=== PATIENT | male | born 1955 | race Caucasian/White ===

== ENCOUNTER 2017-01-29 14:15 | Observation (INO) | payer BC ==
[~2017-01-29] VITALS: Ht 188 cm; Wt 87.5 kg
[~2017-01-29 14:15] MED LIST: AC325T PO; ACET-2267 PO; ACET-2469 PO; ALPR0.5T PO; ALPR0.5T7 PO; ALPR1TAB2 PO; ALPR1TAB7 PO; AMLO5TAB2 PO; ASP325TEC PO; ASP81TEC PO; ATOR10TA PO; ATOR10TA66 PO; ATR20T PO; CLOP75TA PO; CLOP75TA28 PO; CYCL10TA9 PO; DEXT1TAB3 PO; EZET10TA5 PO; FLC1T PO; FOLI0.8T PO; HCT25T PO; IBUP-30 PO; MELA1TAB11 PO; METO-272 PO; METO25TA PO; NF-ESOM40C PO; NIAC1CAP PO; NIAC250T17 PO; NITR0.3T6 SL; NTR.4SL SL; OMEG-109 PO; OMG1KC PO; OXYC-272 PO; OXYC-465 PO; PANT20TA PO; PANT20TA2 PO; PANT20TA3 PO; PRAV80TA2 PO; RANO500T3 PO; ZLP10T PO; ZOLP10TA5 PO
[2017-01-29] MEDS ORDERED: ASPIRIN 81 MG CHEW (CHILDREN'S ASA) ONE (14:25)
[2017-01-29] MEDS ORDERED: RX-NITROGLYCERIN 0.4 MG TAB BTL 25'S SL PRN (14:30)
[2017-01-29] MEDS ORDERED: ASPIRIN 81 MG CHEW (CHILDREN'S ASA) PO ONE (14:30)
--- NOTE | 2017-01-29 14:30 | ED Chest Pain ---
General Stated Complaint: CHEST PAIN/TIGHTNESS Source: patient, family (spouse) Exam Limitations: no limitations History of Present Illness Time seen by provider: 14:23 Initial Comments Patient presents per private conveyance with 2-3 days of progressively worsening chest pressure and feeling of a tingling sensation in his left and right wrists as well as his left shoulder left neck and left jaw. He has had nausea without vomiting. He has no sweats. He has no thyroid or smoking history. He does have a history of prior stenosis of his coronary arteries requiring stents in the LAD a couple times. He is followed by cardiology, Dr. Hanna. He feels that this is the same way that progressively lead up to the last few times she had to be catheter and have stents placed. He's had no syncope. He does not drink or use recreational drugs. He is compliant with his medicines and has been off his Plavix since July when his suede cleaner stopped it. He still on aspirin and took 2 baby aspirins this morning. He does not have a history of blood pressure however he does use metoprolol for his heart. He denies a history of CHF. However he has had some increasing edema in his ankles bilaterally. No pain in his calves. Mild shortness of breath. No cough. Allergies and Home Medications Allergies Coded Allergies: No Known Drug Allergies (Unverified , 03/28/10) Home Medications Acetaminophen 500 Mg Tablet, 500-1,000 MG PO Q6H PRN for PAIN, (Reported) Acetaminophen/Diphenhydramine 1 Each Tablet, 2 TAB PO HS PRN for SLEEP, ( Reported) Alprazolam 0.5 Mg Tablet, 0.5 MG PO TID PRN for ANXIETY, (Reported) Amlodipine Besylate 5 Mg Tablet, 5 MG PO DAILY, (Reported) Aspirin 81 Mg Tabec, 81 MG PO HS, (Reported) Atorvastatin Calcium 10 Mg Tablet, 10 MG PO DAILY, (Reported) Clopidogrel Bisulfate 75 Mg Tablet, 75 MG PO DAILY, (Reported) Ibuprofen 200 Mg Tablet, 400 MG PO Q8H PRN for PAIN OR FEVER, (Reported) TAKES 2 (200MG) TABLETS Metoprolol Succinate 50 Mg Tab.er.24h, 50 MG PO HS, (Reported) Niacin/Inositol Niacinate 1 Each Capsule, 500 MG PO DAILY, (Reported) Nitroglycerin 0.4 Mg Tab, 0 SL UD PRN for CHEST PAIN, (Reported) 1 TABLET EVERY 5 MINUTES X 3 DOSES NEEDED FOR CHEST PAIN [place]-3 Fatty Acids/Fish Oil 1 Each Capsule, 1,200 MG PO HS, (Reported) Oxycodone HCl/Acetaminophen 1 Each Tablet, 1 TAB PO BID PRN for SEVERE PAIN, ( Reported) Pantoprazole Sodium 20 Mg Tablet.dr, 20 MG PO DAILY, (Reported) Pyridoxine/Melatonin 1 Tab Tablet, 3 MG PO HS PRN for SLEEP, (Reported) Ranolazine 500 Mg Tab.er.12h, 500 MG PO BID, #60 Ref 1 Prescribed by: LINA WALTON on 06/23/16 1600 Zolpidem Tartrate 10 Mg Tablet, 10 MG PO HS PRN for SLEEP, (Reported) Review of Systems Constitutional: see HPI, No chills, No diaphoresis, No dizziness, malaise EENTM: See HPI Respiratory: Denies Cough, Shortness of Air, SOA at Rest Cardiovascular: See HPI, Chest Pain, Edema (shania ankles) Gastrointestinal: Denies Abdomen Distended, Denies Abdominal Pain, Nausea, Denies Vomiting Musculoskeletal: No back pain, No joint pain Skin: No pruritus, No rash Psychiatric/Neurological: Denies Anxiety, Denies Depressed Endocrine: Denies Excessive Sweating, Denies Flushing, Denies Intolerance to Cold, Denies Intolerance to Heat, Denies Increased Urine Hematologic/Lymphatic: Denies Blood Clots Past Wsmtyap-Cizvup-Ccteua Hx Patient Social History Alcohol Use: Denies Use Recreational Drug Use: No Smoking Status: Never a Smoker Recent Hopitalizations: No Seasonal Allergies Seasonal Allergies: Yes Surgeries HX Surgeries: Yes (CYST REMOVED FROM RIGHT HAND, CARDIAC CATHS--STENTS X 6 PLUS ANGIOPLASTIES) Surgeries: Adenoidectomy, Coronary Stent, Tonsillectomy Respiratory Hx Respiratory Disorders: No Cardiovascular Hx Cardiac Disorders: Yes Cardiac Disorders: Coronary Artery Disease, High Cholesterol, Hypertension Neurological Hx 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) Neurological Disorders: Headaches /Migraines Reproductive System Hx Reproductive Disorders: No Sexually Transmitted Disease: No HIV/AIDS: No Genitourinary Hx Genitourinary Disorders: No Gastrointestinal Hx Gastrointestinal Disorders: Yes Gastrointestinal Disorders: Gastroesophageal Reflux Musculoskeletal Hx Musculoskeletal Disorders: Yes Musculoskeletal Disorders: Degenerate Disk Disease, Chronic Back Pain Endocrine Hx Endocrine Disorders: No HEENT HX ENT Disorders: No Loss of Vision: Denies Hearing Impairment: Denies Cancer Hx Cancer: No Psychosocial Hx Psychiatric Problems: Yes Behavioral Health Disorders: Anxiety Integumentary HX Skin/Integumentary Disorder: No Blood Transfusions Hx Blood Disorders: No Adverse Reaction to a Blood Tr: No Family Medical History Significant Family History: CAD Under 55 Years Old Family Medial History: Family history: Diabetes mellitus G8 BROTHER Myocardial infarction 19 FATHER Physical Exam Vital Signs Vital Sign - Last 12Hours 01/29/17 14:22 Temp 98.3 Pulse 55 Resp 18 B/P (MAP) 125/95 Pulse Ox 97 Capillary Refill : less than 2 secs General Appearance: WD/WN, Mild Distress HEENT: PERRL/EOMI, Pharynx Normal Neck: Normal Inspection, Supple Respiratory: Chest Non Tender, Lungs Clear, Normal Breath Sounds, No Accessory Muscle Use, No Respiratory Distress Cardiovascular: Regular Rate, Rhythm, No Gallop, No JVD, No Murmur, Normal Peripheral Pulses, Other (1+ pitting edema at the ankles) Gastrointestinal: Normal Bowel Sounds, No Pulsatile Mass, Non Tender, Soft Extremity: Normal Capillary Refill, Normal Inspection, Non Tender, No Calf Tenderness, Pedal Edema (1+) Neurologic/Psychiatric: Alert, Oriented x3, No Motor/Sensory Deficits, Normal Mood/Affect Skin: Normal Color, Warm/Dry Lymphatic: No Adenopathy Progress/Results/Core Measures Results/Orders Lab Results Laboratory Tests Test 01/29/17 14:25 Range/Units White Blood Count 6.6 4.3-11.0 10^3/uL Red Blood Count 5.30 4.35-5.85 10^6/uL Hemoglobin 16.1 13.3-17.7 G/DL Hematocrit 47 40-54 % Mean Corpuscular Volume 89 80-99 FL Mean Corpuscular Hemoglobin 30 25-34 PG Mean Corpuscular Hemoglobin Concent 34 32-36 G/DL Red Cell Distribution Width 13.5 10.0-14.5 % Platelet Count 217 130-400 10^3/uL Mean Platelet Volume 8.9 7.4-10.4 FL Neutrophils (%) (Auto) 62 42-75 % Lymphocytes (%) (Auto) 25 12-44 % Monocytes (%) (Auto) 10 0-12 % Eosinophils (%) (Auto) 3 0-10 % Basophils (%) (Auto) 0 0-10 % Neutrophils # (Auto) 4.2 1.8-7.8 X 10^3 Lymphocytes # (Auto) 1.7 1.0-4.0 X 10^3 Monocytes # (Auto) 0.6 0.0-1.0 X 10^3 Eosinophils # (Auto) 0.2 0.0-0.3 10^3/uL Basophils # (Auto) 0.0 0.0-0.1 10^3/uL Prothrombin Time 12.0 L 12.2-14.7 SEC INR Comment 0.9 0.8-1.4 Activated Partial Thromboplast Time 26 24-35 SEC Sodium Level 142 135-145 MMOL/L Potassium Level 4.1 3.6-5.0 MMOL/L Chloride Level 109 H 98-107 MMOL/L Carbon Dioxide Level 23 21-32 MMOL/L Anion Gap 10 5-14 MMOL/L Blood Urea Nitrogen 18 7-18 MG/DL Creatinine 1.15 0.60-1.30 MG/DL Estimat Glomerular Filtration Rate > 60 BUN/Creatinine Ratio 16 Glucose Level 106 H 70-105 MG/DL Calcium Level 8.8 8.5-10.1 MG/DL Magnesium Level 2.2 1.8-2.4 MG/DL Total Bilirubin 0.5 0.1-1.0 MG/DL Aspartate Amino Transf (AST/SGOT) 19 5-34 U/L Alanine Aminotransferase (ALT/SGPT) 19 0-55 U/L Alkaline Phosphatase 66 40-136 U/L Myoglobin 27.7 10.0-92.0 NG/ML Troponin I < 0.30 <0.30 NG/ML Total Protein 6.6 6.4-8.2 G/DL Albumin 4.0 3.2-4.5 G/DL My Orders Orders - SHAQ,BARBARA J Cbc With Automated Diff (01/29/17 14:30) Magnesium (01/29/17 14:30) Chest 1 View, Ap/Pa Only (01/29/17 14:30) Ekg Tracing (01/29/17 14:30) Cardiac Profile 1 (01/29/17 14:30) Comprehensive Metabolic Panel (01/29/17 14:30) Myoglobin Serum (01/29/17 14:30) Protime With Inr (01/29/17 14:30) Partial Thromboplastin Time (01/29/17 14:30) O2 (01/29/17 14:30) Monitor-Rhythm Ecg Trace Only (01/29/17 14:30) Lipid Panel (01/30/17 06:00) Rx-Nitroglycerin Sl Tabs (Rx-Nitrostat S (01/29/17 14:30) Saline Lock/Iv-Start (01/29/17 14:30) Aspirin Chewable Tablet (Baby Aspirin Ch (01/29/17 14:30) Acetaminophen Tablet (Tylenol Tablet) (01/29/17 14:53) Acetaminophen Tablet (Tylenol Tablet) (01/29/17 14:58) Medications Given in ED Current Medications Medications Dose Ordered Sig/Facundo Route Start Time Stop Time Status Last Admin Dose Admin Aspirin 81 mg STK-MED ONCE .ROUTE 01/29/17 14:25 01/29/17 14:30 DC 01/29/17 14:32 81 MG Vital Signs/I&O Vital Sign - Last 12Hours 01/29/17 14:22 Temp 98.3 Pulse 55 Resp 18 B/P (MAP) 125/95 Pulse Ox 97 Progress Note : Time: 14:34 Progress Note Reports he was told his aorta was fine on past imaging. No history of CHF every is having some edema and signs of possible ACS. Initial EKG was negative so and instead is still possible. We'll obtain x-rays and labs. We'll also consider since is having some mild shortness of breath the possibility of a pulmonary embolism as he is not on any blood thinners over the age of 60. He has no tenderness in his calves or signs of DVTs and he has no history of clots. Wells criteria is low suspicion for PE. ECG Initial ECG Impression Date: Jan 29, 2017 Initial ECG Impression Time: 14:21 Initial ECG Rate: 54 Initial ECG Rhythm: Normal Sinus Initial ECG Intervals: Normal Initial ECG Impression: Nonspecific Changes Initial ECG Comparisson: Unchanged Comment No evidence of Stemi Diagnostic Imaging Diagonstic Imaging: Xray Plain Films/CT/US/NM/MRI: chest Comments No acute cardiopulmonary processes noted. No mediastinal widening or tracheal shift. [facility] [place], [place] NAME: JOSE TORRES MED REC#: [id number] PT STATUS: REG ER : 1955 PHYSICIAN: BARBARA NEW MD ADMIT DATE: 01/29/17/ER Draft Date of Exam:01/29/17 CHEST 1 VIEW, AP/PA ONLY INDICATION: Shortness of breath EXAMINATION: Portable chest at 2:37 PM Heart size and pulmonary vascularity are normal. Lungs are clear. There are no effusions or pneumothoraces. IMPRESSION: Negative chest. Dictated on workstation # [id number] Dict: 01/29/17 1448 Trans: 01/29/17 1450 [facility] [id number] Interpreted by: AISLINN CASTILLO Electronically signed by: Departure Communication Time/Spoke to Admitting Phy: 15:[address] Walton was spoken to and he agreed to bring the patient in on observation status with chest pain protocol and will see the patient. Impression Impression: Primary Impression: Chest discomfort Additional Impression: Hx of coronary artery disease Disposition: ADMITTED INPATIENT (obs) Condition: Stable Decision to Admit Reason: Admit from ER (General) Decision to Admit/Date: Jan 29, 2017 Time/Decision to Admit Time: 15:22 Departure-Patient Inst. Referrals: LEAH MONCADA DO (PCP/Family) Primary Care Physician Copy Copies To 1: LEAH MONCADA TITUS J Jan 29, 2017 14:30
[2017-01-29 14:38] LABS: BASOPHILS % (AUTO) 0 % (0-10); EOSINOPHILS # (AUTO) 0.2 10^3/uL (0.0-0.3); EOSINOPHILS % (AUTO) 3 % (0-10); LYMPHOCYTES # (AUTO) 1.7 X 10^3 (1.0-4.0); LYMPHOCYTES % (AUTO) 25 % (12-44); MEAN CORPUSCULAR HEMOGLOBIN 30 PG (25-34); MEAN CORPUSCULAR HGB CONC 34 G/DL (32-36); MEAN CORPUSCULAR VOLUME 89 FL (80-99); MEAN PLATELET VOLUME 8.9 FL (7.4-10.4); MONOCYTES # (AUTO) 0.6 X 10^3 (0.0-1.0); MONOCYTES % (AUTO) 10 % (0-12); NEUTROPHILS # (AUTO) 4.2 X 10^3 (1.8-7.8); NEUTROPHILS % (AUTO) 62 % (42-75); PLATELET COUNT 217 10^3/uL (130-400); RED CELL DISTRIBUTION WIDTH 13.5 % (10.0-14.5); WHITE BLOOD COUNT 6.6 10^3/uL (4.3-11.0)
[2017-01-29 14:42] LABS: INR 0.9 (0.8-1.4)
--- NOTE | 2017-01-29 14:50 | Diagnostic Imaging Report ---
INDICATION: Shortness of breath EXAMINATION: Portable chest at 2:37 PM Heart size and pulmonary vascularity are normal. Lungs are clear. There are no effusions or pneumothoraces. IMPRESSION: Negative chest. Dictated by: Dictated on workstation # [id number]
[2017-01-29 14:51] LABS: ALANINE AMINOTRANSFERASE 19 U/L (0-55); ANION GAP 10 MMOL/L (5-14); ASPARTATE AMINO TRANSFERASE 19 U/L (5-34); BILIRUBIN,TOTAL 0.5 MG/DL (0.1-1.0); BLOOD UREA NITROGEN 18 MG/DL (7-18); BUN/CREATININE RATIO 16; CALCIUM 8.8 MG/DL (8.5-10.1); CARBON DIOXIDE 23 MMOL/L (21-32); CHLORIDE 109 MMOL/L (98-107); CREATININE SERUM 1.15 MG/DL (0.60-1.30); GFR ESTIMATED > 60; GLUCOSE 106 MG/DL (70-105); MAGNESIUM 2.2 MG/DL (1.8-2.4); POTASSIUM 4.1 MMOL/L (3.6-5.0); SODIUM 142 MMOL/L (135-145); TOTAL PROTEIN 6.6 G/DL (6.4-8.2)
[2017-01-29] MEDS ORDERED: ACETAMINOPHEN 500 MG TAB (TYLENOL) ONE (14:53)
[2017-01-29 14:58] LABS: MYOGLOBIN SERUM 27.7 NG/ML (10.0-92.0)
[2017-01-29] MEDS ORDERED: ACETAMINOPHEN 500 MG TAB (TYLENOL) PO STA (14:58)
--- NOTE | 2017-01-29 16:13 | Cardiology History & Physical ---
HPI-Cardiology Cardiology Consultation Date of Consultation 01/29/17 Date of Admission Time Seen by Provider: 16:08 Indication: chest pain HPI 61 years old gentleman with history of coronary artery disease multiple intervention the past underwent cardiac catheterization June due to recurrent chest pain and showed small vessel disease, treated conservatively, has been doing well until last week when he started having increasing chest pain with exertion shortness of breath, reported shortness of breath with minimal exertion has been occurring more recently. Denied any palpitation, syncope or near syncopal episodes, today he was fairly concerned about his condition came to the emergency room for evaluation, upper my evaluation he reported that he has been feeling better since arriving, had mild chest discomfort, no palpitation, no syncope. 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) Neurological Disorders: Headaches /Migraines Reproductive System Hx Reproductive Disorders: No Sexually Transmitted Disease: No HIV/AIDS: No Genitourinary Hx Genitourinary Disorders: No Gastrointestinal Hx Gastrointestinal Disorders: Yes Gastrointestinal Disorders: Gastroesophageal Reflux Musculoskeletal Hx Musculoskeletal Disorders: Yes Musculoskeletal Disorders: Degenerate Disk Disease, Chronic Back Pain Endocrine Hx Endocrine Disorders: No HEENT HX ENT Disorders: No Loss of Vision: Denies Hearing Impairment: Denies Cancer Hx Cancer: No Psychosocial Hx Psychiatric Problems: Yes Behavioral Health Disorders: Anxiety Integumentary HX Skin/Integumentary Disorder: No Blood Transfusions Hx Blood Disorders: No Adverse Reaction to a Blood Tr: No Other PMHx Other PMHx: Past medical history as discussed below Social History Patient Social History Marrital Status: Employed/Student: employed Alcohol Use: Denies Use Recreational Drug Use: No Smoking: Never smoker Dip or chew tobacco?: No Recent Foreign Travel: No Contact w/other who traveled: No Recent Infectious Disease Expo: No Family Hx Significant Family History: CAD Under 55 Years Old Family History: Family history: Diabetes mellitus G8 BROTHER Myocardial infarction 19 FATHER ROS-Cardiology Review of Systems Date Seen by Provider: Jan 29, 2017 Time Seen by Provider: 16:12 General: No Chills, No Night Sweats, No Fatigue, No Malaise, No Appetite HEENT: No Head Aches, No Visual Changes, No Eye Pain, No Ear Pain, No Dysphasia , No Sinus Congestion, No Post Nasal Drip, No Sore Throat Pulmonary: Dyspnea, No Cough, No Pleuritic Chest Pain Cardiovascular: Chest Pain, No: Edema, Lt Headedness, Orthopnea, Palpitations, Paroxysmal Noc. Dyspnea Gastrointestinal: No: Abdominal Pain, Constipation, Diarrhea, Hematochezia, Melena, Nausea, Vomiting Genitourinary: No Dysuria, No Frequency, No Incontinence, No Hematuria, No Retention Musculoskeletal: No: arm pain, back pain, foot pain, hand pain, leg pain, neck pain, shoulder pain Neurological: No: Change in speech, Confusion, Incoordination, Numbness, Seizures, Weakness Home Medications & Allergies Allergies: Coded Allergies: No Known Drug Allergies (Unverified , 03/28/10) Home Medication List Reviewed: Yes Exam-Cardiology Vital Signs Vital Signs Date Time Temp Pulse Resp B/P (MAP) Pulse Ox O2 Delivery O2 Flow Rate FiO2 01/29/17 14:22 98.3 55 18 125/95 97 Exam General Appearance: Alert, Oriented X3, Cooperative, No Acute Distress HEENT: Atraumatic, PERRLA Respiratory: Clear to Auscultation, Normal Air Movement Cardiovascular: Regular Rate, Normal S1, Normal S2, No Murmurs Abdominal: Normal Bowel Sounds, Soft, No Tenderness, No Hepatosplenomegaly, No Masses Extremities: No Clubbing, No Cyanosis, No Edema, Normal Pulses, No Tenderness/ Swelling Skin: No Rashes, No Breakdown, No Significant Lesion Neuro: Normal Gait, Normal Speech, Strength at 5/5 X4 Ext, Normal Tone, Sensation Intact Psych/Mental Status: Mental Status NL, Mood NL Results Labs Labs Laboratory Tests 01/29/17 14:25: White Blood Count 6.6, Red Blood Count 5.30, Hemoglobin 16.1, Hematocrit 47, Mean Corpuscular Volume 89, Mean Corpuscular Hemoglobin 30, Mean Corpuscular Hemoglobin Concent 34, Red Cell Distribution Width 13.5, Platelet Count 217, Mean Platelet Volume 8.9, Neutrophils (%) (Auto) 62, Lymphocytes (%) (Auto) 25, Monocytes (%) (Auto) 10, Eosinophils (%) (Auto) 3, Basophils (%) (Auto) 0, Neutrophils # (Auto) 4.2, Lymphocytes # (Auto) 1.7, Monocytes # (Auto) 0.6, Eosinophils # (Auto) 0.2, Basophils # (Auto) 0.0, Prothrombin Time 12.0L, INR Comment 0.9, Activated Partial Thromboplast Time 26, Sodium Level 142, Potassium Level 4.1, Chloride Level 109H, Carbon Dioxide Level 23, Anion Gap 10 , Blood Urea Nitrogen 18, Creatinine 1.15, Estimat Glomerular Filtration Rate > 60, BUN/Creatinine Ratio 16, Glucose Level 106H, Calcium Level 8.8, Magnesium Level 2.2, Total Bilirubin 0.5, Aspartate Amino Transf (AST/SGOT) 19, Alanine Aminotransferase (ALT/SGPT) 19, Alkaline Phosphatase 66, Myoglobin 27.7, Troponin I < 0.30, Total Protein 6.6, Albumin 4.0 A/P-Cardiology Admission Diagnosis Chest pain nonspecific etiology Coronary artery disease Hypertension Hyperlipidemia Headache Assessment/Plan Chest pain resembling angina,shortness of breath with exertion, worsening recently. EKG did not show any acute abnormality, cardiac enzymes were negative , I proceeded with exercise stress echo, patient was able to exercise for 11 minutes on standard Logan protocol with normal echocardiographic images and normal blood pressure response. I reassured him at this time. Coronary artery disease, multiple intervention. Had 2 stents in the LAD cipher 2.5x8 proximally 2.5x28 Mid. Then had balloon angioplasty for in-stent restenosis, had another stent placed in the LAD by Dr. Blake in 2011. Report of that procedure is not available. In addition patient had a stent to the diagonal artery using Promus to 2.25 X 12 mm and a stent in the right coronary artery Promus 3.0x18 mm. cardiac catheterization was done in June 2015 had May stent deployment using 2.2512 mm Promus Premier expanded to 2.5. date cardiac catheterization was done in June 2016 showing patent stents with small vessel disease nonobstructive disease. Hypertension, blood pressure is well controlled at this time, I will discontinue amlodipine and continue on Toprol and monitor closely Hyperlipidemia, restart Crestor and monitor closely History of intolerance to isosorbide causing headache Headache, patient is having active headache. We will use Motrin and evaluate tolerance Clinical Quality Measures AMI/AHF: ASA po Prior to arrival: Yes (162MG TAKEN AT HOME) LINA PARIS MD Jan 29, 2017 16:13
[2017-01-29] MEDS ORDERED: PATIENT MAY USE OWN MEDS, ALL PO SCH (16:15)
[2017-01-29] MEDS ORDERED: NITROGLYCERIN SUBLINGUAL 0.4 MG TAB (NITROSTAT) SL PRN (16:30)
[2017-01-29] MEDS ORDERED: CATHETER FLUSH 10 ML SYR IV PRN (17:15)
[2017-01-29] MEDS ORDERED: FONDAPARINUX 2.5 MG (ARIXTRA) SYR NON-FORMULARY SQ SCH (17:30)
[2017-01-29] MEDS ORDERED: ROSU5TAB9 PO (17:44)
[2017-01-29] MEDS ORDERED: morphine INJ 4 MG/ML 1 ML (VIAL/SYRINGE) IV PRN (17:45)
[2017-01-29] MEDS: IBUPROFEN 600 MG (MOTRIN) TAB PO PRN (17:56)
[2017-01-29 20:00] VITALS: BP 130/84
[2017-01-29] MEDS: RANOLAZINE ER 500 MG TAB (RANEXA) PO SCH (20:38)
[2017-01-29] MEDS: CATHETER FLUSH 10 ML SYR IV SCH (20:42)
[2017-01-29] MEDS ORDERED: ROSUVASTATIN 5 MG (CRESTOR) TABLET PO SCH (21:00)
[2017-01-30] VITALS: BP 124/88
[2017-01-30 04:00] VITALS: BP 100/76
[2017-01-30 04:00] LABS: RED BLOOD COUNT 4.96 10^6/uL (4.35-5.85); RED CELL DISTRIBUTION WIDTH 13.3 % (10.0-14.5)
[2017-01-30 04:28] LABS: ALANINE AMINOTRANSFERASE 16 U/L (0-55); ALBUMIN 3.5 G/DL (3.2-4.5); ANION GAP 10 MMOL/L (5-14); ASPARTATE AMINO TRANSFERASE 15 U/L (5-34); BILIRUBIN,TOTAL 0.6 MG/DL (0.1-1.0); BLOOD UREA NITROGEN 16 MG/DL (7-18); BUN/CREATININE RATIO 16; CALCIUM 8.1 MG/DL (8.5-10.1); CARBON DIOXIDE 22 MMOL/L (21-32); CHLORIDE 109 MMOL/L (98-107); CREATININE SERUM 0.99 MG/DL (0.60-1.30); GFR ESTIMATED > 60; GLUCOSE 97 MG/DL (70-105); POTASSIUM 3.7 MMOL/L (3.6-5.0); SODIUM 141 MMOL/L (135-145); TOTAL PROTEIN 5.7 G/DL (6.4-8.2)
[2017-01-30 04:29] LABS: CHOLESTEROL 127 MG/DL (< 200); DIRECT LDL 74 MG/DL (1-129); TRIGLYCERIDES 86 MG/DL (<150); VLDL CHOLESTEROL 17 MG/DL (5-40)
[2017-01-30 04:47] LABS: TROPONIN I < 0.30 NG/ML (<0.30)
[2017-01-30] MEDS ORDERED: PANTOPRAZOLE 40 MG (PROTONIX) TAB PO SCH (07:00)
[2017-01-30] MEDS: CATHETER FLUSH 10 ML SYR IV SCH (07:12)
[2017-01-30] MEDS: IBUPROFEN 600 MG (MOTRIN) TAB PO PRN (07:13)
[2017-01-30 08:00] VITALS: BP 116/72
[2017-01-30] MEDS ORDERED: ASPIRIN E.C. 81 MG (ECOTRIN) TAB PO SCH (09:00)
[2017-01-30] MEDS ORDERED: lisINopril 5 MG (PRINIVIL) TABLET PO SCH (09:00)
[2017-01-30] MEDS: RANOLAZINE ER 500 MG TAB (RANEXA) PO SCH (09:10)
[2017-01-30] MEDS ORDERED: oxyCODONE/APAP 5/325MG (PERCOCET 5) TABLET PO NR (10:28)
--- NOTE | 2017-01-30 11:21 | Cardiology Progress Note ---
Subjective Date Seen by Provider: Jan 30, 2017 Time Seen by Provider: 11:19 Subjective/Events-last exam patient is laying down in bed, feeling better, still having significant headache. Did not improve with ibuprofen. In, did well on the treadmill. Review of Systems General: No Chills, No Night Sweats, No Fatigue, No Malaise, No Appetite, Other (headache) HEENT: No Head Aches, No Visual Changes, No Eye Pain, No Ear Pain, No Dysphasia , No Sinus Congestion, No Post Nasal Drip, No Sore Throat, No Other Pulmonary: No Dyspnea, No Cough, No Pleuritic Chest Pain, No Other Cardiovascular: No: Chest Pain, Edema, Lt Headedness, Orthopnea, Other, Palpitations, Paroxysmal Noc. Dyspnea Gastrointestinal: No: Abdominal Pain, Constipation, Diarrhea, Hematochezia, Melena, Nausea, Other, Vomiting Objective-Cardiology Exam Last Set of Vital Signs Vital Signs Capillary Refill : Less Than 3 Seconds I&O Bad tableGeneral: Alert, Oriented X3, Cooperative, No Acute Distress HEENT: Atraumatic, PERRLA Lungs: Clear to Auscultation, Normal Air Movement Heart: Regular Rate, Normal S1, Normal S2, No Murmurs Abdomen: Normal Bowel Sounds, Soft, No Tenderness, No Hepatosplenomegaly, No Masses Extremities: No Clubbing, No Cyanosis, No Edema, Normal Pulses, No Tenderness/ Swelling Skin: No Rashes, No Breakdown, No Significant Lesion Neuro: Normal Gait, Normal Speech, Strength at 5/5 X4 Ext, Normal Tone, Sensation Intact Psych/Mental Status: Mental Status NL, Mood NL Results Lab Laboratory Tests 01/29/17 14:25 01/30/17 03:20 A/P-Cardiology Admission Diagnosis Chest pain nonspecific etiology Coronary artery disease Hypertension Hyperlipidemia Headache Assessment/Plan Chest pain, nonspecific etiology, exercise stress test did not show any ischemia or infarction, patient was able to exercise for 11 minutes and 30 seconds with no EKG changes or echocardiographic images abnormality. Continue to monitor, reassured, we'll discharge home. Recurrent headache. Patient was having sinus headache instructed on taking Claritin and Advil, if headache persisted I referred him back to his primary care physician. I instructed him to discontinue amlodipine. Coronary artery disease, multiple intervention. Had 2 stents in the LAD cipher 2.5x8 proximally 2.5x28 Mid. Then had balloon angioplasty for in-stent restenosis, had another stent placed in the LAD by Dr. Blake in 2011. Report of that procedure is not available. In addition patient had a stent to the diagonal artery using Promus to 2.25 X 12 mm and a stent in the right coronary artery Promus 3.0x18 mm. cardiac catheterization was done in June 2015 had May stent deployment using 2.2512 mm Promus Premier expanded to 2.5, cardiac catheterization was done in June 2016 showing patent stents with small vessel disease nonobstructive disease.continue to monitor Hypertension, good control at this time, continue to monitor without amlodipine. Hyperlipidemia, monitor lipids as an outpatient History of intolerance to isosorbide causing headache Headache, patient is having active headache. We will use Motrin and evaluate tolerance Clinical Quality Measures AMI/AHF: ASA po Prior to arrival: Yes (162MG TAKEN AT HOME) DVT/VTE Risk/Contraindication: Risk Factor Score Per Nursin RFS Level Per Nursing on Admit: 2=Moderate LINA PARIS MD Jan 30, 2017 11:21
--- NOTE | 2017-01-30 11:21 | Clinic Account Progress/Dx ---
Clinic Account Progress/Dx DIAGNOSIS: Date Seen by Provider: Jan 30, 2017 Time Seen by Provider: 11:21 Diagnosis chest pain nonspecific etiology Coronary artery disease Hypertension Hyperlipidemia LINA PARIS MD Jan 30, 2017 11:21
[2017-01-30 12:48] VITALS: BP 116/72
--- NOTE | 2017-01-31 15:50 | STRESS TEST ---
DATE OF SERVICE: 01/29/2017 EXERCISE STRESS ECHOCARDIOGRAM REFERRING PHYSICIAN: Dr. Howell. Baseline heart rate is 52. Baseline blood pressure 127/82. Baseline EKG is sinus rhythm with no ischemic changes. In summary, the patient started exercising with the baseline heart rate, blood pressure and EKG mentioned above. He was able to exercise for a total of 11 minutes on standard Logan protocol, achieving maximum heart rate of 137, which is 85% of maximum expected heart rate. With peak exercise level, blood pressure was 145/80. EKG was showing no ischemic changes. During recovery, patient had occasional PVCs and ventricular bigeminy. Late in recovery, heart rate returned to normal. Blood pressure at peak was 145/80. Echocardiographic images were acquired and reviewed in the parasternal long axis, parasternal short axis, apical four chamber and apical two chamber views. Review of the images showed normal left ventricular size with normal contractility at rest and with peak stress level with no ischemic changes. CONCLUSION: 1. Excellent exercise tolerance. A total of 11 minutes on standard Logan protocol, total of 12.8 mets, achieving 85% of maximum expected heart rate. 2. Slow rising heart rate during exercise, occasional PVCs and ventricular bigeminy noted during recovery. 3. No EKG changes suggestive of ischemia. 4. Normal echocardiographic images at rest and with peak stress level with no ischemic changes. Job ID: [id number] DocumentID: [id number] Dictated Date: 01/31/2017 11:30:31 County Administrator Date: 01/31/2017 11:57:42 Dictated By: LINA PARIS MD
== END 2017-01-30 12:15 | disposition home or self-care (01) ==
LOC: EDUNIT# 14:15 → ER 14:17 → ICU 15:20
PROVIDERS: ADMIT Internal Medicine Cardiovascular Disease; ATTEND Internal Medicine Cardiovascular Disease
DX: R07.9 Chest pain, unspecified (principal); I25.10 Atherosclerotic heart disease of native coronary artery without angina pectoris; I10 Essential (primary) hypertension; E78.5 Hyperlipidemia, unspecified; R51 Headache; R06.2 Wheezing; K21.9 Gastro-esophageal reflux disease without esophagitis; Z79.82 Long term (current) use of aspirin
CPT/HCPCS: 36415; 71010; 80053; 80061; 83735; 83874; 84443; 84484; 85025; 85027; 85610; 85730; 93005; 93041; 93351; G0378

== ENCOUNTER 2017-06-25 20:18 | Day surgery (SDC) | payer BC ==
[~2017-06-25] VITALS: Ht 188 cm; Wt 93.6 kg
[~2017-06-25 20:18] MED LIST changes: +METO-370 PO; +ROSU5TAB9 PO
[2017-06-25] MEDS ORDERED: ASPIRIN 81 MG CHEW (CHILDREN'S ASA) PO ONE (20:30)
[2017-06-25] MEDS ORDERED: NITROGLYCERIN 0.4 MG SL TABS BTL 25'S SL PRN ×2 (20:30→23:45)
[2017-06-25 20:32] LABS: BASOPHILS % (AUTO) 0 % (0-10); EOSINOPHILS # (AUTO) 0.3 10^3/uL (0.0-0.3); EOSINOPHILS % (AUTO) 3 % (0-10); LYMPHOCYTES # (AUTO) 1.6 X 10^3 (1.0-4.0); LYMPHOCYTES % (AUTO) 18 % (12-44); MEAN CORPUSCULAR HEMOGLOBIN 31 PG (25-34); MEAN CORPUSCULAR HGB CONC 34 G/DL (32-36); MEAN CORPUSCULAR VOLUME 90 FL (80-99); MEAN PLATELET VOLUME 8.8 FL (7.4-10.4); MONOCYTES # (AUTO) 0.8 X 10^3 (0.0-1.0); MONOCYTES % (AUTO) 9 % (0-12); NEUTROPHILS # (AUTO) 6.1 X 10^3 (1.8-7.8); NEUTROPHILS % (AUTO) 70 % (42-75); PLATELET COUNT 224 10^3/uL (130-400); RED BLOOD COUNT 5.26 10^6/uL (4.35-5.85); RED CELL DISTRIBUTION WIDTH 13.4 % (10.0-14.5); WHITE BLOOD COUNT 8.7 10^3/uL (4.3-11.0)
--- NOTE | 2017-06-25 20:36 | ED Chest Pain ---
General Chief Complaint: Chest Pain Stated Complaint: CP Nursing Triage Note: PT REPORTS CHEST PAIN THAT BEGAN AT APPROX 1800 WHEN HE WAS WALKING ON THE TREADMILL. HE C/O NAUSEA WITHOUT VOMITING, DYSPNEA. 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 Nursing Sepsis Screen: No Definite Risk Source: patient History of Present Illness Time seen by provider: 20:25 Initial Comments PT ARRIVES VIA POV FROM HOME PT STATES HE HAD BEEN ON THE TREADMILL FOR 35 MINUTES, AND BEGAN HAVING CHEST PAIN, SHORTNESS OF BREATH, NAUSEA, ARMS FELT VERY HEAVY SYMPTOMS BEGAN AROUND 1830--STATES HE WAS "TAKING IT EASY" AND "NOT PUSHING IT" --PT IS NORMALLY VERY ACTIVE AND RUNS ON A REGULAR BASIS, EATS HEALTHY AND DOES NOT SMOKE OR DRINK TOOK 2 BABY ASPIRIN AND NTG SL X 2 AT 1900 PAIN WAS 7/10 AND IS NOW 5/10 AFTER NTG--STATES IS STILL "AN EXTREME DISCOMFORT " IN HIS MID /LOWER CHEST STATES BOTH ARMS DON'T FEEL HEAVY BUT FEEL SLIGHTLY TINGLY NOW NO SWEATS NO SWELLING OF LEGS/ FEET OR PAIN IN CALVES PT HAS HX OF EXTENSIVE CAD BUT NO NV--HAS HAD 6 STENTS PLUS ANGIOPLASTIES LAST CARDIAC CATH WAS 06/23/2016--MILD TO MODERATE NON-OCCLUSIVE DISEASE WITH PATENT STENTS LAST STRESS TEST + STRESS ECHO WAS 01/29/17--EXCELLENT EXERCISE TOLERANCE WITHOUT ANY ISCHEMIC CHANGES SAW DR. PARIS 2 WEEKS AGO FOR ROUTINE EXAM PCP: DR. MONCADA OIL RAG WASHER: DR. PARIS Allergies and Home Medications Allergies Coded Allergies: No Known Drug Allergies (Unverified , 03/28/10) Home Medications Acetaminophen 500 Mg Tablet, 500-1,000 MG PO Q6H PRN for PAIN, (Reported) Acetaminophen/Diphenhydramine 1 Each Tablet, 2 TAB PO HS PRN for SLEEP, ( Reported) Alprazolam 0.5 Mg Tablet, 1 MG PO TID PRN for ANXIETY, (Reported) Aspirin 81 Mg Tabec, 81 MG PO HS, (Reported) Ibuprofen 200 Mg Tablet, 400 MG PO Q8H PRN for PAIN OR FEVER, (Reported) TAKES 2 (200MG) TABLETS Metoprolol Succinate 50 Mg Tab.er.24h, 50 MG PO HS, (Reported) Niacin/Inositol Niacinate 1 Each Capsule, 500 MG PO DAILY, (Reported) Nitroglycerin 0.4 Mg Tab, 0 SL UD PRN for CHEST PAIN, (Reported) 1 TABLET EVERY 5 MINUTES X 3 DOSES NEEDED FOR CHEST PAIN [place]-3 Fatty Acids/Fish Oil 1 Each Capsule, 1,200 MG PO HS, (Reported) Oxycodone HCl/Acetaminophen 1 Each Tablet, 1 TAB PO BID PRN for SEVERE PAIN, ( Reported) Pantoprazole Sodium 20 Mg Tablet.dr, 20 MG PO DAILY, (Reported) Pyridoxine/Melatonin 1 Tab Tablet, 3 MG PO HS PRN for SLEEP, (Reported) Ranolazine 500 Mg Tab.er.12h, 500 MG PO BID, #60 Ref 1 Prescribed by: LINA PARIS on 06/23/16 1600 Rosuvastatin Calcium 5 Mg Tablet, 5 MG PO HS, (Reported) Zolpidem Tartrate 10 Mg Tablet, 10 MG PO HS PRN for SLEEP, (Reported) Review of Systems Constitutional: no symptoms reported Respiratory: See HPI, Shortness of Air, SOA With Exertion Cardiovascular: See HPI, Chest Pain, Denies Edema, Denies Irregular Heart Rate , Denies Lightheadedness, Denies Palpitations, Denies Syncope Gastrointestinal: See HPI, Denies Abdominal Pain, Nausea, Denies Vomiting Genitourinary: No Symptoms Reported Musculoskeletal: see HPI Skin: no symptoms reported Psychiatric/Neurological: See HPI, Tingling Endocrine: No Symptoms Reported Hematologic/Lymphatic: No Symptoms Reported Past Bxmjkoe-Mjptpy-Kkvddt Hx Patient Social History Alcohol Use: Denies Use Recreational Drug Use: No Smoking Status: Never a Smoker 2nd Hand Smoke Exposure: No Recent Foreign Travel: No Contact w/Someone Who Travel: No Recent Infectious Disease Expo: No Recent Hopitalizations: No Physical Abuse: No Sexual Abuse: No Seasonal Allergies Seasonal Allergies: Yes Surgeries History of Surgeries: Yes (CYST REMOVED FROM RIGHT HAND, CARDIAC CATHS--STENTS X 6 PLUS ANGIOPLASTIES) Surgeries: Adenoidectomy, Cardiac, Coronary Stent, Tonsillectomy Respiratory History of Respiratory Disorde: No Currently Using CPAP: No Currently Using BIPAP: No Cardiovascular History of Cardiac Disorders: Yes (HEART RATE IS ALWAYS LOW--PT IS A RUNNER PLUS TAKES BETA BLOCKERS) Cardiac Disorders: Coronary Artery Disease, High Cholesterol, Hypertension Neurological History 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) Neurological Disorders: Headaches /Migraines Reproductive System Hx Reproductive Disorders: No Sexually Transmitted Disease: No HIV/AIDS: No Genitourinary History of Genitourinary Disor: No Gastrointestinal History of Gastrointestinal Di: Yes Gastrointestinal Disorders: Gastroesophageal Reflux Musculoskeletal History of Musculoskeletal Dis: Yes Musculoskeletal Disorders: Degenerate Disk Disease, Chronic Back Pain Endocrine History of Endocrine Disorders: No HEENT History of HEENT Disorders: No (T&A) HEENT Disorders: Tonsilitis Loss of Vision: Denies Hearing Impairment: Denies Cancer History of Cancer: No Psychosocial History of Psychiatric Problem: Yes Behavioral Health Disorders: Anxiety Suicide Risk Score: 0 Integumentary History of Skin or Integumenta: No Blood Transfusions History of Blood Disorders: No Adverse Reaction to a Blood Tr: No Family Medical History Significant Family History: CAD Under 55 Years Old Family Medial History: Family history: Diabetes mellitus G8 BROTHER Myocardial infarction 19 FATHER Physical Exam Vital Signs Vital Sign - Last 12Hours 06/25/17 20:25 O2 Flow Rate 2.00 Capillary Refill : Less Than 3 Seconds General Appearance: No Apparent Distress, WD/WN HEENT: PERRL/EOMI Neck: Full Range of Motion, Normal Inspection, Non Tender, Supple, No Carotid Bruit, No JVD Respiratory: Chest Non Tender, Normal Breath Sounds, No Accessory Muscle Use, No Respiratory Distress Cardiovascular: Regular Rate, Rhythm, No Edema, No JVD, No Murmur, Normal Peripheral Pulses Gastrointestinal: Normal Bowel Sounds, No Organomegaly, No Pulsatile Mass, Non Tender, Soft Extremity: Normal Capillary Refill, Normal Inspection, Normal Range of Motion, Non Tender, No Calf Tenderness, No Pedal Edema Neurologic/Psychiatric: Alert, Oriented x3, No Motor/Sensory Deficits, Normal Mood/Affect, patient financial representative II-XII Norm as Tested Skin: Normal Color, Warm/Dry Progress/Results/Core Measures Results/Orders Lab Results Laboratory Tests Test 06/25/17 20:20 Range/Units White Blood Count 8.7 4.3-11.0 10^3/uL Red Blood Count 5.26 4.35-5.85 10^6/uL Hemoglobin 16.1 13.3-17.7 G/DL Hematocrit 47 40-54 % Mean Corpuscular Volume 90 80-99 FL Mean Corpuscular Hemoglobin 31 25-34 PG Mean Corpuscular Hemoglobin Concent 34 32-36 G/DL Red Cell Distribution Width 13.4 10.0-14.5 % Platelet Count 224 130-400 10^3/uL Mean Platelet Volume 8.8 7.4-10.4 FL Neutrophils (%) (Auto) 70 42-75 % Lymphocytes (%) (Auto) 18 12-44 % Monocytes (%) (Auto) 9 0-12 % Eosinophils (%) (Auto) 3 0-10 % Basophils (%) (Auto) 0 0-10 % Neutrophils # (Auto) 6.1 1.8-7.8 X 10^3 Lymphocytes # (Auto) 1.6 1.0-4.0 X 10^3 Monocytes # (Auto) 0.8 0.0-1.0 X 10^3 Eosinophils # (Auto) 0.3 0.0-0.3 10^3/uL Basophils # (Auto) 0.0 0.0-0.1 10^3/uL Prothrombin Time 11.9 L 12.2-14.7 SEC INR Comment 0.9 0.8-1.4 Activated Partial Thromboplast Time 26 24-35 SEC Sodium Level 143 135-145 MMOL/L Potassium Level 3.8 3.6-5.0 MMOL/L Chloride Level 107 98-107 MMOL/L Carbon Dioxide Level 27 21-32 MMOL/L Anion Gap 9 5-14 MMOL/L Blood Urea Nitrogen 19 H 7-18 MG/DL Creatinine 0.93 0.60-1.30 MG/DL Estimat Glomerular Filtration Rate > 60 BUN/Creatinine Ratio 20 Glucose Level 104 70-105 MG/DL Calcium Level 8.7 8.5-10.1 MG/DL Total Bilirubin 0.4 0.1-1.0 MG/DL Aspartate Amino Transf (AST/SGOT) 19 5-34 U/L Alanine Aminotransferase (ALT/SGPT) 25 0-55 U/L Alkaline Phosphatase 77 40-136 U/L Total Creatine Kinase 33 30-200 U/L Creatine Kinase MB 1.0 <6.6 NG/ML Troponin I < 0.30 <0.30 NG/ML B-Type Natriuretic Peptide < 10.0 <100.0 PG/ML Total Protein 6.7 6.4-8.2 GM/DL Albumin 4.1 3.2-4.5 GM/DL Amylase Level 38 25-125 U/L Lipase 29 8-78 U/L My Orders Orders - [facility] ARTEAGA DO Amylase (06/25/17 20:25) Cbc With Automated Diff (06/25/17 20:25) Comprehensive Metabolic Panel (06/25/17 20:25) Creatine Kinase (06/25/17 20:25) Creatine Kinase Mb (06/25/17 20:25) Lipase (06/25/17 20:25) Partial Thromboplastin Time (06/25/17 20:25) Protime With Inr (06/25/17 20:25) Troponin I (06/25/17 20:25) Chest 1 View, Ap/Pa Only (06/25/17 20:25) O2 (06/25/17 20:25) Ekg Tracing (06/25/17 20:25) Aspirin Chewable Tablet (Baby Aspirin Ch (06/25/17 20:30) BNP (06/25/17 20:25) Monitor-Rhythm Ecg Trace Only (06/25/17 20:25) Saline Lock/Iv-Start (06/25/17 20:25) Nitroglycerin 0.4 Mg Btl 25's (Nitrostat (06/25/17 20:30) Acetaminophen Tablet (Tylenol Tablet) (06/25/17 21:30) Saline Lock/Iv-Start (06/25/17 21:22) Ns Iv 1000 Ml (Sodium Chloride 0.9%) (06/25/17 21:22) Medications Given in ED Current Medications Medications Dose Ordered Sig/Facundo Route Start Time Stop Time Status Last Admin Dose Admin Acetaminophen 1,000 mg ONCE ONCE PO 06/25/17 21:30 06/25/17 21:31 DC 06/25/17 21:30 1,000 MG Aspirin 162 mg ONCE ONCE PO 06/25/17 20:30 06/25/17 20:31 DC 06/25/17 20:35 162 MG Nitroglycerin 1 TAB Q 5 MIN X 3 NEEDED PRN SL 06/25/17 20:30 06/25/17 23:33 DC 06/25/17 20:35 0.4 MG Sodium Chloride 1,000 ml @ 0 mls/hr Q0M ONCE IV 06/25/17 21:22 06/25/17 21:24 DC 06/25/17 21:30 0 MLS/HR Vital Signs/I&O Vital Sign - Last 12Hours 06/25/17 06/25/17 06/25/17 20:20 20:20 20:25 Temp 97.1 Pulse 64 Resp 16 B/P (MAP) 133/91 Pulse Ox 96 98 O2 Delivery Room Air Room Air Nasal Cannula O2 Flow Rate 2.00 Blood Pressure Mean: 105 Progress Note : Progress Note PAIN EASED WITH NTG X 2 IN ER NO DETERIORATION IN PT'S CONDITION DURING ER STAY ECG Initial ECG Impression Time: 20:16 Initial ECG Rate: 61 Initial ECG Rhythm: Normal Sinus Initial ECG Impression: Normal Initial ECG Comparisson: Unchanged Diagnostic Imaging Comments CXR--NO ACUTE PROCESS, PER RADIOLOGIST REPORT @ 2049 Reviewed: Reviewed by Me Departure Communication (Admissions) Progress Notes 2123--SPOKE WITH DR. MONCADA, ACCEPTS PT FOR ADMIT.WOULD LIKE DR. BARNES CONSULTED 2129--SPOKE WITH DR. BARNES FOR CARDIOLOGY CONSULT. ORDERS FOR PLAVIX AND FENTANYL NOTED. Impression Impression: Primary Impression: Chest pain Additional Impression: Hx of coronary artery disease Disposition: ADMITTED INPATIENT Condition: Improved Admissions Decision to Admit Reason: Admit from ER (General) Decision to Admit/Date: Jun 25, 2017 Time/Decision to Admit Time: 21:30 Departure-Patient Inst. Referrals: LEAH MONCADA DO (PCP/Family) Primary Care Physician [facility] ARTEAGA DO Jun 25, 2017 20:36
[2017-06-25 20:38] LABS: INR 0.9 (0.8-1.4); PROTHROMBIN TIME PATIENT 11.9 SEC (12.2-14.7)
--- NOTE | 2017-06-25 20:44 | Diagnostic Imaging Report ---
INDICATION: Chest pain radiating down both arms EXAMINATION: Chest 06/25/2017 Comparison made to 01/29/2017 FINDINGS: The right hemidiaphragm is elevated. The lungs demonstrate chronic change but no infiltrates or effusions are seen. There is no pneumothorax. There are possibly stents along the coronary arteries. The heart and the pulmonary vasculature appear unremarkable. There is a density in the left lung apex stable from previous imaging, perhaps calcified. IMPRESSION: 1. Chronic change. No acute process appreciated. Dictated by: Dictated on workstation # [id number]
[2017-06-25 20:49] LABS: ALANINE AMINOTRANSFERASE 25 U/L (0-55); ALBUMIN 4.1 GM/DL (3.2-4.5); AMYLASE 38 U/L (25-125); ANION GAP 9 MMOL/L (5-14); ASPARTATE AMINO TRANSFERASE 19 U/L (5-34); BILIRUBIN,TOTAL 0.4 MG/DL (0.1-1.0); BLOOD UREA NITROGEN 19 MG/DL (7-18); BUN/CREATININE RATIO 20; CALCIUM 8.7 MG/DL (8.5-10.1); CARBON DIOXIDE 27 MMOL/L (21-32); CHLORIDE 107 MMOL/L (98-107); CREATINE KINASE 33 U/L (30-200); CREATININE SERUM 0.93 MG/DL (0.60-1.30); GFR ESTIMATED > 60; GLUCOSE 104 MG/DL (70-105); LIPASE 29 U/L (8-78); POTASSIUM 3.8 MMOL/L (3.6-5.0); SODIUM 143 MMOL/L (135-145); TOTAL PROTEIN 6.7 GM/DL (6.4-8.2)
[2017-06-25 20:55] LABS: TROPONIN I < 0.30 NG/ML (<0.30)
[2017-06-25] MEDS ORDERED: NS IV 1000 ML 1,000 ML IV ONE (21:22)
[2017-06-25] MEDS ORDERED: ACETAMINOPHEN 500 MG TAB (TYLENOL) PO ONE (21:30)
[2017-06-25] MEDS ORDERED: CLOPIDOGREL 75 MG (PLAVIX) TABLET PO ONE (21:45)
[2017-06-25 22:30] VITALS: BP 104/71
[2017-06-25 22:45] VITALS: BP 104/71
[2017-06-25 23:00] VITALS: BP 99/68
[2017-06-25 23:15] VITALS: BP 109/72
[2017-06-25 23:30] VITALS: BP 112/70
[2017-06-25] MEDS ORDERED: NS IV 1000 ML 1,000 ML IV SCH (23:30)
[2017-06-25 23:45] VITALS: BP 108/70
[2017-06-25] MEDS ORDERED: fentaNYL INJECTION 100 MCG/2 ML AMP IV PRN (23:45)
[2017-06-26] VITALS (17 sets, daily range): BP systolic 101–129; BP diastolic 63–90
[2017-06-26 03:20] LABS: BASOPHILS % (AUTO) 0 % (0-10); EOSINOPHILS # (AUTO) 0.2 10^3/uL (0.0-0.3); EOSINOPHILS % (AUTO) 3 % (0-10); LYMPHOCYTES # (AUTO) 1.8 X 10^3 (1.0-4.0); LYMPHOCYTES % (AUTO) 25 % (12-44); MEAN CORPUSCULAR HEMOGLOBIN 30 PG (25-34); MEAN CORPUSCULAR HGB CONC 34 G/DL (32-36); MEAN CORPUSCULAR VOLUME 89 FL (80-99); MEAN PLATELET VOLUME 8.6 FL (7.4-10.4); MONOCYTES # (AUTO) 0.8 X 10^3 (0.0-1.0); MONOCYTES % (AUTO) 10 % (0-12); NEUTROPHILS # (AUTO) 4.5 X 10^3 (1.8-7.8); NEUTROPHILS % (AUTO) 62 % (42-75); PLATELET COUNT 186 10^3/uL (130-400); RED BLOOD COUNT 4.78 10^6/uL (4.35-5.85); RED CELL DISTRIBUTION WIDTH 13.2 % (10.0-14.5); WHITE BLOOD COUNT 7.4 10^3/uL (4.3-11.0)
[2017-06-26 03:38] LABS: ALANINE AMINOTRANSFERASE 19 U/L (0-55); ALBUMIN 3.3 GM/DL (3.2-4.5); ANION GAP 7 MMOL/L (5-14); ASPARTATE AMINO TRANSFERASE 16 U/L (5-34); BILIRUBIN,TOTAL 0.4 MG/DL (0.1-1.0); BLOOD UREA NITROGEN 19 MG/DL (7-18); BUN/CREATININE RATIO 23; CALCIUM 8.1 MG/DL (8.5-10.1); CARBON DIOXIDE 22 MMOL/L (21-32); CHLORIDE 110 MMOL/L (98-107); CHOLESTEROL 121 MG/DL (< 200); CREATININE SERUM 0.82 MG/DL (0.60-1.30); DIRECT LDL 70 MG/DL (1-129); GFR ESTIMATED > 60; GLUCOSE 132 MG/DL (70-105); POTASSIUM 3.5 MMOL/L (3.6-5.0); SODIUM 139 MMOL/L (135-145); TOTAL PROTEIN 5.3 GM/DL (6.4-8.2); TRIGLYCERIDES 154 MG/DL (<150); VLDL CHOLESTEROL 31 MG/DL (5-40)
[2017-06-26] MEDS ORDERED: OMG1KC PO (05:23)
[2017-06-26] MEDS ORDERED: OXYC-471 PO (05:26)
[2017-06-26] MEDS ORDERED: AMLO10TA4 PO (05:28)
[2017-06-26] MEDS ORDERED: IBUP1TAB14 PO (05:29)
[2017-06-26] MEDS ORDERED: ZOLPIDEM 5 MG (AMBIEN) TAB PO PRN (05:30)
[2017-06-26] MEDS ORDERED: IBUPROFEN TABLET 200 MG TAB PO PRN (05:30)
[2017-06-26] MEDS ORDERED: oxyCODONE/APAP 5/325MG (PERCOCET 5) TABLET PO PRN (05:30)
[2017-06-26] MEDS ORDERED: ALPRAZolam 0.5 MG (XANAX) TAB PO PRN (05:30)
[2017-06-26] MEDS ORDERED: ACETAMINOPHEN 500 MG TAB (TYLENOL) PO PRN (05:30)
[2017-06-26] MEDS: amLODIPine 10 MG (NORVASC) TAB PO SCH (08:39)
[2017-06-26] MEDS: CLOPIDOGREL 75 MG (PLAVIX) TABLET PO SCH (08:39)
[2017-06-26] MEDS: PANTOPRAZOLE 20 MG TABLET (PROTONIX) PO SCH (08:39)
[2017-06-26] MEDS: NIACIN 500 MG TABLET PO SCH (08:39)
[2017-06-26] MEDS ORDERED: ASPIRIN E.C. 325 MG (ECOTRIN) TABLET PO SCH (09:00)
--- NOTE | 2017-06-26 11:05 | Consultation-Cardiology ---
HPI-Cardiology Cardiology Consultation: Date of Consultation 06/26/17 Time Seen by Provider: 10:50 Date of Admission Attending Physician Molly Howell DO Admitting Physician Molly Howell DO Consulting Physician ARYAN BARNES MD,MA, FACP, FACC, FSCAI, CCDS HPI: Chief Complaint: Chest discomfort HPI: 62 yo man with chest discomfort that started while exercising on his treadmill. Did 35 min. [place] fatigued. Then chest discomfort: mid lower sternal, radiating to arms, not associated with other symptoms, resolved with oral aspirin and s/l NTG, lasted about an hour, has not experienced such discomfort before. No shortness of breath, palp or syncope Has had one spell of dizziness lasting 36 hours and occurring 2-3 weeks ago Chronic intermittent leg swelling that progresses with the day and resolved overnight Review of Systems-Cardiology Review of Systems Constitutional: No weight loss, No weight gain Eyes: No vision change Ears/Nose/Throat: No ear discharge, No nasal drainage, No recent hearing loss Respiratory: As described under HPI Cardiovascular: As described under HPI Gastrointestinal: No constipation, No diarrhea, No vomiting Genitourinary: No dysuria, No hematuria Musculoskeletal: No back pain, No joint pain Skin: No rash, No ulcerations Psychiatric/Neurological: No seizure, No focal weakness, No syncope Hematologic: No bleeding abnormalities YPB-Ydqejk-Ivxspe Hx Patient Social History Alcohol Use: Denies Use Recreational Drug Use: No Smoking Status: Never a Smoker 2nd Hand Smoke Exposure: No Recent Foreign Travel: No Recent Infectious Disease Expo: No Hospitalization with Isolation: Denies Physical Abuse Screen: No Sexual Abuse: No Immunizations Up To Date Date of Pneumonia Vaccine: Sep 25, 2013 Past Medical History PMH As described under Assessment. Family Medical History Family History: Family history: Diabetes mellitus G8 BROTHER Myocardial infarction 19 FATHER Allergies and Home Medications Allergies Coded Allergies: No Known Drug Allergies (Unverified , 03/28/10) Home Medications Acetaminophen 500 Mg Tablet, 500-1,000 MG PO Q6H PRN for PAIN, (Reported) Acetaminophen/Diphenhydramine 1 Each Tablet, 2 TAB PO HS PRN for SLEEP, ( Reported) Alprazolam 0.5 Mg Tablet, 1 MG PO TID PRN for ANXIETY, (Reported) Amlodipine Besylate 10 Mg Tablet, 10 MG PO DAILY, (Reported) Aspirin 81 Mg Tabec, 81 MG PO HS, (Reported) Ibuprofen 200 Mg Tablet, 400 MG PO Q8H PRN for PAIN OR FEVER, (Reported) TAKES 2 (200MG) TABLETS Ibuprofen/Diphenhydramine Cit 1 Each Tablet, 1 EACH PO for PAIN-MILD, (Reported) Metoprolol Succinate 50 Mg Tab.er.24h, 50 MG PO HS, (Reported) Niacin/Inositol Niacinate 1 Each Capsule, 500 MG PO DAILY, (Reported) Nitroglycerin 0.4 Mg Tab, 0 SL UD PRN for CHEST PAIN, (Reported) 1 TABLET EVERY 5 MINUTES X 3 DOSES NEEDED FOR CHEST PAIN [place] 3 Polyunsat Fatty Acids 1,000 Mg Cap, 1,000 MG PO HS, (Reported) Oxycodone HCl/Acetaminophen 1 Each Tablet, 1 EACH PO QID PRN for PAIN-MODERATE TO SEVERE, (Reported) Pantoprazole Sodium 20 Mg Tablet.dr, 20 MG PO DAILY, (Reported) Rosuvastatin Calcium 5 Mg Tablet, 5 MG PO HS, (Reported) Zolpidem Tartrate 10 Mg Tablet, 10 MG PO HS PRN for SLEEP, (Reported) Physical Exam-Cardiology Physical Exam Vital Signs/I&O Vital Sign - Last 12Hours 06/25/17 06/25/17 06/25/17 06/25/17 23:00 23:15 23:30 23:45 Temp 97.6 97.6 97.6 97.6 Pulse 60 58 55 58 Resp 21 14 22 16 B/P (MAP) 99/68 109/72 112/70 108/70 Pulse Ox 98 95 94 93 06/26/17 06/26/17 06/26/17 06/26/17 00:00 00:00 00:00 00:30 Temp 98.0 97.8 97.8 Pulse 60 60 65 Resp 16 16 14 B/P (MAP) 104/64 104/64 101/67 Pulse Ox 93 93 92 O2 Delivery Room Air Room Air 06/26/17 06/26/17 06/26/17 06/26/17 01:00 01:00 02:00 02:34 Temp 97.8 97.8 Pulse 64 62 57 Resp 15 17 B/P (MAP) 103/63 107/69 Pulse Ox 93 93 O2 Delivery Room Air 06/26/17 06/26/17 06/26/17 06/26/17 03:00 04:00 04:00 04:00 Temp 97.8 97.8 97.8 Pulse 57 54 54 Resp 15 16 16 B/P (MAP) 110/77 121/74 121/74 Pulse Ox 94 95 95 O2 Delivery Room Air Room Air 06/26/17 06/26/17 06/26/17 07:00 08:15 08:20 Temp 98.5 Pulse 55 51 Resp 14 B/P (MAP) 122/78 Pulse Ox 97 O2 Delivery Room Air Room Air Capillary Refill : Less Than 3 Seconds Constitutional: AAO x 3, well-developed, well-nourished HEENT: EOMI, hearing is well preserved, No xanthelasmas are seen Neck: No carotid bruit, carotid pulses are 2 + bilaterally, with good upstrokes Respiratory: No accessory muscle use, lungs clear to percussion Cardiovascular: regular rate-rhythm, S1 and S2, systolic murmur (faint ZACKERY at card base) Gastrointestinal: No tender, No soft, No guarding, audible bowel sounds Extremities: No pedal edema, No clubbing, No cyanosis Neurologic/Psychiatric: oriented x 3, grossly intact, power is 5/5 both on sides Skin: No rash on exposed areas, No ulcerations on exposed areas Data Review Labs Laboratory Tests 06/25/17 20:20: White Blood Count 8.7, Red Blood Count 5.26, Hemoglobin 16.1, Hematocrit 47, Mean Corpuscular Volume 90, Mean Corpuscular Hemoglobin 31, Mean Corpuscular Hemoglobin Concent 34, Red Cell Distribution Width 13.4, Platelet Count 224, Mean Platelet Volume 8.8, Neutrophils (%) (Auto) 70, Lymphocytes (%) (Auto) 18, Monocytes (%) (Auto) 9, Eosinophils (%) (Auto) 3, Basophils (%) (Auto) 0, Neutrophils # (Auto) 6.1, Lymphocytes # (Auto) 1.6, Monocytes # (Auto) 0.8, Eosinophils # (Auto) 0.3, Basophils # (Auto) 0.0, Prothrombin Time 11.9L, INR Comment 0.9, Activated Partial Thromboplast Time 26, Sodium Level 143, Potassium Level 3.8, Chloride Level 107, Carbon Dioxide Level 27, Anion Gap 9, Blood Urea Nitrogen 19H, Creatinine 0.93, Estimat Glomerular Filtration Rate > 60, BUN/Creatinine Ratio 20, Glucose Level 104, Calcium Level 8.7, Total Bilirubin 0.4, Aspartate Amino Transf (AST/SGOT) 19, Alanine Aminotransferase ( ALT/SGPT) 25, Alkaline Phosphatase 77, Total Creatine Kinase 33, Creatine Kinase MB 1.0, Troponin I < 0.30, B-Type Natriuretic Peptide < 10.0, Total Protein 6.7, Albumin 4.1, Amylase Level 38, Lipase 29 06/26/17 03:11: White Blood Count 7.4, Red Blood Count 4.78, Hemoglobin 14.4, Hematocrit 42, Mean Corpuscular Volume 89, Mean Corpuscular Hemoglobin 30, Mean Corpuscular Hemoglobin Concent 34, Red Cell Distribution Width 13.2, Platelet Count 186, Mean Platelet Volume 8.6, Neutrophils (%) (Auto) 62, Lymphocytes (%) (Auto) 25, Monocytes (%) (Auto) 10, Eosinophils (%) (Auto) 3, Basophils (%) (Auto) 0, Neutrophils # (Auto) 4.5, Lymphocytes # (Auto) 1.8, Monocytes # (Auto) 0.8, Eosinophils # (Auto) 0.2, Basophils # (Auto) 0.0, Sodium Level 139, Potassium Level 3.5L, Chloride Level 110H, Carbon Dioxide Level 22, Anion Gap 7, Blood Urea Nitrogen 19H, Creatinine 0.82, Estimat Glomerular Filtration Rate > 60, BUN /Creatinine Ratio 23, Glucose Level 132H, Calcium Level 8.1L, Total Bilirubin 0.4, Aspartate Amino Transf (AST/SGOT) 16, Alanine Aminotransferase (ALT/SGPT) 19, Alkaline Phosphatase 68, Troponin I 0.85*H, Total Protein 5.3L, Albumin 3.3 , Triglycerides Level 154H, Cholesterol Level 121, LDL Cholesterol Direct 70, VLDL Cholesterol 31, HDL Cholesterol 32L 06/26/17 08:21: Troponin I 0.61*H Laboratory Tests 06/25/17 20:20 06/26/17 03:11 A/P-Cardiology Assessment/Admission Diagnosis Ac NSTEMI Coronary artery disease with a h/o cor interventions. H/o 2 stents in the LAD cipher 2.5x8 proximally 2.5x28 mid in [place] in 2004. Then had balloon angioplasty for in-stent restenosis, had another stent placed in the LAD by Dr. Blake in 2011. Report of that procedure is not available. In addition patient had a stent to the diagonal artery using Promus 2.25 X 12 mm. And a stent in the right coronary artery Promus 3.0x18 mm. Recent cardiac catheterization done July 10, 2015 revealing moderate to severe in-stent restenosis in the distal LAD with lesion extending beyond the stent. Successful primary stenting using 2.25 x 12 mm Promus drug-eluting stent deployed distally balloon angioplasty for the in-stent restenosis. Last card cath in June [address] Walton that showed patent stents in the LAD, diagonal artery and right coronary artery with [id number] disease, small vessel disease. Stress echo by Dr Walton on January 29, 2017 due to chest pain, did no show ischemia H/o sinus frank, exacerbated by beta-blockers Hypertension Hyperlipidemia, intolerance to simvastatin and lipitor with leg cramps, tolerating Crestor Lower extremity cramps and pain, venous study was normal, LEELEE was normal History of relative intolerance to isosorbide causing headache Discussion and Recomendations * Complex management due to multiple previous cor interventions, including complicating issues with previous LAD stents * We discussed the treatment options * We discussed in detail the rationale, procedure, benefits, potential complications, alternatives of card cath and possible ad hoc cor intervention with him and his . They understand. He provides informed consent * Further recs based on results of card cath Clinical Quality Measures AMI/AHF: ASA po Prior to arrival: Yes (162) DVT/VTE Risk/Contraindication: Risk Factor Score Per Nursin RFS Level Per Nursing on Admit: 2=Moderate ARYAN BARNES MD FACP FAC CCDS Jun 26, 2017 11:05
--- NOTE | 2017-06-26 11:23 | History & Physical-Hospitalist ---
HPI History of Present Illness: HPI/Chief Complaint CC; Chest pain with residual elevation of troponin HPI: This is a 62-year-old white male clinic patient of [facility] with a past medical history of severe CAD managed by Dr. Walton who recently saw Dr. Walton 2 weeks ago with no changes in medication that has had multiple cardiac events with multiple stents placed in the past that had stopped Plavix in January 2017 after literature consensus to discontinue who was on the treadmill last evening walking briskly began to jog for 35 minutes then felt very weak arms were heavy and started having chest pain. He has such a long history of chest pain anginal symptoms along with anxiety that he was rationalizing that this was just anxiety but his insisted on ER evaluation which was completed troponin was negative at that time EKG showed no changes Dr. Stanley was consulted who is on-call for Dr. Walton and he was placed in cardiac stepdown observation status but subsequently had an elevated troponin is 0.85 then 0.61 this morning consistent with non-ST elevation [place] episode. After he is walking around this morning in the ICU his arms did feel heavy. Source: patient, family, RN/MD Exam Limitations: no limitations Date Seen 06/26/17 Time Seen by Provider: 10:45 Attending Physician Molly Howell DO PCP Molly Howell DO Referring Physician Date of Admission Jun 25, 2017 at 21:30 Home Medications & Allergies Home Medications Reviewed patient Home Medication Reconciliation Form Allergies Allergies Coded Allergies No Known Drug Allergies (Unverified03/28/10) Past Qcjsqdn-Evoxqv-Uxiqhn Hx Patient Social History Marrital Status: Employed/Student: employed ([employer]) Alcohol Use: Denies Use Recreational Drug Use: No Smoking Status: Never a Smoker 2nd Hand Smoke Exposure: No Physical Abuse Screen: No Sexual Abuse: No Recent Foreign Travel: No Contact w/other who traveled: Yes Recent Hopitalizations: No Recent Infectious Disease Expo: No Immunizations Up To Date Date of Pneumonia Vaccine: Sep 25, 2013 Seasonal Allergies Seasonal Allergies: Yes Surgeries Yes (CYST REMOVED FROM RIGHT HAND, CARDIAC CATHS--STENTS X 6 PLUS ANGIOPLASTIES) Adenoidectomy, Cardiac, Coronary Stent, Tonsillectomy Respiratory No Currently Using CPAP: No Currently Using BIPAP: No Cardiovascular Yes (HEART RATE IS ALWAYS LOW--PT IS A RUNNER PLUS TAKES BETA BLOCKERS) Coronary Artery Disease, High Cholesterol, Hypertension Neurological Yes (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) Headaches /Migraines Reproductive System Hx Reproductive Disorders: No Sexually Transmitted Disease: No HIV/AIDS: No Genitourinary No Gastrointestinal Yes Gastroesophageal Reflux Musculoskeletal Yes Degenerate Disk Disease, Chronic Back Pain Endocrine History of Endocrine Disorders: No HEENT History of HEENT Disorders: No (T&A) HEENT Disorders: Tonsilitis Loss of Vision: Denies Hearing Impairment: Denies Cancer No Psychosocial History of Psychiatric Problem: Yes Behavioral Health Disorders: Anxiety Integumentary History of Skin or Integumenta: Yes (Cold sores) Skin/Integumentary Disorders: Herpes Blood Transfusions History of Blood Disorders: No Adverse Reaction to a Blood Tr: No Family Medical History Significant Family History: CAD Under 55 Years Old Family Hx: Family history: Diabetes mellitus G8 BROTHER Myocardial infarction 19 FATHER Review of Systems Constitutional: see HPI, weakness EENTM: no symptoms reported Respiratory: short of breath Cardiovascular: chest pain Gastrointestinal: no symptoms reported Genitourinary: no symptoms reported Musculoskeletal: no symptoms reported Skin: no symptoms reported Psychiatric/Neurological: No Symptoms Reported All Other Systems Reviewed Negative Unless Noted: Yes Physical Exam Physical Exam Vital Signs Vital Sign - Last 12Hours 06/25/17 20:25 O2 Flow Rate 2.00 Capillary Refill : Less Than 3 Seconds General Appearance: No Apparent Distress, WD/WN Eyes: Bilateral Eye Normal Inspection, Bilateral Eye PERRL HEENT: PERRL/EOMI, Normal ENT Inspection, Pharynx Normal Neck: Full Range of Motion, Normal Inspection, Non Tender, Supple, Carotid Bruit Respiratory: Chest Non Tender, Lungs Clear, Normal Breath Sounds, No Accessory Muscle Use, No Respiratory Distress Cardiovascular: Regular Rate, Rhythm, No Edema, No Gallop, No JVD, No Murmur, Normal Peripheral Pulses Gastrointestinal: Normal Bowel Sounds, No Organomegaly, No Pulsatile Mass, Non Tender, Soft Back: Normal Inspection, No CVA Tenderness, No Vertebral Tenderness Extremity: Normal Capillary Refill, Normal Inspection, Normal Range of Motion, Non Tender, No Calf Tenderness, No Pedal Edema Neurologic/Psychiatric: Alert, Oriented x3, No Motor/Sensory Deficits, Normal Mood/Affect Skin: Normal Color, Warm/Dry Lymphatic: No Adenopathy Results Results/Procedures Lab Laboratory Tests 06/25/17 20:20 06/26/17 03:11 Assessment/Plan Admission Diagnosis Chest pain while on treadmill in known severe CAD patient s/p multiple stents under Dr Walton's care now with subtle elevated of troponin c/w NSTEMI consulting Dr Stanley GERD on PPI Chronic angina Anxiety takes Xanax rarely HTN HLP Severe DJD of lumbar spine Acute hypokalemia Assessment and Plan Plan: Appreciate Dr Stanley's help on this very complex CAD patient with subtle elevation of troponin Reconciled and restarted all home meds Diagnosis/Problems Diagnosis/Problems (1) NSTEMI (non-ST elevated myocardial infarction) Status: Acute Assessment & Plan: Dr Stanley will decide plan of action (2) Chest pain Status: Acute Qualifiers: Qualified Codes: I20.0 - Unstable angina (3) Hx of coronary artery disease Status: Chronic Assessment & Plan: 06/26/17 Dr Walton is his Fire Chief Deputy (4) Hypertension Status: Chronic Assessment & Plan: 06/26/17: Home meds Qualifiers: Qualified Codes: I10 - Essential (primary) hypertension (5) Hypercholesteremia Status: Chronic Assessment & Plan: 06/26/17: Home meds (6) Degenerative joint disease (DJD) of lumbar spine Status: Chronic Qualifiers: Qualified Codes: M47.26 - Other spondylosis with radiculopathy, lumbar region (7) Anxiety Status: Chronic Assessment & Plan: 06/26/17: Home meds Clinical Quality Measures AMI/AHF: ASA po Prior to arrival: Yes (162) DVT/VTE Risk/Contraindication: Risk Factor Score Per Nursin RFS Level Per Nursing on Admit: 2=Moderate MOLLY HOWELL DO Jun 26, 2017 11:23
[2017-06-26] MEDS ORDERED: HEParin 1000 UNIT/ML (10ML VIAL) FOR BOLUS ONE (12:00)
[2017-06-26] MEDS ORDERED: MIDAZOLAM 5 MG/5 ML (VERSED) VIAL ONE (12:00)
[2017-06-26] MEDS ORDERED: NS IV 1000 ML 2,000 ML ONE (12:00)
[2017-06-26] MEDS ORDERED: diphenhydrAMINE 50 MG/ML INJ (BENADRYL) ONE (12:01)
[2017-06-26] MEDS ORDERED: fentaNYL INJECTION 100 MCG/2 ML AMP ONE (12:01)
[2017-06-26] MEDS ORDERED: NITROGLYCERIN DRIP 25 MG/D5W 250 ML IV ONE (12:48)
[2017-06-26] MEDS ORDERED: MIDAZOLAM 2 MG/2 ML (VERSED) VIAL ONE (13:37)
[2017-06-26] MEDS ORDERED: EPTIFIBATIDE BOLUS 10 ML IV ONE ×2 (13:40)
[2017-06-26] MEDS ORDERED: ASPIRIN 81 MG CHEW (CHILDREN'S ASA) ONE (13:53)
[2017-06-26] MEDS ORDERED: CLOPIDOGREL 300 MG (PLAVIX) TABLET PO ONE (13:53)
[2017-06-26] MEDS ORDERED: NS IV 1000 ML 1,000 ML IV SCH (14:06)
[2017-06-26] MEDS ORDERED: PATIENT MAY USE OWN MEDS, ALL PO SCH (14:15)
[2017-06-26] MEDS ORDERED: CLOPIDOGREL 75 MG (PLAVIX) TABLET PO NR (17:00)
--- NOTE | 2017-06-26 20:49 | CARDIAC CATHETERIZATION ---
DATE OF SERVICE: 06/25/2017 PRIMARY PRINCIPAL ANDROID DEVELOPER: Saurabh Walton MD. HISTORY OF PRESENT ILLNESS: This is a 62-year-old gentleman with a history of coronary artery disease, who has had multiple coronary interventions over the last several years. In the left anterior descending artery, he is known to have Cypher 2.5 x 8 mm and 2.5 x 28 mm overlapping stents placed in [place] in 2004. Subsequently, he had further balloon angioplasty and stenting of the left anterior descending artery in [place], [place], the reports of which are not available. He is known to have had stenting to the diagonal branch of the left anterior descending artery with the Promus 2.25 x 12 mm stent. In addition, he is known to have a distal right coronary artery stent: Promus 3.0 x 18 mm. He presents with acute non-ST elevation myocardial infarction. Cardiac catheterization was carried out after having obtained an informed consent. We discussed the possible coronary findings and treatment approach is even before the heart catheterization in detail with him and his . They provided informed consent. PROCEDURE: He was brought to the cardiac catheterization laboratory in a fasting state. Right groin was prepared and draped in usual sterile fashion. A 1% lidocaine for local anesthesia. Modified Seldinger technique was used to advance a 5-Palauan sheath in right femoral artery. A 5-Palauan JL4 catheter for left coronary angiography and 5-Palauan JR4 catheter, right coronary angiography. A 5-Palauan pigtail catheter was used for left heart catheterization and left ventricular angiography. Following completion of the diagnostic procedure, we felt that coronary artery bypass surgery may be the best approach. Accordingly, we called Dr. Cantor of cardiovascular surgery at [facility] and discussed the case with him in detail and had him review the films. The patient had a 60 to 70% stenosis in the mid left anterior descending artery just following the distal edge of the standard area in the left anterior descending artery. In addition, he had a long up to approximately 75% stenosis in the proximal and mid right coronary artery. Dr. Cantor reviewed the films and agreed to accept the patient for coronary artery bypass surgery. We then reviewed the case again with the patient and his . We also reviewed the case with the patient in the presence of his because he was awake enough to understand and make decisions. We discussed all treatment options. Our recommendation was to consider coronary artery bypass surgery, given that he has had multiple stenting and intervention of the left anterior descending artery and continues to have issues in the left anterior descending artery. We discussed the option of coronary bypass surgery. We also discussed alternatives that include stenting of the right coronary artery and balloon angioplasty (possible stenting) to the left anterior descending artery. We also discussed the option of stenting in the right coronary artery and medical therapy for the left anterior descending artery, given that the left anterior descending artery is generally of a small caliber. All of these issues were reviewed in detail. They wanted to proceed with right coronary artery stenting only. They were not ready for surgery. They wanted to review the issue of left anterior descending artery stenosis with Dr. Walton, his regular public health technologist. Accordingly, we proceeded with right coronary artery stenting that is described below. RIGHT CORONARY ARTERY INTERVENTION: Following completion of the diagnostic procedure and the above noted discussion, we proceeded with percutaneous intervention to the right coronary artery. The sheath was exchanged over a wire for a 6-Palauan sheath. We used a 6-Palauan JR4 guide catheter to engage the right coronary artery. We advanced a BMW wire across the lesions and placed the tip of the wire in the distal vessel. We advanced an [employer] Xience 3.5 x 38 mm stent to cover the entire lesion of the proximal and mid right coronary artery. The distal edge of the stent stops short of the proximal edge of the previously placed right coronary artery stent. Thus, the stents are not overlapping. The stent was deployed at 18 atmospheres. Full stent expansion was achieved. Subsequent angiography revealed 0% residual stenosis where he previously had up to 75% stenosis. Flow throughout the vessel was normal. He tolerated the procedure well. Angioplasty equipment was removed. Angiography of the right femoral artery was carried out through the sheath. Mynx was used to achieve hemostasis. HEMODYNAMICS: Left ventricular end-diastolic pressure following coronary angiography was 13 mmHg. There was no significant pressure gradient on pullback across the aortic valve. Ascending aortic pressure was 107/69 with a mean of 83 mmHg. LEFT VENTRICULAR ANGIOGRAPHY: Left ventricular angiography was carried out in the right anterior oblique projection. Global left ventricular systolic function is normal. No regional wall motion abnormalities are seen. Left ventricular ejection fraction is approximately 60%. No significant mitral regurgitation is seen. CORONARY ANGIOGRAPHY: Mild coronary calcification is present. Left main coronary artery does not exhibit significant disease. Left anterior descending artery has a fairly long standard area in its mid portion. Following the distal edge of the distal stent, there appears to be 60 to 70% stenosis in the left anterior descending artery. The left anterior descending artery is generally of a small caliber (1.5 to 2 mm) and appears to have diffuse moderate disease. The first diagonal branch of the left anterior descending artery has a patent stent in its proximal to mid portion. The left circumflex artery is nondominant. The first obtuse marginal branch, the left circumflex artery has approximately 30 to 40% proximal stenosis. The right coronary artery is large and dominant. It had a long stenosis up to approximately 75% in its proximal to mid portion to which successful stenting was carried out with Alpine Xience 3.5 x 38 mm stent that was deployed at 18 atmospheres. The distal right coronary artery has a widely patent stent. The stent placed today does not overlap the previous stent in the distal right coronary artery. The right coronary artery is dominant. CONCLUSIONS: 1. Coronary artery disease as detailed above. This consists of 60 to 70% stenosis in the mid left anterior descending artery past the distal edge of the distal stent in the left anterior descending artery. The mid left anterior descending artery stent in the area does not itself exhibit significant instent restenosis. The first diagonal branch of the left anterior descending artery has a widely patent stent. 2. The left circumflex artery has approximately 40% proximal stenosis in the first obtuse marginal branch. The right coronary artery has a long up to 75% stenosis in its proximal to mid portion to which successful stenting was carried out with Alpine Xience 3.5 x 38 mm stent which reduced the stenosis to 0% residual. The distal right coronary artery stent has patent. The stent placed in the proximal and mid right coronary artery does not overlap the stent in the right coronary artery. 3. Left ventricular end-diastolic pressure at the top limit of normal. 4. No significant mitral regurgitation. 5. Normal global left ventricular systolic function with ejection fraction approximately 65%. DISCUSSION: Dual antiplatelet therapy, statin and beta blockers are being continued. The risk factor modification has been reviewed. Further decisions regarding management of left anterior descending artery (surgery versus medical therapy versus percutaneous intervention) have been discussed and the patient is thinking about his option and we will discuss it with Dr. Walton, his regular public health technologist. Job ID: [id number] DocumentID: [id number] Dictated Date: 06/26/2017 14:28:36 Application Technician Date: 06/26/2017 19:34:31 Dictated By: ARYAN BARNES MD, MA, FACP, FACC, MTDD
[2017-06-26] MEDS ORDERED: ASPIRIN E.C. 81 MG (ECOTRIN) TAB PO SCH (21:00)
[2017-06-26] MEDS ORDERED: ROSUVASTATIN 5 MG (CRESTOR) TABLET PO SCH (21:00)
[2017-06-26] MEDS ORDERED: OMEGA 3 (FISH OIL) 1000 MG CAP PO SCH (21:00)
[2017-06-26] MEDS ORDERED: meTOproloL SUCCINATE 50 MG (TOPROL XL) TAB PO SCH (21:00)
[2017-06-27] VITALS: BP 114/78
[2017-06-27 04:00] VITALS: BP 115/75
[2017-06-27 05:06] LABS: MEAN PLATELET VOLUME 9.1 FL (7.4-10.4); RED BLOOD COUNT 5.26 10^6/uL (4.35-5.85); RED CELL DISTRIBUTION WIDTH 13.5 % (10.0-14.5); WHITE BLOOD COUNT 7.1 10^3/uL (4.3-11.0)
[2017-06-27 05:24] LABS: ANION GAP 11 MMOL/L (5-14); BLOOD UREA NITROGEN 12 MG/DL (7-18); BUN/CREATININE RATIO 14; CALCIUM 8.5 MG/DL (8.5-10.1); CARBON DIOXIDE 22 MMOL/L (21-32); CHLORIDE 109 MMOL/L (98-107); CREATININE SERUM 0.83 MG/DL (0.60-1.30); GFR ESTIMATED > 60; GLUCOSE 90 MG/DL (70-105); POTASSIUM 3.9 MMOL/L (3.6-5.0); SODIUM 142 MMOL/L (135-145)
[2017-06-27] MEDS: NIACIN 500 MG TABLET PO SCH (08:12)
[2017-06-27] MEDS: CLOPIDOGREL 75 MG (PLAVIX) TABLET PO SCH (08:12)
[2017-06-27] MEDS: amLODIPine 10 MG (NORVASC) TAB PO SCH (08:12)
[2017-06-27] MEDS: PANTOPRAZOLE 20 MG TABLET (PROTONIX) PO SCH (08:12)
[2017-06-27 08:13] VITALS: BP 116/77
[2017-06-27] MEDS ORDERED: ASPIRIN 81 MG CHEW (CHILDREN'S ASA) PO SCH (09:00)
--- NOTE | 2017-06-27 09:36 | Progress Note-Cardiology ---
Cardiology SOAP Progress Note Subjective: No cp or palp or syncope or groin discomfort Feels well and wishes to go home Objective: I&O/Vital Signs Vital Sign - Last 12Hours 06/27/17 06/27/17 06/27/17 06/27/17 00:00 00:00 01:00 04:00 Temp 97.2 97.5 Pulse 57 60 55 Resp 14 14 B/P (MAP) 114/78 115/75 Pulse Ox 95 95 O2 Delivery Room Air Room Air Room Air 06/27/17 06/27/17 06/27/17 04:00 08:12 08:13 Temp 98.2 Pulse 60 Resp 17 B/P (MAP) 116/77 Pulse Ox 94 O2 Delivery Room Air Room Air Room Air Weight (Pounds): 206 Weight (Ounces): 4.0 Weight (Calculated Kilograms): 93.188216 Groin site without hematoma: Yes Bruising: mild bruising Constitutional: AAO x 3, well-developed, well-nourished Respiratory: No accessory muscle use, lungs clear to percussion Cardiovascular: regular rate-rhythm, S1 and S2, systolic murmur (faint ZACKERY at card base) Gastrointestional: No tender, No soft, No guarding, audible bowel sounds Extremities: No pedal edema, No clubbing, No cyanosis Neurologic/Psychiatric: oriented x 3, grossly intact, power is 5/5 both on sides Skin: No rash on exposed areas, No ulcerations on exposed areas Results/Procedures: Labs Laboratory Tests 06/27/17 04:48: White Blood Count 7.1, Red Blood Count 5.26, Hemoglobin 15.9, Hematocrit 46, Mean Corpuscular Volume 88, Mean Corpuscular Hemoglobin 30, Mean Corpuscular Hemoglobin Concent 34, Red Cell Distribution Width 13.5, Platelet Count 188, Mean Platelet Volume 9.1, Sodium Level 142, Potassium Level 3.9, Chloride Level 109H, Carbon Dioxide Level 22, Anion Gap 11, Blood Urea Nitrogen 12, Creatinine 0.83, Estimat Glomerular Filtration Rate > 60, BUN/Creatinine Ratio 14, Glucose Level 90, Calcium Level 8.5 Laboratory Tests 06/25/17 20:20 06/26/17 03:11 06/27/17 04:48 A/P: Assessment: Ac NSTEMI on 06/25/17 treated with cor intervention on 06/26/17 (see below) Previous coronary history: Complex coronary artery disease with a h/o multiple cor interventions. H/o 2 stents in the LAD cipher 2.5x8 proximally 2.5x28 mid in [place] in 2004. Then is stated to have had balloon angioplasty for in- stent restenosis and had another stent placed in the LAD by Dr. Blake in 2011. Report of that procedure is not available. In addition, he has a stent to the diagonal artery using Promus 2.25 X 12 mm and a stent in the right coronary artery that is stated to be Promus 3.0x18 mm. Cardiac catheterization done July 10, 2015 showed moderate to severe in-stent restenosis in the distal LAD with lesion extending beyond the stent. Successful primary stenting using 2.25 x 12 mm Promus drug-eluting stent deployed distally balloon angioplasty for the in-stent restenosis. Card cath of June [address] Walton that showed patent stents in the LAD, diagonal artery and right coronary artery with [id number] disease, small vessel disease. Stress echo by Dr Walton on January 29, 2017 due to chest pain, did no show ischemia Last card cath of 06/26/17 showed 60 to 70% stenosis in the mid left anterior descending artery past the distal edge of the distal stent in the left anterior descending artery. The first diagonal branch of the left anterior descending artery has a widely patent stent. The left circumflex artery has approximately 40% proximal stenosis in the first obtuse marginal branch. The right coronary artery had a long up to 75% stenosis in its proximal to mid portion to which successful stenting was carried out with Alpine Xience 3.5 x 33 mm stent which reduced the stenosis to 0% residual. The distal right coronary artery stent has patent. The stent placed in the proximal and mid right coronary artery does not overlap the previous stent in the right coronary artery. Left ventricular end-diastolic pressure at the top limit of normal. No significant mitral regurgitation. Normal global left ventricular systolic function with ejection fraction approximately 65% Interventions on 07/06/17: We spoke in detail with the patient and his before the diagnostic card cath regarding possible findings and treatment options based on specific findings. After the diagnostic cath we advised consideration of CABG with BURDEN to LAD and SVG to distal RCA. We spoke with Dr Cantor at [facility] who was willing to do surgery. We again reviewed this in detail with the patient and his . They were not willing to consider surgery at that time. They requested intervention to RCA that was exhibiting new findings and may have been responsible for his ACS. This was stented with Alp Xience 3.5x33 (without any overlap with the distal RCA stent). Treatment options for mid LAD lesion include BURDEN grafting, medical therapy, or PCI. They have opted for med therapy, and wish to discuss this further with Dr Walton who is Mr Hackett's regular school commissioner H/o sinus frank, exacerbated by beta-blockers Hypertension Hyperlipidemia, intolerance to simvastatin and lipitor with leg cramps, tolerating Crestor Lower extremity cramps and pain, venous study was normal, LEELEE was normal History of relative intolerance to isosorbide (headaches) Plan: * Management is relatively complex due to CAD that has required multiple card caths and interventions. Please see above under Assessment for a discussion yesterday's cath findings and the rationale of subsequent treatment * He currently feels well and wishes to go home * We have added Plavix to regimen * We have advised f/u with Dr Walton tomorrow * We have advised return to hosp in case of recurrent symptoms * We have advised avoidance of heavy exertion until f/u with Dr Walton * We have advised med compliance Clinical Quality Measures AMI/AHF: ASA po Prior to arrival: Yes (162) ARYAN BARNES MD FACP [facility] CCDS Jun 27, 2017 09:36
[2017-06-27] MEDS ORDERED: ASPI-999 PO (09:43)
[2017-06-27] MEDS ORDERED: CLOP75TA69 PO (09:43)
--- NOTE | 2017-06-27 09:45 | Discharge Inst-Cardiology ---
Discharge Inst-Cardiac Discharge Medications New Medications: Aspirin (Aspirin) 81 Mg Tab.chew 81 MG PO DAILY, #90 TAB 3 Refills Clopidogrel Bisulfate (Plavix) 75 Mg Tablet 75 MG PO DAILY, #90 TAB 3 Refills Continued Medications: Acetaminophen (Tylenol Extra Strength) 500 Mg Tablet 500-1000 MG PO Q6H PRN for PAIN, TAB Acetaminophen/Diphenhydramine (Tylenol Pm Ex-Strength Caplet) 1 Each Tablet 2 TAB PO HS PRN for SLEEP, TAB Alprazolam (Alprazolam) 0.5 Mg Tablet 1 MG PO TID PRN for ANXIETY, TAB Amlodipine Besylate (Norvasc) 10 Mg Tablet 10 MG PO DAILY, TAB Metoprolol Succinate (Metoprolol Succinate) 50 Mg Tab.er.24h 50 MG PO HS, TAB Niacin/Inositol Niacinate (Niacin 500 Mg Capsule) 1 Each Capsule 500 MG PO DAILY, CAP Nitroglycerin (Nitrostat) 0.4 Mg Tab 0 SL UD PRN for CHEST PAIN, TAB 1 TABLET EVERY 5 MINUTES X 3 DOSES NEEDED FOR CHEST PAIN [place] 3 Polyunsat Fatty Acids (Fish Oil 1,000 mg Capsule) 1,000 Mg Cap 1000 MG PO HS, CAP Oxycodone HCl/Acetaminophen (Oxycodone-Acetaminophen 5-325) 1 Each Tablet 1 EACH PO QID PRN for PAIN-MODERATE TO SEVERE, TAB Pantoprazole Sodium (Pantoprazole Sodium) 20 Mg Tablet.dr 20 MG PO DAILY, TAB Rosuvastatin Calcium (Rosuvastatin Calcium) 5 Mg Tablet 5 MG PO HS, TAB Zolpidem Tartrate (Zolpidem Tartrate) 10 Mg Tablet 10 MG PO HS PRN for SLEEP, TAB Discontinued Medications: Aspirin (Aspirin Ec 81 Mg) 81 Mg Tabec 81 MG PO HS, TAB Ibuprofen (Advil) 200 Mg Tablet 400 MG PO Q8H PRN for PAIN OR FEVER, TAB TAKES 2 (200MG) TABLETS Ibuprofen/Diphenhydramine Cit (Advil Pm Caplet) 1 Each Tablet 1 EACH PO PRN for PAIN-MILD, TAB ARYAN BARNES MD FACP [facility]AC CCDS Jun 27, 2017 09:45
--- NOTE | 2017-06-27 09:45 | Discharge Inst-Post CATH ---
Discharge Inst-CATH Post Cardiac Cath D/C Inst Follow Up/Plan F/u with Dr Walton tomorrow (06/28/17) CARDIAC CATH DISCHARGE INSTRUCTIONS *Hold Metformin for 48 hours post heart cath. ACTIVITY * Go Home directly and rest. * Limit activity of the leg (or wrist if it was used) for 7 days including aerobics, swimming, jogging, bicycling, etc. * Restrict stair-climbing for 7 days if possible, if not, climb up with your non -cath leg, then bring together on the same step. * Avoid lifting, pushing, pulling or excessive movement of the affected extremity for 7 days. * Customary sexual activity may be resumed after 2 days-use caution not to use a position that strains or causes pain to the affected extremity. * No driving for 24 hours. * NO SMOKING. * Avoid straining for bowel movements for 7 days. * Gentle walking on level ground is allowed. * Returning to work will depend on the type of procedure and the results. Your doctor will discuss this with you. CALL YOUR DOCTOR FOR ANY OF THE FOLLOWING: *If bleeding from the puncture site occurs- Apply gentle pressure to site with clean cloth and call your doctor or EMS. * If a knot or lump forms under the skin, increases in size, or causes pain. * If bruising appears to be worsening or moving further down your leg instead of disappearing. * Temperature above 101 F. CARE OF YOUR GROIN INCISION; * Bruising or purple discoloration of the skin near the puncture site is common. * You may shower only, no bathtub bathing for 5 days. Be careful to avoid slipping as your leg may feel stiff. * If a closure device was used on your femoral artery, please see the attached guide regarding care of the device and your leg. * REMOVE the dressing from your groin the next day after your procedure in the shower. CARE OF YOUR WRIST INCISION; * Bruising or purple discoloration of the skin near the puncture site is common. * You may shower. * DO NOT submerge wrist. * Remove dressing in 24 hours. ARYAN BARNES MD [facility] Jun 27, 2017 09:45
--- NOTE | 2017-06-27 12:54 | Discharge Summary-Hospitalist ---
Diagnosis/Chief Complaint Date of Admission Jun 25, 2017 at 21:30 Date of Discharge Discharge Date: Jun 27, 2017 Admission Diagnosis Chest pain while on treadmill in known severe CAD patient s/p multiple stents under Dr Walton's care now with subtle elevated of troponin c/w NSTEMI consulting Dr Stanley GERD on PPI Chronic angina Anxiety takes Xanax rarely HTN HLP Severe DJD of lumbar spine Acute hypokalemia Discharge Diagnosis Acute NSTEMI s/p stent placement in need of CABG evaluation as out-pt due to multi-vessel disease and now 7 stents total Plan: Appreciate Dr Stanley's help on this very complex CAD patient with subtle elevation of troponin Reconciled and restarted all home meds (1) NSTEMI (non-ST elevated myocardial infarction) Status: Acute Assessment & Plan: Dr Stanley performed cath yesterday and placed stent, his 7th one to date but needs CABG evaluation now and Dr Walton will arrange (2) Chest pain Status: Acute (3) Hx of coronary artery disease Status: Chronic Assessment & Plan: 06/26/17 Dr Walton is his Director Of Flight Operations (4) Hypertension Status: Chronic Assessment & Plan: 06/26/17: Home meds (5) Hypercholesteremia Status: Chronic Assessment & Plan: 06/26/17: Home meds (6) Degenerative joint disease (DJD) of lumbar spine Status: Chronic (7) Anxiety Status: Chronic Assessment & Plan: 06/26/17: Home meds Discharge Summary Discharge Physical Examination Allergies: Coded Allergies: No Known Drug Allergies (Unverified , 03/28/10) Vitals & I&Os Vital Signs Date Time Temp Pulse Resp B/P (MAP) Pulse Ox O2 Delivery O2 Flow Rate FiO2 06/27/17 08:13 98.2 60 17 116/77 94 Room Air 06/26/17 16:30 2.00 Hospital Course Hospital course: Patient was admitted to [facility] for unstable angina. He underwent cath after elevated troponin noted and Dr Stanley placed stent in RCA. Multi- vessel disease noted and he will need CABG evaluation as an out-pt after conferring with his primary Director Of Flight Operations Dr Walton. He was DC on Plavix and chewable non-enteric coated ASA 81mg daily. Labs (last 24 hrs) Laboratory Tests 06/27/17 04:48: White Blood Count 7.1, Red Blood Count 5.26, Hemoglobin 15.9, Hematocrit 46, Mean Corpuscular Volume 88, Mean Corpuscular Hemoglobin 30, Mean Corpuscular Hemoglobin Concent 34, Red Cell Distribution Width 13.5, Platelet Count 188, Mean Platelet Volume 9.1, Sodium Level 142, Potassium Level 3.9, Chloride Level 109H, Carbon Dioxide Level 22, Anion Gap 11, Blood Urea Nitrogen 12, Creatinine 0.83, Estimat Glomerular Filtration Rate > 60, BUN/Creatinine Ratio 14, Glucose Level 90, Calcium Level 8.5 Discharge Home Medications: Active Scripts Active Plavix (Clopidogrel Bisulfate) 75 Mg Tablet 75 Mg PO DAILY Aspirin 81 Mg Tab.chew 81 Mg PO DAILY Reported Advil Pm Caplet (Ibuprofen/Diphenhydramine Cit) 1 Each Tablet 1 Each PO PRN Norvasc (Amlodipine Besylate) 10 Mg Tablet 10 Mg PO DAILY Oxycodone-Acetaminophen 5-325 (Oxycodone HCl/Acetaminophen) 1 Each Tablet 1 Each PO QID PRN Fish Oil 1,000 mg Capsule ([place] 3 Polyunsat Fatty Acids) 1,000 Mg Cap 1,000 Mg PO HS Rosuvastatin Calcium 5 Mg Tablet 5 Mg PO HS Tylenol Extra Strength (Acetaminophen) 500 Mg Tablet 500-1,000 Mg PO Q6H PRN Alprazolam 0.5 Mg Tablet 1 Mg PO TID PRN Zolpidem Tartrate 10 Mg Tablet 10 Mg PO HS PRN Metoprolol Succinate 50 Mg Tab.er.24h 50 Mg PO HS Pantoprazole Sodium 20 Mg Tablet.dr 20 Mg PO DAILY Tylenol Pm Ex-Strength Caplet (Acetaminophen/Diphenhydramine) 1 Each Tablet 2 Tab PO HS PRN Niacin 500 Mg Capsule (Niacin/Inositol Niacinate) 1 Each Capsule 500 Mg PO DAILY Nitrostat (Nitroglycerin) 0.4 Mg Tab 0 SL UD PRN 1 TABLET EVERY 5 MINUTES X 3 DOSES NEEDED FOR CHEST PAIN Instructions to patient/family Please see electronic discharge instructions given to patient. Clinical Quality Measures AMI/AHF: ASA po Prior to arrival: Yes (162) DVT/VTE Risk/Contraindication: Risk Factor Score Per Nursin RFS Level Per Nursing on Admit: 2=Moderate Problem Qualifiers (1) Chest pain: Chest pain type: chest pain due to myocardial ischemia Ischemic chest pain type: unstable angina pectoris Qualified Codes: I20.0 - Unstable angina (2) Hypertension: Hypertension type: essential hypertension Qualified Codes: I10 - Essential ( primary) hypertension (3) Degenerative joint disease (DJD) of lumbar spine: Spinal osteoarthritis complication: with radiculopathy Qualified Codes: M47.26 - Other spondylosis with radiculopathy, lumbar region LEAH MONCADA DO Jun 27, 2017 12:54
== END 2017-06-27 10:24 | disposition home or self-care (01) ==
LOC: EDUNIT# 20:18 → ER 20:19 → UNDOADMOB 21:30 → ICU 21:30 → SDC 21:30 → UNDODISOB 06-27 10:24 → CATH 06-27 10:24
PROVIDERS: ATTEND Internal Medicine
DX: I21.4 Non-ST elevation (NSTEMI) myocardial infarction (principal); Z95.5 Presence of coronary angioplasty implant and graft; I10 Essential (primary) hypertension; E78.00 Pure hypercholesterolemia, unspecified; K21.9 Gastro-esophageal reflux disease without esophagitis; F41.9 Anxiety disorder, unspecified; E87.6 Hypokalemia; I25.110 Atherosclerotic heart disease of native coronary artery with unstable angina pectoris; Z79.899 Other long term (current) drug therapy; Z79.82 Long term (current) use of aspirin
CPT/HCPCS: 36415; 71010; 80048; 80053; 80061; 82150; 82550; 82553; 83690; 83880; 84484; 85025; 85027; 85610; 85730; 93005; 93041; 93458; 96360

== ENCOUNTER → 2017-08-05 | Outpatient (CLI) | payer BC ==
[~2017-08-05] MED LIST changes: +AMLO10TA4 PO; +ASPI-999 PO; +CLOP75TA69 PO; +IBUP1TAB14 PO; +OXYC-471 PO
[2017-08-05 13:41] LABS: ALANINE AMINOTRANSFERASE 24 U/L (0-55); ALBUMIN 4.2 GM/DL (3.2-4.5); ANION GAP 10 MMOL/L (5-14); ASPARTATE AMINO TRANSFERASE 17 U/L (5-34); BILIRUBIN,TOTAL 0.7 MG/DL (0.1-1.0); BLOOD UREA NITROGEN 15 MG/DL (7-18); BUN/CREATININE RATIO 16; CALCIUM 8.8 MG/DL (8.5-10.1); CARBON DIOXIDE 25 MMOL/L (21-32); CHLORIDE 106 MMOL/L (98-107); CHOLESTEROL 135 MG/DL (< 200); CREATININE SERUM 0.95 MG/DL (0.60-1.30); DIRECT LDL 86 MG/DL (1-129); GFR ESTIMATED > 60; GLUCOSE 99 MG/DL (70-105); POTASSIUM 3.8 MMOL/L (3.6-5.0); SODIUM 141 MMOL/L (135-145); TOTAL PROTEIN 6.9 GM/DL (6.4-8.2); TRIGLYCERIDES 88 MG/DL (<150); VLDL CHOLESTEROL 18 MG/DL (5-40)
[2017-08-05 13:48] LABS: TROPONIN I < 0.30 NG/ML (<0.30)
--- NOTE | 2017-08-06 04:59 | STRESS TEST ---
DATE OF SERVICE: 08/05/2017 EXERCISE STRESS TEST REPORT INDICATION: Chest pain. Baseline heart rate is 54. Baseline blood pressure 120/79. Baseline EKG is sinus rhythm with no ischemic changes. SUMMARY: The patient started exercising with a baseline heart rate, blood pressure and EKG mentioned above. Early in exercise, he started having chest pain around minute 3 of exercise. No EKG changes except for frequent PVCs and ventricular bigeminy, which persisted throughout the test. He was able to exercise for 11 minutes on standard Logan protocol achieving maximum heart rate of 141, which is 88% of maximum expected heart rate. With peak exercise level, EKG was showing minimal nondiagnostic changes. During recovery, heart rate and blood pressure returned to baseline. EKG returned to baseline. With peak exercise level, his PVC has improved. Chest pain has improved after 4 minutes of exercise. Echocardiographic images were acquired and reviewed in the parasternal long axis, parasternal short axis, apical four chamber and apical two chamber views. Review of the images showed normal left ventricular size with normal contractility with no ischemic changes. CONCLUSION: 1. Excellent exercise tolerance, a total of 11 minutes on standard Logan protocol, total of 12.1 METs achieving 88% of maximum expected heart rate. 2. The patient had mild chest pain early in exercise, improved with continuous exercise. 3. Frequent PVCs noted during exercise with ventricular bigeminy. Improved at peak stress level. 4. Minimal nondiagnostic EKG changes. 5. Normal echocardiographic images at rest and with peak stress images with no ischemic changes. Job ID: [id number] DocumentID: [id number] Dictated Date: 08/05/2017 16:07:34 [employer] Date: 08/05/2017 17:31:40 Dictated By: LINA PARIS MD
== END ==
LOC: CARD 12:21
PROVIDERS: ATTEND Internal Medicine Cardiovascular Disease
DX: I25.10 Atherosclerotic heart disease of native coronary artery without angina pectoris (principal); I10 Essential (primary) hypertension; E78.2 Mixed hyperlipidemia
CPT/HCPCS: 36415; 80053; 80061; 84484; 93351

== ENCOUNTER → 2017-12-01 | Outpatient (CLI) | payer BC ==
[~2017-12-01] MED LIST changes: +ROSU5TAB11 PO; -ROSU5TAB9 PO
[2017-12-01 09:39] LABS: BUN/CREATININE RATIO 14; CALCIUM 8.8 MG/DL (8.5-10.1); CARBON DIOXIDE 25 MMOL/L (21-32); CHLORIDE 107 MMOL/L (98-107); CREATININE SERUM 0.99 MG/DL (0.60-1.30); GFR ESTIMATED > 60; GLUCOSE 107 MG/DL (70-105); SODIUM 142 MMOL/L (135-145)
[2017-12-01 10:04] LABS: FREE T4 (FREE THYROXINE) 1.08 NG/DL (0.70-1.48)
== END ==
LOC: LAB 08:49
PROVIDERS: ATTEND Physician Assistant Medical
DX: I25.10 Atherosclerotic heart disease of native coronary artery without angina pectoris (principal); R07.9 Chest pain, unspecified; R06.02 Shortness of breath; R53.83 Other fatigue
CPT/HCPCS: 36415; 80048; 84439; 84443; 84481

== ENCOUNTER 2018-02-02 08:41 | Observation (INO) | payer BC ==
[~2018-02-02] VITALS: Ht 188 cm; Wt 92.7 kg
[2018-02-02] VITALS (7 sets, daily range): BP systolic 110–142; BP diastolic 71–92
--- OUTSIDE RECORDS SUMMARY | 2018-02-02 08:55 | XMS REPORT | Continuity of Care Document ---
Author Author [facility] Organization [facility] Address Unknown Phone Unavailable Allergies Active Description Code Type Severity Reaction Onset Reported/Identified Relationship to Patient Clinical Status Yes No Known Drug Allergies [id number] Drug Allergy Unknown N/A 03/28/2010 Yes No Known Allergies No Known Allergies Drug Allergy Unknown N/A 2016 Medications There is no data. Problems Date Dx Coded Attending Type Code Diagnosis Diagnosed By 04/09/2011 Ot 722.52 LUMB/ LUMBOSAC DISC DEGEN 04/09/2011 Ot V57.1 PHYSICAL THERAPY NEC 05/17/2011 Ot 729.81 SWELLING OF LIMB 05/17/2011 Ot 924.10 CONTUSION OF LOWER LEG 05/17/2011 Ot 959.7 LOWER LEG INJURY NOS 05/17/2011 Ot E000.8 OTHER EXTERNAL CAUSE STATUS 05/17/2011 Ot E849.0 ACCIDENT IN HOME 05/17/2011 Ot E917.4 STAT OB W/O SUB FALL NEC 11/13/2011 Ot 272.4 HYPERLIPIDEMIA NEC/NOS 11/13/2011 Ot 401.9 HYPERTENSION NOS 11/13/2011 Ot 411.1 INTERMED CORONARY SYND 11/13/2011 Ot 414.01 CORONARY 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 11/13/2011 Ot V45.82 PERCUTANEOUS TRANSLUM CORON ANGIOPLASTY 11/13/2011 Ot V58.63 LONG-TERM( CURRENT)USE OF ANTIPLATELET/AN 11/13/2011 Ot V58.66 LONG-TERM ( CURRENT) USE OF ASPIRIN 11/13/2011 Ot V58.69 OTH MED,LT, CURRENT USE 04/03/2013 SIMIN GIPSON MD Ot 724.2 LUMBAGO 04/03/2013 SIMIN GIPSON MD Ot V57.1 PHYSICAL THERAPY NEC 02/19/2014 LINA PARIS MD Ot 272.4 HYPERLIPIDEMIA NEC/NOS 02/19/2014 LINA PARIS MD Ot 401.9 HYPERTENSION NOS 02/19/2014 LINA PARIS MD Ot 414.01 CORONARY 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 02/19/2014 LINA PARIS MD Ot 784.0 HEADACHE 02/19/2014 LINA PARIS MD Ot 786.50 CHEST PAIN NOS 02/19/2014 LINA PARIS MD Ot V17.3 FAM HX-ISCHEM HEART DIS 02/19/2014 LINA PARIS MD Ot V45.82 PERCUTANEOUS TRANSLUM CORON ANGIOPLASTY 02/19/2014 LINA PARIS MD Ot V58.69 [facility] MED,LT,CURRENT USE 11/11/2014 LITO PEREZ DO Ot 300.00 ANXIETY STATE NOS 11/11/2014 LITO PEREZ DO Ot 786.05 SHORTNESS OF BREATH 11/15/2014 Ot 272.4 11/15/2014 Ot 401.9 11/15/2014 Ot 414.00 11/15/2014 Ot 786.50 11/15/2014 Ot 272.0 11/15/2014 Ot 401.1 11/15/2014 Ot 413.9 11/15/2014 Ot 414.00 11/15/2014 Ot V58.69 05/16/2015 MONCADA DO, LEAH Ot 272.0 05/16/2015 MONCADA DO, LEAH Ot 401.1 05/16/2015 MONCADA DO, LEAH Ot 413.9 05/16/2015 MONCADA DO, LEAH Ot 414.01 05/16/2015 MONCADA DO, LEAH Ot 786.09 05/16/2015 MONCADA DO, LEAH Ot V58.69 05/16/2015 MONCADA DO, LEAH Ot V70.0 07/09/2015 MONCADA DO, LEAH Ot 272.0 07/09/2015 MONCADA DO, LEAH Ot 401.1 07/09/2015 MONCADA DO, LEAH Ot 413.9 07/09/2015 MONCADA DO, LEAH Ot 414.01 07/09/2015 MONCADA DO, LEAH Ot 786.09 07/09/2015 MONCADA DO, LEAH Ot V58.69 07/09/2015 MONCADA DO, LEAH Ot V70.0 07/11/2015 LINA PARIS MD Ot E78.5 07/11/2015 LINA PARIS MD Ot F41.9 07/11/2015 LINA PARIS MD Ot I10 07/11/2015 LINA PARIS MD Ot I25.118 07/11/2015 LINA PARIS MD Ot I49.3 07/11/2015 LINA PARIS MD Ot R94.39 07/11/2015 LINA PARIS MD Ot Z79.899 07/11/2015 LINA PARIS MD Ot Z98.61 11/20/2015 MONCADA DO, LEAH Ot E78.0 11/20/2015 MONCADA DO, LEAH Ot Z00.00 12/18/2015 MONCADA DO, LEAH Ot E78.0 PURE HYPERCHOLESTEROLEMIA 12/18/2015 MONCADA DO, LEAH Ot Z00.00 ENCNTR FOR GENERAL ADULT MEDICAL EXAM W/ 05/05/2016 Ot 722.52 LUMB/ LUMBOSAC DISC DEGEN 05/05/2016 Ot 272.0 PURE HYPERCHOLESTEROLEM 05/05/2016 Ot 401.1 BENIGN HYPERTENSION 05/05/2016 Ot V76.44 SCREEN MAL NEOP-PROSTATE 05/05/2016 Ot 272.0 PURE HYPERCHOLESTEROLEM 05/05/2016 Ot 369.9 VISUAL LOSS NOS 05/05/2016 Ot 372.72 CONJUNCTIVAL HEMORRHAGE 05/05/2016 Ot 401.1 BENIGN HYPERTENSION 05/05/2016 Ot 414.01 CORONARY 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 05/05/2016 Ot 729.5 PAIN IN LIMB 05/05/2016 Ot 780.4 DIZZINESS AND GIDDINESS 05/05/2016 Ot 784.0 HEADACHE 05/05/2016 Ot 272.0 PURE HYPERCHOLESTEROLEM 05/05/2016 Ot 401.1 BENIGN HYPERTENSION 05/05/2016 Ot 729.5 PAIN IN LIMB 05/05/2016 Ot 272.0 PURE HYPERCHOLESTEROLEM 05/05/2016 Ot 401.9 HYPERTENSION NOS 05/05/2016 Ot 414.01 CORONARY 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 05/05/2016 Ot 401.1 BENIGN HYPERTENSION 05/05/2016 Ot 790.29 OTHER ABNORMAL GLUCOSE 05/05/2016 Ot 272.0 PURE HYPERCHOLESTEROLEM 05/05/2016 Ot 401.1 BENIGN HYPERTENSION 05/05/2016 MONCADA DO, LEAH Ot 272.0 PURE HYPERCHOLESTEROLEM 05/05/2016 MONCADABIJAN POOLE LEAH Ot 401.1 BENIGN HYPERTENSION 05/05/2016 MONCADABIJAN POOLE LEAH Ot 414.01 CORONARY 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 05/05/2016 SIMIN GIPSON MD Ot 414.01 CORONARY 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 05/05/2016 SIMIN GIPSON MD Ot 721.3 LUMBOSACRAL SPONDYLOSIS 05/05/2016 SIMIN GIPSON MD Ot 722.52 LUMB/LUMBOSAC DISC DEGEN 05/05/2016 SIMIN GIPSON MD Ot 729.1 MYALGIA AND MYOSITIS NOS 05/05/2016 SIMIN GIPSON MD Ot V45.82 PERCUTANEOUS TRANSLUM CORON ANGIOPLASTY 05/05/2016 SIMIN GIPSON MD Ot V58.63 LONG-TERM(CURRENT)USE OF ANTIPLATELET/AN 05/05/2016 SIMIN GIPSON MD Ot V58.69 OT MED,LT,CURRENT USE 05/05/2016 LEAH MONCADA DO Ot 272.0 PURE HYPERCHOLESTEROLEM 05/05/2016 LEAH MONCADA DO Ot 401.1 BENIGN HYPERTENSION 05/05/2016 LEAH MONCADA DO Ot 413.9 ANGINA PECTORIS NEC/NOS 05/05/2016 LEAH MONCADA DO Ot 414.01 CORONARY 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 05/05/2016 LEAH MONCADA DO Ot V58.69 OT MED,LT,CURRENT USE 05/05/2016 LEAH MONCADA DO Ot V58.83 ENCOUNTER FOR THERAPEUTIC DRUG MONITORIN 05/05/2016 LINA PARIS MD Ot 272.4 HYPERLIPIDEMIA NEC/NOS 05/05/2016 LINA PARIS MD Ot 397.0 TRICUSPID VALVE DISEASE 05/05/2016 LINA PARIS MD Ot 401.9 HYPERTENSION NOS 05/05/2016 LINA PARIS MD Ot 414.00 CORON ATHEROSCLER NOS TYPE VESSEL, NATIV 05/05/2016 LINA PARIS MD Ot 424.0 MITRAL VALVE DISORDER 05/05/2016 LINA PARIS MD Ot 786.05 SHORTNESS OF BREATH 05/05/2016 LINA PARIS MD Ot 786.50 CHEST PAIN NOS 05/05/2016 LINA PARIS MD Ot 272.4 HYPERLIPIDEMIA NEC/NOS 05/05/2016 LINA PARIS MD Ot 401.9 HYPERTENSION NOS 05/05/2016 LINA PARIS MD Ot 414.00 CORON ATHEROSCLER NOS TYPE VESSEL, NATIV 05/05/2016 LINA PARIS MD Ot 786.05 SHORTNESS OF BREATH 05/05/2016 LINA PARIS MD Ot 786.50 CHEST PAIN NOS 05/05/2016 LINA PARIS MD Ot 272.4 HYPERLIPIDEMIA NEC/NOS 05/05/2016 LINA PARIS MD Ot 401.9 HYPERTENSION NOS 05/05/2016 LINA PARIS MD Ot 414.00 CORON ATHEROSCLER NOS TYPE VESSEL, NATIV 05/05/2016 LINA PARIS MD Ot 786.05 SHORTNESS OF BREATH 05/05/2016 LINA PARIS MD Ot 786.50 CHEST PAIN NOS 05/05/2016 LEAH MONCADA DO Ot 272.0 PURE HYPERCHOLESTEROLEM 05/05/2016 LEAH MONCADA DO Ot 401.1 BENIGN HYPERTENSION 05/05/2016 LEAH MONCADA DO Ot 413.9 ANGINA PECTORIS NEC/NOS 05/05/2016 LEAH MONCADA DO Ot 414.01 CORONARY 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 05/05/2016 LEAH MONCADA DO Ot 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 05/05/2016 LEAH MONCADA DO Ot 786.59 CHEST PAIN NEC 05/05/2016 LEAH MONCADA DO Ot V70.0 ROUTINE MEDICAL EXAM 05/05/2016 LEAH MONCADA DO Ot 729.1 MYALGIA AND MYOSITIS NOS 05/05/2016 LEAH MONCADA DO Ot 723.4 BRACHIAL NEURITIS NOS 05/05/2016 LEAH MONCADA DO Ot 729.5 PAIN IN LIMB 05/05/2016 LEAH MONCADA DO Ot 729.89 MUSCSKEL SYMPT LIMB NEC 05/05/2016 LEAH MONCADA DO Ot 272.0 PURE HYPERCHOLESTEROLEM 05/05/2016 LEAH MONCADA DO Ot 401.1 BENIGN HYPERTENSION 05/05/2016 Ot 272.4 HYPERLIPIDEMIA NEC/NOS 05/05/2016 Ot 401.9 HYPERTENSION NOS 05/05/2016 Ot 414.00 CORON ATHEROSCLER NOS TYPE VESSEL, NATIV 05/05/2016 Ot 786.50 CHEST PAIN NOS 05/05/2016 Ot 272.0 PURE HYPERCHOLESTEROLEM 05/05/2016 Ot 401.1 BENIGN HYPERTENSION 05/05/2016 Ot 413.9 ANGINA PECTORIS NEC/NOS 05/05/2016 Ot 414.00 CORON ATHEROSCLER NOS TYPE VESSEL, NATIV 05/05/2016 Ot V58.69 OT MED,LT, CURRENT USE 05/05/2016 Ot 722.52 LUMB/ LUMBOSAC DISC DEGEN 05/05/2016 Ot 272.0 PURE HYPERCHOLESTEROLEM 05/05/2016 Ot 401.1 BENIGN HYPERTENSION 05/05/2016 Ot V76.44 SCREEN MAL NEOP-PROSTATE 05/05/2016 Ot 272.0 PURE HYPERCHOLESTEROLEM 05/05/2016 Ot 369.9 VISUAL LOSS NOS 05/05/2016 Ot 372.72 CONJUNCTIVAL HEMORRHAGE 05/05/2016 Ot 401.1 BENIGN HYPERTENSION 05/05/2016 Ot 414.01 CORONARY 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 05/05/2016 Ot 729.5 PAIN IN LIMB 05/05/2016 Ot 780.4 DIZZINESS AND GIDDINESS 05/05/2016 Ot 784.0 HEADACHE 05/05/2016 Ot 272.0 PURE HYPERCHOLESTEROLEM 05/05/2016 Ot 401.1 BENIGN HYPERTENSION 05/05/2016 Ot 729.5 PAIN IN LIMB 05/05/2016 Ot 272.0 PURE HYPERCHOLESTEROLEM 05/05/2016 Ot 401.9 HYPERTENSION NOS 05/05/2016 Ot 414.01 CORONARY 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 05/05/2016 Ot 401.1 BENIGN HYPERTENSION 05/05/2016 Ot 790.29 OTHER ABNORMAL GLUCOSE 05/05/2016 Ot 272.0 PURE HYPERCHOLESTEROLEM 05/05/2016 Ot 401.1 BENIGN HYPERTENSION 05/05/2016 LEAH MONCADA DO Ot 272.0 PURE HYPERCHOLESTEROLEM 05/05/2016 MONCADALEAH THAKKAR DO Ot 401.1 BENIGN HYPERTENSION 05/05/2016 LEAH MONCADA DO Ot 414.01 CORONARY 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 05/05/2016 SIMIN GIPSON MD Ot 414.01 CORONARY 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 05/05/2016 SIMIN GIPSON MD Ot 721.3 LUMBOSACRAL SPONDYLOSIS 05/05/2016 SIMIN GIPSON MD Ot 722.52 LUMB/LUMBOSAC DISC DEGEN 05/05/2016 SIMIN GIPSON MD Ot 729.1 MYALGIA AND MYOSITIS NOS 05/05/2016 SIMIN GIPSON MD Ot V45.82 PERCUTANEOUS TRANSLUM CORON ANGIOPLASTY 05/05/2016 SIMIN GIPSON MD Ot V58.63 LONG-TERM(CURRENT)USE OF ANTIPLATELET/AN 05/05/2016 SIMIN GIPSON MD Ot V58.69 OT MED,LT,CURRENT USE 05/05/2016 CORAL POOLE LEAH Ot 272.0 PURE HYPERCHOLESTEROLEM 05/05/2016 ELOINA MONCADA DOI Ot 401.1 BENIGN HYPERTENSION 05/05/2016 ELOINA MONCADA DOI Ot 413.9 ANGINA PECTORIS NEC/NOS 05/05/2016 LEAH MONCADA DO Ot 414.01 CORONARY 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 05/05/2016 LEAH MONCADA DO Ot V58.69 OTH MED,LT,CURRENT USE 05/05/2016 LEAH MONCADA DO Ot V58.83 ENCOUNTER FOR THERAPEUTIC DRUG MONITORIN 05/05/2016 LINA PARIS MD Ot 272.4 HYPERLIPIDEMIA NEC/NOS 05/05/2016 LINA PARIS MD Ot 397.0 TRICUSPID VALVE DISEASE 05/05/2016 LINA PARIS MD Ot 401.9 HYPERTENSION NOS 05/05/2016 LINA PARIS MD Ot 414.00 CORON ATHEROSCLER NOS TYPE VESSEL, NATIV 05/05/2016 LINA PARIS MD Ot 424.0 MITRAL VALVE DISORDER 05/05/2016 LINA PARIS MD Ot 786.05 SHORTNESS OF BREATH 05/05/2016 LINA PARIS MD Ot 786.50 CHEST PAIN NOS 05/05/2016 LINA PARIS MD Ot 272.4 HYPERLIPIDEMIA NEC/NOS 05/05/2016 LINA PARIS MD Ot 401.9 HYPERTENSION NOS 05/05/2016 LINA PARIS MD Ot 414.00 CORON ATHEROSCLER NOS TYPE VESSEL, NATIV 05/05/2016 ILNA PARIS MD Ot 786.05 SHORTNESS OF BREATH 05/05/2016 LINA PARIS MD Ot 786.50 CHEST PAIN NOS 05/05/2016 LINA PARIS MD Ot 272.4 HYPERLIPIDEMIA NEC/NOS 05/05/2016 LINA PARIS MD Ot 401.9 HYPERTENSION NOS 05/05/2016 LINA PARIS MD Ot 414.00 CORON ATHEROSCLER NOS TYPE VESSEL, NATIV 05/05/2016 LINA PARIS MD Ot 786.05 SHORTNESS OF BREATH 05/05/2016 LINA PARIS MD Ot 786.50 CHEST PAIN NOS 05/05/2016 ELOINA MONCADA DOI Ot 272.0 PURE HYPERCHOLESTEROLEM 05/05/2016 LEAH MONCADA DO Ot 401.1 BENIGN HYPERTENSION 05/05/2016 LEAH MONCADA DO Ot 413.9 ANGINA PECTORIS NEC/NOS 05/05/2016 MONCADABIJAN POOLE LEAH Ot 414.01 CORONARY 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 05/05/2016 MONCADALEAH THAKKAR DO Ot 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 05/05/2016 MONCADALEAH THAKKAR DO Ot 786.59 CHEST PAIN NEC 05/05/2016 MONCADALEAH THAKKAR DO Ot V70.0 ROUTINE MEDICAL EXAM 05/05/2016 MONCADALEAH THAKKAR DO Ot 729.1 MYALGIA AND MYOSITIS NOS 05/05/2016 MONCADALEAH THAKKAR DO Ot 723.4 BRACHIAL NEURITIS NOS 05/05/2016 MONCADALEAH THAKKAR DO Ot 729.5 PAIN IN LIMB 05/05/2016 LEAH MONCADA DO Ot 729.89 MUSCSKEL SYMPT LIMB NEC 05/05/2016 MONCADABIJAN POOLE LEAH Ot 272.0 PURE HYPERCHOLESTEROLEM 05/05/2016 MONCADALEAH THAKKAR DO Ot 401.1 BENIGN HYPERTENSION 05/05/2016 Ot 272.4 HYPERLIPIDEMIA NEC/NOS 05/05/2016 Ot 401.9 HYPERTENSION NOS 05/05/2016 Ot 414.00 CORON ATHEROSCLER NOS TYPE VESSEL, NATIV 05/05/2016 Ot 786.50 CHEST PAIN NOS 05/05/2016 Ot 272.0 PURE HYPERCHOLESTEROLEM 05/05/2016 Ot 401.1 BENIGN HYPERTENSION 05/05/2016 Ot 413.9 ANGINA PECTORIS NEC/NOS 05/05/2016 Ot 414.00 CORON ATHEROSCLER NOS TYPE VESSEL, NATIV 05/05/2016 Ot V58.69 OTH MED,LT, CURRENT USE 05/06/2016 LEAH MONCADA DO Ot E78.0 PURE HYPERCHOLESTEROLEMIA 05/06/2016 LEAH MONCADA DO Ot Z00.00 ENCNTR FOR GENERAL ADULT MEDICAL EXAM W05/06/2016 DANNY CAMPBELL Ot E78.5 HYPERLIPIDEMIA, UNSPECIFIED 05/06/2016 DANNY CAMPBELL Ot I25.10 ATHSCL HEART DISEASE OF [place] CORONARY 05/06/2016 DANNY CAMPBELL Ot E78.5 HYPERLIPIDEMIA, UNSPECIFIED 05/06/2016 DANNY CAMPBELL Ot I25.10 ATHSCL HEART DISEASE OF [place] CORONARY 05/11/2016 DANNY CAMPBELL Ot E78.5 HYPERLIPIDEMIA, UNSPECIFIED 05/11/2016 DANNY CAMPBELL Ot I25.10 ATHSCL HEART DISEASE OF [place] CORONARY 05/20/2016 LEAH MONCADA DO Ot E78.0 PURE HYPERCHOLESTEROLEMIA 05/20/2016 LEAH MONCADA DO Ot Z00.00 ENCNTR FOR GENERAL ADULT MEDICAL EXAM W05/20/2016 DANNY CAMPBELL Ot E78.5 HYPERLIPIDEMIA, UNSPECIFIED 05/20/2016 DANNY CAMPBELL Ot I25.10 ATHSCL HEART DISEASE OF [place] CORONARY 06/23/2016 CARLOS MARTIN MD Ot E78.5 HYPERLIPIDEMIA, UNSPECIFIED 06/23/2016 CARLOS MARTIN MD Ot I10 ESSENTIAL (PRIMARY) HYPERTENSION 06/23/2016 CARLOS MARTIN MD Ot I25.110 ATHSCL HEART DISEASE OF [place] COR ART W 06/23/2016 CARLOS MARTIN MD Ot Z79.02 ALF (CURRENT) USE OF ANTITHROMBOTI 06/23/2016 CARLOS MARTIN MD Ot Z79.899 OTHER PUBLIC RELATIONS PROFESSIONAL (CURRENT) DRUG THERAPY 06/23/2016 CARLOS MARTIN MD Ot Z95.5 PRESENCE OF CORONARY ANGIOPLASTY IMPLANT 07/06/2016 CARLOS MARTIN MD, Ot E78.5 HYPERLIPIDEMIA, UNSPECIFIED 07/06/2016 CARLOS MARTIN MD Ot I10 ESSENTIAL (PRIMARY) HYPERTENSION 07/06/2016 CARLOS MARTIN MD Ot I25.110 ATHSCL HEART DISEASE OF [place] COR ART W 07/06/2016 CARLOS MARTIN MD Ot Z79.02 PUBLIC RELATIONS PROFESSIONAL (CURRENT) USE OF ANTITHROMBOTI 07/06/2016 CARLOS MARTIN MD Ot Z79.899 OTHER ALF (CURRENT) DRUG THERAPY 07/06/2016 CARLOS MARTIN MD Ot Z95.5 PRESENCE OF CORONARY ANGIOPLASTY IMPLANT 07/06/2016 CARLOS MARTIN MD Ot E78.5 HYPERLIPIDEMIA, UNSPECIFIED 07/06/2016 CARLOS MARTIN MD Ot I10 ESSENTIAL (PRIMARY) HYPERTENSION 07/06/2016 CARLOS MARTIN MD Ot I25.110 ATHSCL HEART DISEASE OF [place] COR ART W 07/06/2016 CARLOS MARTIN MD Ot Z79.02 ALF (CURRENT) USE OF ANTITHROMBOTI 07/06/2016 CARLOS MARTIN MD Ot Z79.899 OTHER PUBLIC RELATIONS PROFESSIONAL (CURRENT) DRUG THERAPY 07/06/2016 CARLOS MARTIN MD Ot Z95.5 PRESENCE OF CORONARY ANGIOPLASTY IMPLANT 01/29/2017 Ot 272.0 PURE HYPERCHOLESTEROLEM 01/29/2017 Ot 401.9 HYPERTENSION NOS 01/29/2017 Ot 414.01 CORONARY 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 01/29/2017 Ot 401.1 BENIGN HYPERTENSION 01/29/2017 Ot 790.29 OTHER ABNORMAL GLUCOSE 01/29/2017 Ot 272.0 PURE HYPERCHOLESTEROLEM 01/29/2017 Ot 401.1 BENIGN HYPERTENSION 01/29/2017 MONCADAELOINA THAKKAR DOI Ot 272.0 PURE HYPERCHOLESTEROLEM 01/29/2017 LEAH MONCADA DO Ot 401.1 BENIGN HYPERTENSION 01/29/2017 LEAH MONCADA DO Ot 414.01 CORONARY 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 01/29/2017 SIMIN GIPSON MD Ot 414.01 CORONARY 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 01/29/2017 SIMIN GIPSON MD Ot 721.3 LUMBOSACRAL SPONDYLOSIS 01/29/2017 SIMIN GIPSON MD Ot 722.52 LUMB/LUMBOSAC DISC DEGEN 01/29/2017 SIMIN GIPSON MD Ot 729.1 MYALGIA AND MYOSITIS NOS 01/29/2017 SIMIN GIPSON MD Ot V45.82 PERCUTANEOUS TRANSLUM CORON ANGIOPLASTY 01/29/2017 SIMIN GIPSON MD Ot V58.63 LONG-TERM(CURRENT)USE OF ANTIPLATELET/AN 01/29/2017 SIMIN GIPSON MD Ot V58.69 OTH MED,LT,CURRENT USE 01/29/2017 LEAH MONCADA DO Ot 272.0 PURE HYPERCHOLESTEROLEM 01/29/2017 LEAH MONCADA DO Ot 401.1 BENIGN HYPERTENSION 01/29/2017 LEAH MONCADA DO Ot 413.9 ANGINA PECTORIS NEC/NOS 01/29/2017 LEAH MONCADA DO Ot 414.01 CORONARY 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 01/29/2017 LEAH MONCADA DO Ot V58.69 OTH MED,LT,CURRENT USE 01/29/2017 LEAH MONCADA DO Ot V58.83 ENCOUNTER FOR THERAPEUTIC DRUG MONITORIN 01/29/2017 LINA PARIS MD Ot 272.4 HYPERLIPIDEMIA NEC/NOS 01/29/2017 LINA PARIS MD Ot 397.0 TRICUSPID VALVE DISEASE 01/29/2017 LINA PARIS MD Ot 401.9 HYPERTENSION NOS 01/29/2017 LINA PARIS MD Ot 414.00 CORON ATHEROSCLER NOS TYPE VESSEL, NATIV 01/29/2017 LINA PARIS MD Ot 424.0 MITRAL VALVE DISORDER 01/29/2017 LINA PARIS MD Ot 786.05 SHORTNESS OF BREATH 01/29/2017 LINA PARIS MD Ot 786.50 CHEST PAIN NOS 01/29/2017 LINA PARIS MD Ot 272.4 HYPERLIPIDEMIA NEC/NOS 01/29/2017 LINA PARSI MD Ot 401.9 HYPERTENSION NOS 01/29/2017 LINA PARIS MD Ot 414.00 CORON ATHEROSCLER NOS TYPE VESSEL, NATIV 01/29/2017 LINA PARIS MD Ot 786.05 SHORTNESS OF BREATH 01/29/2017 LINA PARIS MD Ot 786.50 CHEST PAIN NOS 01/29/2017 LINA PARIS MD Ot 272.4 HYPERLIPIDEMIA NEC/NOS 01/29/2017 LINA PARIS MD Ot 401.9 HYPERTENSION NOS 01/29/2017 LINA PARIS MD Ot 414.00 CORON ATHEROSCLER NOS TYPE VESSEL, NATIV 01/29/2017 LINA PARIS MD Ot 786.05 SHORTNESS OF BREATH 01/29/2017 LINA PARIS MD Ot 786.50 CHEST PAIN NOS 01/29/2017 LEAH MONCADA DO Ot 272.0 PURE HYPERCHOLESTEROLEM 01/29/2017 LEAH MONCADA DO Ot 401.1 BENIGN HYPERTENSION 01/29/2017 LEAH MONCADA DO Ot 413.9 ANGINA PECTORIS NEC/NOS 01/29/2017 LEAH MONCADA DO Ot 414.01 CORONARY 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 01/29/2017 LEAH MONCADA DO Ot 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 01/29/2017 LEAH MONCADA DO Ot 786.59 CHEST PAIN NEC 01/29/2017 LEAH MONCADA DO Ot V70.0 ROUTINE MEDICAL EXAM 01/29/2017 LEAH MONCADA DO Ot 729.1 MYALGIA AND MYOSITIS NOS 01/29/2017 MONCADA DO, LEAH Ot 723.4 BRACHIAL NEURITIS NOS 01/29/2017 LEAH MONCADA DO Ot 729.5 PAIN IN LIMB 01/29/2017 LEAH MONCADA DO Ot 729.89 MUSCSKEL SYMPT LIMB NEC 01/29/2017 LEAH MONCADA DO Ot 272.0 PURE HYPERCHOLESTEROLEM 01/29/2017 LEAH MONCADA DO Ot 401.1 BENIGN HYPERTENSION 01/29/2017 Ot 272.4 HYPERLIPIDEMIA NEC/NOS 01/29/2017 Ot 401.9 HYPERTENSION NOS 01/29/2017 Ot 414.00 CORON ATHEROSCLER NOS TYPE VESSEL, NATIV 01/29/2017 Ot 786.50 CHEST PAIN NOS 01/29/2017 Ot 272.0 PURE HYPERCHOLESTEROLEM 01/29/2017 Ot 401.1 BENIGN HYPERTENSION 01/29/2017 Ot 413.9 ANGINA PECTORIS NEC/NOS 01/29/2017 Ot 414.00 CORON ATHEROSCLER NOS TYPE VESSEL, NATIV 01/29/2017 Ot V58.69 OTH MED,LT, CURRENT USE 01/29/2017 LEAH MONCADA DO Ot E78.0 PURE HYPERCHOLESTEROLEMIA 01/29/2017 LEAH MONCADA DO Ot Z00.00 ENCNTR FOR GENERAL ADULT MEDICAL EXAM W/ 01/29/2017 DANNY CAMPBELL Ot E78.5 HYPERLIPIDEMIA, UNSPECIFIED 01/29/2017 DANNY CAMPBELL Ot I25.10 ATHSCL HEART DISEASE OF [place] CORONARY 01/30/2017 LINA PARIS MD Ot E78.5 HYPERLIPIDEMIA, UNSPECIFIED 01/30/2017 LINA PARIS MD Ot I10 ESSENTIAL (PRIMARY) HYPERTENSION 01/30/2017 LINA PARIS MD Ot I25.10 ATHSCL HEART DISEASE OF [place] CORONARY 01/30/2017 LINA PARIS MD Ot K21.9 GASTRO-ESOPHAGEAL REFLUX DISEASE WITHOUT 01/30/2017 LINA PARIS MD Ot R06.2 WHEEZING 01/30/2017 LINA PARIS MD Ot R07.9 CHEST PAIN, UNSPECIFIED 01/30/2017 LINA PARIS MD Ot R51 HEADACHE 01/30/2017 LINA PARIS MD Ot Z79.82 PUBLIC RELATIONS PROFESSIONAL (CURRENT) USE OF ASPIRIN 01/30/2017 LINA PARIS MD Ot E78.5 HYPERLIPIDEMIA, UNSPECIFIED 01/30/2017 LINA PARIS MD Ot I10 ESSENTIAL (PRIMARY) HYPERTENSION 01/30/2017 LINA PARIS MD Ot I25.10 ATHSCL HEART DISEASE OF [place] CORONARY 01/30/2017 LINA PARIS MD Ot K21.9 GASTRO-ESOPHAGEAL REFLUX DISEASE WITHOUT 01/30/2017 LINA PARIS MD Ot R06.2 WHEEZING 01/30/2017 LINA PARIS MD Ot R07.9 CHEST PAIN, UNSPECIFIED 01/30/2017 LINA PARIS MD Ot R51 HEADACHE 01/30/2017 LINA PARIS MD Ot Z79.82 PUBLIC RELATIONS PROFESSIONAL (CURRENT) USE OF ASPIRIN 01/30/2017 LINA PARIS MD Ot E78.5 HYPERLIPIDEMIA, UNSPECIFIED 01/30/2017 LINA PARIS MD Ot I10 ESSENTIAL (PRIMARY) HYPERTENSION 01/30/2017 LINA PARIS MD Ot I25.10 ATHSCL HEART DISEASE OF [place] CORONARY 01/30/2017 LINA PARIS MD Ot K21.9 GASTRO-ESOPHAGEAL REFLUX DISEASE WITHOUT 01/30/2017 LINA PARIS MD Ot R06.2 WHEEZING 01/30/2017 LINA PARIS MD Ot R07.9 CHEST PAIN, UNSPECIFIED 01/30/2017 LINA PARIS MD Ot R51 HEADACHE 01/30/2017 LINA PARIS MD Ot Z79.82 PUBLIC RELATIONS PROFESSIONAL (CURRENT) USE OF ASPIRIN 06/27/2017 LEAH MONCADA DO Ot E78.00 PURE HYPERCHOLESTEROLEMIA, UNSPECIFIED 06/27/2017 LEAH MONCADA DO Ot E87.6 HYPOKALEMIA 06/27/2017 LEAH MONCADA DO Ot F41.9 ANXIETY DISORDER, UNSPECIFIED 06/27/2017 LEAH MONCADA DO Ot I10 ESSENTIAL (PRIMARY) HYPERTENSION 06/27/2017 LEAH MONCADA DO Ot I21.4 NON-ST ELEVATION (NSTEMI) MYOCARDIAL INF 06/27/2017 LEAH MONCADA DO Ot I25.110 ATHSCL HEART DISEASE OF [place] COR ART W 06/27/2017 LEAH MONCADA DO Ot K21.9 GASTRO-ESOPHAGEAL REFLUX DISEASE WITHOUT 06/27/2017 LEAH MONCADA DO Ot Z79.82 ALF (CURRENT) USE OF ASPIRIN 06/27/2017 MONCADA DO, LEAH Ot Z79.899 OTHER ALF (CURRENT) DRUG THERAPY 06/27/2017 MONCADA DO LEAH Ot Z95.5 PRESENCE OF CORONARY ANGIOPLASTY IMPLANT 07/08/2017 MONCADA DO LEAH Ot E78.00 PURE HYPERCHOLESTEROLEMIA, UNSPECIFIED 07/08/2017 MONCADA DO, LEAH Ot E87.6 HYPOKALEMIA 07/08/2017 CORAL DO LEAH Ot F41.9 ANXIETY DISORDER, UNSPECIFIED 07/08/2017 CORAL DO LEAH Ot I10 ESSENTIAL (PRIMARY) HYPERTENSION 07/08/2017 MONCADA DO LEAH Ot I21.4 NON-ST ELEVATION (NSTEMI) MYOCARDIAL INF 07/08/2017 CORAL DO LEAH Ot I25.110 ATHSCL HEART DISEASE OF [place] COR ART W 07/08/2017 CORAL DO LEAH Ot K21.9 GASTRO-ESOPHAGEAL REFLUX DISEASE WITHOUT 07/08/2017 MONCADA DO LEAH Ot Z79.82 ALF (CURRENT) USE OF ASPIRIN 07/08/2017 CORAL POOLE LEAH Ot Z79.899 OTHER PUBLIC RELATIONS PROFESSIONAL (CURRENT) DRUG THERAPY 07/08/2017 CORAL POOLE LEAH Ot Z95.5 PRESENCE OF CORONARY ANGIOPLASTY IMPLANT 07/10/2017 CORAL DO LEAH Ot E78.00 PURE HYPERCHOLESTEROLEMIA, UNSPECIFIED 07/10/2017 CORAL DO LEAH Ot E87.6 HYPOKALEMIA 07/10/2017 CORAL DO LEAH Ot F41.9 ANXIETY DISORDER, UNSPECIFIED 07/10/2017 CORAL DO LEAH Ot I10 ESSENTIAL (PRIMARY) HYPERTENSION 07/10/2017 CORAL DO LEAH Ot I21.4 NON-ST ELEVATION (NSTEMI) MYOCARDIAL INF 07/10/2017 CORAL DO LEAH Ot I25.110 ATHSCL HEART DISEASE OF [place] COR ART W 07/10/2017 CORAL DO LEAH Ot K21.9 GASTRO-ESOPHAGEAL REFLUX DISEASE WITHOUT 07/10/2017 CORAL DO LEAH Ot Z79.82 PUBLIC RELATIONS PROFESSIONAL (CURRENT) USE OF ASPIRIN 07/10/2017 CORAL DO LEAH Ot Z79.899 OTHER ALF (CURRENT) DRUG THERAPY 07/10/2017 CORAL DO LEAH Ot Z95.5 PRESENCE OF CORONARY ANGIOPLASTY IMPLANT 08/19/2017 LEAH MONCADA DO Ot E78.00 PURE HYPERCHOLESTEROLEMIA, UNSPECIFIED 08/19/2017 LEAH MONCADA DO Ot E87.6 HYPOKALEMIA 08/19/2017 LEAH MONCADA DO Ot F41.9 ANXIETY DISORDER, UNSPECIFIED 08/19/2017 ELOINA MONCADA DOI Ot I10 ESSENTIAL (PRIMARY) HYPERTENSION 08/19/2017 LEAH MONCADA DO Ot I21.4 NON-ST ELEVATION (NSTEMI) MYOCARDIAL INF 08/19/2017 LEAH MONCADA DO Ot I25.110 ATHSCL HEART DISEASE OF [place] COR ART W 08/19/2017 LEAH MONCADA DO Ot K21.9 GASTRO-ESOPHAGEAL REFLUX DISEASE WITHOUT 08/19/2017 LEAH MONCADA DO Ot Z79.82 ALF (CURRENT) USE OF ASPIRIN 08/19/2017 LEAH MONCADA DO Ot Z79.899 OTHER ALF (CURRENT) DRUG THERAPY 08/19/2017 LEAH MONCADA DO Ot Z95.5 PRESENCE OF CORONARY ANGIOPLASTY IMPLANT 08/27/2017 LINA PARIS MD Ot E78.2 MIXED HYPERLIPIDEMIA 08/27/2017 LINA PARIS MD Ot I10 ESSENTIAL (PRIMARY) HYPERTENSION 08/27/2017 LINA PARIS MD Ot I25.10 ATHSCL HEART DISEASE OF [place] CORONARY 12/01/2017 LEAH MONCADA DO Ot 272.0 PURE HYPERCHOLESTEROLEM 12/01/2017 LEAH MONCADA DO Ot 401.1 BENIGN HYPERTENSION 12/01/2017 LEAH MONCADA DO Ot 414.01 CORONARY 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 12/01/2017 SIMIN GIPSON MD Ot 414.01 CORONARY 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 12/01/2017 SIMIN GIPSON MD Ot 721.3 LUMBOSACRAL SPONDYLOSIS 12/01/2017 SIMIN GIPSON MD Ot 722.52 LUMB/LUMBOSAC DISC DEGEN 12/01/2017 SIMIN GIPSON MD Ot 729.1 MYALGIA AND MYOSITIS NOS 12/01/2017 SIMIN GIPSON MD Ot V45.82 PERCUTANEOUS TRANSLUM CORON ANGIOPLASTY 12/01/2017 SIMIN GIPSON MD Ot V58.63 LONG-TERM(CURRENT)USE OF ANTIPLATELET/AN 12/01/2017 SIMIN GIPSON MD, Ot V58.69 OT MED,LT,CURRENT USE 12/01/2017 CORAL POOLE, LEAH Ot 272.0 PURE HYPERCHOLESTEROLEM 12/01/2017 CORAL DO, LEAH Ot 401.1 BENIGN HYPERTENSION 12/01/2017 COARL POOLE, LEAH Ot 413.9 ANGINA PECTORIS NEC/NOS 12/01/2017 CORAL DO, LEAH Ot 414.01 CORONARY 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 12/01/2017 CORAL POOLE, LEAH Ot V58.69 OT MED,LT,CURRENT USE 12/01/2017 CORAL DO, LEAH Ot V58.83 ENCOUNTER FOR THERAPEUTIC DRUG MONITORIN 12/01/2017 LINA PARIS MD Ot 272.4 HYPERLIPIDEMIA NEC/NOS 12/01/2017 LINA PARIS MD J Ot 397.0 TRICUSPID VALVE DISEASE 12/01/2017 LINA PARIS MD Ot 401.9 HYPERTENSION NOS 12/01/2017 LINA PARIS MD Ot 414.00 CORON ATHEROSCLER NOS TYPE VESSEL, NATIV 12/01/2017 LINA PARIS MD Ot 424.0 MITRAL VALVE DISORDER 12/01/2017 LINA PARIS MD J Ot 786.05 SHORTNESS OF BREATH 12/01/2017 LINA PARIS MD Ot 786.50 CHEST PAIN NOS 12/01/2017 LINA PARIS MD Ot 272.4 HYPERLIPIDEMIA NEC/NOS 12/01/2017 LINA PARIS MD J Ot 401.9 HYPERTENSION NOS 12/01/2017 LINA PARIS MD J Ot 414.00 CORON ATHEROSCLER NOS TYPE VESSEL, NATIV 12/01/2017 LINA PARIS MD J Ot 786.05 SHORTNESS OF BREATH 12/01/2017 LINA PARIS MD J Ot 786.50 CHEST PAIN NOS 12/01/2017 LINA PARIS MD Ot 272.4 HYPERLIPIDEMIA NEC/NOS 12/01/2017 LINA PARIS MD J Ot 401.9 HYPERTENSION NOS 12/01/2017 LINA PARIS MD Ot 414.00 CORON ATHEROSCLER NOS TYPE VESSEL, NATIV 12/01/2017 LINA PARIS MD Ot 786.05 SHORTNESS OF BREATH 12/01/2017 ILNA PARIS MD Ot 786.50 CHEST PAIN NOS 12/01/2017 CORAL POOLE, LEAH Ot 272.0 PURE HYPERCHOLESTEROLEM 12/01/2017 CORAL POOLE, LEAH Ot 401.1 BENIGN HYPERTENSION 12/01/2017 CORAL DO, LEAH Ot 413.9 ANGINA PECTORIS NEC/NOS 12/01/2017 CORAL POOLE LEAH Ot 414.01 CORONARY 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 12/01/2017 CORAL DO LEAH Ot 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 12/01/2017 MONCADA DO LEAH Ot 786.59 CHEST PAIN NEC 12/01/2017 CORAL POOLE LEAH Ot V70.0 ROUTINE MEDICAL EXAM 12/01/2017 CORAL DO LEAH Ot 729.1 MYALGIA AND MYOSITIS NOS 12/01/2017 MONCADA DO, LEAH Ot 723.4 BRACHIAL NEURITIS NOS 12/01/2017 MONCADA DO LEAH Ot 729.5 PAIN IN LIMB 12/01/2017 CORAL POOLE LEAH Ot 729.89 MUSCSKEL SYMPT LIMB NEC 12/01/2017 CORAL POOLE LEAH Ot 272.0 PURE HYPERCHOLESTEROLEM 12/01/2017 CORAL POOLE LEAH Ot 401.1 BENIGN HYPERTENSION 12/01/2017 Ot 272.4 HYPERLIPIDEMIA NEC/NOS 12/01/2017 Ot 401.9 HYPERTENSION NOS 12/01/2017 Ot 414.00 CORON ATHEROSCLER NOS TYPE VESSEL, NATIV 12/01/2017 Ot 786.50 CHEST PAIN NOS 12/01/2017 Ot 272.0 PURE HYPERCHOLESTEROLEM 12/01/2017 Ot 401.1 BENIGN HYPERTENSION 12/01/2017 Ot 413.9 ANGINA PECTORIS NEC/NOS 12/01/2017 Ot 414.00 CORON ATHEROSCLER NOS TYPE VESSEL, NATIV 12/01/2017 Ot V58.69 OTH MED,LT, CURRENT USE 12/01/2017 CORAL DO LEAH Ot E78.0 PURE HYPERCHOLESTEROLEMIA 12/01/2017 MONCADABIJAN POOLE LEAH Ot Z00.00 ENCNTR FOR GENERAL ADULT MEDICAL EXAM W/ 12/01/2017 DANNY CAMPBELL Ot E78.5 HYPERLIPIDEMIA, UNSPECIFIED 12/01/2017 DANNY CAMPBELL Ot I25.10 ATHSCL HEART DISEASE OF [place] CORONARY 12/01/2017 LINA PARSI MD Ot E78.2 MIXED HYPERLIPIDEMIA 12/01/2017 LINA PARIS MD Ot I10 ESSENTIAL (PRIMARY) HYPERTENSION 12/01/2017 LINA PARIS MD Ot I25.10 ATHSCL HEART DISEASE OF [place] CORONARY 12/07/2017 AARON MIGEL, HOLLY L Ot I25.10 ATHSCL HEART DISEASE OF [place] CORONARY 12/07/2017 AARON PA, HOLLY L Ot R06.02 SHORTNESS OF BREATH 12/07/2017 AARON PA, HOLLY L Ot R07.9 CHEST PAIN, UNSPECIFIED 12/07/2017 AARON PA, HOLLY L Ot R53.83 OTHER FATIGUE 12/15/2017 AARON PA, HOLLY L Ot I25.10 ATHSCL HEART DISEASE OF [place] CORONARY 12/15/2017 AARON PA, HOLLY L Ot R06.02 SHORTNESS OF BREATH 12/15/2017 AARON PA, HOLLY L Ot R07.9 CHEST PAIN, UNSPECIFIED 12/15/2017 AARON PA, HOLLY L Ot R53.83 OTHER FATIGUE Procedures There is no data. Results Test Result Range Comprehensive metabolic panel - 05/05/16 08:01 Serum or plasma sodium measurement (moles/volume) 142 mmol/L 135-145 Serum or plasma potassium measurement (moles/volume) 4.0 mmol/L 3.6-5.0 Serum or plasma chloride measurement (moles/volume) 109 mmol/L 98-107 Carbon dioxide 24 mmol/L 21-32 Serum or plasma anion gap determination (moles/volume) 9 mmol/L 5-14 Serum or plasma urea nitrogen measurement (mass/volume) 15 mg/dL 7-18 Serum or plasma creatinine measurement (mass/volume) 0.88 mg/dL 0.60-1.30 Serum or plasma urea nitrogen/creatinine mass ratio 17 NRG Serum or plasma creatinine measurement with calculation of estimated glomerular filtration rate > NRG Serum or plasma glucose measurement (mass/volume) 100 mg/dL 70-105 Serum or plasma calcium measurement (mass/volume) 8.5 mg/dL 8.5-10.1 Serum or plasma total bilirubin measurement (mass/volume) 0.8 mg/dL 0.1-1.0 Serum or plasma alkaline phosphatase measurement (enzymatic activity/volume) 63 U/L 40-136 Serum or plasma aspartate aminotransferase measurement (enzymatic activity/ volume) 19 U/L 5-34 Serum or plasma alanine aminotransferase measurement (enzymatic activity/volume ) 21 U/L 0-55 Serum or plasma protein measurement (mass/volume) 6.2 g/dL 6.4-8.2 Serum or plasma albumin measurement (mass/volume) 4.1 g/dL 3.2-4.5 Serum or plasma triglyceride measurement (mass/volume) - 05/05/16 08:01 Serum or plasma triglyceride measurement (mass/volume) 87 mg/dL <150 Complete blood count (CBC) with automated white blood cell (WBC) differential - 06/22/16 18:00 Blood leukocytes automated count (number/volume) 6.4 10*3/uL 4.3-11.0 Blood erythrocytes automated count (number/volume) 5.04 10*6/uL 4.35-5.85 Venous blood hemoglobin measurement (mass/volume) 15.4 g/dL 13.3-17.7 Blood hematocrit (volume fraction) 45 % 40-54 Automated erythrocyte mean corpuscular volume 90 [foz_us] 80-99 Automated erythrocyte mean corpuscular hemoglobin (mass per erythrocyte) 31 pg 25-34 Automated erythrocyte mean corpuscular hemoglobin concentration measurement ( mass/volume) 34 g/dL 32-36 Automated erythrocyte distribution width ratio 13.0 % 10.0-14.5 Automated blood platelet count (count/volume) 204 10*3/uL 130-400 Automated blood platelet mean volume measurement 9.0 [foz_us] 7.4-10.4 Automated blood neutrophils/100 leukocytes 58 % 42-75 Automated blood lymphocytes/100 leukocytes 28 % 12-44 Blood monocytes/100 leukocytes 11 % 0-12 Automated blood eosinophils/100 leukocytes 3 % 0-10 Automated blood basophils/100 leukocytes 0 % 0-10 Blood neutrophils automated count (number/volume) 3.7 10*3 1.8-7.8 Blood lymphocytes automated count (number/volume) 1.8 10*3 1.0-4.0 Blood monocytes automated count (number/volume) 0.7 10*3 0.0-1.0 Automated eosinophil count 0.2 10*3/uL 0.0-0.3 Automated blood basophil count (count/volume) 0.0 10*3/uL 0.0-0.1 PT panel in platelet poor plasma by coagulation assay - 06/22/16 18:00 Prothrombin time (PT) in platelet poor plasma by coagulation assay 12.5 s 12.2-14.7 INR in platelet poor plasma or blood by coagulation assay 1.0 0.8-1.4 Activated partial thromboplastin time (aPTT) in platelet poor plasma bycoagulation assay - 06/22/16 18:00 Activated partial thromboplastin time (aPTT) in platelet poor plasma bycoagulation assay 28 s 24-35 Comprehensive metabolic panel - 06/22/16 18:00 Serum or plasma sodium measurement (moles/volume) 140 mmol/L 135-145 Serum or plasma potassium measurement (moles/volume) 4.0 mmol/L 3.6-5.0 Serum or plasma chloride measurement (moles/volume) 106 mmol/L 98-107 Carbon dioxide 29 mmol/L 21-32 Serum or plasma anion gap determination (moles/volume) 5 mmol/L 5-14 Serum or plasma urea nitrogen measurement (mass/volume) 15 mg/dL 7-18 Serum or plasma creatinine measurement (mass/volume) 0.87 mg/dL 0.60-1.30 Serum or plasma urea nitrogen/creatinine mass ratio 17 NRG Serum or plasma creatinine measurement with calculation of estimated glomerular filtration rate > NRG Serum or plasma glucose measurement (mass/volume) 97 mg/dL 70-105 Serum or plasma calcium measurement (mass/volume) 8.4 mg/dL 8.5-10.1 Serum or plasma total bilirubin measurement (mass/volume) 0.5 mg/dL 0.1-1.0 Serum or plasma alkaline phosphatase measurement (enzymatic activity/volume) 61 U/L 40-136 Serum or plasma aspartate aminotransferase measurement (enzymatic activity/ volume) 15 U/L 5-34 Serum or plasma alanine aminotransferase measurement (enzymatic activity/volume ) 15 U/L 0-55 Serum or plasma protein measurement (mass/volume) 6.1 g/dL 6.4-8.2 Serum or plasma albumin measurement (mass/volume) 4.0 g/dL 3.2-4.5 Magnesium - 06/22/16 18:00 Magnesium 2.1 mg/dL 1.8-2.4 Serum or plasma creatine kinase measurement (enzymatic activity/volume) - 06/22 18:00 Serum or plasma creatine kinase measurement (enzymatic activity/volume) 29 U/L 30-200 Serum or plasma creatine kinase MB measurement (enzymatic activity/volume) - 18:00 Serum or plasma creatine kinase MB measurement (enzymatic activity/volume) 0.7 ng/mL <6.6 Serum or plasma troponin i.cardiac measurement (mass/volume) - 06/22/16 18:00 Serum or plasma troponin i.cardiac measurement (mass/volume) < ng/ mL <0.30 Serum or plasma amylase measurement (enzymatic activity/volume) - 06/22/16 18: 00 Serum or plasma amylase measurement (enzymatic activity/volume) 32 U /L 25-125 Lipase - 06/22/16 18:00 Lipase 16 U/L 8-78 Serum or plasma lithium measurement (moles/volume) - 06/22/16 18:00 BNP level 29.2 pg/mL <100.0 Complete urinalysis with reflex to culture - 06/23/16 02:14 Urine color determination YELLOW NRG Urine clarity determination CLEAR NRG Urine pH measurement by test strip 7 5-9 Specific gravity of urine by test strip 1.010 1.016- 1.022 Urine protein assay by test strip, semi-quantitative NEGATIVE NEGATIVE Urine glucose detection by automated test strip NEGATIVE NEGATIVE Erythrocytes detection in urine sediment by light microscopy 4+ NEGATIVE Urine ketones detection by automated test strip NEGATIVE NEGATIVE Urine nitrite detection by test strip NEGATIVE NEGATIVE Urine total bilirubin detection by test strip NEGATIVE NEGATIVE Urine urobilinogen measurement by automated test strip (mass/volume) NORMAL NORMAL Urine leukocyte esterase detection by dipstick NEGATIVE NEGATIVE Automated urine sediment erythrocyte count by microscopy (number/high power field) [HPF] NRG Automated urine sediment leukocyte count by microscopy (number/high power field ) RARE NRG Bacteria detection in urine sediment by light microscopy TRACE NRG Squamous epithelial cells detection in urine sediment by light microscopy 0-2 NRG Crystals detection in urine sediment by light microscopy NONE NRG Casts detection in urine sediment by light microscopy NONE NRG Mucus detection in urine sediment by light microscopy NEGATIVE NRG Complete urinalysis with reflex to culture NO NRG Complete blood count (CBC) with automated white blood cell (WBC) differential - 06/23/16 02:40 Blood leukocytes automated count (number/volume) 6.3 10*3/uL 4.3-11.0 Blood erythrocytes automated count (number/volume) 4.87 10*6/uL 4.35-5.85 Venous blood hemoglobin measurement (mass/volume) 15.0 g/dL 13.3-17.7 Blood hematocrit (volume fraction) 44 % 40-54 Automated erythrocyte mean corpuscular volume 90 [foz_us] 80-99 Automated erythrocyte mean corpuscular hemoglobin (mass per erythrocyte) 31 pg 25-34 Automated erythrocyte mean corpuscular hemoglobin concentration measurement ( mass/volume) 34 g/dL 32-36 Automated erythrocyte distribution width ratio 12.8 % 10.0-14.5 Automated blood platelet count (count/volume) 199 10*3/uL 130-400 Automated blood platelet mean volume measurement 8.9 [foz_us] 7.4-10.4 Automated blood neutrophils/100 leukocytes 55 % 42-75 Automated blood lymphocytes/100 leukocytes 29 % 12-44 Blood monocytes/100 leukocytes 13 % 0-12 Automated blood eosinophils/100 leukocytes 4 % 0-10 Automated blood basophils/100 leukocytes 1 % 0-10 Blood neutrophils automated count (number/volume) 3.4 10*3 1.8-7.8 Blood lymphocytes automated count (number/volume) 1.8 10*3 1.0-4.0 Blood monocytes automated count (number/volume) 0.8 10*3 0.0-1.0 Automated eosinophil count 0.2 10*3/uL 0.0-0.3 Automated blood basophil count (count/volume) 0.0 10*3/uL 0.0-0.1 PT panel in platelet poor plasma by coagulation assay - 06/23/16 02:40 Prothrombin time (PT) in platelet poor plasma by coagulation assay 13.2 s 12.2-14.7 INR in platelet poor plasma or blood by coagulation assay 1.0 0.8-1.4 Activated partial thromboplastin time (aPTT) in platelet poor plasma bycoagulation assay - 06/23/16 02:40 Activated partial thromboplastin time (aPTT) in platelet poor plasma bycoagulation assay 39 s 24-35 Comprehensive metabolic panel - 06/23/16 02:40 Serum or plasma sodium measurement (moles/volume) 143 mmol/L 135-145 Serum or plasma potassium measurement (moles/volume) 3.6 mmol/L 3.6-5.0 Serum or plasma chloride measurement (moles/volume) 109 mmol/L 98-107 Carbon dioxide 25 mmol/L 21-32 Serum or plasma anion gap determination (moles/volume) 9 mmol/L 5-14 Serum or plasma urea nitrogen measurement (mass/volume) 14 mg/dL 7-18 Serum or plasma creatinine measurement (mass/volume) 0.88 mg/dL 0.60-1.30 Serum or plasma urea nitrogen/creatinine mass ratio 16 NRG Serum or plasma creatinine measurement with calculation of estimated glomerular filtration rate > NRG Serum or plasma glucose measurement (mass/volume) 84 mg/dL 70-105 Serum or plasma calcium measurement (mass/volume) 8.3 mg/dL 8.5-10.1 Serum or plasma total bilirubin measurement (mass/volume) 0.6 mg/dL 0.1-1.0 Serum or plasma alkaline phosphatase measurement (enzymatic activity/volume) 59 U/L 40-136 Serum or plasma aspartate aminotransferase measurement (enzymatic activity/ volume) 12 U/L 5-34 Serum or plasma alanine aminotransferase measurement (enzymatic activity/volume ) 15 U/L 0-55 Serum or plasma protein measurement (mass/volume) 5.6 g/dL 6.4-8.2 Serum or plasma albumin measurement (mass/volume) 3.6 g/dL 3.2-4.5 Serum or plasma troponin i.cardiac measurement (mass/volume) - 06/23/16 02:40 Serum or plasma troponin i.cardiac measurement (mass/volume) < ng/ mL <0.30 Myoglobin, serum - 06/23/16 02:40 Myoglobin, serum 25.6 ng/mL 10.0-92.0 Lipid 1996 panel - 06/23/16 02:40 Serum or plasma triglyceride measurement (mass/volume) 129 mg/dL <150 Serum or plasma cholesterol measurement (mass/volume) 134 mg/dL < 200 Serum or plasma cholesterol in HDL measurement (mass/volume) 33 mg/ dL 40-60 Cholesterol in LDL [mass/volume] in serum or plasma by direct assay 82 mg/dL 1-129 Serum or plasma cholesterol in VLDL measurement (mass/volume) 26 mg/ dL 5-40 Complete blood count (CBC) with automated white blood cell (WBC) differential - 01/29/17 14:25 Blood leukocytes automated count (number/volume) 6.6 10*3/uL 4.3-11.0 Blood erythrocytes automated count (number/volume) 5.30 10*6/uL 4.35-5.85 Venous blood hemoglobin measurement (mass/volume) 16.1 g/dL 13.3-17.7 Blood hematocrit (volume fraction) 47 % 40-54 Automated erythrocyte mean corpuscular volume 89 [foz_us] 80-99 Automated erythrocyte mean corpuscular hemoglobin (mass per erythrocyte) 30 pg 25-34 Automated erythrocyte mean corpuscular hemoglobin concentration measurement ( mass/volume) 34 g/dL 32-36 Automated erythrocyte distribution width ratio 13.5 % 10.0-14.5 Automated blood platelet count (count/volume) 217 10*3/uL 130-400 Automated blood platelet mean volume measurement 8.9 [foz_us] 7.4-10.4 Automated blood neutrophils/100 leukocytes 62 % 42-75 Automated blood lymphocytes/100 leukocytes 25 % 12-44 Blood monocytes/100 leukocytes 10 % 0-12 Automated blood eosinophils/100 leukocytes 3 % 0-10 Automated blood basophils/100 leukocytes 0 % 0-10 Blood neutrophils automated count (number/volume) 4.2 10*3 1.8-7.8 Blood lymphocytes automated count (number/volume) 1.7 10*3 1.0-4.0 Blood monocytes automated count (number/volume) 0.6 10*3 0.0-1.0 Automated eosinophil count 0.2 10*3/uL 0.0-0.3 Automated blood basophil count (count/volume) 0.0 10*3/uL 0.0-0.1 PT panel in platelet poor plasma by coagulation assay - 01/29/17 14:25 Prothrombin time (PT) in platelet poor plasma by coagulation assay 12.0 s 12.2-14.7 INR in platelet poor plasma or blood by coagulation assay 0.9 0.8-1.4 Activated partial thromboplastin time (aPTT) in platelet poor plasma bycoagulation assay - 01/29/17 14:25 Activated partial thromboplastin time (aPTT) in platelet poor plasma bycoagulation assay 26 s 24-35 Comprehensive metabolic panel - 01/29/17 14:25 Serum or plasma sodium measurement (moles/volume) 142 mmol/L 135-145 Serum or plasma potassium measurement (moles/volume) 4.1 mmol/L 3.6-5.0 Serum or plasma chloride measurement (moles/volume) 109 mmol/L 98-107 Carbon dioxide 23 mmol/L 21-32 Serum or plasma anion gap determination (moles/volume) 10 mmol/L 5-14 Serum or plasma urea nitrogen measurement (mass/volume) 18 mg/dL 7-18 Serum or plasma creatinine measurement (mass/volume) 1.15 mg/dL 0.60-1.30 Serum or plasma urea nitrogen/creatinine mass ratio 16 NRG Serum or plasma creatinine measurement with calculation of estimated glomerular filtration rate > NRG Serum or plasma glucose measurement (mass/volume) 106 mg/dL 70-105 Serum or plasma calcium measurement (mass/volume) 8.8 mg/dL 8.5-10.1 Serum or plasma total bilirubin measurement (mass/volume) 0.5 mg/dL 0.1-1.0 Serum or plasma alkaline phosphatase measurement (enzymatic activity/volume) 66 U/L 40-136 Serum or plasma aspartate aminotransferase measurement (enzymatic activity/ volume) 19 U/L 5-34 Serum or plasma alanine aminotransferase measurement (enzymatic activity/volume ) 19 U/L 0-55 Serum or plasma protein measurement (mass/volume) 6.6 g/dL 6.4-8.2 Serum or plasma albumin measurement (mass/volume) 4.0 g/dL 3.2-4.5 Magnesium - 01/29/17 14:25 Magnesium 2.2 mg/dL 1.8-2.4 Serum or plasma troponin i.cardiac measurement (mass/volume) - 01/29/17 14:25 Serum or plasma troponin i.cardiac measurement (mass/volume) < ng/ mL <0.30 Myoglobin, serum - 01/29/17 14:25 Myoglobin, serum 27.7 ng/mL 10.0-92.0 Serum or plasma troponin i.cardiac measurement (mass/volume) - 01/29/17 17:29 Serum or plasma troponin i.cardiac measurement (mass/volume) < ng/ mL <0.30 Serum or plasma troponin i.cardiac measurement (mass/volume) - 01/29/17 22:11 Serum or plasma troponin i.cardiac measurement (mass/volume) < ng/ mL <0.30 Automated blood complete blood count (hemogram) panel - 01/30/17 03:20 Blood leukocytes automated count (number/volume) 6.0 10*3/uL 4.3-11.0 Blood erythrocytes automated count (number/volume) 4.96 10*6/uL 4.35-5.85 Venous blood hemoglobin measurement (mass/volume) 15.0 g/dL 13.3-17.7 Blood hematocrit (volume fraction) 44 % 40-54 Automated erythrocyte mean corpuscular volume 90 [foz_us] 80-99 Automated erythrocyte mean corpuscular hemoglobin (mass per erythrocyte) 30 pg 25-34 Automated erythrocyte mean corpuscular hemoglobin concentration measurement ( mass/volume) 34 g/dL 32-36 Automated erythrocyte distribution width ratio 13.3 % 10.0-14.5 Automated blood platelet count (count/volume) 200 10*3/uL 130-400 Automated blood platelet mean volume measurement 9.0 [foz_us] 7.4-10.4 Comprehensive metabolic panel - 01/30/17 03:20 Serum or plasma sodium measurement (moles/volume) 141 mmol/L 135-145 Serum or plasma potassium measurement (moles/volume) 3.7 mmol/L 3.6-5.0 Serum or plasma chloride measurement (moles/volume) 109 mmol/L 98-107 Carbon dioxide 22 mmol/L 21-32 Serum or plasma anion gap determination (moles/volume) 10 mmol/L 5-14 Serum or plasma urea nitrogen measurement (mass/volume) 16 mg/dL 7-18 Serum or plasma creatinine measurement (mass/volume) 0.99 mg/dL 0.60-1.30 Serum or plasma urea nitrogen/creatinine mass ratio 16 NRG Serum or plasma creatinine measurement with calculation of estimated glomerular filtration rate > NRG Serum or plasma glucose measurement (mass/volume) 97 mg/dL 70-105 Serum or plasma calcium measurement (mass/volume) 8.1 mg/dL 8.5-10.1 Serum or plasma total bilirubin measurement (mass/volume) 0.6 mg/dL 0.1-1.0 Serum or plasma alkaline phosphatase measurement (enzymatic activity/volume) 53 U/L 40-136 Serum or plasma aspartate aminotransferase measurement (enzymatic activity/ volume) 15 U/L 5-34 Serum or plasma alanine aminotransferase measurement (enzymatic activity/volume ) 16 U/L 0-55 Serum or plasma protein measurement (mass/volume) 5.7 g/dL 6.4-8.2 Serum or plasma albumin measurement (mass/volume) 3.5 g/dL 3.2-4.5 Lipid 1996 panel - 01/30/17 03:20 Serum or plasma triglyceride measurement (mass/volume) 86 mg/dL <150 Serum or plasma cholesterol measurement (mass/volume) 127 mg/dL < 200 Serum or plasma cholesterol in HDL measurement (mass/volume) 33 mg/ dL 40-60 Cholesterol in LDL [mass/volume] in serum or plasma by direct assay 74 mg/dL 1-129 Serum or plasma cholesterol in VLDL measurement (mass/volume) 17 mg/ dL 5-40 Serum or plasma troponin i.cardiac measurement (mass/volume) - 01/30/17 03:20 Serum or plasma troponin i.cardiac measurement (mass/volume) < ng/ mL <0.30 THYROID STIMULATING HORMONE - 01/30/17 03:20 THYROID STIMULATING HORMONE 1.40 u[iU]/mL 0.35-4.94 Complete blood count (CBC) with automated white blood cell (WBC) differential - 06/25/17 20:20 Blood leukocytes automated count (number/volume) 8.7 10*3/uL 4.3-11.0 Blood erythrocytes automated count (number/volume) 5.26 10*6/uL 4.35-5.85 Venous blood hemoglobin measurement (mass/volume) 16.1 g/dL 13.3-17.7 Blood hematocrit (volume fraction) 47 % 40-54 Automated erythrocyte mean corpuscular volume 90 [foz_us] 80-99 Automated erythrocyte mean corpuscular hemoglobin (mass per erythrocyte) 31 pg 25-34 Automated erythrocyte mean corpuscular hemoglobin concentration measurement ( mass/volume) 34 g/dL 32-36 Automated erythrocyte distribution width ratio 13.4 % 10.0-14.5 Automated blood platelet count (count/volume) 224 10*3/uL 130-400 Automated blood platelet mean volume measurement 8.8 [foz_us] 7.4-10.4 Automated blood neutrophils/100 leukocytes 70 % 42-75 Automated blood lymphocytes/100 leukocytes 18 % 12-44 Blood monocytes/100 leukocytes 9 % 0-12 Automated blood eosinophils/100 leukocytes 3 % 0-10 Automated blood basophils/100 leukocytes 0 % 0-10 Blood neutrophils automated count (number/volume) 6.1 10*3 1.8-7.8 Blood lymphocytes automated count (number/volume) 1.6 10*3 1.0-4.0 Blood monocytes automated count (number/volume) 0.8 10*3 0.0-1.0 Automated eosinophil count 0.3 10*3/uL 0.0-0.3 Automated blood basophil count (count/volume) 0.0 10*3/uL 0.0-0.1 PT panel in platelet poor plasma by coagulation assay - 06/25/17 20:20 Prothrombin time (PT) in platelet poor plasma by coagulation assay 11.9 s 12.2-14.7 INR in platelet poor plasma or blood by coagulation assay 0.9 0.8-1.4 Activated partial thromboplastin time (aPTT) in platelet poor plasma bycoagulation assay - 06/25/17 20:20 Activated partial thromboplastin time (aPTT) in platelet poor plasma bycoagulation assay 26 s 24-35 Comprehensive metabolic panel - 06/25/17 20:20 Serum or plasma sodium measurement (moles/volume) 143 mmol/L 135-145 Serum or plasma potassium measurement (moles/volume) 3.8 mmol/L 3.6-5.0 Serum or plasma chloride measurement (moles/volume) 107 mmol/L 98-107 Carbon dioxide 27 mmol/L 21-32 Serum or plasma anion gap determination (moles/volume) 9 mmol/L 5-14 Serum or plasma urea nitrogen measurement (mass/volume) 19 mg/dL 7-18 Serum or plasma creatinine measurement (mass/volume) 0.93 mg/dL 0.60-1.30 Serum or plasma urea nitrogen/creatinine mass ratio 20 NRG Serum or plasma creatinine measurement with calculation of estimated glomerular filtration rate > NRG Serum or plasma glucose measurement (mass/volume) 104 mg/dL 70-105 Serum or plasma calcium measurement (mass/volume) 8.7 mg/dL 8.5-10.1 Serum or plasma total bilirubin measurement (mass/volume) 0.4 mg/dL 0.1-1.0 Serum or plasma alkaline phosphatase measurement (enzymatic activity/volume) 77 U/L 40-136 Serum or plasma aspartate aminotransferase measurement (enzymatic activity/ volume) 19 U/L 5-34 Serum or plasma alanine aminotransferase measurement (enzymatic activity/volume ) 25 U/L 0-55 Serum or plasma protein measurement (mass/volume) 6.7 g/dL 6.4-8.2 Serum or plasma albumin measurement (mass/volume) 4.1 g/dL 3.2-4.5 Serum or plasma creatine kinase measurement (enzymatic activity/volume) - 06/25 20:20 Serum or plasma creatine kinase measurement (enzymatic activity/volume) 33 U/L 30-200 Serum or plasma creatine kinase MB measurement (enzymatic activity/volume) - 20:20 Serum or plasma creatine kinase MB measurement (enzymatic activity/volume) 1.0 ng/mL <6.6 Serum or plasma troponin i.cardiac measurement (mass/volume) - 06/25/17 20:20 Serum or plasma troponin i.cardiac measurement (mass/volume) < ng/ mL <0.30 Serum or plasma amylase measurement (enzymatic activity/volume) - 06/25/17 20: 20 Serum or plasma amylase measurement (enzymatic activity/volume) 38 U /L 25-125 Lipase - 06/25/17 20:20 Lipase 29 U/L 8-78 Serum or plasma lithium measurement (moles/volume) - 06/25/17 20:20 BNP level < pg/mL <100.0 Complete blood count (CBC) with automated white blood cell (WBC) differential - 06/26/17 03:11 Blood leukocytes automated count (number/volume) 7.4 10*3/uL 4.3-11.0 Blood erythrocytes automated count (number/volume) 4.78 10*6/uL 4.35-5.85 Venous blood hemoglobin measurement (mass/volume) 14.4 g/dL 13.3-17.7 Blood hematocrit (volume fraction) 42 % 40-54 Automated erythrocyte mean corpuscular volume 89 [foz_us] 80-99 Automated erythrocyte mean corpuscular hemoglobin (mass per erythrocyte) 30 pg 25-34 Automated erythrocyte mean corpuscular hemoglobin concentration measurement ( mass/volume) 34 g/dL 32-36 Automated erythrocyte distribution width ratio 13.2 % 10.0-14.5 Automated blood platelet count (count/volume) 186 10*3/uL 130-400 Automated blood platelet mean volume measurement 8.6 [foz_us] 7.4-10.4 Automated blood neutrophils/100 leukocytes 62 % 42-75 Automated blood lymphocytes/100 leukocytes 25 % 12-44 Blood monocytes/100 leukocytes 10 % 0-12 Automated blood eosinophils/100 leukocytes 3 % 0-10 Automated blood basophils/100 leukocytes 0 % 0-10 Blood neutrophils automated count (number/volume) 4.5 10*3 1.8-7.8 Blood lymphocytes automated count (number/volume) 1.8 10*3 1.0-4.0 Blood monocytes automated count (number/volume) 0.8 10*3 0.0-1.0 Automated eosinophil count 0.2 10*3/uL 0.0-0.3 Automated blood basophil count (count/volume) 0.0 10*3/uL 0.0-0.1 Comprehensive metabolic panel - 06/26/17 03:11 Serum or plasma sodium measurement (moles/volume) 139 mmol/L 135-145 Serum or plasma potassium measurement (moles/volume) 3.5 mmol/L 3.6-5.0 Serum or plasma chloride measurement (moles/volume) 110 mmol/L 98-107 Carbon dioxide 22 mmol/L 21-32 Serum or plasma anion gap determination (moles/volume) 7 mmol/L 5-14 Serum or plasma urea nitrogen measurement (mass/volume) 19 mg/dL 7-18 Serum or plasma creatinine measurement (mass/volume) 0.82 mg/dL 0.60-1.30 Serum or plasma urea nitrogen/creatinine mass ratio 23 NRG Serum or plasma creatinine measurement with calculation of estimated glomerular filtration rate > NRG Serum or plasma glucose measurement (mass/volume) 132 mg/dL 70-105 Serum or plasma calcium measurement (mass/volume) 8.1 mg/dL 8.5-10.1 Serum or plasma total bilirubin measurement (mass/volume) 0.4 mg/dL 0.1-1.0 Serum or plasma alkaline phosphatase measurement (enzymatic activity/volume) 68 U/L 40-136 Serum or plasma aspartate aminotransferase measurement (enzymatic activity/ volume) 16 U/L 5-34 Serum or plasma alanine aminotransferase measurement (enzymatic activity/volume ) 19 U/L 0-55 Serum or plasma protein measurement (mass/volume) 5.3 g/dL 6.4-8.2 Serum or plasma albumin measurement (mass/volume) 3.3 g/dL 3.2-4.5 Lipid 1996 panel - 06/26/17 03:11 Serum or plasma triglyceride measurement (mass/volume) 154 mg/dL <150 Serum or plasma cholesterol measurement (mass/volume) 121 mg/dL < 200 Serum or plasma cholesterol in HDL measurement (mass/volume) 32 mg/ dL 40-60 Cholesterol in LDL [mass/volume] in serum or plasma by direct assay 70 mg/dL 1-129 Serum or plasma cholesterol in VLDL measurement (mass/volume) 31 mg/ dL 5-40 Serum or plasma troponin i.cardiac measurement (mass/volume) - 06/26/17 03:11 Serum or plasma troponin i.cardiac measurement (mass/volume) 0.85 ng /mL <0.30 Serum or plasma troponin i.cardiac measurement (mass/volume) - 06/26/17 08:21 Serum or plasma troponin i.cardiac measurement (mass/volume) 0.61 ng /mL <0.30 Automated blood complete blood count (hemogram) panel - 06/27/17 04:48 Blood leukocytes automated count (number/volume) 7.1 10*3/uL 4.3-11.0 Blood erythrocytes automated count (number/volume) 5.26 10*6/uL 4.35-5.85 Venous blood hemoglobin measurement (mass/volume) 15.9 g/dL 13.3-17.7 Blood hematocrit (volume fraction) 46 % 40-54 Automated erythrocyte mean corpuscular volume 88 [foz_us] 80-99 Automated erythrocyte mean corpuscular hemoglobin (mass per erythrocyte) 30 pg 25-34 Automated erythrocyte mean corpuscular hemoglobin concentration measurement ( mass/volume) 34 g/dL 32-36 Automated erythrocyte distribution width ratio 13.5 % 10.0-14.5 Automated blood platelet count (count/volume) 188 10*3/uL 130-400 Automated blood platelet mean volume measurement 9.1 [foz_us] 7.4-10.4 Whole blood basic metabolic panel - 06/27/17 04:48 Serum or plasma sodium measurement (moles/volume) 142 mmol/L 135-145 Serum or plasma potassium measurement (moles/volume) 3.9 mmol/L 3.6-5.0 Serum or plasma chloride measurement (moles/volume) 109 mmol/L 98-107 Carbon dioxide 22 mmol/L 21-32 Serum or plasma anion gap determination (moles/volume) 11 mmol/L 5-14 Serum or plasma urea nitrogen measurement (mass/volume) 12 mg/dL 7-18 Serum or plasma creatinine measurement (mass/volume) 0.83 mg/dL 0.60-1.30 Serum or plasma urea nitrogen/creatinine mass ratio 14 NRG Serum or plasma creatinine measurement with calculation of estimated glomerular filtration rate > NRG Serum or plasma glucose measurement (mass/volume) 90 mg/dL 70-105 Serum or plasma calcium measurement (mass/volume) 8.5 mg/dL 8.5-10.1 PROTHROMBIN TIME WITH INR - 07/09/17 07:00 INTERNATIONAL NORMAL RATIO 1.1 0.9-1.1 PROTHROMBIN TIME 12.3 sec 10.0-12.8 CBC - 07/09/17 07:00 MEAN CELL HGB 30.5 pg 27.0-33.0 MEAN CELL HGB CONCENTRATION 34.2 g/dL 32.0-37.0 MEAN CELL VOLUME 89.2 fl 80.0-100.0 RED BLOOD CELL 5.18 m/cumm 4.00-6.00 RED CELL DISTRIBUTION WIDTH 13.6 % 11.0-15.6 WHITE BLOOD CELL 6.3 k/cumm 5.0-10.0 HEMOGLOBIN 15.8 gm/dL 14.0-18.0 HEMATOCRIT 46.2 % 40.0-54.0 PLATELET COUNT 217 k/cumm 150-450 METABOLIC PANEL, BASIC - 07/09/17 07:00 POTASSIUM 3.7 mmol/L 3.5-5.3 EST GFR (MDRD) > 60 mL/min > 59 ANION GAP 8 mmol/L 5-15 EST CrCl (CG) > 60 mL/min > 59 GLUCOSE 103 mg/dL 70-99 CALCIUM 8.4 mg/dL 8.5-10.1 BLOOD UREA NITROGEN 17 mg/dL 7-20 CREATININE 1.0 mg/dL 0.7-1.3 SODIUM 142 mmol/L 135-148 CHLORIDE 107 mmol/L 98-110 CARBON DIOXIDE 27 mmol/L 21-32 LIPID PANEL - 07/09/17 07:00 CHOLESTEROL/HDL RATIO 3.7 < 5.0 LDL CHOLESTEROL 78 mg/dL < 100 VLDL CHOLESTEROL 15 mg/dL < 30 TRIGLYCERIDES 76 mg/dL < 150 CHOLESTEROL 128 mg/dL < 200 HDL CHOLESTEROL 35 mg/dL > 39 CBC - 07/10/17 03:38 MEAN CELL HGB 30.0 pg 27.0-33.0 MEAN CELL HGB CONCENTRATION 33.6 g/dL 32.0-37.0 MEAN CELL VOLUME 89.5 fl 80.0-100.0 RED BLOOD CELL 4.96 m/cumm 4.00-6.00 RED CELL DISTRIBUTION WIDTH 13.5 % 11.0-15.6 WHITE BLOOD CELL 6.3 k/cumm 5.0-10.0 HEMOGLOBIN 14.9 gm/dL 14.0-18.0 HEMATOCRIT 44.4 % 40.0-54.0 PLATELET COUNT 205 k/cumm 150-450 METABOLIC PANEL, BASIC - 07/10/17 03:38 POTASSIUM 3.6 mmol/L 3.5-5.3 EST GFR (MDRD) > 60 mL/min > 59 ANION GAP 8 mmol/L 5-15 EST CrCl (CG) > 60 mL/min > 59 GLUCOSE 106 mg/dL 70-99 CALCIUM 8.1 mg/dL 8.5-10.1 BLOOD UREA NITROGEN 12 mg/dL 7-20 CREATININE 0.9 mg/dL 0.7-1.3 SODIUM 143 mmol/L 135-148 CHLORIDE 108 mmol/L 98-110 CARBON DIOXIDE 27 mmol/L 21-32 MAGNESIUM - 07/10/17 03:38 MAGNESIUM 1.8 mg/dL 1.8-2.4 Whole blood basic metabolic panel - 12/01/17 09:03 Serum or plasma sodium measurement (moles/volume) 142 mmol/L 135-145 Serum or plasma potassium measurement (moles/volume) 4.0 mmol/L 3.6-5.0 Serum or plasma chloride measurement (moles/volume) 107 mmol/L 98-107 Carbon dioxide 25 mmol/L 21-32 Serum or plasma anion gap determination (moles/volume) 10 mmol/L 5-14 Serum or plasma urea nitrogen measurement (mass/volume) 14 mg/dL 7-18 Serum or plasma creatinine measurement (mass/volume) 0.99 mg/dL 0.60-1.30 Serum or plasma urea nitrogen/creatinine mass ratio 14 NRG Serum or plasma creatinine measurement with calculation of estimated glomerular filtration rate > NRG Serum or plasma glucose measurement (mass/volume) 107 mg/dL 70-105 Serum or plasma calcium measurement (mass/volume) 8.8 mg/dL 8.5-10.1 THYROID STIMULATING HORMONE - 12/01/17 09:03 THYROID STIMULATING HORMONE 2.09 u[iU]/mL 0.35-4.94 Serum or plasma thyroxine (T4) free measurement (mass/volume) - 12/01/17 09:03 Serum or plasma thyroxine (T4) free measurement (mass/volume) 1.08 ng/dL 0.70-1.48 TRIIODOTHRYONINE T3 FREE - 12/01/17 09:03 TRIIODOTHYRONINE T3 FREE 3.6 pg/mL 2.4-4.5 Encounters ACCT No. Visit Date/Time Discharge Status Pt. Type Provider Facility Loc./Unit Complaint [id number] 12/16/2017 10:15:00 12/16/2017 23:59:59 CLS Preadmit OTHER, UNLISTED [facility] RAD CHEST PAIN,SOB,FATIGUE [id number] 12/01/2017 08:49:00 12/01/2017 23:59:59 CLS Outpatient HOLYL SCHERER [facility] LAB CAD,CHEST PAIN, SOB, FATIGUE [id number] 08/05/2017 12:21:00 08/05/2017 23:59:59 CLS Outpatient LINA PARIS MD [facility] CARD CAD [id number] 06/25/2017 21:30:00 06/27/2017 10:24:00 DIS Outpatient CORAL POOLE LEAH [facility] CATH CHEST PAIN,HX OF CAD [id number] 01/29/2017 15:20:00 01/30/2017 12:15:00 DIS Inpatient LINA PARIS MD [facility] ICU CHEST PAIN R/O ACUTE CORONARY SYNDROME [id number] 06/22/2016 19:35:00 06/22/2016 23:59:59 CLS Outpatient CARLOS MARTIN MD [facility] CATH CP [id number] 05/05/2016 07:41:00 05/05/2016 23:59:59 CLS Outpatient DANNY CAMPBELL [facility] LAB HYPERLIPIDEMIA,CAD [id number] 05/05/2016 07:35:00 05/05/2016 23:59:59 CLS Outpatient MONCADA DO LEAH [facility] LAB Z00.00,E78.1,E78.0 [id number] 11/19/2015 07:00:00 11/19/2015 23:59:59 CLS Outpatient MONCADA DO, LEAH [facility] LAB [id number] 07/09/2015 09:55:00 07/11/2015 09:05:00 DIS Outpatient LINA PARIS MD [facility] CATH [id number] 05/03/2015 06:55:00 05/03/2015 23:59:59 CLS Outpatient MONCADA DO LEAH [facility] LAB [id number] 11/11/2014 08:41:00 11/11/2014 10:05:00 DIS Emergency LITO PEREZ DO [facility] ER SOA [id number] 05/08/2014 08:11:00 05/08/2014 23:59:59 CLS Outpatient MONCADA DO LEAH [facility] LAB HYPERTENSION,MED MONITORING [id number] 04/06/2014 09:07:00 04/06/2014 23:59:59 CLS Outpatient MONCADA DO LEAH [facility] RAD CERVICAL RADICULOPTHY LEFT [id number] 02/18/2014 19:47:00 02/19/2014 14:30:00 DIS [facility] [id number] 01/04/2014 14:12:00 01/04/2014 23:59:59 CLS Outpatient CORAL POOLE LEAH [facility] LAB MUSCLE PAIN [id number] 12/28/2013 07:18:00 12/28/2013 23:59:59 CLS Outpatient MONCADA DO LEAH [facility] LAB HTN,HEALTH SCREENING [id number] 10/25/2013 07:16:00 10/25/2013 23:59:59 CLS Outpatient LINA PARIS MD [facility] LAB CP,CAD,HTN,HYPERLIPIDEMIA ,SOB [id number] 09/06/2013 08:07:00 09/06/2013 23:59:59 CLS Outpatient LINA PARIS MD [facility] RAD HTN,CP,CAD,HLP [id number] 08/07/2013 09:50:00 08/07/2013 23:59:59 CLS Outpatient LINA PARIS MD [facility] CARD CP,CAD,.HTN,HLP [id number] 06/30/2013 07:42:00 06/30/2013 23:59:59 CLS Outpatient CORAL POOLE LAEH [facility] LAB SCREENING,MED MONITORING [id number] 04/07/2013 07:08:00 04/07/2013 23:59:59 CLS Outpatient SIMIN GIPSON MD [facility] CARD LUMBAR SPONDYLOSIS [id number] 04/03/2013 15:34:00 04/03/2013 17:00:00 DIS Outpatient SIMIN GIPSON MD [facility] REHAB LUMBAGO [id number] 01/02/2013 08:18:00 01/02/2013 23:59:59 CLS Outpatient CORAL POOLE LEAH [facility] LAB MEDICATION MONITORING, HEALTH SCREENING [id number] 10/31/2014 08:07:00 Document Registration [id number] 10/31/2014 07:59:00 Document Registration [id number] 05/19/2012 08:11:00 Document Registration [id number] 01/29/2012 12:56:00 Document Registration [id number] 01/27/2012 08:05:00 Document Registration [id number] 11/11/2011 19:00:00 Document Registration [id number] 07/21/2011 07:59:00 Document Registration [id number] 07/08/2011 09:45:00 Document Registration [id number] 05/17/2011 10:54:00 Document Registration [id number] 04/02/2011 14:55:00 Document Registration [id number] 03/10/2011 07:21:00 Document Registration [id number] 01/23/2011 08:22:00 Document Registration [id number] 07/09/2017 06:31:00 07/10/2017 08:14:00 DIS Outpatient Hermelinda PARSONS, [facility] & KASSIE MARI [employer] 05/03/2015 06:56:52 ACT Document Registration
[2018-02-02] MEDS ORDERED: ASPIRIN 81 MG CHEW (CHILDREN'S ASA) PO ONE (09:00)
[2018-02-02 09:05] LABS: BASOPHILS % (AUTO) 0 % (0-10); EOSINOPHILS # (AUTO) 0.2 10^3/uL (0.0-0.3); EOSINOPHILS % (AUTO) 2 % (0-10); HEMATOCRIT 43 % (40-54); HEMOGLOBIN 14.9 G/DL (13.3-17.7); LYMPHOCYTES # (AUTO) 1.3 X 10^3 (1.0-4.0); LYMPHOCYTES % (AUTO) 21 % (12-44); MEAN CORPUSCULAR HEMOGLOBIN 32 PG (25-34); MEAN CORPUSCULAR HGB CONC 35 G/DL (32-36); MEAN CORPUSCULAR VOLUME 92 FL (80-99); MEAN PLATELET VOLUME 8.5 FL (7.4-10.4); MONOCYTES # (AUTO) 0.6 X 10^3 (0.0-1.0); MONOCYTES % (AUTO) 9 % (0-12); NEUTROPHILS # (AUTO) 4.1 X 10^3 (1.8-7.8); NEUTROPHILS % (AUTO) 67 % (42-75); PLATELET COUNT 232 10^3/uL (130-400); RED BLOOD COUNT 4.72 10^6/uL (4.35-5.85); RED CELL DISTRIBUTION WIDTH 13.4 % (10.0-14.5); WHITE BLOOD COUNT 6.2 10^3/uL (4.3-11.0)
[2018-02-02 09:21] LABS: PROTHROMBIN TIME PATIENT 13.1 SEC (12.2-14.7)
--- NOTE | 2018-02-02 09:29 | Diagnostic Imaging Report ---
INDICATION: Chest pain. TIME OF EXAM: 9:21 AM Correlation is made with prior study from 06/25/2017. FINDINGS: The heart size is stable. The right hemidiaphragm is chronically elevated. The pulmonary vascularity is normal. No infiltrate is detected. No effusion or pneumothorax is seen. IMPRESSION: No acute cardiopulmonary process is detected. Dictated by: Dictated on workstation # [id number]
[2018-02-02] MEDS ORDERED: NITROGLYCERIN 0.4 MG SL TABS BTL 25'S SL PRN ×2 (09:30→12:00)
[2018-02-02 09:36] LABS: ALANINE AMINOTRANSFERASE 16 U/L (0-55); ALBUMIN 3.7 GM/DL (3.2-4.5); ALKALINE PHOSPHATASE 64 U/L (40-136); AMYLASE 25 U/L (25-125); BILIRUBIN,TOTAL 0.4 MG/DL (0.1-1.0); BUN/CREATININE RATIO 13; CALCIUM 8.4 MG/DL (8.5-10.1); CARBON DIOXIDE 21 MMOL/L (21-32); CHLORIDE 113 MMOL/L (98-107); CREATINE KINASE 24 U/L (30-200); CREATININE SERUM 0.91 MG/DL (0.60-1.30); GFR ESTIMATED > 60; GLUCOSE 133 MG/DL (70-105); LIPASE 19 U/L (8-78); MAGNESIUM 2.2 MG/DL (1.8-2.4); SODIUM 142 MMOL/L (135-145)
--- NOTE | 2018-02-02 09:39 | ED Chest Pain ---
General Chief Complaint: Chest Pain Stated Complaint: CHEST PRESSURE/SOA Nursing Triage Note: C/O CHEST PAIN L SIDE FOR 2 DAYS TOOK 1 NITRO APX 8A REPORTS IT DID HELP PAIN Nursing Sepsis Screen: No Definite Risk Source: patient, old records Exam Limitations: no limitations History of Present Illness Date Seen by Provider: Feb 02, 2018 Time Seen by Provider: 08:45 Initial Comments PT ARRIVES VIA POV FROM HOME. WAS TOLD TO COME HERE BY DR. PARIS'S OFFICE STAFF C/O CHEST PAIN X 2 DAYS--MOSTLY ON LEFT SIDE OF CHEST, AND IS MUCH PRESSURE RATES PAIN 5/10 STATES PAIN MAKES IT HARD TO TAKE A DEEP BREATH NO SWEATS NO SWELLING IN LEGS/ FEET NO NAUSEA NO DIZZINESS STATES PAIN GOT BETTER WITH NTG X 1 THIS AM, BUT THEN IT CAME BACK, BP WAS IN 90'S SYSTOLIC BEFORE HE TOOK NTG. PT TOOK ASPIRIN LAST PM PT HAS EXTENSIVE CARDIAC DISEASE, AND HAS HAD MULTIPLE CARDIAC CATHS, WITH A TOTAL OF 8 STENTS, LAST ONE BEING PLACED 06/2017. HAD NSTEMI AT THAT TIME, HAD STENT PLACED BY DR. BARNES HERE, AND THEN ANOTHER ONE PLACED BY DR. DANIELS AFTER THAT. PT IS NORMALLY VERY ACTIVE, AND EXERCISES/RUNS ON A REGULAR BASIS, EATS HEALTHY AND DOES NOT SMOKE OR DRINK PT TRAVELS FREQUENTLY, BUT HAS BEEN > 4 WEEKS SINCE LAST TRIP NO SWELLING IN LEGS/ FEET OR PAIN IN CALVES. PCP: DR. MONCADA HIDE SPLITTER : DR. PARIS Allergies and Home Medications Allergies Coded Allergies: No Known Drug Allergies (Unverified , 03/28/10) Home Medications Acetaminophen 500 Mg Tablet, 500-1,000 MG PO Q6H PRN for PAIN, (Reported) Acetaminophen/Diphenhydramine 1 Each Tablet, 2 TAB PO HS PRN for SLEEP, ( Reported) Alprazolam 0.5 Mg Tablet, 1 MG PO TID PRN for ANXIETY, (Reported) Amlodipine Besylate 10 Mg Tablet, 10 MG PO DAILY, (Reported) Aspirin 81 Mg Tab.chew, 81 MG PO DAILY Prescribed by: ARYAN BARNES on 06/27/17942 Clopidogrel Bisulfate 75 Mg Tablet, 75 MG PO DAILY Prescribed by: ARYAN BARNES on 06/27/17 0943 Metoprolol Succinate 50 Mg Tab.er.24h, 50 MG PO HS, (Reported) Niacin/Inositol Niacinate 1 Each Capsule, 500 MG PO DAILY, (Reported) Nitroglycerin 0.4 Mg Tab, 0 SL UD PRN for CHEST PAIN, (Reported) 1 TABLET EVERY 5 MINUTES X 3 DOSES NEEDED FOR CHEST PAIN [place] 3 Polyunsat Fatty Acids 1,000 Mg Cap, 1,000 MG PO HS, (Reported) Oxycodone HCl/Acetaminophen 1 Each Tablet, 1 EACH PO QID PRN for PAIN-MODERATE TO SEVERE, (Reported) Pantoprazole Sodium 20 Mg Tablet.dr, 20 MG PO DAILY, (Reported) Rosuvastatin Calcium 5 Mg Tablet, 5 MG PO HS, (Reported) Zolpidem Tartrate 10 Mg Tablet, 10 MG PO HS PRN for SLEEP, (Reported) Patient Home Medication List Home Medication List Reviewed: Yes Review of Systems Constitutional: no symptoms reported Respiratory: See HPI, Shortness of Air, SOA at Rest Cardiovascular: See HPI, Chest Pain Gastrointestinal: No Symptoms Reported Genitourinary: No Symptoms Reported Musculoskeletal: no symptoms reported Skin: no symptoms reported Psychiatric/Neurological: Other (SOME PROBLEMS CONCENTRATING) Endocrine: No Symptoms Reported Hematologic/Lymphatic: No Symptoms Reported Past Ylquohg-Pwirwq-Umiyoe Hx Patient Social History Alcohol Use: Denies Use Recreational Drug Use: No Smoking Status: Never a Smoker 2nd Hand Smoke Exposure: No Recent Foreign Travel: No Contact w/Someone Who Travel: No Recent Infectious Disease Expo: No Recent Hopitalizations: No Immunizations Up To Date Date of Pneumonia Vaccine: Sep 25, 2013 Seasonal Allergies Seasonal Allergies: Yes Past Medical History Surgeries: Yes (CYST REMOVED FROM RIGHT HAND, CARDIAC CATHS--STENTS X 8 PLUS ANGIOPLASTIES--LAST ONE 06/2017) Adenoidectomy, Cardiac, Coronary Stent, Tonsillectomy Respiratory: No Currently Using CPAP: No Currently Using BIPAP: No Cardiac: Yes (HEART RATE IS ALWAYS LOW--PT IS A RUNNER PLUS TAKES BETA BLOCKERS ; MULTIPLE INTERVENTIONS WITH NSTEMI 06/2017 WITH PLACEMENT OF STENT # [address] BARNES AND #[address] 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) Headaches /Migraines Reproductive Disorders: No Sexually Transmitted Disease: No HIV/AIDS: No Genitourinary: No Gastrointestinal: Yes Gastroesophageal Reflux Musculoskeletal: Yes Degenerate Disk Disease, Chronic Back Pain Endocrine: No HEENT: No (T&A) Tonsilitis Loss of Vision: Denies Hearing Impairment: Denies Cancer: No Psychosocial: Yes Anxiety Integumentary: Yes (Cold sores) Herpes Blood Disorders: No Adverse Reaction/Blood Tranf: No Family Medical History Family history: Diabetes mellitus G8 BROTHER Myocardial infarction 20 FATHER CAD Under 55 Years Old Physical Exam Vital Signs Vital Signs - First Documented 02/02/18 02/02/18 08:44 09:59 Temp 97.0 Pulse 57 Resp 18 B/P (MAP) 125/58 (80) Pulse Ox 98 O2 Delivery Room Air Capillary Refill : Less Than 3 Seconds General Appearance: No Apparent Distress, WD/WN, Other (SMILING, TALKATIVE, DOES NOT APPEAR TO BE IN ANY DISCOMFORT OR DISTRESS) Neck: Full Range of Motion, Normal Inspection, Non Tender, Supple Respiratory: Chest Non Tender, Normal Breath Sounds, No Accessory Muscle Use, No Respiratory Distress Cardiovascular: Regular Rate, Rhythm, No Edema, No JVD, No Murmur, Normal Peripheral Pulses Gastrointestinal: Normal Bowel Sounds, No Organomegaly, No Pulsatile Mass, Non Tender, Soft Extremity: Normal Capillary Refill, Normal Inspection, Normal Range of Motion, Non Tender, No Calf Tenderness, No Pedal Edema Neurologic/Psychiatric: Alert, Oriented x3, No Motor/Sensory Deficits, Normal Mood/Affect, 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 Norm as Tested Skin: Normal Color, Warm/Dry Progress/Results/Core Measures Results/Orders Lab Results Laboratory Tests Test 02/02/18 08:50 Range/Units White Blood Count 6.2 4.3-11.0 10^3/uL Red Blood Count 4.72 4.35-5.85 10^6/uL Hemoglobin 14.9 13.3-17.7 G/DL Hematocrit 43 40-54 % Mean Corpuscular Volume 92 80-99 FL Mean Corpuscular Hemoglobin 32 25-34 PG Mean Corpuscular Hemoglobin Concent 35 32-36 G/DL Red Cell Distribution Width 13.4 10.0-14.5 % Platelet Count 232 130-400 10^3/uL Mean Platelet Volume 8.5 7.4-10.4 FL Neutrophils (%) (Auto) 67 42-75 % Lymphocytes (%) (Auto) 21 12-44 % Monocytes (%) (Auto) 9 0-12 % Eosinophils (%) (Auto) 2 0-10 % Basophils (%) (Auto) 0 0-10 % Neutrophils # (Auto) 4.1 1.8-7.8 X 10^3 Lymphocytes # (Auto) 1.3 1.0-4.0 X 10^3 Monocytes # (Auto) 0.6 0.0-1.0 X 10^3 Eosinophils # (Auto) 0.2 0.0-0.3 10^3/uL Basophils # (Auto) 0.0 0.0-0.1 10^3/uL Prothrombin Time 13.1 12.2-14.7 SEC INR Comment 1.0 0.8-1.4 Activated Partial Thromboplast Time 26 24-35 SEC Sodium Level 142 135-145 MMOL/L Potassium Level 4.0 3.6-5.0 MMOL/L Chloride Level 113 H 98-107 MMOL/L Carbon Dioxide Level 21 21-32 MMOL/L Anion Gap 8 5-14 MMOL/L Blood Urea Nitrogen 12 7-18 MG/DL Creatinine 0.91 0.60-1.30 MG/DL Estimat Glomerular Filtration Rate > 60 BUN/Creatinine Ratio 13 Glucose Level 133 H 70-105 MG/DL Calcium Level 8.4 L 8.5-10.1 MG/DL Magnesium Level 2.2 1.8-2.4 MG/DL Total Bilirubin 0.4 0.1-1.0 MG/DL Aspartate Amino Transf (AST/SGOT) 14 5-34 U/L Alanine Aminotransferase (ALT/SGPT) 16 0-55 U/L Alkaline Phosphatase 64 40-136 U/L Total Creatine Kinase 24 L 30-200 U/L Creatine Kinase MB 0.6 <6.6 NG/ML Troponin I < 0.30 <0.30 NG/ML B-Type Natriuretic Peptide 23.6 <100.0 PG/ML Total Protein 6.0 L 6.4-8.2 GM/DL Albumin 3.7 3.2-4.5 GM/DL Amylase Level 25 25-125 U/L Lipase 19 8-78 U/L My Orders Orders - [facility] ARTEAGA DO Ekg Tracing (02/02/18 08:42) Amylase (02/02/18 08:52) Cbc With Automated Diff (02/02/18 08:52) Comprehensive Metabolic Panel (02/02/18 08:52) Creatine Kinase (02/02/18 08:52) Creatine Kinase Mb (02/02/18 08:52) Lipase (02/02/18 08:52) Partial Thromboplastin Time (02/02/18 08:52) Protime With Inr (02/02/18 08:52) Troponin I (02/02/18 08:52) Chest 1 View, Ap/Pa Only (02/02/18 08:52) O2 (02/02/18 08:52) Aspirin Chewable Tablet (Baby Aspirin Ch (02/02/18 09:00) BNP (02/02/18 08:52) Monitor-Rhythm Ecg Trace Only (02/02/18 08:52) Magnesium (02/02/18 08:53) Nitroglycerin 0.4 Mg Btl 25's (Nitrostat (02/02/18 09:30) Morphine Injection (Morphine Injection (02/02/18 09:47) Morphine Injection (Morphine Injection (02/02/18 09:52) Medications Given in ED Current Medications Medications Dose Ordered Sig/Facundo Route Start Time Stop Time Status Last Admin Dose Admin Aspirin 324 mg ONCE ONCE PO 02/02/18 09:00 02/02/18 09:01 DC 02/02/18 09:13 324 MG Nitroglycerin 1 TAB Q 5 MIN X 3 NEEDED PRN SL 02/02/18 09:30 02/02/18 09:33 0.4 MG Vital Signs/I&O 02/02/18 02/02/18 08:44 09:59 Temp 97.0 Pulse 57 66 Resp 18 18 B/P (MAP) 125/58 (80) 112/78 (89) Pulse Ox 98 94 O2 Delivery Room Air Blood Pressure Mean: 80 Progress Progress Note : Progress Note GIVEN NTG X 1 WITH PAIN DOWN TO A 3/10, BUT BP DROPPED TO 100'S SYSTOLIC. GIVEN MORPHINE 4 MG WITH RELIEF OF PAIN Initial ECG Impression Date: Feb 02, 2018 Initial ECG Impression Time: 08:49 Initial ECG Rate: 55 Initial ECG Rhythm: Normal Sinus Initial ECG Impression: Normal Initial ECG Comparisson: Unchanged Diagnostic Imaging Comments CXR--NO ACUTE PROCESS, PER RADIOLOGIST REPORT @ 0945 Reviewed: Reviewed by Me Departure Communication (Admissions) 5114--SPOKE WITH DR. PARIS, ACCEPTS PT FOR ADMIT 1008--DR. PARIS HERE, CARE TURNED OVER TO HIM Impression Primary Impression: Chest pain Additional Impression: Coronary artery disease Disposition: 09 ADMITTED INPATIENT Condition: Improved Admissions Decision to Admit Reason: Admit from ER (General) Decision to Admit/Date: Feb 02, 2018 Time/Decision to Admit Time: 10:00 Departure-Patient Inst. Referrals: LEAH MONCADA DO (PCP/Family) Primary Care Physician NHI ARTEAGA DO Feb 02, 2018 09:39
[2018-02-02 09:46] LABS: CREATINE KINASE MB 0.6 NG/ML (<6.6)
[2018-02-02] MEDS ORDERED: morphine INJ 10 MG/ML 1ML (SYR OR VIAL) IVP STA (09:47)
[2018-02-02] MEDS ORDERED: morphine INJ 10 MG/ML 1ML (SYR OR VIAL) ONE (09:52)
[2018-02-02] MEDS ORDERED: NS 1000 ML IV BAG IV ONE (10:15)
[2018-02-02] MEDS ORDERED: PATIENT MAY USE OWN MEDS, ALL PO SCH (11:00)
[2018-02-02] MEDS ORDERED: CATHETER FLUSH 10 ML SYR IV PRN (12:00)
[2018-02-02] MEDS ORDERED: morphine INJ 4 MG/ML 1 ML (VIAL/SYRINGE) IVP PRN (12:00)
[2018-02-02 12:02] LABS: PROTHROMBIN TIME PATIENT 13.5 SEC (12.2-14.7)
[2018-02-02 12:12] LABS: ALANINE AMINOTRANSFERASE 13 U/L (0-55); ALBUMIN 3.5 GM/DL (3.2-4.5); ALKALINE PHOSPHATASE 60 U/L (40-136); BILIRUBIN,TOTAL 0.4 MG/DL (0.1-1.0); BUN/CREATININE RATIO 13; CALCIUM 8.2 MG/DL (8.5-10.1); CARBON DIOXIDE 24 MMOL/L (21-32); CHLORIDE 111 MMOL/L (98-107); CREATININE SERUM 0.89 MG/DL (0.60-1.30); GFR ESTIMATED > 60; GLUCOSE 97 MG/DL (70-105); POTASSIUM 4.2 MMOL/L (3.6-5.0); SODIUM 142 MMOL/L (135-145); TOTAL PROTEIN 5.5 GM/DL (6.4-8.2)
[2018-02-02 12:18] LABS: MYOGLOBIN SERUM 24.6 NG/ML (10.0-92.0)
--- NOTE | 2018-02-02 13:03 | Short Stay Summary ---
History of Present Illness History of Present Illness Reason for visit/HPI 62 years old gentleman with extensive cardiac history, multiple stents, was in his usual state of health until yesterday when he started to feel lightheaded and dizzy, had mild pressure in his chest, went back home and slept well last night, this morning he was feeling better after sitting at work he was unable to concentrate and was feeling lightheaded and dizzy and foggy. Started having mild chest pressure. Came back home and then went to the emergency room, in the ER he was given nitroglycerin and morphine which helped his chest pain. Patient reported that his blood pressure at home was in the 90s. Denied any full syncope, denied any palpitation, no further episodes of chest pain were reported. Currently feeling better. Date of Admission Feb 02, 2018 at 10:00 Date of Discharge Time Seen by Provider: 12:58 Attending Physician Molly Howell DO Admitting Physician Molly Howell DO Consult Allergies and Home Medications Allergies Coded Allergies: No Known Drug Allergies (Unverified , 03/28/10) Home Medications Acetaminophen 500 Mg Tablet, 500-1,000 MG PO Q6H PRN for PAIN-MILD, (Reported) Acetaminophen/Diphenhydramine 1 Each Tablet, 2 TAB PO HS PRN for SLEEP, ( Reported) Alprazolam 1 Mg Tablet, 1 MG PO TID PRN for ANXIETY, (Reported) Aspirin 81 Mg Tablet.dr, 81 MG PO HS, (Reported) Clopidogrel Bisulfate 75 Mg Tablet, 75 MG PO HS, (Reported) Losartan Potassium 50 Mg Tablet, 50 MG PO DAILY, (Reported) Niacinamide 500 Mg Tablet, 500 MG PO DAILY, (Reported) Nitroglycerin 0.4 Mg Tab.subl, 0.4 MG SL UD PRN for CHEST PAIN, (Reported) [place] 3 Polyunsat Fatty Acids 1,000 Mg Cap, 1,000 MG PO HS, (Reported) Pantoprazole Sodium 20 Mg Tablet.dr, 20 MG PO DAILY, (Reported) Ranolazine 1,000 Mg Tab.er.12h, 1,000 MG PO BID, (Reported) Rosuvastatin Calcium 5 Mg Tablet, 5 MG PO DAILY, (Reported) Zolpidem Tartrate 10 Mg Tablet, 10 MG PO HS PRN for SLEEP, (Reported) Patient Home Medication List Home Medication List Reviewed: Yes Past Cqpmaje-Rvjxit-Raeinx Hx Patient Social History Marrital Status: Employed/Student: employed Alcohol Use: Denies Use Recreational Drug Use: No Smoking Status: Never a Smoker 2nd Hand Smoke Exposure: No Recent Foreign Travel: No Contact w/other who traveled: No Recent Hopitalizations: No Recent Infectious Disease Expo: No Immunizations Up To Date Date of Pneumonia Vaccine: Sep 25, 2013 Seasonal Allergies Seasonal Allergies: Yes Surgeries Yes (CYST REMOVED FROM RIGHT HAND, CARDIAC CATHS--STENTS X 8 PLUS ANGIOPLASTIES- -LAST ONE 06/2017) Adenoidectomy, Cardiac, Coronary Stent, Tonsillectomy Respiratory No Currently Using CPAP: No Currently Using BIPAP: No Cardiovascular Yes (HEART RATE IS ALWAYS LOW--PT IS A RUNNER PLUS TAKES BETA BLOCKERS; MULTIPLE INTERVENTIONS WITH NSTEMI 06/2017 WITH PLACEMENT OF STENT # [address] BARNES AND #[address] 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) Headaches /Migraines Reproductive System Hx Reproductive Disorders: No Sexually Transmitted Disease: No HIV/AIDS: No Genitourinary No Gastrointestinal Yes Gastroesophageal Reflux Musculoskeletal Yes Degenerate Disk Disease, Chronic Back Pain Endocrine History of Endocrine Disorders: No HEENT History of HEENT Disorders: No (T&A) HEENT Disorders: Tonsilitis Loss of Vision: Denies Hearing Impairment: Denies Cancer No Psychosocial History of Psychiatric Problem: Yes Behavioral Health Disorders: Anxiety Integumentary History of Skin or Integumenta: Yes (Cold sores) Skin/Integumentary Disorders: Herpes Blood Transfusions History of Blood Disorders: No Adverse Reaction to a Blood Tr: No Family Medical History Significant Family History: CAD Under 55 Years Old Family Hx: Family history: Diabetes mellitus G8 BROTHER Myocardial infarction 19 FATHER Constitutional: see HPI, dizziness, weakness EENTM: see HPI, no symptoms reported Respiratory: see HPI; No cough, No dyspnea on exertion, No hemoptysis, No orthopnea, No phlegm, No short of breath, No stridor, No wheezing, No other Cardiovascular: see HPI, chest pain; No edema, No Hx of Intervention, No palpitations, No syncope, No vascular heart diseas, No other Gastrointestinal: no symptoms reported, see HPI Genitourinary: no symptoms reported, see HPI Musculoskeletal: no symptoms reported, see HPI Skin: no symptoms reported, see HPI Psychiatric/Neurological: No Symptoms Reported, See HPI Physical Exam Vital Signs Vital Signs - First Documented 02/02/18 02/02/18 08:44 09:59 Temp 97.0 Pulse 57 Resp 18 B/P (MAP) 125/58 (80) Pulse Ox 98 O2 Delivery Room Air Capillary Refill : Less Than 3 Seconds General Appearance: No Apparent Distress, WD/WN Eyes: Bilateral Eye Normal Inspection, Bilateral Eye PERRL, Bilateral Eye EOMI HEENT: PERRL/EOMI, TMs Normal, Normal ENT Inspection, Pharynx Normal Neck: Full Range of Motion, Normal Inspection, Non Tender, Supple, Carotid Bruit Respiratory: Chest Non Tender, Lungs Clear, Normal Breath Sounds, No Accessory Muscle Use, No Respiratory Distress Cardiovascular: Regular Rate, Rhythm, No Edema, No Gallop, No JVD, No Murmur, Normal Peripheral Pulses Gastrointestinal: Normal Bowel Sounds, No Organomegaly, No Pulsatile Mass, Non Tender, Soft Back: Normal Inspection, No CVA Tenderness, No Vertebral Tenderness Extremity: Normal Capillary Refill, Normal Inspection, Normal Range of Motion, Non Tender, No Calf Tenderness, No Pedal Edema Neurologic/Psychiatric: Alert, Oriented x3, No Motor/Sensory Deficits, Normal Mood/Affect Skin: Normal Color, Warm/Dry Lymphatic: No Adenopathy Clinical Quality Measures Admission Status Admission Status: Observation AMI/AHF: ASA po Prior to arrival: No Short Stay Diagnosis Discharge Diagnosis-Short Stay Admission Diagnosis: Chest pain nonspecific etiology Coronary artery disease Dizziness and lightheadedness Hypotension Hyperlipidemia Final Discharge Diagnosis: Chest pain nonspecific etiology Coronary artery disease Dizziness and lightheadedness Hypotension Hyperlipidemia Conclusion Labs Laboratory Tests 02/02/18 08:50: White Blood Count 6.2, Red Blood Count 4.72, Hemoglobin 14.9, Hematocrit 43, Mean Corpuscular Volume 92, Mean Corpuscular Hemoglobin 32, Mean Corpuscular Hemoglobin Concent 35, Red Cell Distribution Width 13.4, Platelet Count 232, Mean Platelet Volume 8.5, Neutrophils (%) (Auto) 67, Lymphocytes (%) (Auto) 21, Monocytes (%) (Auto) 9, Eosinophils (%) (Auto) 2, Basophils (%) (Auto) 0, Neutrophils # (Auto) 4.1, Lymphocytes # (Auto) 1.3, Monocytes # (Auto) 0.6, Eosinophils # (Auto) 0.2, Basophils # (Auto) 0.0, Prothrombin Time 13.1, INR Comment 1.0, Activated Partial Thromboplast Time 26, Sodium Level 142, Potassium Level 4.0, Chloride Level 113H, Carbon Dioxide Level 21, Anion Gap 8, Blood Urea Nitrogen 12, Creatinine 0.91, Estimat Glomerular Filtration Rate > 60 , BUN/Creatinine Ratio 13, Glucose Level 133H, Calcium Level 8.4L, Magnesium Level 2.2, Total Bilirubin 0.4, Aspartate Amino Transf (AST/SGOT) 14, Alanine Aminotransferase (ALT/SGPT) 16, Alkaline Phosphatase 64, Total Creatine Kinase 24L, Creatine Kinase MB 0.6, Troponin I < 0.30, B-Type Natriuretic Peptide 23.6 , Total Protein 6.0L, Albumin 3.7, Amylase Level 25, Lipase 19 02/02/18 11:44: Prothrombin Time 13.5, INR Comment 1.0, Sodium Level 142, Potassium Level 4.2, Chloride Level 111H, Carbon Dioxide Level 24, Anion Gap 7, Blood Urea Nitrogen 12, Creatinine 0.89, Estimat Glomerular Filtration Rate > 60, BUN/Creatinine Ratio 13, Glucose Level 97, Calcium Level 8.2L, Total Bilirubin 0.4, Aspartate Amino Transf (AST/SGOT) 11, Alanine Aminotransferase (ALT/SGPT) 13, Alkaline Phosphatase 60, Troponin I < 0.30, Total Protein 5.5L, Albumin 3.5, Myoglobin 24.6 Conclusion/Plan Chest pain nonspecific etiology, chronic stable angina, currently chest pain- free, EKG, cardiac enzymes did not show any acute abnormality. Continue to monitor, reassured. Dizziness and lightheadedness, borderline hypotensive. Currently blood pressure is better. I will decrease Toprol-XL to 50 mg daily and evaluate tolerance and response Coronary artery disease, multiple intervention. Had 2 stents in the LAD cipher 2.5x8 proximally 2.5x28 Mid. Then had balloon angioplasty for in-stent restenosis, had another stent placed in the LAD by Dr. Blake in 2011. Report of that procedure is not available. In addition patient had a stent to the diagonal artery using Promus to 2.25 X 12 mm. And a stent in the right coronary artery Promus 3.0x18 mm. Recent cardiac catheterization done July 10, 2015 revealing moderate to severe in-stent restenosis in the distal LAD with lesion extending beyond the stent. Successful primary stenting using 2.25 x 12 mm Promus drug-eluting stent deployed distally balloon angioplasty for the in-stent restenosis. Underwent another cardiac catheterization due to recurrent chest pain in June 2016 which showed patent stents in the LAD, diagonal artery and right coronary artery with [id number]-gm-[id number] disease, small vessel disease, medical therapy is recommended. Underwent cardiac catheterization on June 26, 2017 after having mildly elevated troponin revealing 60-70 percent stenosis in the mid LAD artery past the distal edge of the distal stent in the LAD. Mid LAD did not exhibit significant in-stent restenosis. Left circumflex had 40 percent stenosis in the first obtuse marginal. RCA had long 75 percent stenosis. Underwent successful stenting using Alpine Xience 3.5 x 38 mm stent with good results. Distal RCA stent was patent. Another cath done on July 09, 2017 with reported stent placement to the LAD by Dr. Freed's group. Report is not available to me at this time. Underwent stress echo July 2017 revealing excellent exercise tolerance, 11 minutes, with normal echocardiographic images. Reassurance given to the patient. Continue on current medications and monitor Mild bradycardia, occasional PVCs and ventricular bigeminy, still bradycardic, I will decrease Toprol to 50 mg daily Hypertension, currently borderline hypotensive, planning to decrease Toprol and monitoring his tolerance and response Hyperlipidemia, intolerance to simvastatin and Lipitor with leg cramps, tolerating Crestor, lipids are well-controlled. Continue to monitor Lower extremity cramps and pain, venous study was normal, LEELEE was normal, most probably the pain is secondary to statin. tolerating Crestor 5 mg daily. Continue to monitor History of intolerance to isosorbide causing headache Nonobstructive carotid artery stenosis per carotid duplex done June 2017. Continue to monitor. LINA PARIS MD Feb 02, 2018 13:03
[2018-02-02] MEDS ORDERED: LOSA50TA36 PO (13:47)
[2018-02-02] MEDS ORDERED: RANO10003 PO (13:47)
[2018-02-02] MEDS ORDERED: METO-395 PO (13:47)
[2018-02-02] MEDS ORDERED: ASPI-983 PO (13:47)
[2018-02-02] MEDS ORDERED: NIAC500T24 PO (13:47)
[2018-02-02] MEDS ORDERED: NITR0.4T42 SL (13:47)
[2018-02-02] MEDS ORDERED: ALPR1TAB7 PO (13:47)
[2018-02-02] MEDS ORDERED: CLOP75TA28 PO (13:47)
[2018-02-02] MEDS ORDERED: NON-FORMULARY MEDICATION 1 EA EA (Zolpidem Tartrate 10 MG) PO PRN (14:00)
[2018-02-02] MEDS: CATHETER FLUSH 10 ML SYR IV SCH ×2 (14:38→20:23)
[2018-02-02] MEDS ORDERED: ZOLPIDEM 5 MG (AMBIEN) TAB PO PRN (15:00)
[2018-02-02] MEDS ORDERED: ASPIRIN E.C. 81 MG (ECOTRIN) TAB PO SCH ×2 (21:00)
[2018-02-02] MEDS ORDERED: CLOPIDOGREL 75 MG (PLAVIX) TABLET PO SCH ×2 (21:00)
[2018-02-02] MEDS ORDERED: RANOLAZINE ER 500 MG TAB (RANEXA) PO SCH ×2 (21:00)
[2018-02-02] MEDS ORDERED: NON-FORMULARY MEDICATION 1 EA EA (Ranolazine (Ranexa) 1,000 MG) PO SCH (21:00)
[2018-02-03] VITALS: BP 136/83
[2018-02-03 03:35] LABS: BASOPHILS % (AUTO) 0 % (0-10); EOSINOPHILS # (AUTO) 0.2 10^3/uL (0.0-0.3); EOSINOPHILS % (AUTO) 3 % (0-10); HEMATOCRIT 43 % (40-54); HEMOGLOBIN 15.2 G/DL (13.3-17.7); LYMPHOCYTES # (AUTO) 1.4 X 10^3 (1.0-4.0); LYMPHOCYTES % (AUTO) 20 % (12-44); MEAN CORPUSCULAR HEMOGLOBIN 32 PG (25-34); MEAN CORPUSCULAR HGB CONC 35 G/DL (32-36); MEAN CORPUSCULAR VOLUME 92 FL (80-99); MONOCYTES # (AUTO) 0.6 X 10^3 (0.0-1.0); MONOCYTES % (AUTO) 9 % (0-12); NEUTROPHILS # (AUTO) 4.7 X 10^3 (1.8-7.8); NEUTROPHILS % (AUTO) 68 % (42-75); PLATELET COUNT 217 10^3/uL (130-400); RED CELL DISTRIBUTION WIDTH 13.4 % (10.0-14.5); WHITE BLOOD COUNT 6.9 10^3/uL (4.3-11.0)
[2018-02-03 03:57] LABS: ALANINE AMINOTRANSFERASE 15 U/L (0-55); ALBUMIN 3.5 GM/DL (3.2-4.5); ALKALINE PHOSPHATASE 52 U/L (40-136); BILIRUBIN,TOTAL 0.5 MG/DL (0.1-1.0); BUN/CREATININE RATIO 16; CARBON DIOXIDE 22 MMOL/L (21-32); CHLORIDE 109 MMOL/L (98-107); CHOLESTEROL 158 MG/DL (< 200); CREATININE SERUM 0.87 MG/DL (0.60-1.30); GFR ESTIMATED > 60; GLUCOSE 104 MG/DL (70-105); HDL CHOLESTEROL 36 MG/DL (40-60); POTASSIUM 4.1 MMOL/L (3.6-5.0); SODIUM 139 MMOL/L (135-145); TOTAL PROTEIN 5.8 GM/DL (6.4-8.2); TRIGLYCERIDES 185 MG/DL (<150); VLDL CHOLESTEROL 37 MG/DL (5-40)
[2018-02-03 04:00] VITALS: BP 138/82
[2018-02-03 04:10] LABS: CALCIUM 8.3 MG/DL (8.5-10.1)
[2018-02-03] MEDS: CATHETER FLUSH 10 ML SYR IV SCH (06:24)
[2018-02-03] MEDS ORDERED: PANTOPRAZOLE 20 MG TABLET (PROTONIX) PO SCH (07:00)
[2018-02-03 07:55] VITALS: BP 138/90
[2018-02-03 08:00] VITALS: BP 120/75
[2018-02-03] MEDS ORDERED: ACETAMINOPHEN 325 MG TABLET/CAPLET (TYLENOL) PO PRN (08:00)
[2018-02-03] MEDS ORDERED: METO-370 PO (08:28)
[2018-02-03] MEDS ORDERED: meTOproloL SUCCINATE 50 MG (TOPROL XL) TAB PO SCH ×2 (09:00)
[2018-02-03] MEDS ORDERED: NON-FORMULARY MEDICATION 1 EA EA (Losartan Potassium 50 MG) PO SCH (09:00)
[2018-02-03] MEDS ORDERED: LOSARTAN 50 MG (COZAAR) TAB PO SCH ×2 (09:00)
[2018-02-03] MEDS ORDERED: ROSUVASTATIN 5 MG (CRESTOR) TABLET PO SCH ×2 (09:00)
[2018-02-03] MEDS ORDERED: NON-FORMULARY MEDICATION 1 EA EA (Pantoprazole Sodium 20 MG) PO SCH (09:00)
[2018-02-03] MEDS ORDERED: ASPIRIN E.C. 81 MG (ECOTRIN) TAB PO SCH (09:00)
== END 2018-02-03 08:28 | disposition home or self-care (01) ==
LOC: EDUNIT# 08:41 → ER 08:42 → UNDOADMOB 10:00 → ICU 10:00 → UNDODISOB 02-03 09:22
PROVIDERS: ADMIT Internal Medicine Cardiovascular Disease; ATTEND Internal Medicine
DX: R07.9 Chest pain, unspecified (principal); I25.118 Atherosclerotic heart disease of native coronary artery with other forms of angina pectoris; I10 Essential (primary) hypertension; E78.5 Hyperlipidemia, unspecified; I65.29 Occlusion and stenosis of unspecified carotid artery; R25.2 Cramp and spasm; K21.9 Gastro-esophageal reflux disease without esophagitis; Z95.5 Presence of coronary angioplasty implant and graft
CPT/HCPCS: 36415; 71045; 80053; 80061; 82150; 82550; 82553; 83690; 83735; 83874; 83880; 84484; 85025; 85610; 85730; 93005; 93041; 96374

== ENCOUNTER 2018-05-14 18:57 | Day surgery (SDC) | payer BC ==
[~2018-05-14] VITALS: Ht 188 cm; Wt 87.2 kg
[~2018-05-14 18:57] MED LIST changes: +AMLO5TAB7 PO; +ASPI-983 PO; +LOSA50TA7 PO; +METO-395 PO; +NIAC500T24 PO; +NITR0.4T42 SL; +RANO10003 PO; -ROSU5TAB11 PO; +ROSU5TAB12 PO
[2018-05-14] MEDS ORDERED: ASPIRIN 81 MG CHEW (CHILDREN'S ASA) PO ONE (19:00)
[2018-05-14 19:18] LABS: BASOPHILS % (AUTO) 0 % (0-10); EOSINOPHILS # (AUTO) 0.2 10^3/uL (0.0-0.3); EOSINOPHILS % (AUTO) 4 % (0-10); HEMATOCRIT 41 % (40-54); HEMOGLOBIN 13.7 G/DL (13.3-17.7); LYMPHOCYTES # (AUTO) 1.8 X 10^3 (1.0-4.0); LYMPHOCYTES % (AUTO) 26 % (12-44); MEAN CORPUSCULAR HEMOGLOBIN 29 PG (25-34); MEAN CORPUSCULAR HGB CONC 34 G/DL (32-36); MEAN CORPUSCULAR VOLUME 86 FL (80-99); MEAN PLATELET VOLUME 8.9 FL (7.4-10.4); MONOCYTES # (AUTO) 0.7 X 10^3 (0.0-1.0); MONOCYTES % (AUTO) 10 % (0-12); NEUTROPHILS % (AUTO) 60 % (42-75); PLATELET COUNT 251 10^3/uL (130-400); RED BLOOD COUNT 4.74 10^6/uL (4.35-5.85); RED CELL DISTRIBUTION WIDTH 14.4 % (10.0-14.5); WHITE BLOOD COUNT 6.7 10^3/uL (4.3-11.0)
[2018-05-14 19:35] LABS: ALANINE AMINOTRANSFERASE 10 U/L (0-55); ALBUMIN 4.1 GM/DL (3.2-4.5); ALKALINE PHOSPHATASE 76 U/L (40-136); BILIRUBIN,TOTAL 0.3 MG/DL (0.1-1.0); BUN/CREATININE RATIO 15; CALCIUM 8.9 MG/DL (8.5-10.1); CARBON DIOXIDE 25 MMOL/L (21-32); CHLORIDE 109 MMOL/L (98-107); GFR ESTIMATED > 60; GLUCOSE 98 MG/DL (70-105); MAGNESIUM 2.2 MG/DL (1.8-2.4); POTASSIUM 3.8 MMOL/L (3.6-5.0); SODIUM 143 MMOL/L (135-145); TOTAL PROTEIN 6.6 GM/DL (6.4-8.2)
--- NOTE | 2018-05-14 19:36 | Diagnostic Imaging Report ---
INDICATION: Chest pain. Time of exam: 7:28 PM Correlation is made with prior study 02/02/2018. The heart size is stable. There are changes of median sternotomy and CABG. Right hemidiaphragm is chronically elevated. No infiltrate or failure is detected. No effusion or pneumothorax is seen. IMPRESSION: No acute cardiopulmonary process is detected. Dictated by: Dictated on workstation # [id number]
[2018-05-14 19:42] LABS: MYOGLOBIN SERUM 26.8 NG/ML (10.0-92.0)
--- NOTE | 2018-05-14 19:45 | ED Chest Pain ---
General Chief Complaint: Chest Pain Stated Complaint: CP Nursing Triage Note: CHEST PAIN THAT STARTED WEDNESDAY MORNING. GETS BETTER WHEN PT IS AT REST. RADIATES TO THROAT. TOOK ONE NITRO LAST NIGHT BUT DIDNT MAKE A DIFFERENCE. Nursing Sepsis Screen: No Definite Risk Source: patient Exam Limitations: no limitations History of Present Illness Date Seen by Provider: May 14, 2018 Time Seen by Provider: 19:30 Initial Comments Here with report of central chest pain and pressure that radiates up to his neck that occurs with activity and resolves with rest. He's had several episodes of this over the last 3 days. Last night he had an episode while resting and did take a nitroglycerin and that did help. Has history of heart stents last year and then ultimately quadruple bypass on February 08 of this year. Had been doing better since then but now seems to have the pressure and pain. This is a little different than previous. Noted orthopnea last night and had to sit in the recliner and that did help. Denies fevers or chills. Denies nausea, vomiting, sweating or diarrhea. Does have some periods of weakness when walking and notes that he has to rest frequently now which is a change from previous. 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 NTG SL ORTHODONTIC TECHNICIAN ASSISTANT: Yes Associated Symptoms: No abdominal pain, No back pain, No diaphoresis, No edema , No fever/chills, No nausea/vomiting; shortness of breath, weakness Allergies and Home Medications Allergies Coded Allergies: No Known Drug Allergies (Unverified , 03/28/10) Home Medications Acetaminophen 500 Mg Tablet, 500-1,000 MG PO Q6H PRN for PAIN-MILD, (Reported) Acetaminophen/Diphenhydramine 1 Each Tablet, 2 TAB PO HS PRN for SLEEP, ( Reported) Alprazolam 1 Mg Tablet, 1 MG PO TID PRN for ANXIETY, (Reported) Aspirin 81 Mg Tablet.dr, 81 MG PO HS, (Reported) Clopidogrel Bisulfate 75 Mg Tablet, 75 MG PO HS, (Reported) Losartan Potassium 50 Mg Tablet, 50 MG PO DAILY, (Reported) Metoprolol Succinate 50 Mg Tab.er.24h, 0 MG PO DAILY Prescribed by: LINA PARIS on 02/03/18 0828 Niacinamide 500 Mg Tablet, 500 MG PO DAILY, (Reported) Nitroglycerin 0.4 Mg Tab.subl, 0.4 MG SL UD PRN for CHEST PAIN, (Reported) [place] 3 Polyunsat Fatty Acids 1,000 Mg Cap, 1,000 MG PO HS, (Reported) Pantoprazole Sodium 20 Mg Tablet.dr, 20 MG PO DAILY, (Reported) Ranolazine 1,000 Mg Tab.er.12h, 1,000 MG PO BID, (Reported) Rosuvastatin Calcium 5 Mg Tablet, 5 MG PO DAILY, (Reported) Zolpidem Tartrate 10 Mg Tablet, 10 MG PO HS PRN for SLEEP, (Reported) Patient Home Medication List Home Medication List Reviewed: Yes Review of Systems Review of Systems Constitutional: see HPI; No chills, No fever EENTM: No Symptoms Reported Respiratory: See HPI, Orthopnea, SOA With Exertion Cardiovascular: Chest Pain; Denies Edema Gastrointestinal: No Symptoms Reported Genitourinary: No Symptoms Reported Musculoskeletal: no symptoms reported Skin: no symptoms reported All Other Systems Reviewed Negative Unless Noted: Yes Past Ughhndh-Dlbxgu-Wqiepo Hx Past Med/Social Hx: Reviewed Nursing Past Med/Soc Hx Patient Social History Alcohol Use: Denies Use Recreational Drug Use: No Smoking Status: Never a Smoker 2nd Hand Smoke Exposure: No Recent Foreign Travel: No Contact w/Someone Who Travel: No Recent Infectious Disease Expo: No Recent Hopitalizations: No Physical Abuse: No Sexual Abuse: No Immunizations Up To Date Date of Pneumonia Vaccine: Sep 25, 2013 Seasonal Allergies Seasonal Allergies: Yes Past Medical History Surgeries: Yes Adenoidectomy, Cardiac, CABG, Coronary Stent, Tonsillectomy Respiratory: No Currently Using CPAP: No Currently Using BIPAP: No Cardiac: Yes (3 STENTS) Coronary Artery Disease, High Cholesterol, Hypertension 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) Headaches /Migraines Reproductive Disorders: No Sexually Transmitted Disease: No HIV/AIDS: No Genitourinary: No Gastrointestinal: Yes Gastroesophageal Reflux Musculoskeletal: Yes Degenerate Disk Disease, Chronic Back Pain Endocrine: No HEENT: No (T&A) Tonsilitis Loss of Vision: Denies Hearing Impairment: Denies Cancer: No Psychosocial: Yes Anxiety Integumentary: Yes (Cold sores) Herpes Blood Disorders: No Adverse Reaction/Blood Tranf: No Family Medical History Reviewed Nursing Family Hx Family history: Diabetes mellitus G8 BROTHER Myocardial infarction 19 FATHER CAD Under 55 Years Old Physical Exam Vital Signs Vital Signs - First Documented 05/14/18 19:00 Temp 97.4 Pulse 53 Resp 22 B/P (MAP) 151/101 (118) Pulse Ox 99 Capillary Refill : Less Than 3 Seconds Height, Weight, BMI Height: 6'2.00" Weight: 190lbs. 7.0oz. 86.620887dv; 26.3 BMI Method:Stated General Appearance: No Apparent Distress, WD/WN HEENT: PERRL/EOMI, Pharynx Normal Neck: Non Tender, Supple Respiratory: Lungs Clear, Normal Breath Sounds Cardiovascular: Regular Rate, Rhythm, No Murmur Gastrointestinal: Non Tender, Soft Extremity: Normal Range of Motion Neurologic/Psychiatric: Alert, Oriented x3 Skin: Normal Color, Warm/Dry Progress/Results/Core Measures Results/Orders Lab Results Laboratory Tests Test 05/14/18 19:09 Range/Units White Blood Count 6.7 4.3-11.0 10^3/uL Red Blood Count 4.74 4.35-5.85 10^6/uL Hemoglobin 13.7 13.3-17.7 G/DL Hematocrit 41 40-54 % Mean Corpuscular Volume 86 80-99 FL Mean Corpuscular Hemoglobin 29 25-34 PG Mean Corpuscular Hemoglobin Concent 34 32-36 G/DL Red Cell Distribution Width 14.4 10.0-14.5 % Platelet Count 251 130-400 10^3/uL Mean Platelet Volume 8.9 7.4-10.4 FL Neutrophils (%) (Auto) 60 42-75 % Lymphocytes (%) (Auto) 26 12-44 % Monocytes (%) (Auto) 10 0-12 % Eosinophils (%) (Auto) 4 0-10 % Basophils (%) (Auto) 0 0-10 % Neutrophils # (Auto) 4.0 1.8-7.8 X 10^3 Lymphocytes # (Auto) 1.8 1.0-4.0 X 10^3 Monocytes # (Auto) 0.7 0.0-1.0 X 10^3 Eosinophils # (Auto) 0.2 0.0-0.3 10^3/uL Basophils # (Auto) 0.0 0.0-0.1 10^3/uL Prothrombin Time 13.0 12.2-14.7 SEC INR Comment 1.0 0.8-1.4 Activated Partial Thromboplast Time 26 24-35 SEC D-Dimer 0.94 H 0.00-0.49 UG/ML Sodium Level 143 135-145 MMOL/L Potassium Level 3.8 3.6-5.0 MMOL/L Chloride Level 109 H 98-107 MMOL/L Carbon Dioxide Level 25 21-32 MMOL/L Anion Gap 9 5-14 MMOL/L Blood Urea Nitrogen 15 7-18 MG/DL Creatinine 1.00 0.60-1.30 MG/DL Estimat Glomerular Filtration Rate > 60 BUN/Creatinine Ratio 15 Glucose Level 98 70-105 MG/DL Calcium Level 8.9 8.5-10.1 MG/DL Corrected Calcium 8.8 8.5-10.1 MG/DL Magnesium Level 2.2 1.8-2.4 MG/DL Total Bilirubin 0.3 0.1-1.0 MG/DL Aspartate Amino Transf (AST/SGOT) 14 5-34 U/L Alanine Aminotransferase (ALT/SGPT) 10 0-55 U/L Alkaline Phosphatase 76 40-136 U/L Myoglobin 26.8 10.0-92.0 NG/ML Troponin I < 0.30 <0.30 NG/ML C-Reactive Protein High Sensitivity 0.13 0.00-0.50 MG/DL B-Type Natriuretic Peptide 112.2 H <100.0 PG/ML Total Protein 6.6 6.4-8.2 GM/DL Albumin 4.1 3.2-4.5 GM/DL TSH [place] Testing 1.40 0.35-4.94 UIU/ML My Orders Orders - AISLINN DAWKINS MD BNP (05/14/18 19:39) Hs C Reactive Protein (05/14/18 19:39) Fibrin Degradation Products (05/14/18 19:39) Thyroid Analyzer (05/14/18 19:46) Ct Angio Chest W (05/14/18 20:30) Ns Iv 500 Ml (Sodium Chloride 0.9%) (05/14/18 20:30) Iohexol Injection (Omnipaque 350 Mg/Ml 1 (05/14/18 20:45) Ns (Ivpb) (Sodium Chloride 0.9%) (05/14/18 20:45) Medications Given in ED Current Medications Medications Dose Ordered Sig/Facundo Route Start Time Stop Time Status Last Admin Dose Admin Aspirin 324 mg ONCE ONCE PO 05/14/18 19:00 05/14/18 19:02 DC 05/14/18 19:20 324 MG Iohexol 150 ml ONCE ONCE IV 05/14/18 20:45 05/14/18 20:46 UNV 05/14/18 20:52 100 ML Sodium Chloride 250 ml ONCE ONCE IV 05/14/18 20:45 05/14/18 20:46 UNV 05/14/18 20:52 80 ML Sodium Chloride 500 ml @ 0 mls/hr Q0M ONCE IV 05/14/18 20:30 05/14/18 20:32 DC 05/14/18 20:37 500 MLS/HR Vital Signs/I&O 05/14/18 19:00 Temp 97.4 Pulse 53 Resp 22 B/P (MAP) 151/101 (118) Pulse Ox 99 Blood Pressure Mean: 118 Progress Progress Note : Progress Note Seen and evaluated. IV, labs, EKG and chest x-ray and ASA 324 mg by mouth ordered. Monitor patient. We did add a BNP and d-dimer as well given his history. D-dimer positive. CT angiogram of the chest ordered. Remains pain- free. Monitor patient. 2129: CT angiogram negative. We will admit for the chest pain. I did discuss the case with Dr. Hernandez and she accepts patient for admission. We will consult Dr. Stanley. The accept patient in consult. Requesting Plavix 150 mg by mouth now and then 75 mg daily as well as 81 mg of aspirin daily. This was ordered Initial ECG Impression Date: May 14, 2018 Initial ECG Impression Time: 19:04 Initial ECG Rate: 49 Initial ECG Rhythm: S.Alfredito Comment Sinus bradycardia with normal axis. No evidence of ST elevation [place]. Similar to previous of 02/02/18. Interpreted by me. Diagnostic Imaging Diagonstic Imaging: Xray Plain Films/CT/US/NM/MRI: chest Comments NAME: TANISHA TORRESHUA [facility] MED REC#: [id number] PT STATUS: REG ER : 1955 PHYSICIAN: ABRAHAN DONIS APRN ADMIT DATE: 05/14/18/ER Draft Date of Exam:05/14/18 CHEST 1 VIEW, AP/PA ONLY INDICATION: Chest pain. Time of exam: 7:28 PM Correlation is made with prior study 02/02/2018. The heart size is stable. There are changes of median sternotomy and CABG. Right hemidiaphragm is chronically elevated. No infiltrate or failure is detected. No effusion or pneumothorax is seen. IMPRESSION: No acute cardiopulmonary process is detected. Dictated on workstation # [id number] Dict: 05/14/181932 Trans: 05/14/181934 EZEQUIEL [id number] Interpreted by: ORAL KEITH MD Electronically signed by: Diagonstic Imaging: CT Plain Films/CT/US/NM/MRI: chest Comments NAME: JOSE TORRES [facility] REC#: [id number] PT STATUS: REG ER : 1955 PHYSICIAN: AISLINN DAWKINS MD ADMIT DATE: 05/14/18/ER Signed Date of Exam: 05/14/18 CT ANGIO CHEST W PROCEDURE: CT angiography of the chest with contrast. TECHNIQUE: Multiple contiguous axial images were obtained through the chest after uneventful bolus administration of intravenous contrast. 2D reconstructed CTA MIP acquisitions were also performed. INDICATION: Chest pain. Comparison is made with prior chest from 06/22/2016. The thoracic aorta is normal in caliber. No dissection is identified. There is good pulmonary arterial opacification. No filling defects are seen to suggest thromboemboli. No pericardial or pleural fluid is detected. There is minimal scarring or atelectasis in the lingula and left lower lobe. No infiltrates or masses are seen. Upper abdomen is unremarkable. IMPRESSION: No evidence of pulmonary embolism or thoracic aortic dissection Dictated by: Dictated on workstation # [id number] Dict: 05/14/182110 Trans: 05/14/182115 Interpreted by: ORAL KEITH MD Electronically signed by: ORAL KEITH MD 05/14/182115 Departure Communication (Admissions) Time/Spoke to Admitting Phy: 21:30 Time/Spoke to Consulting Phy: 21:32 Impression Primary Impression: Chest pain Qualified Codes: R07.9 - Chest pain, unspecified Disposition: HOME, SELF-CARE Condition: Improved Admissions Decision to Admit Reason: Admit from ER (General) Decision to Admit/Date: May 14, 2018 Time/Decision to Admit Time: 21:30 Departure-Patient Inst. Referrals: LEAH MONCADA DO (PCP/Family) Primary Care Physician AISLINN DAWKINS MD May 14, 2018 19:45
[2018-05-14] MEDS ORDERED: NS IV 500 ML 500 ML IV ONE (20:30)
[2018-05-14] MEDS ORDERED: IOHEXOL 350 MG/ML 150 ML (OMNIPAQUE 350) VIAL IV ONE (20:45)
[2018-05-14] MEDS ORDERED: NS 250 ML (IVPB) BAG IV ONE (20:45)
--- NOTE | 2018-05-14 21:16 | Diagnostic Imaging Report ---
PROCEDURE: CT angiography of the chest with contrast. TECHNIQUE: Multiple contiguous axial images were obtained through the chest after uneventful bolus administration of intravenous contrast. 2D reconstructed CTA MIP acquisitions were also performed. INDICATION: Chest pain. Comparison is made with prior chest from 06/22/2016. The thoracic aorta is normal in caliber. No dissection is identified. There is good pulmonary arterial opacification. No filling defects are seen to suggest thromboemboli. No pericardial or pleural fluid is detected. There is minimal scarring or atelectasis in the lingula and left lower lobe. No infiltrates or masses are seen. Upper abdomen is unremarkable. IMPRESSION: No evidence of pulmonary embolism or thoracic aortic dissection Dictated by: Dictated on workstation # [id number]
[2018-05-14] MEDS ORDERED: CLOPIDOGREL 75 MG (PLAVIX) TABLET PO ONE (21:45)
[2018-05-14 23:00] VITALS: BP 147/91
[2018-05-14 23:15] VITALS: BP 147/91
[2018-05-14 23:21] LABS: CREATINE KINASE 23 U/L (30-200)
[2018-05-14 23:30] VITALS: BP 160/96
[2018-05-14] MEDS ORDERED: morphine INJ 4 MG/ML 1 ML (VIAL/SYRINGE) IV PRN (23:30)
[2018-05-14] MEDS ORDERED: NITROGLYCERIN 0.4 MG SL TABS BTL 25'S SL PRN (23:30)
[2018-05-14] MEDS: NS IV 1000 ML 1,000 ML IV SCH (23:44)
[2018-05-14 23:45] VITALS: BP 153/94
[2018-05-15] VITALS (8 sets, daily range): BP systolic 130–153; BP diastolic 56–88
[2018-05-15 05:49] LABS: BASOPHILS % (AUTO) 0 % (0-10); EOSINOPHILS # (AUTO) 0.2 10^3/uL (0.0-0.3); EOSINOPHILS % (AUTO) 3 % (0-10); HEMATOCRIT 41 % (40-54); HEMOGLOBIN 12.7 G/DL (13.3-17.7); LYMPHOCYTES # (AUTO) 1.3 X 10^3 (1.0-4.0); LYMPHOCYTES % (AUTO) 20 % (12-44); MEAN CORPUSCULAR HEMOGLOBIN 27 PG (25-34); MEAN CORPUSCULAR HGB CONC 31 G/DL (32-36); MEAN CORPUSCULAR VOLUME 87 FL (80-99); MEAN PLATELET VOLUME 9.1 FL (7.4-10.4); MONOCYTES # (AUTO) 0.8 X 10^3 (0.0-1.0); MONOCYTES % (AUTO) 11 % (0-12); NEUTROPHILS # (AUTO) 4.4 X 10^3 (1.8-7.8); NEUTROPHILS % (AUTO) 65 % (42-75); PLATELET COUNT 251 10^3/uL (130-400); RED BLOOD COUNT 4.69 10^6/uL (4.35-5.85); RED CELL DISTRIBUTION WIDTH 14.8 % (10.0-14.5); WHITE BLOOD COUNT 6.7 10^3/uL (4.3-11.0)
[2018-05-15 06:12] LABS: ALANINE AMINOTRANSFERASE 9 U/L (0-55); ALBUMIN 3.6 GM/DL (3.2-4.5); ALKALINE PHOSPHATASE 65 U/L (40-136); BILIRUBIN,TOTAL 0.3 MG/DL (0.1-1.0); BUN/CREATININE RATIO 14; CALCIUM 8.3 MG/DL (8.5-10.1); CARBON DIOXIDE 26 MMOL/L (21-32); CHLORIDE 109 MMOL/L (98-107); CHOLESTEROL 135 MG/DL (< 200); CREATININE SERUM 0.88 MG/DL (0.60-1.30); GFR ESTIMATED > 60; GLUCOSE 91 MG/DL (70-105); HDL CHOLESTEROL 38 MG/DL (40-60); POTASSIUM 3.7 MMOL/L (3.6-5.0); SODIUM 143 MMOL/L (135-145); TOTAL PROTEIN 5.7 GM/DL (6.4-8.2); TRIGLYCERIDES 112 MG/DL (<150); VLDL CHOLESTEROL 22 MG/DL (5-40)
[2018-05-15] MEDS ORDERED: FLU QUADRIvalent (5+ YOA) 2018-2019 (AFLURIA) 0.5 ML IM ONE (07:15)
[2018-05-15] MEDS: ASPIRIN E.C. 81 MG (ECOTRIN) TAB PO SCH (08:21)
[2018-05-15] MEDS ORDERED: METO-387 PO (08:47)
[2018-05-15] MEDS ORDERED: AMIO200T4 PO (08:47)
[2018-05-15] MEDS ORDERED: ALPR0.5T7 PO (08:47)
[2018-05-15] MEDS ORDERED: OXYC-471 PO (08:53)
[2018-05-15] MEDS ORDERED: CLOPIDOGREL 75 MG (PLAVIX) TABLET PO SCH (09:00)
[2018-05-15] MEDS: ACETAMINOPHEN 500 MG TAB (TYLENOL) PO PRN ×2 (10:11→17:53)
--- NOTE | 2018-05-15 10:17 | History & Physical-Hospitalist ---
History of Present Illness HPI/Chief Complaint Pt is a 63yoCM with a PMH of CAD s/p CABG on 02/08 who presented to the ER for evaluation of progressing chest pain. He states he is normally able to walk briskly for 20-30 minutes every day but on 05/11 he developed chest pressure within 10m of his walk. This resolved with rest. This continued to happen throughout the week with any exertion. It recurred on 05/12 while doing yardwork and again on 05/13 when walking up the steps. He would develop chest pressure and mild SOB but as it progressed he also would feel very weak and light headed. He thought it was similar to the symptoms he was having before he got his first stent in 2004. He took a nitro for it on 05/14 which helped. Yesterday he went to walk around his house a veyr short distance and the symptoms recurred prompting him to seek evaluation in the ER. He has had no recurrence of the symptoms since he arrived. Source: patient Date Seen 05/15/18 Time Seen by a Provider: 10:12 Attending Physician Molly Howell DO PCP Molly Howell DO Referring Physician Date of Admission May 14, 2018 at 21:48 Home Medications & Allergies Home Medications Reviewed patient Home Medication Reconciliation performed by pharmacy medication reconciliations lead quality control technician and/or nursing. Patients Allergies have been reviewed. Allergies Allergies Coded Allergies No Known Drug Allergies (Unverified03/28/10) Past Eziwhxm-Yuaheo-Evdyws Hx Past Med/Social Hx: Reviewed Nursing Past Med/Soc Hx, Reviewed and Corrections made Patient Social History Marrital Status: Employed/Student: employed Alcohol Use: Denies Use Recreational Drug Use: No Smoking Status: Never a Smoker 2nd Hand Smoke Exposure: No Physical Abuse Screen: No Sexual Abuse: No Recent Foreign Travel: No Contact w/other who traveled: No Recent Hopitalizations: No Recent Infectious Disease Expo: No Immunizations Up To Date Date of Pneumonia Vaccine: May 23, 2014 Date of Influenza Vaccine: Jun 23, 2017 Seasonal Allergies Seasonal Allergies: Yes Past Medical History Surgeries: Adenoidectomy, Cardiac, CABG, Coronary Stent, Tonsillectomy Currently Using CPAP: No Currently Using BIPAP: No Cardiac: Coronary Artery Disease, High Cholesterol, Hypertension Neurological: Headaches /Migraines Reproductive: No Sexually Transmitted Disease: No HIV/AIDS: No Gastrointestinal: Gastroesophageal Reflux Musculoskeletal: Degenerate Disk Disease, Chronic Back Pain HEENT: Tonsilitis Loss of Vision: Denies Hearing Impairment: Denies Psychosocial: Anxiety Skin/Integumentary: Herpes History of Blood Disorders: No Adverse Reaction to Blood Quinones: No Family History Reviewed Nursing Family Hx Family history: Diabetes mellitus G8 BROTHER Myocardial infarction 19 FATHER Heart Disease, CAD Under 55 Years Old, Diabetes Review of Systems Constitutional: No chills; diaphoresis; No fever; weakness EENTM: No blurred vision, No double vision, No nose congestion, No throat pain Respiratory: No cough; dyspnea on exertion, orthopnea, short of breath Cardiovascular: chest pain, edema, Hx of Intervention; No palpitations, No syncope Gastrointestinal: No abdominal pain, No constipation, No diarrhea, No nausea, No vomiting Genitourinary: No dysuria, No frequency Musculoskeletal: No joint pain, No muscle pain Skin: No lesions, No rash Psychiatric/Neurological: Headache; Denies Numbness, Denies Tingling Physical Exam Physical Exam Vital Signs Vital Signs - First Documented 05/14/18 05/14/18 19:00 22:45 Temp 97.4 Pulse 53 Resp 22 B/P (MAP) 151/101 (118) Pulse Ox 99 O2 Delivery Room Air Capillary Refill : Less Than 3 Seconds Height, Weight, BMI Height: 6'2.00" Weight: 192lbs. 3.0oz. [id number]; 24.7 BMI Method:Stated General Appearance: No Apparent Distress, WD/WN HEENT: PERRL/EOMI, Moist Mucous Membranes Neck: Non Tender, Supple Respiratory: Lungs Clear, No Respiratory Distress Cardiovascular: Regular Rate, Rhythm, No Murmur Gastrointestinal: Normal Bowel Sounds, Non Tender, Soft Extremity: Normal Capillary Refill, No Calf Tenderness Neurologic/Psychiatric: Alert, Oriented x3, No Motor/Sensory Deficits, Normal Mood/Affect Skin: Normal Color, Warm/Dry, Other (scar consistent with CABG on chest) Results Results/Procedures Labs Laboratory Tests 05/14/18 19:09 05/15/18 05:37 Patient resulted labs reviewed. Imaging: Reviewed Imaging Report Assessment/Plan Admission Diagnosis Chest Pain Admission Status: Observation Diagnosis/Problems Diagnosis/Problems (1) Chest pain Status: Acute Assessment & Plan: Concerning for angina Cardiology consulted, appreciate recs Troponin negative D-dimer slightly elevated- CTA negative for PE or dissection Qualifiers: Chest pain type: unspecified Qualified Codes: R07.9 - Chest pain, unspecified (2) Coronary artery disease Status: Acute Assessment & Plan: History of stent with stent thrombosis Underwent CABGx4 on 02/08/18 Continue ASA and Plavix Continue statin Will request records from CABG Qualifiers: Coronary Disease-Associated Artery/Lesion type: bypass graft [place] vs. transplanted heart: [place] heart Associated angina: with stable angina Qualified Codes: I25.708 - Atherosclerosis of coronary artery bypass graft(s), unspecified, with other forms of angina pectoris (3) Atrial fibrillation Assessment & Plan: Postoperative atrial fibrillation On amiodarone at home No on warfarin or NOAC CHADSVASC score appears to be 1 for vascular history (denies history of HTN) Continue on ASA Qualifiers: Atrial fibrillation type: paroxysmal Qualified Codes: I48.0 - Paroxysmal atrial fibrillation Clinical Quality Measures AMI/AHF: ASA po Prior to arrival: Yes DVT/VTE Risk/Contraindication: Risk Factor Score Per Nursin RFS Level Per Nursing on Admit: 2=Moderate RAZ WONG MD May 15, 2018 10:16
[2018-05-15] MEDS: NS IV 1000 ML 1,000 ML IV SCH (12:37)
--- NOTE | 2018-05-15 13:53 | Consultation-Cardiology ---
HPI-Cardiology Cardiology Consultation: Date of Consultation 05/15/18 Time Seen by a Provider: 13:15 Date of Admission Attending Physician Molly Howell DO Admitting Physician Molly Howell DO Consulting Physician ARYAN BARNES MD, MA, FACP, FACC, FSCAI, CCDS Primary sulfur burner: Dr Walton HPI: Chief Complaint: CC: Chest discomfort 63 yo man with an extensive h/o CAD (see below) who presents with recurrent chest discomfort: onset was 4-5 days ago, midsternal, radiating to neck, brought on with exertion, relieved with rest or s/l NTG, radiating to neck, reminiscent of previous angina, occurring daily, not associated with other symptoms, lasting several minutes Denies exertional shortness of breath Denies palp or syncope or leg swelling Denies fever or chills Review of Systems-Cardiology Review of Systems Constitutional: No malaise, No tiredness, No weight loss, No weight gain Eyes: No vision change Ears/Nose/Throat: No ear discharge, No nasal drainage, No recent hearing loss Respiratory: As described under HPI Cardiovascular: As described under HPI Gastrointestinal: No constipation, No diarrhea, No nausea, No vomiting Genitourinary: No dysuria, No hematuria Musculoskeletal: No back pain, No joint pain Skin: No rash, No ulcerations Psychiatric/Neurological: No seizure, No focal weakness, No syncope Hematologic: No bleeding abnormalities All Other Systems Reviewed Negative Unless Noted: Yes IQK-Gmhkda-Mvrboo Hx Patient Social History Marrital Status: Employed/Student: employed Alcohol Use: Denies Use Recreational Drug Use: No Smoking Status: Never a Smoker 2nd Hand Smoke Exposure: No Recent Foreign Travel: No Recent Infectious Disease Expo: No Physical Abuse Screen: No Sexual Abuse: No Immunizations Up To Date Date of Pneumonia Vaccine: May 23, 2014 Date of Influenza Vaccine: Jun 23, 2017 Past Medical History PMH As described under Assessment. Family Medical History Family History: Family history: Diabetes mellitus G8 BROTHER Myocardial infarction 19 FATHER Allergies and Home Medications Allergies Coded Allergies: No Known Drug Allergies (Unverified , 03/28/10) Home Medications Acetaminophen 500 Mg Tablet, 500-1,000 MG PO Q6H PRN for PAIN-MILD, (Reported) Acetaminophen/Diphenhydramine 1 Each Tablet, 2 TAB PO HS PRN for SLEEP, ( Reported) take prn sleep/mild pain Alprazolam 0.5 Mg Tablet, 0.5 MG PO TID PRN for ANXIETY, (Reported) Amiodarone HCl 200 Mg Tablet, 200 MG PO DAILY, (Reported) Aspirin 81 Mg Tablet.dr, 81 MG PO HS, (Reported) Losartan Potassium 50 Mg Tablet, 50 MG PO DAILY, (Reported) Metoprolol Succinate 25 Mg Tab.er.24h, 25 MG PO HS, (Reported) Niacinamide 500 Mg Tablet, 500 MG PO DAILY, (Reported) Nitroglycerin 0.4 Mg Tab.subl, 0.4 MG SL UD PRN for CHEST PAIN, (Reported) [place] 3 Polyunsat Fatty Acids 1,000 Mg Cap, 1,000 MG PO HS, (Reported) Oxycodone HCl/Acetaminophen 1 Each Tablet, 1-2 TAB PO Q6H PRN for PAIN-MODERATE TO SEVERE, (Reported) Pantoprazole Sodium 20 Mg Tablet.dr, 20 MG PO DAILY, (Reported) Rosuvastatin Calcium 5 Mg Tablet, 5 MG PO DAILY, (Reported) Zolpidem Tartrate 10 Mg Tablet, 10 MG PO HS PRN for SLEEP, (Reported) Patient Home Medication List Home Medication List Reviewed: Yes Physical Exam-Cardiology Physical Exam Vital Signs/I&O 05/15/18 05/15/18 05/15/18 05/15/18 02:45 03:45 07:00 07:24 Temp 96.7 Pulse 65 57 66 58 Resp 16 B/P (MAP) 143/82 (102) 130/75 (93) 142/84 (103) Pulse Ox 89 92 96 O2 Delivery Room Air Room Air Room Air 05/15/18 05/15/18 08:25 11:30 Temp 98.3 Pulse 69 Resp 16 B/P (MAP) 139/81 (100) Pulse Ox 93 O2 Delivery Room Air Room Air 05/15/18 00:00 Intake Total 500 ml Balance 500 ml Capillary Refill : Less Than 3 Seconds Data Review Labs Laboratory Tests 05/14/18 19:09: White Blood Count 6.7, Red Blood Count 4.74, Hemoglobin 13.7, Hematocrit 41, Mean Corpuscular Volume 86, Mean Corpuscular Hemoglobin 29, Mean Corpuscular Hemoglobin Concent 34, Red Cell Distribution Width 14.4, Platelet Count 251, Mean Platelet Volume 8.9, Neutrophils (%) (Auto) 60, Lymphocytes (%) (Auto) 26, Monocytes (%) (Auto) 10, Eosinophils (%) (Auto) 4, Basophils (%) (Auto) 0, Neutrophils # (Auto) 4.0, Lymphocytes # (Auto) 1.8, Monocytes # (Auto) 0.7, Eosinophils # (Auto) 0.2, Basophils # (Auto) 0.0, Prothrombin Time 13.0, INR Comment 1.0, Activated Partial Thromboplast Time 26, D-Dimer 0.94H, Sodium Level 143, Potassium Level 3.8, Chloride Level 109H, Carbon Dioxide Level 25, Anion Gap 9, Blood Urea Nitrogen 15, Creatinine 1.00, Estimat Glomerular Filtration Rate > 60, BUN/Creatinine Ratio 15, Glucose Level 98, Calcium Level 8.9, Corrected Calcium 8.8, Magnesium Level 2.2, Total Bilirubin 0.3, Aspartate Amino Transf (AST/SGOT) 14, Alanine Aminotransferase (ALT/SGPT) 10, Alkaline Phosphatase 76, Myoglobin 26.8, Troponin I < 0.30, C-Reactive Protein High Sensitivity 0.13, B-Type Natriuretic Peptide 112.2H, Total Protein 6.6, Albumin 4.1, TSH [place] Testing 1.40 05/14/18 22:58: Troponin I < 0.30, Total Creatine Kinase 23L 05/15/18 05:37: White Blood Count 6.7, Red Blood Count 4.69, Hemoglobin 12.7L, Hematocrit 41, Mean Corpuscular Volume 87, Mean Corpuscular Hemoglobin 27, Mean Corpuscular Hemoglobin Concent 31L, Red Cell Distribution Width 14.8H, Platelet Count 251, Mean Platelet Volume 9.1, Neutrophils (%) (Auto) 65, Lymphocytes (%) (Auto) 20, Monocytes (%) (Auto) 11, Eosinophils (%) (Auto) 3, Basophils (%) (Auto) 0, Neutrophils # (Auto) 4.4, Lymphocytes # (Auto) 1.3, Monocytes # (Auto) 0.8, Eosinophils # (Auto) 0.2, Basophils # (Auto) 0.0, Sodium Level 143, Potassium Level 3.7, Chloride Level 109H, Carbon Dioxide Level 26, Anion Gap 8, Blood Urea Nitrogen 12, Creatinine 0.88, Estimat Glomerular Filtration Rate > 60, BUN/ Creatinine Ratio 14, Glucose Level 91, Calcium Level 8.3L, Corrected Calcium 8.6 , Total Bilirubin 0.3, Aspartate Amino Transf (AST/SGOT) 12, Alanine Aminotransferase (ALT/SGPT) 9, Alkaline Phosphatase 65, Total Protein 5.7L, Albumin 3.6, Triglycerides Level 112, Cholesterol Level 135, LDL Cholesterol Direct 84, VLDL Cholesterol 22, HDL Cholesterol 38L A/P-Cardiology Assessment/Admission Diagnosis Chest pain, suggestive of recurrent angina CAD. H/o extensive cor stenting (LAD, Diag, RCA). He states all stented vessels were found occluded at last cath in [place] and he underwent quadruple bypass surgery at [place], [place] on 02/08/18 (details unavailable) H/o asymptomatic sinus bradycardia and PVCs Hypertension Hyperlipidemia Chronic leg cramps w/o h/o PAD (ABIs reportedly normal) GERD, by history Nonobstructive carotid artery stenosis per carotid duplex done June 2017. Continue to monitor. Discussion and Recomendations * Obtain records from [place] * Treat with antiplatelets, bb (as tolerated) and statins * Repeat card cath. I reviewed the rationale, procedure, risks, benefits, potential complications and alternatives. He is considering. Will plan for tomorrow if he agrees * Treat GERD with PPI * Questions answered in detail regarding CV issues, diagnostic and management plan and options Clinical Quality Measures AMI/AHF: ASA po Prior to arrival: Yes DVT/VTE Risk/Contraindication: Risk Factor Score Per Nursin RFS Level Per Nursing on Admit: 2=Moderate ARYAN BARNES MD FACP FAC CCDS May 15, 2018 13:52
[2018-05-15] MEDS ORDERED: PANTOPRAZOLE 40 MG (PROTONIX) TAB PO NR (14:00)
[2018-05-15] MEDS ORDERED: LOSARTAN 50 MG (COZAAR) TAB PO NR (14:00)
[2018-05-15] MEDS ORDERED: ALPRAZolam 0.5 MG (XANAX) TAB PO PRN (14:00)
[2018-05-15] MEDS: ENOXAPARIN 40 MG/0.4 ML (LOVENOX) SYR SC SCH (14:51)
[2018-05-15] MEDS: ROSUVASTATIN 5 MG (CRESTOR) TABLET PO SCH (20:15)
[2018-05-16] VITALS (15 sets, daily range): BP systolic 122–156; BP diastolic 76–90
[2018-05-16] MEDS: ACETAMINOPHEN 500 MG TAB (TYLENOL) PO PRN ×2 (00:59→20:31)
[2018-05-16] MEDS: NS IV 1000 ML 1,000 ML IV SCH ×3 (02:48→20:22)
[2018-05-16] MEDS: PANTOPRAZOLE 40 MG (PROTONIX) TAB PO SCH (06:35)
[2018-05-16] MEDS ORDERED: HEParin (CATH LAB) 2,000 ML IV ONE (06:45)
[2018-05-16] MEDS ORDERED: LIDOCAINE 1% INJ 20 ML 20 ML VIAL ONE (06:45)
[2018-05-16] MEDS ORDERED: MIDAZOLAM 5 MG/5 ML (VERSED) VIAL ONE (06:51)
[2018-05-16] MEDS ORDERED: fentaNYL INJECTION 100 MCG/2 ML AMP ONE (06:51)
--- NOTE | 2018-05-16 08:00 | Cardiology Progress Note ---
Subjective Date Seen by Provider: May 16, 2018 Time Seen by Provider: 07:56 Subjective/Events-last exam Patient was seen at bedside, sitting down comfortably, has been reporting accelerating angina started 5 days ago, reporting chest pain with exertion and the lead in the retrosternal area radiating to the neck associated with shortness of breath worsening the point that he came to the emergency room for evaluation. Currently he is chest pain-free. No acute EKG changes. Patient is unable to perform basic daily activities without chest pain Review of Systems General: No Chills, No Night Sweats, No Fatigue, No Malaise, No Appetite, No Other HEENT: No Head Aches, No Visual Changes, No Eye Pain, No Ear Pain, No Dysphasia , No Sinus Congestion, No Post Nasal Drip, No Sore Throat, No Other Pulmonary: Dyspnea; No Cough, No Pleuritic Chest Pain, No Other Cardiovascular: Chest Pain; No: Palpitations, Orthopnea, Paroxysmal Noc. Dyspnea, Edema, Lt Headedness, Other Objective-Cardiology Exam Last Set of Vital Signs Vital Signs 05/16/18 04:31 Temp 97.4 Pulse 50 Resp 16 B/P (MAP) 122/80 (94) Pulse Ox 97 O2 Delivery Room Air Capillary Refill : Less Than 3 Seconds I&O Intake and Output 05/16/18 00:00 Intake Total 2570 ml Output Total 2451 ml Balance 119 ml Intake Oral 1570 ml IV Total 1000 ml Output Urine Total 2450 ml Stool Total 1 ml # Bowel Movements 1 General: Alert, Oriented X3, Cooperative HEENT: Atraumatic, PERRLA Neck: Supple, No JVD, No Thyromegaly Lungs: Clear to Auscultation, Normal Air Movement Heart: Regular Rate, Normal S1, Normal S2, No Murmurs Abdomen: Normal Bowel Sounds, Soft, No Tenderness, No Hepatosplenomegaly, No Masses Extremities: No Clubbing, No Cyanosis, No Edema, Normal Pulses, No Tenderness/ Swelling Skin: No Rashes, No Breakdown, No Significant Lesion Neuro: Normal Gait, Normal Speech, Strength at 5/5 X4 Ext, Normal Tone, Sensation Intact Psych/Mental Status: Mental Status NL, Mood NL A/P-Cardiology Admission Diagnosis Unstable angina Coronary artery disease Hypertension Hyperlipidemia Assessment/Plan Unstable angina, accelerating angina, EKG and chronic enzymes were negative. Planning to proceed with cardiac catheterization. Coronary artery disease, multiple intervention. Had 2 stents in the LAD cipher 2.5x8 proximally 2.5x28 Mid. Then had balloon angioplasty for in-stent restenosis, had another stent placed in the LAD by Dr. Blake in 2011. Report of that procedure is not available. In addition patient had a stent to the diagonal artery using Promus to 2.25 X 12 mm. And a stent in the right coronary artery Promus 3.0x18 mm. Recent cardiac catheterization done July 10, 2015 revealing moderate to severe in-stent restenosis in the distal LAD with lesion extending beyond the stent. Successful primary stenting using 2.25 x 12 mm Promus drug-eluting stent deployed distally balloon angioplasty for the in-stent restenosis. Underwent another cardiac catheterization due to recurrent chest pain in June 2016 which showed patent stents in the LAD, diagonal artery and right coronary artery with [id number] disease, small vessel disease, medical therapy is recommended. Underwent cardiac catheterization on June 26, 2017 after having mildly elevated troponin revealing 60-70 percent stenosis in the mid LAD artery past the distal edge of the distal stent in the LAD. Mid LAD did not exhibit significant in-stent restenosis. Left circumflex had 40 percent stenosis in the first obtuse marginal. RCA had long 75 percent stenosis. Underwent successful stenting using Alpine Xience 3.5 x 38 mm stent with good results. Distal RCA stent was patent. Another cath done on July 09, 2017 with reported stent placement to the LAD by Dr. Freed's group. Had another cardiac catheterization in January 2018 at [facility] with Dr. Shen, reported that all his stents were severely diseased and he required bypass surgery 4 which was done and he felt better after the surgery until this current admission. Surgical report is not available Mild bradycardia, occasional PVCs and ventricular bigeminy, unable to tolerate higher dose of beta blockers, currently still bradycardic. Continue to monitor. Hypertension, controlled. Continue to monitor blood pressure/heart rate. Hyperlipidemia, intolerance to simvastatin and lipitor with leg cramps, tolerating Crestor, continue to monitor lipids Lower extremity cramps and pain, venous study was normal, LEELEE was normal, most probably the pain is secondary to statin. tolerating Crestor 5 mg daily. Continue to monitor History of intolerance to isosorbide causing headache Nonobstructive carotid artery stenosis per carotid duplex done June 2017. Continue to monitor. Clinical Quality Measures AMI/AHF: ASA po Prior to arrival: Yes DVT/VTE Risk/Contraindication: Risk Factor Score Per Nursin RFS Level Per Nursing on Admit: 2=Moderate LINA PARIS MD May 16, 2018 08:00
--- NOTE | 2018-05-16 08:01 | Cardiac Procedure Note-CS/ASA ---
Pre-Procedure Note Pre-Op Procedure Note H&P Reviewed The H&P was reviewed, patient examined and no changes noted. Date H&P Reviewed: May 16, 2018 Time H&P Reviewed: 08:00 Conscious Sedation Pre-Proced Time Reviewed: 08:00 ASA Class: 3 Airway Mallampati Classification: (squaxin appropriate class) I. II. III, IV Lungs Heart ASA score ASA 1: a normal healthy patient ASA 2: a patient with a mild systemic disease (mid diabetes, controlled hypertension, obesity ASA 3: a patient with a severe systemic disease that limits activity (angina , COPD, prior Myocardial infarction) ASA 4: a patient with an incapacitating disease that is a constant threat to life (CHF, renal failure) ASA 5: a moribund patient not expected to survive 24 hrs. (ruptured aneurysm) ASA 6: a declared brain patient whose organs are being harvested. For emergent operations, add the letter E after the classification Grade 3 Sedation Plan: Analgesia, Amnesia, Plan communicated to team members, Discussed options with patient/fam, Discussed risks with patient/fam Note The patient is an appropriate candidate to undergo the planned procedure, sedation, and anesthesia. The patient immediately re-assessed prior to indication. LINA PARIS MD May 16, 2018 08:01
--- NOTE | 2018-05-16 08:39 | Progress Note-Hospitalist ---
ANASTASIA AGUIRRE MED STUDENT 05/16/18 0838: Subjective HPI/CC On Admission Date Seen by Provider: May 16, 2018 Time Seen by Provider: 07:30 Pt is a 63yoCM with a PMH of CAD s/p CABG on 02/08 who presented to the ER for evaluation of progressing chest pain. He states he is normally able to walk briskly for 20-30 minutes every day but on 05/11 he developed chest pressure within 10m of his walk. This resolved with rest. This continued to happen throughout the week with any exertion. It recurred on 05/12 while doing yardwork and again on 05/13 when walking up the steps. He would develop chest pressure and mild SOB but as it progressed he also would feel very weak and light headed. He thought it was similar to the symptoms he was having before he got his first stent in 2004. He took a nitro for it on 05/14 which helped. Yesterday he went to walk around his house a veyr short distance and the symptoms recurred prompting him to seek evaluation in the ER. He has had no recurrence of the symptoms since he arrived. Subjective/Events-last exam patient states he has been urinating and having BM's frequently without difficulty since admission complains of headache and is very uncomfortable lying down, slept in chair last night only after xanax and tylenol was given chest discomfort experienced with any exertion even slow walk in halls, but is not noticeable at rest Objective Exam Vital Signs Vital Signs Date Time Temp Pulse Resp B/P (MAP) Pulse Ox O2 Delivery O2 Flow Rate FiO2 05/16/18 04:31 97.4 50 16 122/80 (94) 97 Room Air Capillary Refill : Less Than 3 Seconds General Appearance: No Apparent Distress, WD/WN HEENT: Normal ENT Inspection Neck: Full Range of Motion, Normal Inspection, Non Tender, Supple Respiratory: Chest Non Tender, Lungs Clear, Normal Breath Sounds, No Accessory Muscle Use, No Respiratory Distress Cardiovascular: Regular Rate, Rhythm, No Edema, No Gallop, No JVD, No Murmur, Normal Peripheral Pulses Gastrointestinal: Normal Bowel Sounds, No Organomegaly, No Pulsatile Mass, Non Tender, Soft Back: Normal Inspection, No CVA Tenderness, No Vertebral Tenderness Extremity: Normal Capillary Refill, Normal Inspection, Normal Range of Motion, Non Tender, No Calf Tenderness Neurologic/Psychiatric: Alert, Oriented x3, No Motor/Sensory Deficits, Normal Mood/Affect Skin: Normal Color, Warm/Dry Lymphatic: No Adenopathy Results/Procedures Lab Patient resulted labs reviewed. Imaging: Reviewed Imaging Report Assessment/Plan Assessment and Plan Assess & Plan/Chief Complaint CC: chest pain / discomfort with exertion Assessment: chest pain relieved by rest CABG January 2018 headache high blood pressure since admission (states 128/80 is the highest it gets at home, he checks it regularly) Plan: cardiac catheter this morning with Dr. Walton Diagnosis/Problems Diagnosis/Problems (1) Anxiety Status: Chronic (2) Dyspnea Status: Acute (3) Chest discomfort Status: Resolved (4) Hypercholesteremia Status: Chronic (5) Hypertension Status: Chronic Qualifiers: Hypertension type: essential hypertension Qualified Codes: I10 - Essential (primary) hypertension (6) Hx of coronary artery disease Status: Chronic (7) Coronary artery disease Status: Chronic Qualifiers: Coronary Disease-Associated Artery/Lesion type: bypass graft [place] vs. transplanted heart: cheesh-na heart Associated angina: with stable angina Qualified Codes: I25.708 - Atherosclerosis of coronary artery bypass graft(s), unspecified, with other forms of angina pectoris (8) Atrial fibrillation Status: Chronic Qualifiers: Atrial fibrillation type: paroxysmal Qualified Codes: I48.0 - Paroxysmal atrial fibrillation (9) Chest pain Status: Acute Qualifiers: Chest pain type: unspecified Qualified Codes: R07.9 - Chest pain, unspecified Clinical Quality Measures AMI/AHF: ASA po Prior to arrival: Yes DVT/VTE Risk/Contraindication: Risk Factor Score Per Nursin RFS Level Per Nursing on Admit: 2=Moderate LEAH MONCADA DO 05/16/18 0941: Subjective HPI/CC On Admission Time Seen by Provider: 09:30 Subjective/Events-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 exam 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 and stent was placed in cheesh-na artery with good results Pt has no pain currently Reviewed meds and labs Review of Systems Cardiovascular: Chest Pain Objective Exam General Appearance: No Apparent Distress, WD/WN, Chronically ill Neck: Full Range of Motion, Normal Inspection, Non Tender, Supple, Carotid Bruit Respiratory: Chest Non Tender, Lungs Clear, Normal Breath Sounds, No Accessory Muscle Use, No Respiratory Distress Cardiovascular: Regular Rate, Rhythm, No Edema, No Gallop, No JVD, No Murmur, Normal Peripheral Pulses Neurologic/Psychiatric: Alert, Oriented x3, No Motor/Sensory Deficits, Normal Mood/Affect Skin: Normal Color, Warm/Dry Lymphatic: No Adenopathy Assessment/Plan Assessment and Plan Assess & Plan/Chief Complaint Unstable angina with stent placed in cheesh-na artery POD # 0 Severe and early CAD HTN HLP Anxiety Insomnia Diagnosis/Problems Diagnosis/Problems (1) Unstable angina Status: Acute (2) Chest pain Status: Acute Qualifiers: Chest pain type: unspecified Qualified Codes: R07.9 - Chest pain, unspecified (3) Dyspnea Status: Acute (4) Chest discomfort Status: Resolved (5) Hypercholesteremia Status: Chronic (6) Hypertension Status: Chronic Qualifiers: Hypertension type: essential hypertension Qualified Codes: I10 - Essential (primary) hypertension (7) Hx of coronary artery disease Status: Chronic (8) Coronary artery disease Status: Chronic Qualifiers: Coronary Disease-Associated Artery/Lesion type: bypass graft [place] vs. transplanted heart: cheesh-na heart Associated angina: with stable angina Qualified Codes: I25.708 - Atherosclerosis of coronary artery bypass graft(s), unspecified, with other forms of angina pectoris (9) Atrial fibrillation Status: Chronic Qualifiers: Atrial fibrillation type: paroxysmal Qualified Codes: I48.0 - Paroxysmal atrial fibrillation (10) Anxiety Status: Chronic (11) Status post placement of stent in right coronary artery Status: Acute ANASTASIA AGUIRRE STUDENT May 16, 2018 08:38 LEAH MONCADA DO May 16, 2018 09:41
[2018-05-16] MEDS ORDERED: HEParin 1000 UNIT/ML (10ML VIAL) FOR BOLUS ONE (08:43)
[2018-05-16] MEDS ORDERED: EPTIFIBATIDE BOLUS 20 ML IV ONE (08:46)
[2018-05-16] MEDS ORDERED: NITRO DRIP 25000 MCG/D5W 250 ML IV ONE (08:46)
[2018-05-16] MEDS ORDERED: ASPIRIN 325 MG (5 GR) TABLET ONE (09:02)
[2018-05-16] MEDS ORDERED: TICAGRELOR 90 MG TABLET (BRILINTA) PO ONE (09:03)
[2018-05-16] MEDS ORDERED: PATIENT MAY USE OWN MEDS, ALL PO SCH (09:15)
--- NOTE | 2018-05-16 09:15 | Cardiac Cath Report ---
Cardiac Cath Report Physician (s)/Quality Control Engineering Technician (s) Physician LINA PARIS MD Pre-Procedure Diagnosis Pre-Procedure Diagnosis: Coronary artery disease, unstable angina Post-Procedure Note Procedure Start Date: May 16, 2018 Name of Procedure: Left heart catheterization Vein graft angiogram, BURDEN angiogram Left ventriculogram Stent to the right coronary artery Findings/Procedure Note PROCEDURE NOTE: After explaining the procedure to the patient, all pros and cons were explained , all questions were answered. The patient signed the consent and then he was placed on the cardiac catheterization laboratory. Groin was prepped SL fashion local anesthesia was used. Sheath placed in the right femoral artery. Shantanu right and left catheter were used to access the coronary system.Vein Graft evaluated. BURDEN evaluated. Pigtail was used to access the left ventricular cavity. Left ventriculogram was done Patient was given 6000 units of heparin, Integrilin bolus, was noted to have subtotal occlusion of the right coronary artery with occlusion of the vein graft to the right. If our guide was used, BMW wire was advanced and parked distally. The area of stenosis is the distal right coronary artery appears to be at the anastomosis point with the vein graft. I predilated with 2.515 mm balloon and then proceeded with stent deployment using drug-eluting stent Mary Beth 2.515 mm expanded under 14 jolene to 2.77 mm with excellent results. Residual stenosis was noted At the end of the procedure the sheath was removed. Closure device was used FINDINGS: Hemodynamics LV 133/27, end-diastolic pressure of 27 Aorta 137/79 mean of 103 ANATOMY: Left Main is free of obstructive disease Left Anterior Descending is occluded within the stent in the mid LAD, BURDEN to LAD is patent, vein graft to diagonal artery is patent Left Circumflex has moderate disease proximally with patent vein graft to the obtuse marginal branch Right Coronory Artery has patent stent proximally, severe disease/subtotal occlusion distally at the anastomosis point with a vein graft that is occluded, successful balloon angioplasty then stent deployment using Mary Beth 2.515 mm expanded to 2.77 mm with excellent results BURDEN to LAD is patent Vein Graft evaluation showed 3 vein graft The vein graft to the right coronary artery is occluded at its ostium The vein graft to the obtuse marginal branch is patent with good flow distally The vein graft to the diagonal artery is patent with good flow distally LV Gram was done showing prominent left ventricle with mild diffuse left ventricular hypokinesia more pronounced at the inferior wall with estimated ejection fraction 40 percent CONCLUSION: 1. Occluded vein graft to the right coronary artery with severe stenosis at the distal right coronary artery at the anastomosis point with that vein graft, the proximal stent in the right coronary artery is patent, successful balloon angioplasty then stent deployment using Mary Beth 2.515 mm expanded to 2.77 mm with excellent results, good flow distally 2. Occluded stent in the mid LAD with patent BURDEN to LAD and vein graft to diagonal artery with good flow distally 3. Mild to moderate disease at the proximal circumflex artery with patent vein graft to the obtuse marginal branch 4. Slightly prominent left ventricle with mild diffuse left ventricular hypokinesia more pronounced at the inferior wall with estimated ejection fraction 40 percent DISCUSSION AND RECOMMENDATION: Continue to maximize medical therapy Anesthesia Type: Conscious Sedation Estimated blood loss (mL): 25 ml Contrast Amount: 140 ml Total Radiation Dose: 1335 mGy Post-Procedure Diagnosis Post-operative diagnosis: Unstable angina Coronary artery disease Hypertension Hyperlipidemia LINA PARIS MD May 16, 2018 09:15
[2018-05-16] MEDS: ASPIRIN E.C. 81 MG (ECOTRIN) TAB PO SCH (09:43)
[2018-05-16] MEDS ORDERED: NON-FORMULARY MEDICATION 1 EA EA (Acetaminophen/Diphenhydramine (Tylenol Pm Ex-Strength Ca PO PRN (09:45)
[2018-05-16] MEDS ORDERED: NON-FORMULARY MEDICATION 1 EA EA (Acetaminophen (Tylenol Extra Strength) 1,000 MG) PO PRN (09:45)
[2018-05-16] MEDS ORDERED: ALPRAZolam 0.5 MG (XANAX) TAB PO PRN (09:45)
[2018-05-16] MEDS ORDERED: NON-FORMULARY MEDICATION 1 EA EA (Zolpidem Tartrate 10 MG) PO PRN (09:45)
[2018-05-16] MEDS ORDERED: NITROGLYCERIN 0.4 MG SL TABS BTL 25'S SL PRN (09:45)
[2018-05-16] MEDS ORDERED: oxyCODONE/APAP 5/325MG (PERCOCET 5) TABLET PO PRN (09:45)
[2018-05-16] MEDS: LOSARTAN 50 MG (COZAAR) TAB PO SCH (11:22)
[2018-05-16] MEDS: ENOXAPARIN 40 MG/0.4 ML (LOVENOX) SYR SC SCH (16:35)
[2018-05-16] MEDS: OMEGA 3 (FISH OIL) 1000 MG CAP PO SCH (17:56)
[2018-05-16] MEDS: TICAGRELOR 90 MG TABLET (BRILINTA) PO SCH (20:22)
[2018-05-16] MEDS: ROSUVASTATIN 5 MG (CRESTOR) TABLET PO SCH (20:25)
[2018-05-16] MEDS ORDERED: ASPIRIN E.C. 81 MG (ECOTRIN) TAB PO SCH (21:00)
[2018-05-16] MEDS ORDERED: OMEGA 3 (FISH OIL) 1000 MG CAP PO SCH (21:00)
[2018-05-17 04:00] VITALS: BP 133/82
[2018-05-17 05:47] LABS: HEMOGLOBIN 13.6 G/DL (13.3-17.7); MEAN PLATELET VOLUME 9.3 FL (7.4-10.4); RED BLOOD COUNT 4.87 10^6/uL (4.35-5.85); RED CELL DISTRIBUTION WIDTH 14.9 % (10.0-14.5)
[2018-05-17] MEDS: PANTOPRAZOLE 40 MG (PROTONIX) TAB PO SCH (06:02)
[2018-05-17] MEDS: OMEGA 3 (FISH OIL) 1000 MG CAP PO SCH (06:02)
[2018-05-17 06:06] LABS: BUN/CREATININE RATIO 14; CALCIUM 8.6 MG/DL (8.5-10.1); CARBON DIOXIDE 21 MMOL/L (21-32); CHLORIDE 111 MMOL/L (98-107); CREATININE SERUM 0.86 MG/DL (0.60-1.30); GFR ESTIMATED > 60; GLUCOSE 97 MG/DL (70-105); POTASSIUM 3.8 MMOL/L (3.6-5.0); SODIUM 142 MMOL/L (135-145)
[2018-05-17] MEDS: NS IV 1000 ML 1,000 ML IV SCH (06:31)
--- NOTE | 2018-05-17 07:04 | Cardiology Progress Note ---
Subjective Date Seen by Provider: May 17, 2018 Time Seen by Provider: 07:01 Subjective/Events-last exam Patient is sitting in a chair, feeling better. Denied any chest pain. Groin is healing well. Review of Systems General: No Chills, No Night Sweats, No Fatigue, No Malaise, No Appetite, No Other HEENT: No Head Aches, No Visual Changes, No Eye Pain, No Ear Pain, No Dysphasia , No Sinus Congestion, No Post Nasal Drip, No Sore Throat, No Other Pulmonary: No Dyspnea, No Cough, No Pleuritic Chest Pain, No Other Cardiovascular: No: Chest Pain, Palpitations, Orthopnea, Paroxysmal Noc. Dyspnea, Edema, Lt Headedness, Other Objective-Cardiology Exam Last Set of Vital Signs Vital Signs 05/17/18 04:00 Temp 98.6 Pulse 62 Resp 20 B/P (MAP) 133/82 (99) Pulse Ox 94 O2 Delivery Room Air Capillary Refill : Less Than 3 Seconds I&O Intake and Output 05/17/18 00:00 Intake Total 3450 ml Output Total 3250 ml Balance 200 ml Intake Oral 1450 ml IV Total 2000 ml Output Urine Total 3250 ml General: Alert, Oriented X3, Cooperative HEENT: Atraumatic, PERRLA Neck: Supple, No JVD, No Thyromegaly Lungs: Clear to Auscultation, Normal Air Movement Heart: Regular Rate, Normal S1, Normal S2, No Murmurs Abdomen: Normal Bowel Sounds, Soft, No Tenderness, No Hepatosplenomegaly, No Masses Extremities: No Clubbing, No Cyanosis, No Edema, Normal Pulses, No Tenderness/ Swelling Skin: No Rashes, No Breakdown, No Significant Lesion Neuro: Normal Gait, Normal Speech, Strength at 5/5 X4 Ext, Normal Tone, Sensation Intact Psych/Mental Status: Mental Status NL, Mood NL Results Lab Laboratory Tests 05/17/18 05:36 A/P-Cardiology Admission Diagnosis Unstable angina Coronary artery disease Hypertension Hyperlipidemia Assessment/Plan Unstable angina, status post cardiac catheterization and stenting to the right coronary artery Coronary artery disease, multiple intervention. Had 2 stents in the LAD cipher 2.5x8 proximally 2.5x28 Mid. Then had balloon angioplasty for in-stent restenosis, had another stent placed in the LAD by Dr. Blake in 2011. Report of that procedure is not available. In addition patient had a stent to the diagonal artery using Promus to 2.25 X 12 mm. And a stent in the right coronary artery Promus 3.0x18 mm. Recent cardiac catheterization done July 10, 2015 revealing moderate to severe in-stent restenosis in the distal LAD with lesion extending beyond the stent. Successful primary stenting using 2.25 x 12 mm Promus drug-eluting stent deployed distally balloon angioplasty for the in-stent restenosis. Underwent another cardiac catheterization due to recurrent chest pain in June 2016 which showed patent stents in the LAD, diagonal artery and right coronary artery with [id number] disease, small vessel disease, medical therapy is recommended. Underwent cardiac catheterization on June 26, 2017 after having mildly elevated troponin revealing 60-70 percent stenosis in the mid LAD artery past the distal edge of the distal stent in the LAD. Mid LAD did not exhibit significant in-stent restenosis. Left circumflex had 40 percent stenosis in the first obtuse marginal. RCA had long 75 percent stenosis. Underwent successful stenting using Alpine Xience 3.5 x 38 mm stent with good results. Distal RCA stent was patent. Another cath done on July 09, 2017 with reported stent placement to the LAD by Dr. Freed's group. Had another cardiac catheterization in January [address] [facility] with [address] Shen, reported that all his stents were severely diseased and he required bypass surgery 4 which was done and he felt better after the surgery until this current admission. Repeat cardiac catheterization showed: 1. Occluded vein graft to the right coronary artery with severe stenosis at the distal right coronary artery at the anastomosis point with that vein graft, the proximal stent in the right coronary artery is patent, successful balloon angioplasty then stent deployment using Mary Beth 2.515 mm expanded to 2.77 mm with excellent results, good flow distally 2. Occluded stent in the mid LAD with patent BURDEN to LAD and vein graft to diagonal artery with good flow distally 3. Mild to moderate disease at the proximal circumflex artery with patent vein graft to the obtuse marginal branch 4. Slightly prominent left ventricle with mild diffuse left ventricular hypokinesia more pronounced at the inferior wall with estimated ejection fraction 40 percent I will maintain him on aspirin and Brilinta for the next year Mild bradycardia, occasional PVCs and ventricular bigeminy, unable to tolerate higher dose of beta blockers, currently still bradycardic. Continue to monitor. Status post transient atrial fibrillation postoperatively was maintained on amiodarone which will be stopped at this time. Hypertension, controlled. Continue to monitor blood pressure/heart rate. Hyperlipidemia, intolerance to simvastatin and lipitor with leg cramps, tolerating Crestor, continue to monitor lipids Lower extremity cramps and pain, venous study was normal, LEELEE was normal, most probably the pain is secondary to statin. tolerating Crestor 5 mg daily. Continue to monitor History of intolerance to isosorbide causing headache Nonobstructive carotid artery stenosis per carotid duplex done June 2017. Continue to monitor. Diagnosis/Problems Diagnosis/Problems (1) Dyspnea Status: Acute (2) Hypertension Status: Chronic Qualifiers: Qualified Codes: I10 - Essential (primary) hypertension (3) Hx of coronary artery disease Status: Chronic (4) Coronary artery disease Status: Chronic Qualifiers: Qualified Codes: I25.708 - Atherosclerosis of coronary artery bypass graft(s ), unspecified, with other forms of angina pectoris (5) Atrial fibrillation Status: Chronic Qualifiers: Qualified Codes: I48.0 - Paroxysmal atrial fibrillation (6) Chest pain Status: Acute Qualifiers: Qualified Codes: R07.9 - Chest pain, unspecified Clinical Quality Measures AMI/AHF: ASA po Prior to arrival: Yes DVT/VTE Risk/Contraindication: Risk Factor Score Per Nursin RFS Level Per Nursing on Admit: 2=Moderate LINA PARIS MD May 17, 2018 07:04
[2018-05-17] MEDS ORDERED: TICA90TA PO (07:05)
--- NOTE | 2018-05-17 07:06 | Discharge Inst-Post CATH ---
Discharge Inst-CATH Post Cardiac Cath D/C Inst Follow Up/Plan Appointment with Dr. Walton's office in 2-4 weeks CARDIAC CATH DISCHARGE INSTRUCTIONS *Hold Metformin for 48 hours post heart cath. ACTIVITY * Go Home directly and rest. * Limit activity of the leg (or wrist if it was used) for 7 days including aerobics, swimming, jogging, bicycling, etc. * Restrict stair-climbing for 7 days if possible, if not, climb up with your non -cath leg, then bring together on the same step. * Avoid lifting, pushing, pulling or excessive movement of the affected extremity for 7 days. * Customary sexual activity may be resumed after 2 days-use caution not to use a position that strains or causes pain to the affected extremity. * No driving for 24 hours. * NO SMOKING. * Avoid straining for bowel movements for 7 days. * Gentle walking on level ground is allowed. * Returning to work will depend on the type of procedure and the results. Your doctor will discuss this with you. CALL YOUR DOCTOR FOR ANY OF THE FOLLOWING: *If bleeding from the puncture site occurs- Apply gentle pressure to site with clean cloth and call your doctor or EMS. * If a knot or lump forms under the skin, increases in size, or causes pain. * If bruising appears to be worsening or moving further down your leg instead of disappearing. * Temperature above 101 F. CARE OF YOUR GROIN INCISION; * Bruising or purple discoloration of the skin near the puncture site is common. * You may shower only, no bathtub bathing for 5 days. Be careful to avoid slipping as your leg may feel stiff. * If a closure device was used on your femoral artery, please see the attached guide regarding care of the device and your leg. * Leave the dressing on, until removed by office staff. CARE OF YOUR WRIST INCISION; * Bruising or purple discoloration of the skin near the puncture site is common. * You may shower. * DO NOT submerge wrist. * Leave dressing on, until removed by office staff.. LINA WALTON MD May 17, 2018 07:06
[2018-05-17] MEDS: TICAGRELOR 90 MG TABLET (BRILINTA) PO SCH (08:18)
[2018-05-17] MEDS: LOSARTAN 50 MG (COZAAR) TAB PO SCH (08:19)
--- NOTE | 2018-05-17 08:36 | Discharge Summary-Hospitalist ---
JAVIER AGUIRRE MED STUDENT 05/17/18 0836: Diagnosis/Chief Complaint Date of Admission May 14, 2018 at 21:48 Date of Discharge 05/17/18 Admission Diagnosis Chest Pain Discharge Diagnosis (1) Dyspnea Status: Acute (2) Hypertension Status: Chronic (3) Hx of coronary artery disease Status: Chronic (4) Coronary artery disease Status: Chronic (5) Atrial fibrillation Status: Resolved (6) Chest pain Status: Acute Discharge Summary Discharge Physical Exam Allergies: Coded Allergies: No Known Drug Allergies (Unverified , 03/28/10) Vitals & I&Os Vital Signs Date Time Temp Pulse Resp B/P (MAP) Pulse Ox O2 Delivery O2 Flow Rate FiO2 05/17/18 04:00 98.6 62 20 133/82 (99) 94 Room Air General Appearance: No Apparent Distress, WD/WN HEENT: Normal ENT Inspection Respiratory: Chest Non Tender, Lungs Clear, Normal Breath Sounds, No Accessory Muscle Use, No Respiratory Distress Cardiovascular: Regular Rate, Rhythm, No Edema, No Gallop, No JVD, No Murmur, Normal Peripheral Pulses Gastrointestinal: Normal Bowel Sounds, No Organomegaly, No Pulsatile Mass, Non Tender, Soft Extremity: Normal Capillary Refill, Normal Inspection, Normal Range of Motion, Non Tender, No Calf Tenderness, No Pedal Edema Skin: Normal Color, Warm/Dry Neurologic/Psychiatric: Alert, Oriented x3, No Motor/Sensory Deficits, Normal Mood/Affect Hospital Course This is a 63 yo male with an extensive cardiac history who is under the care of Drs. Howell and Isabelle as well as cardiology in [place], [place]. In January 2018 he underwent quadruple bipass in [facility] and felt as though he was recovering nicely until late last week when he started feeling chest pressure with exertion , dyspnea, fatigue. He was admitted via the ER on 05/14 troponins were negative, EKG was unremarkable, and symptoms were mostly controlled until 05/[address] Walton performed cardiac catheterization. This revealed blockage of the RCA graft. A stent was placed in the ho-chunk RCA. Patient stayed overnight for recovery from this procedure and has experienced resolution of his symptoms. Labs (last 24 hrs) Laboratory Tests 05/17/18 05:36: White Blood Count 8.0, Red Blood Count 4.87, Hemoglobin 13.6, Hematocrit 42, Mean Corpuscular Volume 86, Mean Corpuscular Hemoglobin 28, Mean Corpuscular Hemoglobin Concent 33, Red Cell Distribution Width 14.9H, Platelet Count 243, Mean Platelet Volume 9.3, Sodium Level 142, Potassium Level 3.8, Chloride Level 111H, Carbon Dioxide Level 21, Anion Gap 10, Blood Urea Nitrogen 12, Creatinine 0.86, Estimat Glomerular Filtration Rate > 60, BUN/Creatinine Ratio 14, Glucose Level 97, Calcium Level 8.6 Patient resulted labs reviewed. Pending Labs Laboratory Tests 05/17/18 05:36: White Blood Count 8.0, Red Blood Count 4.87, Hemoglobin 13.6, Hematocrit 42, Mean Corpuscular Volume 86, Mean Corpuscular Hemoglobin 28, Mean Corpuscular Hemoglobin Concent 33, Red Cell Distribution Width 14.9, Platelet Count 243, Mean Platelet Volume 9.3, Sodium Level 142, Potassium Level 3.8, Chloride Level 111, Carbon Dioxide Level 21, Anion Gap 10, Blood Urea Nitrogen 12, Creatinine 0.86, Estimat Glomerular Filtration Rate > 60, BUN/Creatinine Ratio 14, Glucose Level 97, Calcium Level 8.6, Homocysteine [Pending] Imaging: Reviewed Imaging Report Discussion & Recommendations Discharge Planning: <30 minutes discharge planning Discharge Home Medications: Active Scripts Active Brilinta (Ticagrelor) 90 Mg Tablet 90 Mg PO BID Reported Oxycodone-Acetaminophen 5-325 (Oxycodone HCl/Acetaminophen) 1 Each Tablet 1-2 Tab PO Q6H PRN Alprazolam 0.5 Mg Tablet 0.5 Mg PO TID PRN Amiodarone HCl 200 Mg Tablet 200 Mg PO DAILY Metoprolol Succinate 25 Mg Tab.er.24h 25 Mg PO HS Aspirin EC (Aspirin) 81 Mg Tablet.dr 81 Mg PO HS Losartan Potassium 50 Mg Tablet 50 Mg PO DAILY Niacin (Niacinamide) 500 Mg Tablet 500 Mg PO DAILY Nitroglycerin 0.4 Mg Tab.subl 0.4 Mg SL UD PRN Fish Oil 1,000 mg Capsule ([place] 3 Polyunsat Fatty Acids) 1,000 Mg Cap 1,000 Mg PO HS Rosuvastatin Calcium 5 Mg Tablet 5 Mg PO DAILY Tylenol Extra Strength (Acetaminophen) 500 Mg Tablet 500-1,000 Mg PO Q6H PRN Zolpidem Tartrate 10 Mg Tablet 10 Mg PO HS PRN Pantoprazole Sodium 20 Mg Tablet.dr 20 Mg PO DAILY Tylenol Pm Ex-Strength Caplet (Acetaminophen/Diphenhydramine) 1 Each Tablet 2 Tab PO HS PRN take prn sleep/mild pain Instructions to patient/family Please see electronic discharge instructions given to patient. Clinical Quality Measures AMI/AHF: ASA po Prior to arrival: Yes DVT/VTE Risk/Contraindication: Risk Factor Score Per Nursin RFS Level Per Nursing on Admit: 2=Moderate LEAH HOWELL DO 05/17/18 1018: Diagnosis/Chief Complaint Discharge Diagnosis (1) Unstable angina Status: Resolved (2) Status post placement of stent in right coronary artery Status: Acute (3) Chest discomfort Status: Resolved (4) Atrial fibrillation Status: Resolved (5) Coronary artery disease Status: Chronic (6) Hypercholesteremia Status: Chronic (7) Hypertension Status: Chronic (8) Degenerative joint disease (DJD) of lumbar spine Status: Chronic Discharge Summary Discharge Physical Exam Allergies: Coded Allergies: No Known Drug Allergies (Unverified , 03/28/10) General Appearance: No Apparent Distress, WD/WN Respiratory: Chest Non Tender, Lungs Clear, Normal Breath Sounds, No Accessory Muscle Use, No Respiratory Distress Cardiovascular: Regular Rate, Rhythm, No Edema, No Gallop, No JVD, No Murmur, Normal Peripheral Pulses Neurologic/Psychiatric: Alert, Oriented x3, No Motor/Sensory Deficits, Normal Mood/Affect Hospital Course I personally have seen and evaluated the patient and performed the physical exam. I agree with the documented assessment and plan. Discussion & Recommendations Discharge Planning: <30 minutes discharge planning Problem Qualifiers (1) Hypertension: Hypertension type: essential hypertension Qualified Codes: I10 - Essential ( primary) hypertension (2) Coronary artery disease: Coronary Disease-Associated Artery/Lesion type: bypass graft [place] vs. transplanted heart: ho-chunk heart Associated angina: with stable angina Qualified Codes: I25.708 - Atherosclerosis of coronary artery bypass graft(s), unspecified, with other forms of angina pectoris (3) Atrial fibrillation: Atrial fibrillation type: paroxysmal Qualified Codes: I48.0 - Paroxysmal atrial fibrillation (4) Chest pain: Chest pain type: unspecified Qualified Codes: R07.9 - Chest pain, unspecified (5) Degenerative joint disease (DJD) of lumbar spine: Spinal osteoarthritis complication: unspecified spinal osteoarthritis Qualified Codes: M47.816 - Spondylosis without myelopathy or radiculopathy, lumbar region ANASTASIA AGUIRRE MED STUDENT May 17, 2018 08:36 LEAH HOWELL DO May 17, 2018 10:18
[2018-05-17] MEDS ORDERED: NON-FORMULARY MEDICATION 1 EA EA (Niacinamide (Niacin) 500 MG) PO SCH (09:00)
[2018-05-17] MEDS ORDERED: AMIODARONE 200 MG (CORDARONE) TAB PO SCH (09:00)
[2018-05-17] MEDS ORDERED: NON-FORMULARY MEDICATION 1 EA EA (Losartan Potassium 50 MG) PO SCH (09:00)
[2018-05-17] MEDS ORDERED: NON-FORMULARY MEDICATION 1 EA EA (Pantoprazole Sodium 20 MG) PO SCH (09:00)
[2018-05-17] MEDS ORDERED: ASPIRIN E.C. 81 MG (ECOTRIN) TAB PO SCH (09:00)
[2018-05-17] MEDS ORDERED: ROSUVASTATIN 5 MG (CRESTOR) TABLET PO SCH (09:00)
== END 2018-05-17 10:25 | disposition home or self-care (01) ==
LOC: EDUNIT# 18:57 → ER 18:58 → UNDOADMOB 21:48 → 4TH 21:48 → CATH 22:30 → 4TH 22:30 → CATH 05-17 10:25 → UNDODISOB 05-17 10:25
PROVIDERS: ATTEND Family Medicine
DX: I25.110 Atherosclerotic heart disease of native coronary artery with unstable angina pectoris (principal); I10 Essential (primary) hypertension; E78.5 Hyperlipidemia, unspecified; I48.91 Unspecified atrial fibrillation; K21.9 Gastro-esophageal reflux disease without esophagitis; M47.816 Spondylosis without myelopathy or radiculopathy, lumbar region; F41.9 Anxiety disorder, unspecified; G47.00 Insomnia, unspecified; Z79.82 Long term (current) use of aspirin; Z79.899 Other long term (current) drug therapy; Z95.1 Presence of aortocoronary bypass graft; Z95.5 Presence of coronary angioplasty implant and graft
CPT/HCPCS: 36415; 71045; 71275; 80048; 80053; 80061; 82550; 83090; 83735; 83874; 83880; 84443; 84484; 85025; 85027; 85379; 85610; 85730; 86141; 93005; 93041; 93459; 96360; G0378

== ENCOUNTER → 2018-07-06 | Outpatient (CLI) | payer BC ==
[~2018-07-06] MED LIST changes: +AMIO200T4 PO; +METO-387 PO; +TICA90TA PO
--- NOTE | 2018-07-06 09:35 | Diagnostic Imaging Report ---
PROCEDURE: CT head without contrast. TECHNIQUE: Multiple contiguous axial images were obtained through the brain without the use of intravenous contrast. INDICATION: A right-sided facial numbness and eyelid droop. No prior studies are available for comparison. The ventricles and sulci are within normal limits. No sulcal effacement or midline shift is seen. There is moderate periventricular hypodensity noted consistent with chronic microvascular ischemia. No acute intra-axial or extra-axial hemorrhage is detected. Cisterns are patent. Visualized paranasal sinuses are clear. IMPRESSION: Changes of chronic microvascular ischemia. No acute abnormalities detected. Dictated by: Dictated on workstation # [id number]
== END ==
LOC: RAD 08:28
PROVIDERS: ATTEND Physician Assistant Medical
DX: I67.82 Cerebral ischemia (principal); R29.810 Facial weakness
CPT/HCPCS: 70450

== ENCOUNTER → 2018-07-08 | Outpatient (CLI) | payer BC | LOC: LAB 08:54 | PROVIDERS: ATTEND Physician Assistant Medical | DX: I25.10 Atherosclerotic heart disease of native coronary artery without angina pectoris (principal); Z95.5 Presence of coronary angioplasty implant and graft ==

== ENCOUNTER → 2018-07-26 | Outpatient (CLI) | payer BC ==
[2018-07-26 16:04] LABS: HEMOGLOBIN 13.7 G/DL (13.3-17.7); MEAN PLATELET VOLUME 8.8 FL (7.4-10.4); RED BLOOD COUNT 4.83 10^6/uL (4.35-5.85); RED CELL DISTRIBUTION WIDTH 16.3 % (10.0-14.5); WHITE BLOOD COUNT 5.9 10^3/uL (4.3-11.0)
[2018-07-26 16:28] LABS: ALANINE AMINOTRANSFERASE 15 U/L (0-55); ALKALINE PHOSPHATASE 80 U/L (40-136); BILIRUBIN,TOTAL 0.4 MG/DL (0.1-1.0); BUN/CREATININE RATIO 15; CALCIUM 8.8 MG/DL (8.5-10.1); CARBON DIOXIDE 27 MMOL/L (21-32); CHLORIDE 109 MMOL/L (98-107); CREATININE SERUM 0.92 MG/DL (0.60-1.30); GFR ESTIMATED > 60; GLUCOSE 97 MG/DL (70-105); SODIUM 145 MMOL/L (135-145); TOTAL PROTEIN 6.6 GM/DL (6.4-8.2)
[2018-07-26 16:32] LABS: BILIRUBIN,URINE NEGATIVE (NEGATIVE); CLARITY,URINE CLEAR; COLOR,URINE YELLOW; GLUCOSE, URINE (UA) NEGATIVE (NEGATIVE); KETONES,URINE NEGATIVE (NEGATIVE); LEUKOCYTE ESTERASE ,URINE NEGATIVE (NEGATIVE); NITRITE,URINE NEGATIVE (NEGATIVE); PH,URINE 7 (5-9); PROTEIN,URINE NEGATIVE (NEGATIVE); UROBILINOGEN,URINE NORMAL (NORMAL)
[2018-07-26 17:06] LABS: BACTERIA,URINE NEGATIVE /HPF; RBC,URINE RARE /HPF; WBC,URINE 0-2 /HPF
--- NOTE | 2018-07-26 18:34 | Diagnostic Imaging Report ---
INDICATION: Dyspnea. TIME OF EXAM: 04:11 p.m. Correlation is made with prior study of 05/14/2018. FINDINGS: Changes of median sternotomy and CABG are noted. Right hemidiaphragm is mildly elevated. No infiltrate or failure is detected. No effusion or pneumothorax is seen. IMPRESSION: No acute cardiopulmonary process is detected. Dictated by: Dictated on workstation # [id number]
== END ==
LOC: RAD 15:37
PROVIDERS: ATTEND Internal Medicine
DX: J81.1 Chronic pulmonary edema (principal); R06.00 Dyspnea, unspecified
CPT/HCPCS: 36415; 71045; 80053; 81000; 83880; 85027

== ENCOUNTER → 2018-08-02 | Outpatient (CLI) | payer BC ==
[~2018-08-02] MED LIST changes: +GADOBUTROL 10 MMOL/10 ML (GADAVIST) VIAL IV ONE
--- NOTE | 2018-08-02 10:25 | Diagnostic Imaging Report ---
PROCEDURE: MR imaging of the brain with and without contrast. TECHNIQUE: Multiplanar, multisequence MR imaging of the brain was performed with and without contrast. INDICATION: Numbness. Stroke. COMPARISON: CT head without contrast 07/06/2018. FINDINGS: Mild generalized cerebral and cerebellar parenchymal volume loss. Mild to moderate nonspecific T2 hyperintensities in the supratentorial white matter. No abnormal intracranial enhancement. Normal morphology including the major midline structures, sella, posterior fossa and cerebellopontine angle. The orbits are unremarkable on this nondedicated exam. Normal intracranial flow voids. No hydrocephalus or extra-axial fluid collections. The paranasal sinuses and mastoids are clear. Normal bone marrow signal. IMPRESSION: Age-appropriate MRI of the brain with mild generalized parenchymal volume loss and mild to moderate chronic small vessel ischemic change. No acute intracranial MRI findings. Dictated by: Dictated on workstation # [id number]
== END ==
LOC: RAD 08:35
PROVIDERS: ATTEND Internal Medicine
DX: I67.82 Cerebral ischemia (principal); I63.9 Cerebral infarction, unspecified
CPT/HCPCS: 70553

== ENCOUNTER → 2018-12-07 | Outpatient (CLI) | payer BC ==
[~2018-12-07] MED LIST changes: -AMLO5TAB7 PO; +AMLO5TAB9 PO; -GADOBUTROL 10 MMOL/10 ML (GADAVIST) VIAL IV ONE; +LOSA50TA63 PO; -LOSA50TA7 PO
== END ==
LOC: CARD 13:54
PROVIDERS: ATTEND Internal Medicine
DX: R00.2 Palpitations (principal)
CPT/HCPCS: 93005

== ENCOUNTER → 2019-01-05 | Day surgery (SDC) | payer BC ==
[~2019-01-05] VITALS: Ht 188 cm; Wt 87.2 kg
[~2019-01-05] MED LIST changes: +LIDOCAINE 1% INJ 20 ML 20 ML VIAL ONE
--- NOTE | 2019-01-05 11:44 | Implantation of Loop Monitor ---
Implant of Loop Monitior PROCEDURE PHYSICIAN: Deja Stephens MD IMPLANTATION OF LOOP MONITOR REPORT DATE OF PROCEDURE: 01/05/19 ATTENDING PHYSICIAN: Dr. Rob Stephens. PERFORMING PHYSICIAN: Dr. Rob Stephens. INDICATION: Palpitations, syncope, possible atrial fibrillation. PREOP DIAGNOSIS: Palpitations, syncope, possible atrial fibrillation. POSTOP DIAGNOSIS: Palpitations, syncope, possible atrial fibrillation, s/p implantation of loop recorder. PROCEDURE DETAILS: The patient is a 63 male with history of palpitations, tachycardia, syncope and possible atrial fibrillation. Therefore implantable loop recorder was discussed and agreed with the patient. Informed consent was taken. All risks and complications were discussed at length. The patient was draped and prepped in the usual sterile fashion. Local anesthesia was lidocaine, which was given in the substernal area close to the 4th intercostal space. Loop monitor was implanted according to the protocol. Steri-Strips were placed at the end of the procedure. There were no complications and the patient tolerated the procedure well. ANESTHESIA: Local anesthesia with lidocaine. COMPLICATIONS: None CONTRAST/FLUOROSCOPY: None CONCLUSION: 1. Successful implantation of loop monitor for palpitations, syncope, possible atrial fibrillation. 2. No complication and the patient tolerated the procedure well. Deja Stephens MD, [facility], CCDS Cardiac Electrophysiology Bi STEPHENS MD January 05, 2019 11:44
== END | disposition home or self-care (01) ==
LOC: CATH 09:07
PROVIDERS: ATTEND Internal Medicine Interventional Cardiology
DX: R00.2 Palpitations (principal); R55 Syncope and collapse; R00.1 Bradycardia, unspecified; R00.0 Tachycardia, unspecified; I25.10 Atherosclerotic heart disease of native coronary artery without angina pectoris; I10 Essential (primary) hypertension; E78.5 Hyperlipidemia, unspecified; I65.23 Occlusion and stenosis of bilateral carotid arteries; Z82.49 Family history of ischemic heart disease and other diseases of the circulatory system; Z95.1 Presence of aortocoronary bypass graft; Z95.5 Presence of coronary angioplasty implant and graft; Z79.82 Long term (current) use of aspirin; Z79.899 Other long term (current) drug therapy
CPT/HCPCS: 33285

== ENCOUNTER → 2019-01-12 | Outpatient (CLI) | payer BC ==
[~2019-01-12] MED LIST changes: -LIDOCAINE 1% INJ 20 ML 20 ML VIAL ONE
--- NOTE | 2019-01-12 12:50 | Diagnostic Imaging Report ---
PROCEDURE: US carotid duplex, bilateral. TECHNIQUE: Multiple real-time grayscale images were obtained over the carotid arteries in various projections, bilaterally. Additional spectral analysis and color Doppler duplex images were also obtained. INDICATION: Carotid artery disease. FINDINGS: No significant plaquing is identified in either carotid system. Velocities are normal bilaterally. No velocity elevation or stenosis is seen. Both vertebral arteries demonstrate antegrade flow. IMPRESSION: No evidence of a hemodynamically significant stenosis. Parameters based on the consensus panel Hua-Scale and Doppler ultrasound criteria published June 2003, Radiology, Volume 229. DOPPLER (peak systolic velocity M/S Right Left CCA 0.90 1.2 ICA Proximal 0.57 0.90 ICA Mid 0.68 0.92 ICA Distal 0.86 0.97 RATIO 1.0 0.8 ECA 1.2 1.1 VERT 0.26 0.48 Dictated by: Dictated on workstation # [id number]
== END ==
LOC: CARD 11:05
PROVIDERS: ATTEND Internal Medicine Interventional Cardiology
DX: I77.9 Disorder of arteries and arterioles, unspecified (principal); I25.10 Atherosclerotic heart disease of native coronary artery without angina pectoris; R06.02 Shortness of breath; E78.5 Hyperlipidemia, unspecified; I10 Essential (primary) hypertension; R00.2 Palpitations
CPT/HCPCS: 93306; 93880

== ENCOUNTER 2019-01-31 10:26 | Observation (INO) | payer BC ==
[~2019-01-31] VITALS: Ht 188 cm; Wt 92.5 kg
[2019-01-31 10:41] LABS: BASOPHILS % (AUTO) 0 % (0-10); EOSINOPHILS # (AUTO) 0.2 10^3/uL (0.0-0.3); EOSINOPHILS % (AUTO) 3 % (0-10); HEMATOCRIT 46 % (40-54); HEMOGLOBIN 15.1 G/DL (13.3-17.7); LYMPHOCYTES # (AUTO) 1.4 X 10^3 (1.0-4.0); LYMPHOCYTES % (AUTO) 23 % (12-44); MEAN CORPUSCULAR HEMOGLOBIN 30 PG (25-34); MEAN CORPUSCULAR HGB CONC 33 G/DL (32-36); MEAN CORPUSCULAR VOLUME 90 FL (80-99); MONOCYTES # (AUTO) 0.6 X 10^3 (0.0-1.0); MONOCYTES % (AUTO) 10 % (0-12); NEUTROPHILS % (AUTO) 64 % (42-75); PLATELET COUNT 221 10^3/uL (130-400); WHITE BLOOD COUNT 6.3 10^3/uL (4.3-11.0)
[2019-01-31] MEDS ORDERED: NITROGLYCERIN 0.4 MG SL TABS BTL 25'S SL PRN ×2 (10:45→13:00)
[2019-01-31] MEDS ORDERED: ASPIRIN 81 MG CHEW (CHILDREN'S ASA) PO ONE (10:45)
[2019-01-31 10:54] LABS: INR 0.9 (0.8-1.4); PROTHROMBIN TIME PATIENT 12.8 SEC (12.2-14.7)
[2019-01-31 11:02] LABS: ALANINE AMINOTRANSFERASE 13 U/L (0-55); ALBUMIN 4.1 GM/DL (3.2-4.5); ALKALINE PHOSPHATASE 78 U/L (40-136); BILIRUBIN,TOTAL 0.4 MG/DL (0.1-1.0); BUN/CREATININE RATIO 17; CALCIUM 8.9 MG/DL (8.5-10.1); CARBON DIOXIDE 29 MMOL/L (21-32); CHLORIDE 108 MMOL/L (98-107); CREATININE SERUM 1.01 MG/DL (0.60-1.30); GFR ESTIMATED > 60; GLUCOSE 94 MG/DL (70-105); MAGNESIUM 2.2 MG/DL (1.8-2.4); POTASSIUM 4.1 MMOL/L (3.6-5.0); SODIUM 146 MMOL/L (135-145); TOTAL PROTEIN 6.5 GM/DL (6.4-8.2)
--- NOTE | 2019-01-31 11:06 | ED Chest Pain ---
General Chief Complaint: Cardiac/General Problems Stated Complaint: CHEST PAIN Nursing Triage Note: PT STATES PALPATATIONS THAT STARTED LAST NIGHT. HX OF HEART ISSUES, CABG, STENT, AND INPLANTED MONITOR. Nursing Sepsis Screen: No Definite Risk Source: patient, family Exam Limitations: no limitations History of Present Illness Date Seen by Provider: Jan 31, 2019 Time Seen by Provider: 10:27 Initial Comments Here with report of central chest pain that radiates to the neck and describes it as a pressure cold feeling. This has been going on since yesterday evening. He notes over the last couple days he has not felt well. Reports being emotional morning. Also has had some stomach reflux issues past couple of days. Does have significant cardiac history and states this feels like when he has to have a procedure done. He is been both times previously including a CABG and restenting after CABG. Denies nausea, vomiting, shortness of breath or sweating. Notes that this is increasing with activity and better with rest. States that he did take a baby aspirin last night and took a nitroglycerin this morning. Reports the nitroglycerin is old and he is not sure that it had any effectiveness. 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 Associated Symptoms: No abdominal pain, No back pain, No fever/chills, No nausea/vomiting, No shortness of breath Allergies and Home Medications Allergies Coded Allergies: No Known Drug Allergies (Unverified , 03/28/10) Home Medications Acetaminophen 500 Mg Tablet, 500-1,000 MG PO Q6H PRN for PAIN-MILD, (Reported) Acetaminophen/Diphenhydramine 1 Each Tablet, 2 TAB PO HS PRN for SLEEP, (Reported) take prn sleep/mild pain Alprazolam 0.5 Mg Tablet, 0.5 MG PO TID PRN for ANXIETY, (Reported) Aspirin 81 Mg Tablet.dr, 81 MG PO HS, (Reported) Metoprolol Succinate 25 Mg Tab.er.24h, 25 MG PO HS, (Reported) Niacinamide 500 Mg Tablet, 500 MG PO DAILY, (Reported) Nitroglycerin 0.4 Mg Tab.subl, 0.4 MG SL UD PRN for CHEST PAIN, (Reported) [place] 3 Polyunsat Fatty Acids 1,000 Mg Cap, 1,000 MG PO HS, (Reported) Oxycodone HCl/Acetaminophen 1 Each Tablet, 1-2 TAB PO Q6H PRN for PAIN-MODERATE TO SEVERE, (Reported) Pantoprazole Sodium 20 Mg Tablet.dr, 20 MG PO DAILY, (Reported) Rosuvastatin Calcium 5 Mg Tablet, 5 MG PO DAILY, (Reported) Ticagrelor 90 Mg Tablet, 90 MG PO BID Prescribed by: LINA WALTON on 05/17/18 0705 Zolpidem Tartrate 10 Mg Tablet, 10 MG PO HS PRN for SLEEP, (Reported) Patient Home Medication List Home Medication List Reviewed: Yes Review of Systems Review of Systems Constitutional: see HPI; No chills, No fever EENTM: No Symptoms Reported Respiratory: No Symptoms Reported Cardiovascular: See HPI, Chest Pain; Denies Edema; Lightheadedness Gastrointestinal: Denies Diarrhea, Denies Nausea, Denies Vomiting Genitourinary: No Symptoms Reported Musculoskeletal: no symptoms reported All Other Systems Reviewed Negative Unless Noted: Yes Past Qpmjrpg-Ymever-Bqnlyt Hx Past Med/Social Hx: Reviewed Nursing Past Med/Soc Hx Patient Social History Alcohol Use: Denies Use Recreational Drug Use: No Smoking Status: Never a Smoker 2nd Hand Smoke Exposure: No Recent Foreign Travel: No Contact w/Someone Who Travel: No Recent Infectious Disease Expo: No Recent Hopitalizations: No Immunizations Up To Date Date of Pneumonia Vaccine: May 23, 2014 Date of Influenza Vaccine: Jun 23, 2017 Seasonal Allergies Seasonal Allergies: Yes Past Medical History Surgeries: Yes Adenoidectomy, Cardiac, CABG, Coronary Stent, Tonsillectomy Respiratory: No Currently Using CPAP: No Currently Using BIPAP: No Cardiac: Yes Coronary Artery Disease, Heart Attack, Syncope 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) Headaches /Migraines Reproductive Disorders: No Sexually Transmitted Disease: No HIV/AIDS: No Genitourinary: No Gastrointestinal: Yes Gastroesophageal Reflux Musculoskeletal: Yes Degenerate Disk Disease, Chronic Back Pain Endocrine: No HEENT: No (T&A) Tonsilitis Loss of Vision: Denies Hearing Impairment: Denies Cancer: No Psychosocial: Yes Anxiety Integumentary: Yes (Cold sores) Herpes Blood Disorders: No Adverse Reaction/Blood Tranf: No Family Medical History Reviewed Nursing Family Hx Family history: Diabetes mellitus G8 BROTHER Myocardial infarction 19 FATHER Heart Disease, CAD Under 55 Years Old, Diabetes Physical Exam Vital Signs Vital Signs - First Documented 01/31/19 01/31/19 10:39 10:43 Temp 96.7 Pulse 71 Resp 19 B/P (MAP) 124/86 (99) Pulse Ox 96 O2 Delivery Room Air Capillary Refill : Less Than 3 Seconds Height, Weight, BMI Height: 6'2.00" Weight: 200lbs. 3.0oz. 90.190947hd; 24.7 BMI Method:Stated General Appearance: No Apparent Distress, WD/WN HEENT: PERRL/EOMI, Pharynx Normal Neck: Non Tender, Supple Respiratory: Lungs Clear, Normal Breath Sounds Cardiovascular: Regular Rate, Rhythm, No Murmur Gastrointestinal: Non Tender, Soft Extremity: Normal Range of Motion, Non Tender Neurologic/Psychiatric: Alert, Oriented x3 Skin: Normal Color, Warm/Dry Progress/Results/Core Measures Results/Orders Lab Results Laboratory Tests Test 01/31/19 10:30 Range/Units White Blood Count 6.3 4.3-11.0 10^3/uL Red Blood Count 5.10 4.35-5.85 10^6/uL Hemoglobin 15.1 13.3-17.7 G/DL Hematocrit 46 40-54 % Mean Corpuscular Volume 90 80-99 FL Mean Corpuscular Hemoglobin 30 25-34 PG Mean Corpuscular Hemoglobin Concent 33 32-36 G/DL Red Cell Distribution Width 14.0 10.0-14.5 % Platelet Count 221 130-400 10^3/uL Mean Platelet Volume 9.0 7.4-10.4 FL Neutrophils (%) (Auto) 64 42-75 % Lymphocytes (%) (Auto) 23 12-44 % Monocytes (%) (Auto) 10 0-12 % Eosinophils (%) (Auto) 3 0-10 % Basophils (%) (Auto) 0 0-10 % Neutrophils # (Auto) 4.0 1.8-7.8 X 10^3 Lymphocytes # (Auto) 1.4 1.0-4.0 X 10^3 Monocytes # (Auto) 0.6 0.0-1.0 X 10^3 Eosinophils # (Auto) 0.2 0.0-0.3 10^3/uL Basophils # (Auto) 0.0 0.0-0.1 10^3/uL Prothrombin Time 12.8 12.2-14.7 SEC INR Comment 0.9 0.8-1.4 Activated Partial Thromboplast Time 28 24-35 SEC D-Dimer 0.39 0.00-0.49 UG/ML Sodium Level 146 H 135-145 MMOL/L Potassium Level 4.1 3.6-5.0 MMOL/L Chloride Level 108 H 98-107 MMOL/L Carbon Dioxide Level 29 21-32 MMOL/L Anion Gap 9 5-14 MMOL/L Blood Urea Nitrogen 17 7-18 MG/DL Creatinine 1.01 0.60-1.30 MG/DL Estimat Glomerular Filtration Rate > 60 BUN/Creatinine Ratio 17 Glucose Level 94 70-105 MG/DL Calcium Level 8.9 8.5-10.1 MG/DL Corrected Calcium 8.8 8.5-10.1 MG/DL Magnesium Level 2.2 1.8-2.4 MG/DL Total Bilirubin 0.4 0.1-1.0 MG/DL Aspartate Amino Transf (AST/SGOT) 15 5-34 U/L Alanine Aminotransferase (ALT/SGPT) 13 0-55 U/L Alkaline Phosphatase 78 40-136 U/L Myoglobin 43.8 10.0-92.0 NG/ML Troponin I < 0.028 <0.028 NG/ML Total Protein 6.5 6.4-8.2 GM/DL Albumin 4.1 3.2-4.5 GM/DL My Orders Orders - AISLINN DAWKINS MD Cbc With Automated Diff (01/31/19 10:32) Magnesium (01/31/19 10:32) Chest 1 View, Ap/Pa Only (01/31/19 10:32) Ekg Tracing (01/31/19 10:32) Cardiac Profile 1 (01/31/19 10:32) Comprehensive Metabolic Panel (01/31/19 10:32) Myoglobin Serum (01/31/19 10:32) Protime With Inr (01/31/19 10:32) Partial Thromboplastin Time (01/31/19 10:32) O2 (01/31/19 10:32) Monitor-Rhythm Ecg Trace Only (01/31/19 10:32) Lipid Panel (02/01/19 06:00) Ed Iv/Invasive Line Start (01/31/19 10:32) Fibrin Degradation Products (01/31/19 10:32) Nitroglycerin 0.4 Mg Btl 25's (Nitrostat (01/31/19 10:45) Aspirin Chewable Tablet (Baby Aspirin Ch (01/31/19 10:45) Medications Given in ED Current Medications Medications Dose Ordered Sig/Facundo Route Start Time Stop Time Status Last Admin Dose Admin Aspirin 324 mg ONCE ONCE PO 01/31/19 10:45 01/31/19 10:46 DC 01/31/19 10:39 324 MG Nitroglycerin 0.4 mg UD PRN SL 01/31/19 10:45 01/31/19 10:39 0.4 MG Vital Signs/I&O 01/31/19 01/31/19 10:39 10:43 Temp 96.7 96.7 Pulse 71 Resp 19 B/P (MAP) 124/86 (99) Pulse Ox 96 O2 Delivery Room Air Blood Pressure Mean: 99 Progress Progress Note : Progress Note Seen and evaluated. IV, labs, EKG and chest x-ray ordered. ASA 324 mg by mouth and nitroglycerin sublingual ordered. Pain resolved after one nitroglycerin tablet. 1130: I did discuss the case with Dr. Walton. Given his significant cardiac history and multiple interventions, it is indicated to the patient in the hospital and he will see the patient in consult. I did discuss the case with Dr. MARTIN and he accepts patient for admission, observation status with Dr. Walton on consult. Patient and family agree with plan. Initial ECG Impression Date: Jan 31, 2019 Initial ECG Impression Time: 10:31 Initial ECG Rate: 58 Initial ECG Rhythm: Normal Sinus Comment Sinus rhythm with left atrial abnormality. No evidence of ST elevation MO. Similar to previous of 12/07/18. Interpreted by me. Diagnostic Imaging Diagonstic Imaging: Xray Plain Films/CT/US/NM/MRI: chest Comments NAME: JOSE TORRES [facility] REC#: [id number] PT STATUS: REG ER : 1955 PHYSICIAN: AISLINN DAWKINS MD ADMIT DATE: 01/31/19/ER Signed Date of Exam: 01/31/19 CHEST 1 VIEW, AP/PA ONLY Indication: Chest pain Comparison: 07/26/2018 Technique: Single rate of the chest dated 01/31/2019. Findings: Post surgical changes of a CABG. Loop recorder is now identified overlying the left heart. The cardiac silhouette is within normal limits. No significant pulmonary vascular congestion. The lungs are clear. No pleural effusion. No pneumothorax. Chronic deformity of the left clavicle. No acute osseous abnormality. Impression: No acute cardiopulmonary abnormality. Interval placement of a loop recorder overlying left chest. Dictated by: Dictated on workstation # [id number] Dict: 01/31/19 1055 Trans: 01/31/19 1104 Interpreted by: ANANT KNIGHT MD Electronically signed by: ANANT KNIGHT MD 01/31/19 1104 Departure Communication (Admissions) Time/Spoke to Admitting Phy: 11:33 Time/Spoke to Consulting Phy: 11:30 Impression Primary Impression: Chest pain Qualified Codes: R07.9 - Chest pain, unspecified Disposition: ADMITTED INPATIENT Condition: Stable Admissions Decision to Admit Reason: Admit from ER (General) Decision to Admit/Date: Jan 31, 2019 Time/Decision to Admit Time: 11:30 Departure-Patient Inst. Referrals: LEAH MONCADA DO (PCP/Family) Primary Care Physician AISLINN DAWKINS MD Jan 31, 2019 11:06
[2019-01-31 12:30] VITALS: BP 117/77
[2019-01-31] MEDS ORDERED: REGADENOSON 0.4 MG/5 ML SYR (LEXISCAN) IV ONE (13:00)
[2019-01-31] MEDS ORDERED: CATHETER FLUSH 10 ML SYR IV PRN (13:00)
[2019-01-31] MEDS ORDERED: morphine INJ 4 MG/ML 1 ML (VIAL/SYRINGE) IV PRN (13:00)
--- NOTE | 2019-01-31 13:17 | Consultation-Cardiology ---
HPI-Cardiology Cardiology Consultation Date of Consultation 01/31/19 Date of Admission Time Seen by Provider: 12:50 Indication: Chest pain HPI Patient is a 63 y/o male with history of CAD, HTN, HLP. Presented to the ER with complaints of chest pain. Reports episodes started yesterday, worse with activity. Was given SL nitro in the ER that helped relieve the pain. Denies any active chest pain at this time. C/o daily episodes of palpitations. Has hx of PVC's, intolerant to beta blockers secondary to bradycardia. Has been following with Dr. Stephens regarding PVCs Home Medications & Allergies Allergies: Coded Allergies: No Known Drug Allergies (Unverified , 03/28/10) Home Medication List Reviewed: Yes ZBE-Fgwrct-Edxnxh Hx Patient Social History Marital Status: Alcohol Use: Denies Use Recreational Drug Use: No Smoking Status: Never a Smoker 2nd Hand Smoke Exposure: No Recent Foreign Travel: No Recent Infectious Disease Expo: No Recent Hopitalizations: No Immunizations Up To Date Date of Pneumonia Vaccine: May 03, 2017 Date of Influenza Vaccine: Jun 23, 2017 Past Medical History CAD, PVCs, HTN Family Medical History Significant Family History: Heart Disease, CAD Under 55 Years Old, Diabetes Family History: Family history: Diabetes mellitus G8 BROTHER Myocardial infarction 19 FATHER Review of Systems-General Review of Systems Constitutional: No chills, No fever, No malaise, No weakness EENTM: No blurred vision, No double vision, No vision loss, No epistaxis, No nose congestion, No nose pain Respiratory: No cough, No dyspnea on exertion Cardiovascular: chest pain; No edema; Hx of Intervention, palpitations; No syncope; vascular heart diseas Gastrointestinal: No abdominal pain, No constipation Genitourinary: No dysuria, No frequency Musculoskeletal: no symptoms reported; No back pain Skin: No lesions, No lumps Psychiatric/Neurological: Anxiety; Denies Depressed All Other Systems Reviewed Negative Unless Noted: Yes Reviewed Test Results Reviewed Test Results Lab Laboratory Tests 01/31/19 10:30: White Blood Count 6.3, Red Blood Count 5.10, Hemoglobin 15.1, Hematocrit 46, Mean Corpuscular Volume 90, Mean Corpuscular Hemoglobin 30, Mean Corpuscular Hemoglobin Concent 33, Red Cell Distribution Width 14.0, Platelet Count 221, Mean Platelet Volume 9.0, Neutrophils (%) (Auto) 64, Lymphocytes (%) (Auto) 23, Monocytes (%) (Auto) 10, Eosinophils (%) (Auto) 3, Basophils (%) (Auto) 0, Neutrophils # (Auto) 4.0, Lymphocytes # (Auto) 1.4, Monocytes # (Auto) 0.6, Eosinophils # (Auto) 0.2, Basophils # (Auto) 0.0, Prothrombin Time 12.8, INR Comment 0.9, Activated Partial Thromboplast Time 28, D-Dimer 0.39, Sodium Level 146H, Potassium Level 4.1, Chloride Level 108H, Carbon Dioxide Level 29, Anion Gap 9, Blood Urea Nitrogen 17, Creatinine 1.01, Estimat Glomerular Filtration Rate > 60, BUN/Creatinine Ratio 17, Glucose Level 94, Calcium Level 8.9, Corrected Calcium 8.8, Magnesium Level 2.2, Total Bilirubin 0.4, Aspartate Amino Transf (AST/SGOT) 15, Alanine Aminotransferase (ALT/SGPT) 13, Alkaline Phosphatase 78, Myoglobin 43.8, Troponin I < 0.028, Total Protein 6.5, Albumin 4.1 01/31/19 13:05: ECG Impression ECG Initial ECG Rhythm: S.Alfredito Physical Exam Physical Exam Vital Signs Vital Signs - First Documented 01/31/19 01/31/19 10:39 10:43 Temp 96.7 Pulse 71 Resp 19 B/P (MAP) 124/86 (99) Pulse Ox 96 O2 Delivery Room Air Capillary Refill : Less Than 3 Seconds Height, Weight, BMI Height: 6'2.00" Weight: 204lbs. 0.4oz. 92.633401tf; 26.2 BMI Method:Stated General Appearance: No Apparent Distress, WD/WN HEENT: PERRL/EOMI, Pharynx Normal Neck: Non Tender, Supple Respiratory: Lungs Clear, Normal Breath Sounds Cardiovascular: Regular Rate, Rhythm, No Edema, No Gallop, No JVD, No Murmur Gastrointestinal: Non Tender, Soft Rectal: Deferred Extremity: Normal Range of Motion, Non Tender Neurologic/Psychiatric: Alert, Oriented x3 Skin: Normal Color, Warm/Dry A/P-Cardiology Assessment/Plan Chest pain, resembling accelerating angina, history of chronic stable angina- EKG reveals no acute ST changes. Cardiac enzymes negative so far. Planning for E ST in the morning. Coronary artery disease, multiple intervention. Had 2 stents in the LAD cipher 2.5x8 proximally 2.5x28 Mid. Then had balloon angioplasty for in-stent restenosis, had another stent placed in the LAD by Dr. Blake in 2011. Report of that procedure is not available. In addition patient had a stent to the diagonal artery using Promus to 2.25 X 12 mm. And a stent in the right coronary artery Promus 3.0x18 mm. Recent cardiac catheterization done July 10, 2015 revealing moderate to severe in-stent restenosis in the distal LAD with lesion extending beyond the stent. Successful primary stenting using 2.25 x 12 mm Promus drug-eluting stent deployed distally balloon angioplasty for the in-stent restenosis. Underwent another cardiac catheterization due to recurrent chest pain in June 2016 which showed patent stents in the LAD, diagonal artery and right coronary artery with amzp-[id number] disease, small vessel disease, medical therapy is recommended. Underwent cardiac catheterization on June 26, 2017 after having mildly elevated troponin revealing 60-70 percent stenosis in the mid LAD artery past the distal edge of the distal stent in the LAD. Mid LAD did not exhibit significant in-stent restenosis. Left circumflex had 40 percent stenosis in the first obtuse marginal. RCA had long 75 percent stenosis. Underwent successful stenting using Alpine Xience 3.5 x 38 mm stent with good results. Distal RCA stent was patent. Another cath done on July 09, 2017 with reported stent placement to the LAD by Dr. Freed's group. Unfortunately I do not have that Report available to me Patient underwent CABG done at [facility] in [place] in January 2018, I will try to obtain that report. Most recent cardiac catheterization done April 2018 revealed occluded vein graft to the right coronary artery with severe stenosis at the distal right coronary artery at the anastomosis point with that vein graft, the proximal stent in the right coronary artery is patent, successful balloon angioplasty then stent deployment using Mary Beth 2.515 mm expanded to 2.77 mm with excellent results, good flow distally. Occluded stent in the mid LAD with patent BURDEN to LAD and vein graft to diagonal artery with good flow distally. Mild to moderate disease at the proximal circumflex artery with patent vein graft to the obtuse marginal branch. Slightly prominent left ventricle with mild diffuse left ventricular hypokinesia more pronounced at the inferior wall with estimated ejection fraction 40 percent. Mild bradycardia, occasional PVCs and ventricular bigeminy, unable to tolerate beta blockers, currently still bradycardic. Continue to monitor. Hypertension, controlled. Continue to monitor blood pressure/heart rate. Hyperlipidemia, intolerance to simvastatin and lipitor with leg cramps, tolerating Crestor,evaluate lipid profile Lower extremity cramps and pain, venous study was normal, LEELEE was normal, most probably the pain is secondary to statin. Patient reports improvement, tolerating Crestor well at this time. Continue to monitor. History of intolerance to isosorbide causing headache Nonobstructive carotid artery stenosis per carotid duplex done June 2017. Continue to monitor. Thank you for allowing us to participate in the management of Mr. Hackett. This is Alexandra Gray PA-C, as a scribe for Dr. Walton. Clinical Quality Measures AMI/AHF: ASA po Prior to arrival: Yes DVT/VTE Risk/Contraindication: Risk Factor Score Per Nursin RFS Level Per Nursing on Admit: 4+=Very High ALEXANDRA PAUL Jan 31, 2019 13:17
[2019-01-31] MEDS: NS IV 1000 ML 1,000 ML IV SCH (13:33)
[2019-01-31] MEDS ORDERED: CLOP75TA28 PO (13:57)
[2019-01-31] MEDS ORDERED: ROSU10TA27 PO (13:57)
[2019-01-31] MEDS ORDERED: ALIR75PE SC (13:57)
[2019-01-31] MEDS ORDERED: LISI2.5T PO (13:57)
[2019-01-31] MEDS ORDERED: CALC300T4 PO (13:58)
--- NOTE | 2019-01-31 14:00 | NUR ---
SPOKE WITH THE PATIENT ABOUT HIS MEDICATIONS. HE HAD ALL HIS BOTTLES WITH HIM. I COMPARED THEM WITH THE EXT MED HX. 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 HE TAKES ASPIRIN, NIACIN, AND FISH OIL OTC. HE ALSO HAS A BOTTLE OF TUMS THAT HE STATES HE PURCHASED A FEW DAYS AGO AND HAS BEEN TAKING HOWEVER HE NORMALLY DOES NOT USE TUMS.
[2019-01-31] MEDS ORDERED: ONDANSETRON 4 MG/2 ML (SDV) Z0FRAN IVP PRN (15:00)
[2019-01-31] MEDS ORDERED: ALPRAZolam 0.25 MG (XANAX) TAB PO PRN (15:00)
[2019-01-31] MEDS ORDERED: LOPERAMIDE 2 MG (IMODIUM) CAP PO PRN (15:00)
[2019-01-31] MEDS ORDERED: NON-FORMULARY MEDICATION 1 EA EA (Acetaminophen (Tylenol Extra Strength) 500 MG) PO PRN (15:00)
[2019-01-31] MEDS ORDERED: NON-FORMULARY MEDICATION 1 EA EA (Calcium Carbonate (Tums) 300 MG) PO PRN (15:00)
[2019-01-31] MEDS ORDERED: ONDANSETRON 4 MG (ZOFRAN) ORAL DISSOLVE TAB PO PRN (15:00)
[2019-01-31] MEDS ORDERED: NON-FORMULARY MEDICATION 1 EA EA (Acetaminophen/Diphenhydramine (Tylenol Pm Ex-Strength Ca PO PRN (15:00)
[2019-01-31] MEDS ORDERED: NON-FORMULARY MEDICATION 1 EA EA (Alirocumab (Praluent Pen) 75 MG) SC SCH (15:00)
[2019-01-31] MEDS ORDERED: DOCUSATE SODIUM 100 MG (COLACE) CAP PO PRN (15:00)
[2019-01-31] MEDS ORDERED: CALCIUM CARBONATE 500 MG (TUMS) TAB.CHEW PO PRN (15:00)
[2019-01-31] MEDS ORDERED: MELATONIN 3 MG TABLET PO PRN (15:00)
[2019-01-31] MEDS ORDERED: fentaNYL INJECTION 100 MCG/2 ML AMP IVP PRN (15:00)
[2019-01-31] MEDS ORDERED: ALPRAZolam 0.5 MG (XANAX) TAB PO PRN (15:00)
[2019-01-31] MEDS ORDERED: HYDROcodone/APAP 5 MG/325 MG (LORTAB) TAB PO PRN (15:00)
[2019-01-31] MEDS ORDERED: diphenhydrAMINE 25 MG TAB (BENADRYL) PO PRN ×2 (15:00→15:45)
[2019-01-31] MEDS ORDERED: NON-FORMULARY MEDICATION 1 EA EA (Zolpidem Tartrate 10 MG) PO PRN (15:00)
[2019-01-31] MEDS ORDERED: ACETAMINOPHEN 500 MG TAB (TYLENOL) PO PRN (15:30)
[2019-01-31] MEDS ORDERED: ZOLPIDEM 5 MG (AMBIEN) TAB PO PRN (15:30)
[2019-01-31] MEDS ORDERED: ACETAMINOPHEN 325 MG TABLET PO PRN (15:45)
--- NOTE | 2019-01-31 16:27 | Consultation-Cardiology ---
HPI-Cardiology Cardiology Consultation Date of Consultation 01/31/19 Date of Admission Time Seen by Provider: 12:50 Indication: Chest pain HPI Patient is a 63 y/o male with history of CAD, HTN, HLP. Presented to the ER with complaints of chest pain. Reports episodes started yesterday, worse with activity. Was given SL nitro in the ER that helped relieve the pain. Denies any active chest pain at this time. C/o daily episodes of palpitations. Has hx of PVC's, intolerant to beta blockers secondary to bradycardia. Has been following with Dr. Stephens regarding PVCs Home Medications & Allergies Allergies: Coded Allergies: No Known Drug Allergies (Unverified , 03/28/10) Home Medication List Reviewed: Yes HDT-Dplncx-Xqixdm Hx Patient Social History Marital Status: Alcohol Use: Denies Use Recreational Drug Use: No Smoking Status: Never a Smoker 2nd Hand Smoke Exposure: No Recent Foreign Travel: No Recent Infectious Disease Expo: No Recent Hopitalizations: No Immunizations Up To Date Date of Pneumonia Vaccine: May 03, 2017 Date of Influenza Vaccine: Jun 23, 2017 Past Medical History CAD, PVCs, HTN Family Medical History Significant Family History: Heart Disease, CAD Under 55 Years Old, Diabetes Family History: Family history: Diabetes mellitus G8 BROTHER Myocardial infarction 19 FATHER Review of Systems-General Review of Systems Constitutional: No chills, No fever, No malaise, No weakness EENTM: No blurred vision, No double vision, No vision loss, No epistaxis, No nose congestion, No nose pain Respiratory: No cough, No dyspnea on exertion Cardiovascular: chest pain; No edema; Hx of Intervention, palpitations; No syncope; vascular heart diseas Gastrointestinal: No abdominal pain, No constipation Genitourinary: No dysuria, No frequency Musculoskeletal: no symptoms reported; No back pain Skin: No lesions, No lumps Psychiatric/Neurological: Anxiety; Denies Depressed All Other Systems Reviewed Negative Unless Noted: Yes Reviewed Test Results Reviewed Test Results Lab Laboratory Tests Test 01/31/19 10:30 01/31/19 13:05 Range/Units White Blood Count 6.3 4.3-11.0 10^3/uL Red Blood Count 5.10 4.35-5.85 10^6/uL Hemoglobin 15.1 13.3-17.7 G/DL Hematocrit 46 40-54 % Mean Corpuscular Volume 90 80-99 FL Mean Corpuscular Hemoglobin 30 25-34 PG Mean Corpuscular Hemoglobin Concent 33 32-36 G/DL Red Cell Distribution Width 14.0 10.0-14.5 % Platelet Count 221 130-400 10^3/uL Mean Platelet Volume 9.0 7.4-10.4 FL Neutrophils (%) (Auto) 64 42-75 % Lymphocytes (%) (Auto) 23 12-44 % Monocytes (%) (Auto) 10 0-12 % Eosinophils (%) (Auto) 3 0-10 % Basophils (%) (Auto) 0 0-10 % Neutrophils # (Auto) 4.0 1.8-7.8 X 10^3 Lymphocytes # (Auto) 1.4 1.0-4.0 X 10^3 Monocytes # (Auto) 0.6 0.0-1.0 X 10^3 Eosinophils # (Auto) 0.2 0.0-0.3 10^3/uL Basophils # (Auto) 0.0 0.0-0.1 10^3/uL Prothrombin Time 12.8 12.2-14.7 SEC INR Comment 0.9 0.8-1.4 Activated Partial Thromboplast Time 28 24-35 SEC D-Dimer 0.39 0.00-0.49 UG/ML Sodium Level 146 H 135-145 MMOL/L Potassium Level 4.1 3.6-5.0 MMOL/L Chloride Level 108 H 98-107 MMOL/L Carbon Dioxide Level 29 21-32 MMOL/L Anion Gap 9 5-14 MMOL/L Blood Urea Nitrogen 17 7-18 MG/DL Creatinine 1.01 0.60-1.30 MG/DL Estimat Glomerular Filtration Rate > 60 BUN/Creatinine Ratio 17 Glucose Level 94 70-105 MG/DL Calcium Level 8.9 8.5-10.1 MG/DL Corrected Calcium 8.8 8.5-10.1 MG/DL Magnesium Level 2.2 1.8-2.4 MG/DL Total Bilirubin 0.4 0.1-1.0 MG/DL Aspartate Amino Transf (AST/SGOT) 15 5-34 U/L Alanine Aminotransferase (ALT/SGPT) 13 0-55 U/L Alkaline Phosphatase 78 40-136 U/L Myoglobin 43.8 10.0-92.0 NG/ML Troponin I < 0.028 < 0.028 <0.028 NG/ML Total Protein 6.5 6.4-8.2 GM/DL Albumin 4.1 3.2-4.5 GM/DL Physical Exam Physical Exam Vital Signs Vital Signs - First Documented 01/31/19 01/31/19 10:39 10:43 Temp 96.7 Pulse 71 Resp 19 B/P (MAP) 124/86 (99) Pulse Ox 96 O2 Delivery Room Air Capillary Refill : Less Than 3 Seconds Height, Weight, BMI Height: 6'2.00" Weight: 204lbs. 0.4oz. 92.671312gg; 26.2 BMI Method:Stated General Appearance: No Apparent Distress, WD/WN HEENT: PERRL/EOMI, Pharynx Normal Neck: Non Tender, Supple Respiratory: Lungs Clear, Normal Breath Sounds Cardiovascular: Regular Rate, Rhythm, No Edema, No Gallop, No JVD, No Murmur Gastrointestinal: Non Tender, Soft Rectal: Deferred Extremity: Normal Range of Motion, Non Tender Neurologic/Psychiatric: Alert, Oriented x3 Skin: Normal Color, Warm/Dry A/P-Cardiology Admission Diagnosis Unstable angina Coronary artery disease Hypertension Hyperlipidemia Assessment/Plan Chest pain, unstable angina, history of chronic stable angina- EKG reveals no acute ST changes. Cardiac enzymes negative so far. [facility] Coronary artery disease, multiple intervention. Had 2 stents in the LAD cipher 2.5x8 proximally 2.5x28 Mid. Then had balloon angioplasty for in-stent restenosis, had another stent placed in the LAD by Dr. Blake in 2011. Report of that procedure is not available. In addition patient had a stent to the diagonal artery using Promus to 2.25 X 12 mm. And a stent in the right coronary artery Promus 3.0x18 mm. Recent cardiac catheterization done July 10, 2015 revealing moderate to severe in-stent restenosis in the distal LAD with lesion extending beyond the stent. Successful primary stenting using 2.25 x 12 mm Promus drug-eluting stent deployed distally balloon angioplasty for the in-stent restenosis. Underwent another cardiac catheterization due to recurrent chest pain in June 2016 which showed patent stents in the LAD, diagonal artery and right coronary artery with pygs-gl-bbqivsag disease, small vessel disease, medical therapy is recommended. Underwent cardiac catheterization on June 26, 2017 after having mildly elevated troponin revealing 60-70 percent stenosis in the mid LAD artery past the distal edge of the distal stent in the LAD. Mid LAD did not exhibit significant in-stent restenosis. Left circumflex had 40 percent stenosis in the first obtuse marginal. RCA had long 75 percent stenosis. Underwent successful stenting using Alpine Xience 3.5 x 38 mm stent with good results. Distal RCA stent was patent. Another cath done on July 09, 2017 with reported stent placement to the LAD by Dr. Freed's group. Unfortunately I do not have that Report available to me Patient underwent CABG done at [facility] in [place] in January 2018, I will try to obtain that report. Most recent cardiac catheterization done April 2018 revealed occluded vein graft to the right coronary artery with severe stenosis at the distal right coronary artery at the anastomosis point with that vein graft, the proximal stent in the right coronary artery is patent, successful balloon angioplasty then stent deployment using Mary Beth 2.515 mm expanded to 2.77 mm with excellent results, good flow distally. Occluded stent in the mid LAD with patent BURDEN to LAD and vein graft to diagonal artery with good flow distally. Mild to moderate disease at the proximal circumflex artery with patent vein graft to the obtuse marginal branch. Slightly prominent left ventricle with mild diffuse left ventricular hypokinesia more pronounced at the inferior wall with estimated ejection fraction 40 percent. Mild bradycardia, occasional PVCs and ventricular bigeminy, unable to tolerate beta blockers, currently still bradycardic. Continue to monitor. Hypertension, controlled. Continue to monitor blood pressure/heart rate. Hyperlipidemia, intolerance to simvastatin and lipitor with leg cramps, tolerat ing Crestor,evaluate lipid profile Lower extremity cramps and pain, venous study was normal, LEELEE was normal, most probably the pain is secondary to statin. Patient reports improvement, tolerating Crestor well at this time. Continue to monitor. History of intolerance to isosorbide causing headache Nonobstructive carotid artery stenosis per carotid duplex done June 2017. Continue to monitor. Clinical Quality Measures AMI/AHF: ASA po Prior to arrival: Yes DVT/VTE Risk/Contraindication: Risk Factor Score Per Nursin RFS Level Per Nursing on Admit: 4+=Very High LINA PARIS MD Jan 31, 2019 16:27
[2019-01-31 19:00] VITALS: BP 124/74
[2019-01-31 20:00] VITALS: BP 124/82
[2019-01-31 21:00] VITALS: BP 131/84
[2019-01-31] MEDS ORDERED: ASPIRIN E.C. 81 MG (ECOTRIN) TAB PO SCH (21:00)
[2019-01-31] MEDS: OMEGA 3 (FISH OIL) 1000 MG CAP PO SCH (21:25)
[2019-01-31] MEDS: SENNA W/DOCUSATE (SENOKOT S) TABLET PO SCH (21:25)
[2019-01-31] MEDS: ROSUVASTATIN 10 MG (CRESTOR) TABLET PO SCH (21:25)
[2019-02-01] VITALS (9 sets, daily range): BP systolic 113–158; BP diastolic 75–98
[2019-02-01] MEDS: NS IV 1000 ML 1,000 ML IV SCH ×3 (02:54→21:00)
[2019-02-01 03:54] LABS: BASOPHILS % (AUTO) 0 % (0-10); EOSINOPHILS # (AUTO) 0.2 10^3/uL (0.0-0.3); EOSINOPHILS % (AUTO) 4 % (0-10); HEMATOCRIT 44 % (40-54); HEMOGLOBIN 14.3 G/DL (13.3-17.7); LYMPHOCYTES # (AUTO) 1.6 X 10^3 (1.0-4.0); LYMPHOCYTES % (AUTO) 24 % (12-44); MEAN CORPUSCULAR HEMOGLOBIN 29 PG (25-34); MEAN CORPUSCULAR HGB CONC 33 G/DL (32-36); MEAN CORPUSCULAR VOLUME 89 FL (80-99); MEAN PLATELET VOLUME 8.9 FL (7.4-10.4); MONOCYTES # (AUTO) 0.6 X 10^3 (0.0-1.0); MONOCYTES % (AUTO) 9 % (0-12); NEUTROPHILS % (AUTO) 63 % (42-75); PLATELET COUNT 214 10^3/uL (130-400); RED CELL DISTRIBUTION WIDTH 14.3 % (10.0-14.5); WHITE BLOOD COUNT 6.4 10^3/uL (4.3-11.0)
[2019-02-01 04:15] LABS: ALANINE AMINOTRANSFERASE 13 U/L (0-55); ALBUMIN 3.5 GM/DL (3.2-4.5); ALKALINE PHOSPHATASE 63 U/L (40-136); BILIRUBIN,TOTAL 0.4 MG/DL (0.1-1.0); BUN/CREATININE RATIO 17; CALCIUM 8.2 MG/DL (8.5-10.1); CARBON DIOXIDE 22 MMOL/L (21-32); CHLORIDE 110 MMOL/L (98-107); CHOLESTEROL 74 MG/DL (< 200); CREATININE SERUM 0.84 MG/DL (0.60-1.30); GFR ESTIMATED > 60; GLUCOSE 104 MG/DL (70-105); HDL CHOLESTEROL 35 MG/DL (40-60); POTASSIUM 3.8 MMOL/L (3.6-5.0); SODIUM 142 MMOL/L (135-145); TOTAL PROTEIN 5.7 GM/DL (6.4-8.2); TRIGLYCERIDES 65 MG/DL (<150); VLDL CHOLESTEROL 13 MG/DL (5-40)
[2019-02-01] MEDS: PANTOPRAZOLE 20 MG TABLET (PROTONIX) PO SCH (06:31)
[2019-02-01] MEDS ORDERED: ASPIRIN E.C. 81 MG (ECOTRIN) TAB PO SCH (09:00)
[2019-02-01] MEDS ORDERED: NON-FORMULARY MEDICATION 1 EA EA (Niacinamide (Niacin) 500 MG) PO SCH (09:00)
[2019-02-01] MEDS ORDERED: NON-FORMULARY MEDICATION 1 EA EA (Lisinopril 2.5 MG) PO SCH (09:00)
[2019-02-01] MEDS ORDERED: CLOPIDOGREL 75 MG (PLAVIX) TABLET PO SCH (09:00)
[2019-02-01] MEDS ORDERED: NON-FORMULARY MEDICATION 1 EA EA (Pantoprazole Sodium 20 MG) PO SCH (09:00)
[2019-02-01] MEDS ORDERED: lisINopril 5 MG (PRINIVIL) TABLET PO SCH (09:00)
[2019-02-01] MEDS: SENNA W/DOCUSATE (SENOKOT S) TABLET PO SCH ×2 (10:26→21:00)
--- NOTE | 2019-02-01 10:50 | History & Physical-Hospitalist ---
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 Stephens consultation with loop recorder placement recently who felt badly on Wednesday felt chest pressure went to work on Wednesday and worsened to the point he came to the ER his Troponins have remained negative but his stress test showed evidence reversible Ischemia he will undergo Cardiac Catheterization and will require likely intervention. I did update him on the plan reassured him of all of his labs that were normal and will continue close monitoring in the ICU for unstable Angina. Source: patient, family, RN/MD Exam Limitations: no limitations Date Seen 02/01/19 Time Seen by a Provider: 10:00 Attending Physician Molly Moncada DO PCP Molly Moncada DO Referring Physician Date of Admission Jan 31, 2019 at 11:38 Home Medications & Allergies Home Medications Reviewed patient Home Medication Reconciliation performed by pharmacy medication reconciliations roadway technician and/or nursing. Patients Allergies have been reviewed. Allergies Allergies Coded Allergies No Known Drug Allergies (Unverified03/28/10) Past Fuwuwys-Xjyvmj-Hvwfdi Hx Past Med/Social Hx: Reviewed Nursing Past Med/Soc Hx, Reviewed and Corrections made Patient Social History Marrital Status: Employed/Student: employed ([employer]) Alcohol Use: Denies Use Recreational Drug Use: No Smoking Status: Never a Smoker 2nd Hand Smoke Exposure: No Recent Foreign Travel: No Contact w/other who traveled: No Recent Hopitalizations: No Recent Infectious Disease Expo: No Immunizations Up To Date Date of Pneumonia Vaccine: May 03, 2017 Date of Influenza Vaccine: Jun 23, 2017 Seasonal Allergies Seasonal Allergies: Yes Past Medical History Surgeries: Adenoidectomy, Cardiac, CABG, Coronary Stent, Tonsillectomy Currently Using CPAP: No Currently Using BIPAP: No Cardiac: Coronary Artery Disease, Heart Attack, Syncope Neurological: Headaches /Migraines Reproductive: No Sexually Transmitted Disease: No HIV/AIDS: No Gastrointestinal: Gastroesophageal Reflux Musculoskeletal: Degenerate Disk Disease, Chronic Back Pain HEENT: Tonsilitis Loss of Vision: Denies Hearing Impairment: Denies Psychosocial: Anxiety Skin/Integumentary: Herpes History of Blood Disorders: No Adverse Reaction to Blood Quinones: No Family History Reviewed Nursing Family Hx Family history: Diabetes mellitus G8 BROTHER Myocardial infarction 19 FATHER Heart Disease, CAD Under 55 Years Old, Diabetes Review of Systems Constitutional: see HPI EENTM: no symptoms reported Respiratory: no symptoms reported Cardiovascular: chest pain Gastrointestinal: no symptoms reported Genitourinary: no symptoms reported Musculoskeletal: no symptoms reported Skin: no symptoms reported Psychiatric/Neurological: No Symptoms Reported All Other Systems Reviewed Negative Unless Noted: Yes Physical Exam Physical Exam Vital Signs Vital Signs - First Documented 01/31/19 01/31/19 10:39 10:43 Temp 96.7 Pulse 71 Resp 19 B/P (MAP) 124/86 (99) Pulse Ox 96 O2 Delivery Room Air Capillary Refill : Less Than 3 SecondsLess Than 3 Seconds Height, Weight, BMI Height: 6'2.00" Weight: 204lbs. 0.4oz. 92.870206rs; 26.2 BMI Method:Stated General Appearance: No Apparent Distress, WD/WN Eyes: Right Eye Normal Inspection, Right Eye PERRL HEENT: PERRL/EOMI, Normal ENT Inspection, Pharynx Normal, Moist Mucous Membranes Neck: Full Range of Motion, Normal Inspection, Non Tender Respiratory: Chest Non Tender, Lungs Clear, Normal Breath Sounds, No Accessory Muscle Use, No Respiratory Distress Cardiovascular: Regular Rate, Rhythm, No Edema, No Gallop, No JVD, No Murmur, Normal Peripheral Pulses Gastrointestinal: Normal Bowel Sounds, No Organomegaly, No Pulsatile Mass, Non Tender, Soft Back: Normal Inspection, No CVA Tenderness, No Vertebral Tenderness Extremity: Normal Capillary Refill, Normal Inspection, Normal Range of Motion, Non Tender, No Calf Tenderness, No Pedal Edema Neurologic/Psychiatric: Alert, Oriented x3, No Motor/Sensory Deficits, Normal Mood/Affect Skin: Normal Color, Warm/Dry Lymphatic: No Adenopathy Results Results/Procedures Labs Laboratory Tests 01/31/19 10:30 02/01/19 03:40 Patient resulted labs reviewed. Assessment/Plan Admission Diagnosis Assessment: Unstable angina Severe CAD previous CABG Tachy-frank syndrome s/p loop records placement HTN HLP Anxiety Chronic back pain Plan: EST Cath Dr Walton appreciated Admission Status: Observation Diagnosis/Problems Diagnosis/Problems (1) Unstable angina Status: Acute (2) Chest pain Status: Acute Qualifiers: Chest pain type: unspecified Qualified Codes: R07.9 - Chest pain, unspecified (3) Status post placement of stent in right coronary artery Status: Chronic (4) Hx of coronary artery disease Status: Chronic (5) Anxiety Status: Chronic (6) Hypertension Status: Chronic Qualifiers: Hypertension type: essential hypertension Qualified Codes: I10 - Essential (primary) hypertension (7) Hypercholesteremia Status: Chronic (8) Hx of CABG Status: Chronic (9) Tachy-frank syndrome Status: Chronic (10) Episodic atrial fibrillation Status: Chronic Clinical Quality Measures AMI/AHF: ASA po Prior to arrival: Yes DVT/VTE Risk/Contraindication: Risk Factor Score Per Nursin RFS Level Per Nursing on Admit: 4+=Very High MOLLY MONCADA DO Feb 01, 2019 10:50
[2019-02-01] MEDS ORDERED: HEParin (CATH LAB) 2,000 ML IV ONE (11:34)
[2019-02-01] MEDS ORDERED: NS IV 1000 ML 1,000 ML ONE (11:34)
[2019-02-01] MEDS ORDERED: MIDAZOLAM 5 MG/5 ML (VERSED) VIAL ONE (11:34)
[2019-02-01] MEDS ORDERED: fentaNYL INJECTION 100 MCG/2 ML AMP ONE (11:34)
--- NOTE | 2019-02-01 11:36 | Cardiology Progress Note ---
Subjective Date Seen by Provider: Feb 01, 2019 Time Seen by Provider: 11:34 Subjective/Events-last exam Patient is in bed, still having recurrent chest pain, had an abnormal stress test Review of Systems General: No Chills, No Night Sweats, No Fatigue, No Malaise, No Appetite, No Other HEENT: No Head Aches, No Visual Changes, No Eye Pain, No Ear Pain, No Dysphasia, No Sinus Congestion, No Post Nasal Drip, No Sore Throat, No Other Pulmonary: Dyspnea; No Cough, No Pleuritic Chest Pain, No Other Cardiovascular: Chest Pain, Palpitations; No: Orthopnea, Paroxysmal Noc. Dyspnea, Edema, Lt Headedness, Other Objective-Cardiology Exam Last Set of Vital Signs Vital Signs 02/01/19 02/01/19 08:00 08:11 Temp 96.8 Pulse 66 Resp 18 B/P (MAP) 147/91 (109) Pulse Ox 99 O2 Delivery Room Air Capillary Refill : Less Than 3 SecondsLess Than 3 Seconds I&O Intake and Output 02/01/19 00:00 Intake Total 620 ml Output Total 4 ml Balance 616 ml Intake Oral 620 ml Output Urine Total 4 ml Daily Weight Change No General: Alert, Oriented X3, Cooperative HEENT: Atraumatic, PERRLA Neck: Supple, No JVD, No Thyromegaly Lungs: Clear to Auscultation, Normal Air Movement Heart: Regular Rate, Normal S1, Normal S2, Other (systolic murmur at the left sternal border) Abdomen: Normal Bowel Sounds, Soft, No Tenderness, No Hepatosplenomegaly, No Masses Extremities: No Clubbing, No Cyanosis, No Edema, Normal Pulses, No T enderness/Swelling Skin: No Rashes, No Breakdown, No Significant Lesion Neuro: Normal Gait, Normal Speech, Strength at 5/5 X4 Ext, Normal Tone, Sensation Intact Psych/Mental Status: Mental Status NL, Mood NL Results Lab Laboratory Tests 02/01/19 03:40 A/P-Cardiology Admission Diagnosis Unstable angina Coronary artery disease Hypertension Hyperlipidemia Assessment/Plan Chest pain, unstable angina, abnormal stress test, planning to proceed with cardiac catheterization possible PTCA. Coronary artery disease, multiple intervention. Had 2 stents in the LAD cipher 2.5x8 proximally 2.5x28 Mid. Then had balloon angioplasty for in-stent restenos is, had another stent placed in the LAD by Dr. Blake in 2011. Report of that procedure is not available. In addition patient had a stent to the diagonal artery using Promus to 2.25 X 12 mm. And a stent in the right coronary artery Promus 3.0x18 mm. Recent cardiac catheterization done July 10, 2015 revealing moderate to severe in-stent restenosis in the distal LAD with lesion extending beyond the stent. Successful primary stenting using 2.25 x 12 mm Promus drug-eluting stent deployed distally balloon angioplasty for the in-stent restenosis. Underwent another cardiac catheterization due to recurrent chest pain in June 2016 which showed patent stents in the LAD, diagonal artery and right coronary artery with iqjq-zo-rlttnctc disease, small vessel disease, medical therapy is recommended. Underwent cardiac catheterization on June 26, 2017 after having mildly elevated troponin revealing 60-70 percent stenosis in the mid LAD artery past the distal edge of the distal stent in the LAD. Mid LAD did not exhibit significant in-stent restenosis. Left circumflex had 40 percent stenosis in the first obtuse marginal. RCA had long 75 percent stenosis. Underwent successful stenting using Alpine Xience 3.5 x 38 mm stent with good results. Distal RCA stent was patent. Another cath done on July 09, 2017 with reported stent placement to the LAD by Dr. Freed's group. Unfortunately I do not have that Report available to me Patient underwent CABG done at [facility] in [place] in January 2018, I will try to obtain that report. Most recent cardiac catheterization done April 2018 revealed occluded vein graft to the right coronary artery with severe stenosis at the distal right coronary artery at the anastomosis point with that vein graft, the proximal stent in the right coronary artery is patent, successful balloon angioplasty then stent deployment using Mary Beth 2.515 mm expanded to 2.77 mm with excellent results, good flow distally. Occluded stent in the mid LAD with patent BURDEN to LAD and vein graft to diagonal artery with good flow distally. Mild to moderate disease at the proximal circumflex artery with patent vein graft to the obtuse marginal branch. Slightly prominent left ventricle with mild diffuse left ventricular hypokinesia more pronounced at the inferior wall with estimated ejection fraction 40 percent. Mild bradycardia, occasional PVCs and ventricular bigeminy, unable to tolerate beta blockers, currently still bradycardic. Continue to monitor. Hypertension, controlled. Continue to monitor blood pressure/heart rate. Hyperlipidemia, intolerance to simvastatin and lipitor with leg cramps, tolerating Crestor,evaluate lipid profile Lower extremity cramps and pain, venous study was normal, LEELEE was normal, most probably the pain is secondary to statin. Patient reports improvement, tolerating Crestor well at this time. Continue to monitor. History of intolerance to isosorbide causing headache Nonobstructive carotid artery stenosis per carotid duplex done June 2017. Continue to monitor. Clinical Quality Measures AMI/AHF: ASA po Prior to arrival: Yes DVT/VTE Risk/Contraindication: Risk Factor Score Per Nursin RFS Level Per Nursing on Admit: 4+=Very High LINA PARIS MD Feb 01, 2019 11:36
--- NOTE | 2019-02-01 11:36 | Cardiac Procedure Note-CS/ASA ---
Pre-Procedure Note Pre-Op Procedure Note H&P Reviewed The H&P was reviewed, patient examined and no changes noted. Date H&P Reviewed: Feb 01, 2019 Time H&P Reviewed: 11:36 Conscious Sedation Pre-Proced Time 11:36 ASA Score 3 For ASA 3 and 4: Consider anesthesia and medical clearance. Also, for patients with a history of failed moderate sedation consider anesthesia. Airway Lungs Heart ASA score ASA 1: a normal healthy patient ASA 2: a patient with a mild systemic disease (mid diabetes, controlled hypertension, obesity x ASA 3: a patient with a severe systemic disease that limits activity (angina, COPD, prior Myocardial infarction) ASA 4: a patient with an incapacitating disease that is a constant threat to life (CHF, renal failure) ASA 5: a moribund patient not expected to survive 24 hrs. (ruptured aneurysm) ASA 6: a declared brain- patient whose organs are being harvested. For emergent operations, add the letter E after the classification Mallampati Classification Grade 3 Sedation Plan Analgesia, Amnesia, Plan communicated to team members, Discussed options with patient/fam, Discussed risks with patient/fam The patient is an appropriate candidate to undergo the planned procedure, sedation, and anesthesia. The patient immediately re-assessed prior to indication. LINA PARIS MD Feb 01, 2019 11:36
[2019-02-01] MEDS ORDERED: HEParin 1000 UNIT/ML (10ML VIAL) FOR BOLUS ONE (12:39)
[2019-02-01] MEDS ORDERED: NITRO DRIP 25000 MCG/D5W 250 ML IV ONE (12:40)
[2019-02-01] MEDS ORDERED: ASPIRIN 325 MG (5 GR) TABLET ONE (13:06)
[2019-02-01] MEDS ORDERED: CLOPIDOGREL 300 MG (PLAVIX) TABLET PO ONE (13:06)
--- NOTE | 2019-02-01 13:14 | Cardiac Cath Report ---
Cardiac Cath Report Physician (s)/Expeller Worker (s) Physician LINA PARIS MD Pre-Procedure Diagnosis Pre-Procedure Diagnosis: Coronary artery disease, unstable angina Post-Procedure Note Procedure Start Date: Feb 01, 2019 Name of Procedure: Left heart catheterization Vein graft angiogram BURDEN angiogram PTCA to the right coronary artery Findings/Procedure Note PROCEDURE NOTE: 63 years old gentleman with extensive cardiac history, multiple intervention and bypass surgery in the past, admitted with acute chest pain, had a stress test which was abnormal subsequently proceeded with cardiac catheterization possible PTCA. After explaining the procedure to the patient, all pros and cons were explained, all questions were answered. The patient signed the consent and then he was placed on the cardiac catheterization laboratory. Groin was prepped SL fashion local anesthesia was used. Sheath placed in the right femoral artery. Shantanu right and left catheter were used to access the coronary system. Pigtail was used to access the left ventricular cavity, pressure was measured pullback LV to aorta was done, Shantanu right catheter was used to access the BURDEN and BURDEN angiogram was done, L CV catheter was used to access the vein graft, to vein graft angiogram was done, the third vein graft is known to be occluded. Patient was given 7000 units of heparin, FR guide was advanced to the right coronary artery BMW wire was used, patient has subtotal occlusion at the distal right coronary artery within the stent that was placed in April. I proceeded with compliant balloon using emerge 2.5 x 20 mm expanded to 2.75 mm under 15 jolene with excellent results. Angiogram postintervention showed no residual stenosis. At the end of the procedure the sheath was removed. Closure device was used FINDINGS: Hemodynamics LV 126/11, end-diastolic pressure of 11 Aorta 124/70 mean of 94 ANATOMY: Left Main has moderate disease Left Anterior Descending is occluded, BURDEN to LAD is patent, vein graft to the diagonal artery is patent Left Circumflex as occluded obtuse marginal branch with patent vein graft to the OM Right Coronory Artery is known to have vein graft that is occluded, has a stent in the midportion which is patent, distally there is a stent with subtotal occlusion, successful balloon angioplasty using emerge balloon 2.5 x 20 mm expanded to 2.75 mm under 15 jolene with excellent results. Vein graft angiogram, vein graft to the diagonal artery is tapering down at the anastomosis point, nonobstructive disease, slow flow was noted Vein graft to the obtuse marginal branch is patent with good flow distally Vein graft to the right coronary artery is known to be occluded BURDEN to LAD is patent with good flow at the distal LAD CONCLUSION: 1. Subtotal occlusion of the [place] right coronary artery distally, successful balloon angioplasty using emerge 2.5 x 20 mm expanded to 2.75 under 15 jolene with good results. Patent stent in the midright coronary artery, known to have occluded vein graft to the right coronary artery. 2. Occluded LAD with patent BURDEN to LAD and patent vein graft to the diagonal artery, there is slow flow in the vein graft to the diagonal artery due to moderate stenosis at the anastomosis point. 3. Occluded first obtuse marginal branch and patent vein graft to OMB with good flow distally. DISCUSSION AND RECOMMENDATION: continue to maximize medical therapy Anesthesia Type: Conscious Sedation Estimated blood loss (mL): 25 ml Contrast Amount: 117 ml Total Radiation Dose: 1150 mGy Post-Procedure Diagnosis (1) Unstable angina (2) Status post placement of stent in right coronary artery (3) Hx of coronary artery disease (4) Anxiety (5) Hypertension Qualifiers: Qualified Codes: I10 - Essential (primary) hypertension (6) Hypercholesteremia (7) Hx of CABG (8) Tachy-frank syndrome (9) Episodic atrial fibrillation LINA PARIS MD Feb 01, 2019 13:13
[2019-02-01] MEDS ORDERED: PATIENT MAY USE OWN MEDS, ALL PO SCH (13:15)
[2019-02-01] MEDS ORDERED: LIDOCAINE 1% INJ 20 ML 20 ML VIAL ONE (13:29)
[2019-02-01] MEDS ORDERED: NIACIN 500 MG TABLET PO SCH (17:00)
--- NOTE | 2019-02-01 18:10 | STRESS TEST ---
DATE OF SERVICE: 02/01/2019 EXERCISE MYOVIEW STRESS TEST REPORT REFERRING PHYSICIAN: Molly Howell DO. Baseline heart rate is 52. Baseline blood pressure is 140/90. Baseline EKG is sinus rhythm with no ischemic changes. In summary, the patient was injected with 10.35 mCi of technetium-99 Myoview and the resting images were obtained. Then, the patient started exercising with a baseline heart rate, blood pressure and EKG mentioned above. During exercise, he had frequent PVCs. He was able to exercise for a total of 9 minutes and 44 seconds on standard Logan protocol. With peak exercise level, frequent PVCs were noted. Nonspecific T-wave abnormality was noted. During recovery, heart rate and blood pressure returned to baseline. EKG returned to baseline. The resting and stress images were reviewed and compared in the short axis, horizontal long axis, and vertical long axis views. Review of the images showed diaphragmatic attenuation with decreased uptake involving the mid to apical inferior wall with mild reversibility. SSS is 1, SDS 1, TID value 0.95. On the gated images, the left ventricle appeared to be normal size with normal contractility. Calculated ejection fraction is 52%. CONCLUSION: 1. Fair exercise tolerance, a total of 9 minutes on standard Logan protocol, total of 11.3 METs achieving 80% of maximum expected heart rate. 2. Exercise-inducing frequent PVCs, improved during recovery. 3. Nondiagnostic EKG changes with exercise returned to baseline during recovery. 4. Diaphragmatic attenuation with mild ischemia at the inferior wall. 5. Normal left ventricular size with normal contractility. Calculated ejection fraction is 52%. Job ID: [id number] DocumentID: [id number] Dictated Date: 02/01/2019 15:40:57 Networks Computer Consultant Date: 02/01/2019 18:10:15 Dictated By: LINA PARIS MD
[2019-02-01] MEDS: ROSUVASTATIN 10 MG (CRESTOR) TABLET PO SCH (21:23)
[2019-02-01] MEDS: OMEGA 3 (FISH OIL) 1000 MG CAP PO SCH (21:23)
[2019-02-02 04:09] LABS: HEMOGLOBIN 14.6 G/DL (13.3-17.7); MEAN PLATELET VOLUME 9.1 FL (7.4-10.4); RED CELL DISTRIBUTION WIDTH 13.8 % (10.0-14.5); WHITE BLOOD COUNT 7.4 10^3/uL (4.3-11.0)
[2019-02-02 04:32] LABS: BUN/CREATININE RATIO 13; CALCIUM 8.2 MG/DL (8.5-10.1); CARBON DIOXIDE 23 MMOL/L (21-32); CHLORIDE 109 MMOL/L (98-107); CREATININE SERUM 0.92 MG/DL (0.60-1.30); GFR ESTIMATED > 60; GLUCOSE 102 MG/DL (70-105); POTASSIUM 3.7 MMOL/L (3.6-5.0); SODIUM 140 MMOL/L (135-145)
[2019-02-02] MEDS: PANTOPRAZOLE 20 MG TABLET (PROTONIX) PO SCH (05:35)
[2019-02-02 05:51] VITALS: BP 116/88
--- NOTE | 2019-02-02 07:49 | Cardiology Progress Note ---
Subjective Date Seen by Provider: Feb 02, 2019 Time Seen by Provider: 07:46 Subjective/Events-last exam patient is feeling better, no new complaint, denied any chest pain, groin is healing well Review of Systems General: No Chills, No Night Sweats, No Fatigue, No Malaise, No Appetite, No O ther HEENT: No Head Aches, No Visual Changes, No Eye Pain, No Ear Pain, No Dys phasia, No Sinus Congestion, No Post Nasal Drip, No Sore Throat, No Other Pulmonary: No Dyspnea, No Cough, No Pleuritic Chest Pain, No Other Cardiovascular: No: Chest Pain, Palpitations, Orthopnea, Paroxysmal Noc. Dyspnea, Edema, Lt Headedness, Other Objective-Cardiology Exam Last Set of Vital Signs Vital Signs 02/02/19 05:51 Temp 98.6 Pulse 69 Resp 12 B/P (MAP) 116/88 (97) Pulse Ox 96 O2 Delivery Room Air Capillary Refill : Less Than 3 SecondsLess Than 3 Seconds I&O Intake and Output 02/02/19 00:00 Intake Total 3040 ml Output Total 2254 ml Balance 786 ml Intake Oral 1040 ml IV Total 2000 ml Output Urine Total 2254 ml General: Alert, Oriented X3, Cooperative HEENT: Atraumatic, PERRLA Neck: Supple, No JVD, No Thyromegaly Lungs: Clear to Auscultation, Normal Air Movement Heart: Regular Rate, Normal S1, Normal S2, Other (systolic murmur at the left sternal border) Abdomen: Normal Bowel Sounds, Soft, No Tenderness, No Hepatosplenomegaly, No Masses Extremities: No Clubbing, No Cyanosis, No Edema, Normal Pulses, No Tendernes s/Swelling Skin: No Rashes, No Breakdown, No Significant Lesion Neuro: Normal Gait, Normal Speech, Strength at 5/5 X4 Ext, Normal Tone, Sensation Intact Psych/Mental Status: Mental Status NL, Mood NL Results Lab Laboratory Tests 02/02/19 03:25 A/P-Cardiology Admission Diagnosis Unstable angina Coronary artery disease Hypertension Hyperlipidemia (1) Unstable angina Status: Acute (2) Status post placement of stent in right coronary artery Status: Chronic (3) Hx of coronary artery disease Status: Chronic (4) Anxiety Status: Chronic (5) Hypertension Qualifiers: Qualified Codes: I10 - Essential (primary) hypertension Status: Chronic (6) Hypercholesteremia Status: Chronic (7) Hx of CABG Status: Chronic (8) Tachy-frank syndrome Status: Chronic (9) Episodic atrial fibrillation Status: Chronic Assessment/Plan Chest pain, unstable angina, abnormal stress test, status post cardiac catheterization with PTCA for in-stent restenosis to the right coronary artery Coronary artery disease, multiple intervention. Had 2 stents in the LAD cipher 2.5x8 proximally 2.5x28 Mid. Then had balloon angioplasty for in-stent restenosis, had another stent placed in the LAD by Dr. Blake in 2011. Report of that procedure is not available. In addition patient had a stent to the diagonal artery using Promus to 2.25 X 12 mm. And a stent in the right coronary artery Promus 3.0x18 mm. Recent cardiac catheterization done July 10, 2015 revealing moderate to severe in-stent restenosis in the distal LAD with lesion extending beyond the stent. Successful primary stenting using 2.25 x 12 mm Promus drug-eluting stent deployed distally balloon angioplasty for the in-stent restenosis. Underwent another cardiac catheterization due to recurrent chest pain in June 2016 which showed patent stents in the LAD, diagonal artery and right coronary artery with ilyl-yn-rtrlrvuz disease, small vessel disease, medical therapy is recommended. Underwent cardiac catheterization on June 26, 2017 after having mildly elevated troponin revealing 60-70 percent stenosis in the mid LAD artery past the distal edge of the distal stent in the LAD. Mid LAD did not exhibit significant in-stent restenosis. Left circumflex had 40 percent stenosis in the first obtuse marginal. RCA had long 75 percent stenosis. Underwent successful stenting using Alpine Xience 3.5 x 38 mm stent with good results. Distal RCA stent was patent. Another cath done on July 09, 2017 with reported stent placement to the LAD by Dr. Freed's group. Unfortunately I do not have that Report available to me Patient underwent CABG done at [facility] in [place] in January 2018, I will try to obtain that report. Most recent cardiac catheterization done April 2018 revealed occluded vein graft to the right coronary artery with severe stenosis at the distal right coronary artery at the anastomosis point with that vein graft, the proximal stent in the right coronary artery is patent, successful balloon angioplasty then stent deployment using Mary Beth 2.515 mm expanded to 2.77 mm with excellent results, good flow distally. Occluded stent in the mid LAD with patent BURDEN to LAD and vein graft to diagonal artery with good flow distally. Mild to moderate disease at the proximal circumflex artery with patent vein graft to the obtuse marginal branch. Slightly prominent left ventricle with mild diffuse left ventricular hypokinesia more pronounced at the inferior wall with estimated ejection fraction 40 percent. repeat cardiac catheterization had the followin. Subtotal occlusion of the [place] right coronary artery distally, successful balloon angioplasty using emerge 2.5 x 20 mm expanded to 2.75 under 15 jolene with good results. Patent stent in the midright coronary artery, known to have occluded vein graft to the right coronary artery. 2. Occluded LAD with patent BURDEN to LAD and patent vein graft to the diagonal artery, there is slow flow in the vein graft to the diagonal artery due to moderate stenosis at the anastomosis point. 3. Occluded first obtuse marginal branch and patent vein graft to OMB with good flow distally. Mild bradycardia, occasional PVCs and ventricular bigeminy, unable to tolerate beta blockers, currently still bradycardic. Continue to monitor. Hypertension, controlled. Continue to monitor blood pressure/heart rate. Hyperlipidemia, intolerance to simvastatin and lipitor with leg cramps, tolerating Crestor and Praluent, continue to monitor Lower extremity cramps and pain, venous study was normal, LEELEE was normal, most probably the pain is secondary to statin. Patient reports improvement, tolerating Crestor well at this time. Continue to monitor. History of intolerance to isosorbide causing headache Nonobstructive carotid artery stenosis per carotid duplex done June 2017. Continue to monitor. Diagnosis/Problems Diagnosis/Problems (1) Unstable angina Status: Acute (2) Status post placement of stent in right coronary artery Status: Chronic (3) Hx of coronary artery disease Status: Chronic (4) Anxiety Status: Chronic (5) Hypertension Status: Chronic Qualifiers: Qualified Codes: I10 - Essential (primary) hypertension (6) Hypercholesteremia Status: Chronic (7) Hx of CABG Status: Chronic (8) Tachy-frank syndrome Status: Chronic (9) Episodic atrial fibrillation Status: Chronic Clinical Quality Measures AMI/AHF: ASA po Prior to arrival: Yes DVT/VTE Risk/Contraindication: Risk Factor Score Per Nursin RFS Level Per Nursing on Admit: 4+=Very High LINA PARIS MD Feb 02, 2019 07:49
--- NOTE | 2019-02-02 07:50 | Discharge Inst-Post CATH ---
Discharge Inst-CATH/EP Post Cardiac Cath/EP D/C Inst Follow Up/Plan Appointment with Dr. PARIS's office in 2-4 weeks <b>CARDIAC CATH/EP PROCEDURE DISCHARGE INSTRUCTIONS</b> Cardiac Rehab Please be expecting a follow up call from Cardiac Rehab within in one week. ACTIVITY * Go Home directly and rest. * Limit activity of the leg (or wrist if it was used) for 7 days including aerobics, swimming, jogging, bicycling, etc. * Restrict stair-climbing for 7 days if possible, if not, climb up with your non-cath leg, then bring together on the same step. * Avoid lifting, pushing, pulling or excessive movement of the affected extremity for 7 days. * Customary sexual activity may be resumed after 2 days-use caution not to use a position that strains or causes pain to the affected extremity. * No driving for 24 hours. * NO SMOKING. * Avoid straining for bowel movements for 7 days. * Gentle walking on level ground is allowed. * Returning to work will depend on the type of procedure and the results. Your doctor will discuss this with you. CALL YOUR DOCTOR FOR ANY OF THE FOLLOWING: *If bleeding from the puncture site occurs- Apply gentle pressure to site with clean cloth and call your doctor or EMS. * If a knot or lump forms under the skin, increases in size, or causes pain. * If bruising appears to be worsening or moving further down your leg instead of disappearing. * Temperature above 101 F. CARE OF YOUR GROIN INCISION; * Bruising or purple discoloration of the skin near the puncture site is common. * You may shower only, no bathtub bathing for 5 days. Be careful to avoid slipping as your leg may feel stiff. * If a closure device was used on your femoral artery, please see the attached guide regarding care of the device and your leg. * Leave dressing on FOR 24 hours. CARE OF YOUR WRIST INCISION; * Bruising or purple discoloration of the skin near the puncture site is common. * You may shower. * DO NOT submerge wrist. * Leave dressing on FOR 24 hours. LINA PARIS MD Feb 02, 2019 07:50
--- NOTE | 2019-02-02 09:00 | NUR ---
Pt wishes to take his morning medication at home
--- NOTE | 2019-02-02 09:03 | Discharge Summary-Hospitalist ---
Diagnosis/Chief Complaint Date of Admission Jan 31, 2019 at 11:38 Date of Discharge Discharge Date: Feb 02, 2019 Admission Diagnosis Assessment: Unstable angina Severe CAD previous CABG Tachy-frank syndrome s/p loop records placement HTN HLP Anxiety Chronic back pain Plan: EST Cath Dr Walton appreciated Discharge Diagnosis (1) Unstable angina Status: Acute (2) Status post placement of stent in right coronary artery Status: Chronic (3) Hx of coronary artery disease Status: Chronic (4) Anxiety Status: Chronic (5) Hypertension Status: Chronic (6) Hypercholesteremia Status: Chronic (7) Hx of CABG Status: Chronic (8) Tachy-frank syndrome Status: Chronic (9) Episodic atrial fibrillation Status: Chronic Discharge Summary Discharge Physical Exam Allergies: Coded Allergies: No Known Drug Allergies (Unverified , 03/28/10) Vitals & I&Os Vital Signs Date Time Temp Pulse Resp B/P (MAP) Pulse Ox O2 Delivery O2 Flow Rate FiO2 02/02/19 09:00 69 26 94 Room Air 02/02/19 08:00 98.2 02/02/19 05:51 116/88 (97) General Appearance: No Apparent Distress, WD/WN Respiratory: Chest Non Tender, Lungs Clear, Normal Breath Sounds, No Accessory Muscle Use, No Respiratory Distress Cardiovascular: Regular Rate, Rhythm, No Edema, No Gallop, No JVD, No Murmur, Normal Peripheral Pulses Hospital Course Was the Problem List Reviewed?: Yes Hospital course: patient had an uncomplicated hospital course after he was admitted and underwent a stress test which was abnormal. Patient underwent catheterization and required placement of stent. Patient remained stable and will have NTG tabs sent into pharmacy and will have close f/u with me next week. Labs (last 24 hrs) Laboratory Tests 02/02/19 03:25: White Blood Count 7.4, Red Blood Count 4.95, Hemoglobin 14.6, Hematocrit 44, Mean Corpuscular Volume 89, Mean Corpuscular Hemoglobin 30, Mean Corpuscular Hemoglobin Concent 33, Red Cell Distribution Width 13.8, Platelet Count 207, Mean Platelet Volume 9.1, Sodium Level 140, Potassium Level 3.7, Chloride Level 109H, Carbon Dioxide Level 23, Anion Gap 8, Blood Urea Nitrogen 12, Creatinine 0.92, Estimat Glomerular Filtration Rate > 60, BUN/Creatinine Ratio 13, Glucose Level 102, Calcium Level 8.2L Patient resulted labs reviewed. Pending Labs Discussion & Recommendations Discharge Planning: <30 minutes discharge planning Discharge Home Medications: Active Scripts Active Reported Tums (Calcium Carbonate) 300 Mg Tab.chew 300 Mg PO TID PRN Rosuvastatin Calcium 10 Mg Tablet 10 Mg PO HS Lisinopril 2.5 Mg Tablet 2.5 Mg PO DAILY Clopidogrel (Clopidogrel Bisulfate) 75 Mg Tablet 75 Mg PO DAILY Praluent Pen (Alirocumab) 75 Mg/1 Ml Pen.injctr 75 Mg SC EVERY 2 WEEKS Alprazolam 0.5 Mg Tablet 0.5 Mg PO TID PRN Aspirin EC (Aspirin) 81 Mg Tablet.dr 81 Mg PO HS Niacin (Niacinamide) 500 Mg Tablet 500 Mg PO DAILY Fish Oil 1,000 mg Capsule (Alexis 3 Polyunsat Fatty Acids) 1,000 Mg Cap 1,000 Mg PO HS Tylenol Extra Strength (Acetaminophen) 500 Mg Tablet 500-1,000 Mg PO Q6H PRN Zolpidem Tartrate 10 Mg Tablet 10 Mg PO HS PRN Pantoprazole Sodium 20 Mg Tablet.dr 20 Mg PO DAILY Tylenol Pm Ex-Strength Caplet (Acetaminophen/Diphenhydramine) 1 Each Tablet 2 Tab PO HS PRN Instructions to patient/family Please see electronic discharge instructions given to patient. Clinical Quality Measures AMI/AHF: ASA po Prior to arrival: Yes DVT/VTE Risk/Contraindication: Risk Factor Score Per Nursin RFS Level Per Nursing on Admit: 4+=Very High Problem Qualifiers (1) Hypertension: Hypertension type: essential hypertension Qualified Codes: I10 - Essential (primary) hypertension LEAH MONCADA DO Feb 02, 2019 09:03
== END 2019-02-02 09:43 | disposition home or self-care (01) ==
LOC: EDUNIT# 10:26 → ER 10:28 → ICU 11:38
PROVIDERS: ADMIT Internal Medicine; ATTEND Internal Medicine
DX: I25.110 Atherosclerotic heart disease of native coronary artery with unstable angina pectoris (principal); Z95.1 Presence of aortocoronary bypass graft; Z95.5 Presence of coronary angioplasty implant and graft; F41.9 Anxiety disorder, unspecified; I10 Essential (primary) hypertension; E78.00 Pure hypercholesterolemia, unspecified; I49.5 Sick sinus syndrome; I48.2 Chronic atrial fibrillation; I65.29 Occlusion and stenosis of unspecified carotid artery; Z79.82 Long term (current) use of aspirin; Z79.899 Other long term (current) drug therapy; I25.2 Old myocardial infarction; G43.909 Migraine, unspecified, not intractable, without status migrainosus; K21.9 Gastro-esophageal reflux disease without esophagitis; E78.5 Hyperlipidemia, unspecified
CPT/HCPCS: 36415; 71045; 78452; 80048; 80053; 80061; 83735; 83874; 84484; 85025; 85027; 85347; 85379; 85610; 85730; 93005; 93017; 93041; 93459; G0378

== ENCOUNTER 2019-05-26 09:55 | Emergency (ER) | payer BC ==
[~2019-05-26] VITALS: Ht 187 cm; Wt 92.7 kg
[~2019-05-26 09:55] MED LIST changes: +ALIR75PE SC; +CALC300T4 PO; +LISI2.5T PO; +ROSU10TA28 PO; -ROSU5TAB12 PO; +ROSU5TAB13 PO
--- NOTE | 2019-05-26 10:30 | ED Lower Extremity ---
General Chief Complaint: Lower Extremity Stated Complaint: LEFT LEG CRAMP Source: patient Exam Limitations: no limitations History of Present Illness Date Seen by Provider: May 26, 2019 Time Seen by Provider: 10:09 Initial Comments The patient presents to ER by private conveyance with chief complaint of having some cramping pain in the upper left calf since this morning. Is progressively getting worse when he walks on that. No history of injury. No history of i mmobilization. No tachycardia not on beta blockers. Not on blood thinners. He takes aspirin and Plavix. Follow-up with Dr. Walton status post CABG. He was told to come the ER be checked out for possible blood clot. He has no personal history of blood clots or familial history. No clotting disorders. He took some Aleve for this morning with minimal relief. He has oxycodone available home if he needs it. He rates as about a 6 out of 10. Allergies and Home Medications Allergies Coded Allergies: No Known Drug Allergies (Unverified , 03/28/10) Home Medications Acetaminophen 500 Mg Tablet, 500-1,000 MG PO Q6H PRN for PAIN-MILD, (Reported) Acetaminophen/Diphenhydramine 1 Each Tablet, 2 TAB PO HS PRN for SLEEP, (Reported) Alirocumab 75 Mg/1 Ml Pen.injctr, 75 MG SC EVERY 2 WEEKS, (Reported) Alprazolam 0.5 Mg Tablet, 0.5 MG PO TID PRN for ANXIETY, (Reported) Aspirin 81 Mg Tablet.dr, 81 MG PO HS, (Reported) Calcium Carbonate 300 Mg Tab.chew, 300 MG PO TID PRN for HEARTBURN, (Reported) Clopidogrel Bisulfate 75 Mg Tablet, 75 MG PO DAILY, (Reported) Lisinopril 2.5 Mg Tablet, 2.5 MG PO DAILY, (Reported) Niacinamide 500 Mg Tablet, 500 MG PO DAILY, (Reported) [place] 3 Polyunsat Fatty Acids 1,000 Mg Cap, 1,000 MG PO HS, (Reported) Pantoprazole Sodium 20 Mg Tablet.dr, 20 MG PO DAILY, (Reported) Rosuvastatin Calcium 10 Mg Tablet, 10 MG PO HS, (Reported) Zolpidem Tartrate 10 Mg Tablet, 10 MG PO HS PRN for SLEEP, (Reported) Patient Home Medication List Home Medication List Reviewed: Yes Review of Systems Constitutional: No chills, No diaphoresis EENTM: No hearing loss, No ear pain Respiratory: No cough, No dyspnea on exertion Cardiovascular: No chest pain, No edema Past Nrdfyfk-Dzmane-Ehrinj Hx Patient Social History Alcohol Use: Denies Use Recreational Drug Use: No Smoking Status: Never a Smoker 2nd Hand Smoke Exposure: No Recent Hopitalizations: No Immunizations Up To Date Date of Pneumonia Vaccine: May 03, 2017 Date of Influenza Vaccine: Jun 23, 2017 Seasonal Allergies Seasonal Allergies: Yes Past Medical History Surgeries: Yes Adenoidectomy, Cardiac, CABG, Coronary Stent, Tonsillectomy Respiratory: No Currently Using CPAP: No Currently Using BIPAP: No Cardiac: Yes Coronary Artery Disease, Heart Attack, Syncope 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) Headaches /Migraines Reproductive Disorders: No Sexually Transmitted Disease: No HIV/AIDS: No Genitourinary: No Gastrointestinal: Yes Gastroesophageal Reflux Musculoskeletal: Yes Degenerate Disk Disease, Chronic Back Pain Endocrine: No HEENT: No (T&A) Tonsilitis Loss of Vision: Denies Hearing Impairment: Denies Cancer: No Psychosocial: Yes Anxiety Integumentary: Yes (Cold sores) Herpes Blood Disorders: No Adverse Reaction/Blood Tranf: No Family Medical History Family history: Diabetes mellitus G8 BROTHER Myocardial infarction 19 FATHER Heart Disease, CAD Under 55 Years Old, Diabetes Physical Exam Vital Signs Vital Signs - First Documented 05/26/19 10:15 Temp 36.3 Pulse 68 Resp 18 B/P (MAP) 137/88 (104) Pulse Ox 95 Capillary Refill : Height, Weight, BMI Height: 6'2.00" Weight: 204lbs. 0.4oz. [id number]; 26.2 BMI Method:Stated General Appearance: WD/WN, no apparent distress Cardiovascular: regular rate, rhythm, no edema, other (. Left posterior tibial pulse dopplerable) Respiratory: no respiratory distress, no accessory muscle use Gastrointestinal: non tender, soft Legs: bilateral leg normal inspection, bilateral leg normal range of motion, bilateral leg no evidence of injury; left leg soft tissue tenderness (upper calf with positive Homans sign) Ankles: bilateral ankle non-tender, bilateral ankle normal inspection, bilateral ankle normal range of motion, bilateral ankle no evidence of injury Neurologic/Psychiatric: no motor/sensory deficits, alert, normal mood/affect Progress/Results/Core Measures Results/Orders My Orders Orders - BARBARA NEW Us Venous Lower Ext Lt (05/26/19 10:24) Vital Signs/I&O 05/26/19 10:15 Temp 36.3 Pulse 68 Resp 18 B/P (MAP) 137/88 (104) Pulse Ox 95 Progress Progress Note : Time: 10:29 Progress Note Arterial insufficiency more likely. We'll do a Doppler venous ultrasound and if negative they can follow up outpatient for arterial workup with merchandise clerk. Offered pain medicine and he declined. Diagnostic Imaging Diagonstic Imaging: Ultrasound Plain Films/CT/US/NM/MRI: leg (venous left leg) Comments NAME: JOSE TORRES MED REC#: [id number] PT STATUS: REG ER : 1955 PHYSICIAN: BARBARA NEW MD ADMIT DATE: 05/26/19/ER Signed Date of Exam:05/26/19 US VENOUS LOWER EXT LT PROCEDURE: US left lower extremity venous. TECHNIQUE: Multiple real-time grayscale images were obtained over the left lower extremity in various projections. Additional duplex Doppler and color Doppler images were also obtained. INDICATION: Left calf pain. Comparison: Non available. Findings: The left common femoral, femoral and popliteal veins are patent by color doppler imaging and without DVT. Visualized proximal aspects of the greater saphenous, deep femoral, posterior tibial and peroneal veins are also patent. All of the evaluated deep venous structures demonstrate normal compressibility and waveform augmentation where applicable. Impression: No left lower extremity deep venous thrombosis (DVT). Dictated by: Dictated on workstation # [id number] Dict: 05/26/19 1206 Trans: 05/26/197 [facility] [id number] Interpreted by: LEOPOLDO DUCKWORTH MD Electronically signed by: LEOPOLDO DUCKWORTH MD 05/26/197 Reviewed: Reviewed by Me Departure Impression Primary Impression: Left leg pain Disposition: 01 HOME, SELF-CARE Condition: Stable Departure-Patient Inst. Decision time for Depature: 12:22 Referrals: ELAH MONCADA DO (PCP/Family) Primary Care Physician LINA WALTON MD Patient Instructions: Peripheral Artery Disease and Claudication Add. Discharge Instructions: I suspect you've may be having a cramping in your leg due to arterial insuff iciency. Your primary care doctor or merchandise clerk office either one can do testing to rule this in or out over the next week. All discharge instructions reviewed with patient and/or family. Voiced understanding. Work/School Note: Work Release Form Date Seen in the Emergency Department: May 26, 2019 Return to Work: May 27, 2019 Restrictions: No Restrictions Copy Copies To 1: LINA WALTON MD, TITUS J May 26, 2019 10:30
--- NOTE | 2019-05-26 12:08 | Diagnostic Imaging Report ---
PROCEDURE: US left lower extremity venous. TECHNIQUE: Multiple real-time grayscale images were obtained over the left lower extremity in various projections. Additional duplex Doppler and color Doppler images were also obtained. INDICATION: Left calf pain. Comparison: Non available. Findings: The left common femoral, femoral and popliteal veins are patent by color doppler imaging and without DVT. Visualized proximal aspects of the greater saphenous, deep femoral, posterior tibial and peroneal veins are also patent. All of the evaluated deep venous structures demonstrate normal compressibility and waveform augmentation where applicable. Impression: No left lower extremity deep venous thrombosis (DVT). Dictated by: Dictated on workstation # [id number]
[2019-05-26 12:45] VITALS: BP 121/90
== END 2019-05-26 12:45 | disposition home or self-care (01) ==
LOC: EDUNIT# 09:55 → ER 09:56
DX: M79.605 Pain in left leg (principal); I25.2 Old myocardial infarction; I25.10 Atherosclerotic heart disease of native coronary artery without angina pectoris; G43.909 Migraine, unspecified, not intractable, without status migrainosus; K21.9 Gastro-esophageal reflux disease without esophagitis; F41.9 Anxiety disorder, unspecified; Z79.82 Long term (current) use of aspirin; Z79.02 Long term (current) use of antithrombotics/antiplatelets; Z90.89 Acquired absence of other organs; Z95.5 Presence of coronary angioplasty implant and graft; Z95.1 Presence of aortocoronary bypass graft; Z82.49 Family history of ischemic heart disease and other diseases of the circulatory system

== ENCOUNTER 2019-07-26 15:51 | Day surgery (SDC) | payer BC ==
[~2019-07-26] VITALS: Ht 188 cm; Wt 89.9 kg
[~2019-07-26 15:51] MED LIST changes: -ACET-2469 PO; +ACET-2715 PO; -METO-370 PO; -METO-387 PO; -METO-395 PO; +METO50TA7 PO; +MTP100TCR PO; +MTP25TSR PO
[2019-07-26] MEDS ORDERED: ASPIRIN 81 MG CHEW (CHILDREN'S ASA) PO ONE (16:00)
[2019-07-26] MEDS ORDERED: NITROGLYCERIN 0.4 MG SL TABS BTL 25'S SL PRN (16:00)
--- NOTE | 2019-07-26 16:04 | ED Chest Pain ---
General Stated Complaint: CP SOA Source: patient Exam Limitations: no limitations History of Present Illness Date Seen by Provider: Jul 26, 2019 Time Seen by Provider: 16:02 Initial Comments To ER with reports of pain/pressure in the center of his chest for 2-3 days, shortness of breath for 2 days. This began at rest, history of four-vessel CABG in [place] 1.5 years ago. He has since had a bypass artery stented open here by Dr. Walton. Timing/Duration: changing over time Severity/Quality: pressure Location: central Radiation: no radiation Activities at Onset: none ASA po OCCUPATIONAL THERAPY CO DIRECTOR: No NTG SL OCCUPATIONAL THERAPY CO DIRECTOR: No Allergies and Home Medications Allergies Coded Allergies: No Known Drug Allergies (Unverified , 03/28/10) Home Medications Acetaminophen 500 Mg Tablet, 500-1,000 MG PO Q6H PRN for PAIN-MILD, (Reported) Acetaminophen/Diphenhydramine 1 Each Tablet, 2 TAB PO HS PRN for SLEEP, (Reported) Alirocumab 75 Mg/1 Ml Pen.injctr, 75 MG SC EVERY 2 WEEKS, (Reported) Alprazolam 0.5 Mg Tablet, 0.5 MG PO TID PRN for ANXIETY, (Reported) Aspirin 81 Mg Tablet.dr, 81 MG PO HS, (Reported) Calcium Carbonate 300 Mg Tab.chew, 300 MG PO TID PRN for HEARTBURN, (Reported) Clopidogrel Bisulfate 75 Mg Tablet, 75 MG PO DAILY, (Reported) Lisinopril 2.5 Mg Tablet, 2.5 MG PO DAILY, (Reported) Niacinamide 500 Mg Tablet, 500 MG PO DAILY, (Reported) [place] 3 Polyunsat Fatty Acids 1,000 Mg Cap, 1,000 MG PO HS, (Reported) Pantoprazole Sodium 20 Mg Tablet.dr, 20 MG PO DAILY, (Reported) Rosuvastatin Calcium 10 Mg Tablet, 10 MG PO HS, (Reported) Zolpidem Tartrate 10 Mg Tablet, 10 MG PO HS PRN for SLEEP, (Reported) Patient Home Medication List Home Medication List Reviewed: Yes Review of Systems Review of Systems Constitutional: see HPI EENTM: No Symptoms Reported Respiratory: No Symptoms Reported Cardiovascular: See HPI, Chest Pain Gastrointestinal: No Symptoms Reported Genitourinary: No Symptoms Reported Musculoskeletal: no symptoms reported Skin: no symptoms reported Psychiatric/Neurological: No Symptoms Reported Endocrine: No Symptoms Reported Hematologic/Lymphatic: No Symptoms Reported Past Dhzxgbi-Riwvwg-Dwtnhh Hx Patient Social History 2nd Hand Smoke Exposure: No Recent Foreign Travel: No Contact w/Someone Who Travel: No Recent Hopitalizations: No Immunizations Up To Date Date of Pneumonia Vaccine: May 03, 2017 Date of Influenza Vaccine: Jun 23, 2017 Seasonal Allergies Seasonal Allergies: Yes Past Medical History Surgeries: Yes Adenoidectomy, Cardiac, CABG, Coronary Stent, Tonsillectomy Respiratory: No Currently Using CPAP: No Currently Using BIPAP: No Cardiac: Yes Coronary Artery Disease, Heart Attack, Syncope 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) Headaches /Migraines Reproductive Disorders: No Sexually Transmitted Disease: No HIV/AIDS: No Genitourinary: No Gastrointestinal: Yes Gastroesophageal Reflux Musculoskeletal: Yes Degenerate Disk Disease, Chronic Back Pain Endocrine: No HEENT: No (T&A) Tonsilitis Loss of Vision: Denies Hearing Impairment: Denies Cancer: No Psychosocial: Yes Anxiety Integumentary: Yes (Cold sores) Herpes Blood Disorders: No Adverse Reaction/Blood Tranf: No Family Medical History Family history: Diabetes mellitus G8 BROTHER Myocardial infarction 19 FATHER Heart Disease, CAD Under 55 Years Old, Diabetes Physical Exam Vital Signs Vital Signs - First Documented 07/26/19 15:51 Pulse 70 Resp 18 B/P (MAP) 114/78 (90) Pulse Ox 95 O2 Delivery Room Air Capillary Refill : Height, Weight, BMI Height: 6'2.00" Weight: 204lbs. 0.4oz. 92.986220av; 26.00 BMI Method:Stated General Appearance: No Apparent Distress, WD/WN Neck: Full Range of Motion, Normal Inspection Respiratory: Lungs Clear, Normal Breath Sounds, No Accessory Muscle Use, No Respiratory Distress Cardiovascular: Regular Rate, Rhythm, Normal Peripheral Pulses Gastrointestinal: Non Tender, Soft Extremity: Normal Capillary Refill, Normal Inspection Neurologic/Psychiatric: Alert, Oriented x3 Skin: Normal Color, Warm/Dry Progress/Results/Core Measures Results/Orders Lab Results Laboratory Tests Test 07/26/19 16:12 Range/Units White Blood Count 8.5 4.3-11.0 10^3/uL Red Blood Count 5.14 4.35-5.85 10^6/uL Hemoglobin 15.4 13.3-17.7 G/DL Hematocrit 46 40-54 % Mean Corpuscular Volume 89 80-99 FL Mean Corpuscular Hemoglobin 30 25-34 PG Mean Corpuscular Hemoglobin Concent 34 32-36 G/DL Red Cell Distribution Width 13.9 10.0-14.5 % Platelet Count 246 130-400 10^3/uL Mean Platelet Volume 8.9 7.4-10.4 FL Neutrophils (%) (Auto) 69 42-75 % Lymphocytes (%) (Auto) 18 12-44 % Monocytes (%) (Auto) 11 0-12 % Eosinophils (%) (Auto) 2 0-10 % Basophils (%) (Auto) 0 0-10 % Neutrophils # (Auto) 5.9 1.8-7.8 X 10^3 Lymphocytes # (Auto) 1.5 1.0-4.0 X 10^3 Monocytes # (Auto) 0.9 0.0-1.0 X 10^3 Eosinophils # (Auto) 0.2 0.0-0.3 10^3/uL Basophils # (Auto) 0.0 0.0-0.1 10^3/uL Prothrombin Time 15.4 H 12.2-14.7 SEC INR Comment 1.2 0.8-1.4 Activated Partial Thromboplast Time 32 24-35 SEC Sodium Level 141 135-145 MMOL/L Potassium Level 3.4 L 3.6-5.0 MMOL/L Chloride Level 108 H 98-107 MMOL/L Carbon Dioxide Level 24 21-32 MMOL/L Anion Gap 9 5-14 MMOL/L Blood Urea Nitrogen 13 7-18 MG/DL Creatinine 1.15 0.60-1.30 MG/DL Estimat Glomerular Filtration Rate > 60 BUN/Creatinine Ratio 11 Glucose Level 116 H 70-105 MG/DL Calcium Level 8.7 8.5-10.1 MG/DL Corrected Calcium 8.8 8.5-10.1 MG/DL Magnesium Level 2.0 1.6-2.4 MG/DL Total Bilirubin 0.5 0.1-1.0 MG/DL Aspartate Amino Transf (AST/SGOT) 13 5-34 U/L Alanine Aminotransferase (ALT/SGPT) 12 0-55 U/L Alkaline Phosphatase 76 40-136 U/L Myoglobin 30.2 10.0-92.0 NG/ML Troponin I < 0.028 <0.028 NG/ML Total Protein 6.4 6.4-8.2 GM/DL Albumin 3.9 3.2-4.5 GM/DL My Orders Orders - JEWELSABRAHAN DIRECTOR CHILD ABUSE THERAPY Cbc With Automated Diff (07/26/19 15:54) Magnesium (07/26/19 15:54) Chest 1 View, Ap/Pa Only (07/26/19 15:54) Ekg Tracing (07/26/19 15:54) Comprehensive Metabolic Panel (07/26/19 15:54) Myoglobin Serum (07/26/19 15:54) Protime With Inr (07/26/19 15:54) Partial Thromboplastin Time (07/26/19 15:54) O2 (07/26/19 15:54) Monitor-Rhythm Ecg Trace Only (07/26/19 15:54) Lipid Panel (07/27/19 06:00) Ed Iv/Invasive Line Start (07/26/19 15:54) Troponin I (07/26/19 15:54) Nitroglycerin 0.4 Mg Btl 25's (Nitrostat (07/26/19 16:00) Aspirin Chewable Tablet (Baby Aspirin Ch (07/26/19 16:00) Medications Given in ED Current Medications Medications Dose Ordered Sig/Facundo Route Start Time Stop Time Status Last Admin Dose Admin Aspirin 324 mg ONCE ONCE PO 07/26/19 16:00 07/26/19 16:01 DC 07/26/19 16:09 324 MG Nitroglycerin 0.4 mg UD PRN SL 07/26/19 16:00 07/26/19 16:10 0.4 MG Vital Signs/I&O 07/26/19 15:51 Pulse 70 Resp 18 B/P (MAP) 114/78 (90) Pulse Ox 95 O2 Delivery Room Air Departure Communication (Admissions) Time/Spoke to Consulting Phy: 17:[address] Walton, we'll admit, observation, repeat troponin . Discussed with Dr. Howell, agrees with this plan. 1600-EKG done shows no ST segment changes, Dr. Walton is present in the emergency room and has evaluated the EKG, but will reevaluate patient and plan after labs return. Impression Primary Impression: Chest discomfort Additional Impression: Coronary artery disease Qualified Codes: I25.10 - Atherosclerotic heart disease of [place] coronary artery without angina pectoris Disposition: ADMITTED INPATIENT Condition: Stable Admissions Decision to Admit Reason: Admit from ER (General) Decision to Admit/Date: Jul 26, 2019 Time/Decision to Admit Time: 17:06 Departure-Patient Inst. Referrals: LEAH HOWELL DO (PCP/Family) Primary Care Physician ABRAHAN DONIS APRN Jul 26, 2019 16:04 POS
[2019-07-26 16:18] LABS: BASOPHILS % (AUTO) 0 % (0-10); EOSINOPHILS # (AUTO) 0.2 10^3/uL (0.0-0.3); EOSINOPHILS % (AUTO) 2 % (0-10); HEMATOCRIT 46 % (40-54); HEMOGLOBIN 15.4 G/DL (13.3-17.7); LYMPHOCYTES # (AUTO) 1.5 X 10^3 (1.0-4.0); LYMPHOCYTES % (AUTO) 18 % (12-44); MEAN CORPUSCULAR HEMOGLOBIN 30 PG (25-34); MEAN CORPUSCULAR HGB CONC 34 G/DL (32-36); MEAN CORPUSCULAR VOLUME 89 FL (80-99); MEAN PLATELET VOLUME 8.9 FL (7.4-10.4); MONOCYTES # (AUTO) 0.9 X 10^3 (0.0-1.0); MONOCYTES % (AUTO) 11 % (0-12); NEUTROPHILS # (AUTO) 5.9 X 10^3 (1.8-7.8); NEUTROPHILS % (AUTO) 69 % (42-75); PLATELET COUNT 246 10^3/uL (130-400); RED CELL DISTRIBUTION WIDTH 13.9 % (10.0-14.5); WHITE BLOOD COUNT 8.5 10^3/uL (4.3-11.0)
--- NOTE | 2019-07-26 16:23 | NUR ---
PATIENT REPORTS THAT PAIN AND PRESSURE GONE AFTER 1ST NITRO.
[2019-07-26 16:30] LABS: INR 1.2 (0.8-1.4); PROTHROMBIN TIME PATIENT 15.4 SEC (12.2-14.7)
[2019-07-26 16:39] LABS: ALANINE AMINOTRANSFERASE 12 U/L (0-55); ALBUMIN 3.9 GM/DL (3.2-4.5); ALKALINE PHOSPHATASE 76 U/L (40-136); BILIRUBIN,TOTAL 0.5 MG/DL (0.1-1.0); BUN/CREATININE RATIO 11; CALCIUM 8.7 MG/DL (8.5-10.1); CARBON DIOXIDE 24 MMOL/L (21-32); CHLORIDE 108 MMOL/L (98-107); CREATININE SERUM 1.15 MG/DL (0.60-1.30); GFR ESTIMATED > 60; GLUCOSE 116 MG/DL (70-105); POTASSIUM 3.4 MMOL/L (3.6-5.0); SODIUM 141 MMOL/L (135-145); TOTAL PROTEIN 6.4 GM/DL (6.4-8.2)
--- NOTE | 2019-07-26 17:49 | Consultation-Cardiology ---
HPI-Cardiology Cardiology Consultation Date of Consultation 07/26/19 Date of Admission Time Seen by Provider: 17:47 Indication: chest pain HPI 64 years old gentleman with history of coronary artery disease, multiple intervention in the past, started to have chest pain, described it as dull in nature in the retrosternal area. No palpitation. No syncope or near syncopal episodes, came into the emergency room, was still having active chest pain, no acute EKG changes, pain responded to sublingual nitroglycerin. He is currently feeling better. Home Medications & Allergies Allergies: Coded Allergies: No Known Drug Allergies (Unverified , 03/28/10) Home Medication List Reviewed: Yes SYR-Ohmjce-Ssjpkl Hx Patient Social History Marital Status: Employed/Student: employed Alcohol Use: Denies Use Recreational Drug Use: No Smoking Status: Never a Smoker 2nd Hand Smoke Exposure: No Recent Foreign Travel: No Recent Infectious Disease Expo: No Recent Hopitalizations: No Immunizations Up To Date Date of Pneumonia Vaccine: May 03, 2017 Date of Influenza Vaccine: Jun 23, 2017 Past Medical History Discussed below Family Medical History Significant Family History: Heart Disease, CAD Under 55 Years Old, Diabetes Family History: Family history: Diabetes mellitus G8 BROTHER Myocardial infarction 19 FATHER Review of Systems-General Review of Systems Constitutional: see HPI EENTM: see HPI, no symptoms reported Respiratory: no symptoms reported, see HPI Cardiovascular: see HPI, chest pain, palpitations Gastrointestinal: no symptoms reported, see HPI Genitourinary: no symptoms reported, see HPI Musculoskeletal: no symptoms reported, see HPI Skin: no symptoms reported, see HPI Psychiatric/Neurological: No Symptoms Reported, See HPI Reviewed Test Results Reviewed Test Results Lab Laboratory Tests Test 07/26/19 16:12 Range/Units White Blood Count 8.5 4.3-11.0 10^3/uL Red Blood Count 5.14 4.35-5.85 10^6/uL Hemoglobin 15.4 13.3-17.7 G/DL Hematocrit 46 40-54 % Mean Corpuscular Volume 89 80-99 FL Mean Corpuscular Hemoglobin 30 25-34 PG Mean Corpuscular Hemoglobin Concent 34 32-36 G/DL Red Cell Distribution Width 13.9 10.0-14.5 % Platelet Count 246 130-400 10^3/uL Mean Platelet Volume 8.9 7.4-10.4 FL Neutrophils (%) (Auto) 69 42-75 % Lymphocytes (%) (Auto) 18 12-44 % Monocytes (%) (Auto) 11 0-12 % Eosinophils (%) (Auto) 2 0-10 % Basophils (%) (Auto) 0 0-10 % Neutrophils # (Auto) 5.9 1.8-7.8 X 10^3 Lymphocytes # (Auto) 1.5 1.0-4.0 X 10^3 Monocytes # (Auto) 0.9 0.0-1.0 X 10^3 Eosinophils # (Auto) 0.2 0.0-0.3 10^3/uL Basophils # (Auto) 0.0 0.0-0.1 10^3/uL Prothrombin Time 15.4 H 12.2-14.7 SEC INR Comment 1.2 0.8-1.4 Activated Partial Thromboplast Time 32 24-35 SEC Sodium Level 141 135-145 MMOL/L Potassium Level 3.4 L 3.6-5.0 MMOL/L Chloride Level 108 H 98-107 MMOL/L Carbon Dioxide Level 24 21-32 MMOL/L Anion Gap 9 5-14 MMOL/L Blood Urea Nitrogen 13 7-18 MG/DL Creatinine 1.15 0.60-1.30 MG/DL Estimat Glomerular Filtration Rate > 60 BUN/Creatinine Ratio 11 Glucose Level 116 H 70-105 MG/DL Calcium Level 8.7 8.5-10.1 MG/DL Corrected Calcium 8.8 8.5-10.1 MG/DL Magnesium Level 2.0 1.6-2.4 MG/DL Total Bilirubin 0.5 0.1-1.0 MG/DL Aspartate Amino Transf (AST/SGOT) 13 5-34 U/L Alanine Aminotransferase (ALT/SGPT) 12 0-55 U/L Alkaline Phosphatase 76 40-136 U/L Myoglobin 30.2 10.0-92.0 NG/ML Troponin I < 0.028 <0.028 NG/ML Total Protein 6.4 6.4-8.2 GM/DL Albumin 3.9 3.2-4.5 GM/DL Physical Exam Physical Exam Vital Signs Vital Signs - First Documented 07/26/19 15:51 Pulse 70 Resp 18 B/P (MAP) 114/78 (90) Pulse Ox 95 O2 Delivery Room Air Capillary Refill : Less Than 3 Seconds Height, Weight, BMI Height: 6'2.00" Weight: 204lbs. 0.4oz. 92.766083hp; 25.00 BMI Method:Stated General Appearance: No Apparent Distress, WD/WN Eyes: Bilateral Eye Normal Inspection, Bilateral Eye PERRL, Bilateral Eye EOMI HEENT: PERRL/EOMI, TMs Normal, Normal ENT Inspection, Pharynx Normal, Moist Mucous Membranes Neck: Full Range of Motion, Normal Inspection Respiratory: Lungs Clear, Normal Breath Sounds, No Accessory Muscle Use, No Respiratory Distress Cardiovascular: Regular Rate, Rhythm, Normal Peripheral Pulses Gastrointestinal: Non Tender, Soft Back: Normal Inspection, No CVA Tenderness, No Vertebral Tenderness Extremity: Normal Capillary Refill, Normal Inspection Neurologic/Psychiatric: Alert, Oriented x3 Skin: Normal Color, Warm/Dry Lymphatic: No Adenopathy A/P-Cardiology Admission Diagnosis Chest pain Coronary artery disease Hypertension Hyperlipidemia Assessment/Plan Chest pain nonspecific etiology, resulting in angina, will admit and monitor on telemetry, monitor cardiac enzymes. EKG did not show any acute changes. Coronary artery disease, multiple intervention. Had 2 stents in the LAD cipher 2.5x8 proximally 2.5x28 Mid. Then had balloon angioplasty for in-stent restenosis, had another stent placed in the LAD by Dr. Blake in 2011. Report of that procedure is not available. In addition patient had a stent to the diagonal artery using Promus to 2.25 X 12 mm. And a stent in the right coronary artery Promus 3.0x18 mm. Recent cardiac catheterization done July 10, 2015 revealing moderate to severe in-stent restenosis in the distal LAD with lesion extending beyond the stent. Successful primary stenting using 2.25 x 12 mm Promus drug-eluting stent deployed distally balloon angioplasty for the in-stent restenosis. Underwent another cardiac catheterization due to recurrent chest pain in June 2016 which showed patent stents in the LAD, diagonal artery and right coronary artery with [id number] disease, small vessel disease, medical therapy is recommended. Underwent cardiac catheterization on June 26, 2017 after having mildly elevated troponin revealing 60-70 percent stenosis in the mid LAD artery past the distal edge of the distal stent in the LAD. Mid LAD did not exhibit significant in-stent restenosis. Left circumflex had 40 percent stenosis in the first obtuse marginal. RCA had long 75 percent stenosis. Underwent successful stenting using Cleverbugine Xience 3.5 x 38 mm stent with good results. Distal RCA stent was patent. Another cath done on July 09, 2017 with reported stent placement to the LAD by Dr. Freed's group. Unfortunately I do not have that Report available to me at this time. Patient u vilma CABG in January 2018 done at [facility] in [place]. Cardiac catheterization done April 2018 revealed occluded vein graft to the right coronary artery with severe stenosis at the distal right coronary artery at the anastomosis point with that vein graft, the proximal stent in the right coronary artery is patent, successful balloon angioplasty then stent deployment using Mary Beth 2.515 mm expanded to 2.77 mm with excellent results, good flow distally. Occluded stent in the mid LAD with patent BUREDN to LAD and vein graft to diagonal artery with good flow distally. Mild to moderate disease at the proximal circumflex artery with patent vein graft to the obtuse marginal branch. Slightly prominent left ventricle with mild diffuse left ventricular hypokinesia more pronounced at the inferior wall with estimated ejection fraction 40 percent. Had cardiac catheterization in January 2019 with balloon angioplasty for the right coronary artery using emerge 2.5 x 20 mm with good results, had patent BURDEN to LAD and patent vein graft to the diagonal artery with moderate stenosis at the anastomosis point, occluded first obtuse marginal branch and patent vein graft to the marginal branch with good flow distally Mild bradycardia, occasional PVCs and ventricular bigeminy, unable to tolerate higher dose of beta blockers, continue to monitor Hypertension, controlled. Continue to monitor blood pressure/heart rate. Hyperlipidemia, intolerance to simvastatin and Lipitor with leg cramps, tolerating Crestor, continue to monitor Lower extremity cramps and pain, venous study was normal, LEELEE was normal in 2017, most probably the pain is secondary to statin. tolerating Crestor well at this time. Continue to monitor. History of intolerance to isosorbide causing headache Nonobstructive carotid artery stenosis per carotid duplex done June 2017, I will evaluate carotid ultrasound Clinical Quality Measures AMI/AHF: ASA po Prior to arrival: LINA Grady MD Jul 26, 2019 17:49 POS
--- NOTE | 2019-07-26 17:57 | NUR ---
NURSE TO CALL BACK WITH REPORT.
--- NOTE | 2019-07-26 18:04 | NUR ---
NURSE TO CALL BACK FOR REPORT.
--- NOTE | 2019-07-26 18:30 | Diagnostic Imaging Report ---
INDICATION: Chest pain. EXAMINATION: Portable chest at 6:20 p.m. FINDINGS: The patient has a loop recorder projecting over the left lower chest. There are coronary stents visible. There are postop changes from median sternotomy. Heart size and pulmonary vascularity are normal. Lungs are clear. There are no effusions or pneumothoraces. IMPRESSION: No acute abnormalities in the chest. Dictated by: Dictated on workstation # [id number]
[2019-07-26] MEDS ORDERED: morphine INJ 4 MG/ML 1 ML (VIAL/SYRINGE) IV PRN (19:15)
[2019-07-26] MEDS ORDERED: ONDANSETRON 4 MG/2 ML (SDV) Z0FRAN IV PRN (19:15)
[2019-07-26 20:00] VITALS: BP 134/81
[2019-07-26] MEDS: NS IV 1000 ML 1,000 ML IV SCH (22:26)
[2019-07-27] VITALS (12 sets, daily range): BP systolic 116–132; BP diastolic 68–80
[2019-07-27] MEDS: NS IV 1000 ML 1,000 ML IV SCH ×8 (00:40→20:38)
[2019-07-27 04:15] LABS: BASOPHILS % (AUTO) 0 % (0-10); EOSINOPHILS # (AUTO) 0.2 10^3/uL (0.0-0.3); EOSINOPHILS % (AUTO) 2 % (0-10); HEMATOCRIT 46 % (40-54); HEMOGLOBIN 15.2 G/DL (13.3-17.7); LYMPHOCYTES # (AUTO) 1.5 X 10^3 (1.0-4.0); LYMPHOCYTES % (AUTO) 17 % (12-44); MEAN CORPUSCULAR HEMOGLOBIN 30 PG (25-34); MEAN CORPUSCULAR HGB CONC 33 G/DL (32-36); MEAN CORPUSCULAR VOLUME 90 FL (80-99); MEAN PLATELET VOLUME 9.1 FL (7.4-10.4); MONOCYTES % (AUTO) 11 % (0-12); NEUTROPHILS % (AUTO) 70 % (42-75); PLATELET COUNT 226 10^3/uL (130-400); RED CELL DISTRIBUTION WIDTH 13.7 % (10.0-14.5); WHITE BLOOD COUNT 8.6 10^3/uL (4.3-11.0)
[2019-07-27 04:26] LABS: ALANINE AMINOTRANSFERASE 17 U/L (0-55); ALBUMIN 3.8 GM/DL (3.2-4.5); ALKALINE PHOSPHATASE 73 U/L (40-136); BILIRUBIN,TOTAL 0.6 MG/DL (0.1-1.0); BUN/CREATININE RATIO 13; CALCIUM 8.5 MG/DL (8.5-10.1); CARBON DIOXIDE 22 MMOL/L (21-32); CHLORIDE 108 MMOL/L (98-107); CHOLESTEROL 69 MG/DL (< 200); CREATININE SERUM 1.02 MG/DL (0.60-1.30); GFR ESTIMATED > 60; GLUCOSE 102 MG/DL (70-105); HDL CHOLESTEROL 34 MG/DL (40-60); POTASSIUM 3.8 MMOL/L (3.6-5.0); SODIUM 141 MMOL/L (135-145); TOTAL PROTEIN 6.2 GM/DL (6.4-8.2); TRIGLYCERIDES 77 MG/DL (<150); VLDL CHOLESTEROL 15 MG/DL (5-40)
[2019-07-27] MEDS: NITROGLYCERIN 0.4 MG SL TABS BTL 25'S SL PRN ×2 (05:01→10:22)
--- NOTE | 2019-07-27 08:48 | Cardiology Progress Note ---
Subjective Date Seen by Provider: Jul 27, 2019 Time Seen by Provider: 08:46 Subjective/Events-last exam Patient is sitting in a chair, had another episode of chest pain responded to nitroglycerin, very anxious about his condition Review of Systems General: No Chills, No Night Sweats; Fatigue; No Malaise, No Appetite, No Other HEENT: No Head Aches, No Visual Changes, No Eye Pain, No Ear Pain, No Dysphasia, No Sinus Congestion, No Post Nasal Drip, No Sore Throat, No Other Pulmonary: Dyspnea; No Cough, No Pleuritic Chest Pain, No Other Cardiovascular: Chest Pain; No: Palpitations, Orthopnea, Paroxysmal Noc. Dyspnea, Edema, Lt Headedness, Other Objective-Cardiology Exam Last Set of Vital Signs Vital Signs 07/27/19 08:00 Temp 36.4 Pulse 66 Resp 18 B/P (MAP) 119/79 (92) Pulse Ox 93 O2 Delivery Room Air Capillary Refill : Less Than 3 Seconds I&O Intake and Output 07/27/19 00:00 Intake Total 450 ml Output Total 300 ml Balance 150 ml Intake Oral 450 ml Output Urine Total 300 ml General: Alert, Oriented X3, Cooperative HEENT: Atraumatic, PERRLA Neck: Supple, No JVD, No Thyromegaly Lungs: Clear to Auscultation, Normal Air Movement Heart: Regular Rate, Normal S1, Normal S2, No Murmurs Abdomen: Normal Bowel Sounds, Soft, No Tenderness, No Hepatosplenomegaly, No Masses Extremities: No Clubbing, No Cyanosis, No Edema, Normal Pulses, No Tenderness/Swelling Skin: No Rashes, No Breakdown, No Significant Lesion Neuro: Normal Gait, Normal Speech, Strength at 5/5 X4 Ext, Normal Tone, Sensation Intact Psych/Mental Status: Mental Status NL, Mood NL Results Lab Laboratory Tests 07/26/19 16:12 07/27/19 03:35 A/P-Cardiology Admission Diagnosis Chest pain Coronary artery disease Hypertension Hyperlipidemia Assessment/Plan Chest pain nonspecific etiology, unstable angina, having more frequent episodes more than his baseline, has history of chronic stable angina, had extensive history, stress test is always abnormal, patient is very concerned about his chest pain especially with his recurrent and extensive coronary artery disease, I am planning to proceed with repeat cardiac catheterization possible PTCA Coronary artery disease, multiple intervention. Had 2 stents in the LAD cipher 2.5x8 proximally 2.5x28 Mid. Then had balloon angioplasty for in-stent restenosis, had another stent placed in the LAD by Dr. Blake in 2011. Report of that procedure is not available. In addition patient had a stent to the diagonal artery using Promus to 2.25 X 12 mm. And a stent in the right coronary artery Promus 3.0x18 mm. Recent cardiac catheterization done July 10, 2015 revealing moderate to severe in-stent restenosis in the distal LAD with lesion extending beyond the stent. Successful primary stenting using 2.25 x 12 mm Promus drug-eluting stent deployed distally balloon angioplasty for the in-stent restenosis. Underwent another cardiac catheterization due to recurrent chest pain in June 2016 which showed patent stents in the LAD, diagonal artery and right coronary artery with [id number] disease, small vessel disease, medical therapy is recommended. Underwent cardiac catheterization on June 26, 2017 after having mildly elevated troponin revealing 60-70 percent stenosis in the mid LAD artery past the distal edge of the distal stent in the LAD. Mid LAD did not exhibit significant in-stent restenosis. Left circumflex had 40 percent stenosis in the first obtuse marginal. RCA had long 75 percent stenosis. Underwent successful stenting using Alpine Xience 3.5 x 38 mm stent with good results. Distal RCA stent was patent. Another cath done on July 09, 2017 with reported stent placement to the LAD by Dr. Freed's group. Unfortunately I do not have that Report available to me at this time. Patient underwent CABG in January 2018 done at [facility] in [place]. Cardiac catheterization done April 2018 revealed occluded vein graft to the right coronary artery with severe stenosis at the distal right coronary artery at the anastomosis point with that vein graft, the proximal stent in the right coronary artery is patent, successful balloon angioplasty then stent deployment using Mary Beth 2.515 mm expanded to 2.77 mm with excellent results, good flow distally. Occluded stent in the mid LAD with patent BURDEN to LAD and vein graft to diagonal artery with good flow distally. Mild to moderate disease at the proximal circumflex artery with patent vein graft to the obtuse marginal branch. Slightly prominent left ventricle with mild diffuse left ventricular hypokinesia more pronounced at the inferior wall with estimated ejection fraction 40 percent. Had cardiac catheterization in April 2018 with stent to the distal right coronary artery with Mary Beth with good results, repeat cardiac catheter in January 2019 with balloon angioplasty for the right coronary artery using emerge 2.5 x 20 mm with good results, had patent BURDEN to LAD and patent vein graft to the diagonal artery with moderate stenosis at the anastomosis point, occluded first obtuse marginal branch and patent vein graft to the marginal branch with good flow distally Mild bradycardia, occasional PVCs and ventricular bigeminy, unable to tolerate higher dose of beta blockers, continue to monitor Hypertension, controlled. Continue to monitor blood pressure/heart rate. Hyperlipidemia, intolerance to simvastatin and Lipitor with leg cramps, tolerating Crestor, continue to monitor Lower extremity cramps and pain, venous study was normal, LEELEE was normal in 2017, most probably the pain is secondary to statin. tolerating Crestor well at this time. Continue to monitor. History of intolerance to isosorbide causing headache Nonobstructive carotid artery stenosis per carotid duplex done June 2017, I will evaluate carotid ultrasound Clinical Quality Measures AMI/AHF: ASA po Prior to arrival: No DVT/VTE Risk/Contraindication: Risk Factor Score Per Nursin RFS Level Per Nursing on Admit: 3=High LINA PARIS MD Jul 27, 2019 08:48 POS
--- NOTE | 2019-07-27 08:49 | Cardiac Procedure Note-CS/ASA ---
Pre-Procedure Note Pre-Op Procedure Note H&P Reviewed The H&P was reviewed, patient examined and no changes noted. Date H&P Reviewed: Jul 27, 2019 Time H&P Reviewed: 08:48 Conscious Sedation Pre-Proced Time 08:48 ASA Score 3 For ASA 3 and 4: Consider anesthesia and medical clearance. Also, for patients with a history of failed moderate sedation consider anesthesia. Airway Lungs Heart ASA score ASA 1: a normal healthy patient ASA 2: a patient with a mild systemic disease (mid diabetes, controlled hypertension, obesity x ASA 3: a patient with a severe systemic disease that limits activity (angina, COPD, prior Myocardial infarction) ASA 4: a patient with an incapacitating disease that is a constant threat to life (CHF, renal failure) ASA 5: a moribund patient not expected to survive 24 hrs. (ruptured aneurysm) ASA 6: a declared brain- patient whose organs are being harvested. For emergent operations, add the letter E after the classification Mallampati Classification Grade 3 Sedation Plan Analgesia, Amnesia, Plan communicated to team members, Discussed options with patient/fam, Discussed risks with patient/fam The patient is an appropriate candidate to undergo the planned procedure, sedation, and anesthesia. The patient immediately re-assessed prior to indication. LINA PARIS MD Jul 27, 2019 08:49 POS
[2019-07-27] MEDS ORDERED: FLU QUADRIvalent (5+ YOA) 2019-2020 (AFLURIA) 0.5 ML IM ONE (09:00)
--- NOTE | 2019-07-27 10:08 | History & Physical-Hospitalist ---
ZAID PULLIAM [facility] 07/27/19 1008: History of Present Illness HPI/Chief Complaint cc: SOA and Chest Pain HPI: 64 yo male presented to the ER with shortness of air and retrosternal chest pain that started 2-3 days ago. Patient denies any strenuous activity. Patient also had a similar experience last night with pain radiating to his throat. Both episodes were relieved with nitroglycerin. Patient stated that he did have shortness of air. Also states he has palpitations that is not abnormal, and a cough that is due to his lisinopril. EKG show sinus rhythm with rate of 62. Tropinin I was not elevated. X-ray showed no acute abnormalities Past medical history is significant for four-vessel CABG 1.5 years ago and a stent placed 6 months ago. Source: patient Exam Limitations: no limitations Date Seen 07/27/19 Time Seen by a Provider: 07:50 Attending Physician Molly Moncada DO PCP Molly Moncada DO Referring Physician Date of Admission Jul 26, 2019 at 17:02 Home Medications & Allergies Home Medications Reviewed patient Home Medication Reconciliation performed by pharmacy medication reconciliations operations and maintenance technician and/or nursing. Patients Allergies have been reviewed. Allergies Allergies Coded Allergies No Known Drug Allergies (Unverified03/28/10) Past Ktxaqrh-Srvamr-Lmzlpx Hx Patient Social History Marrital Status: Employed/Student: employed Alcohol Use: Denies Use Recreational Drug Use: No Smoking Status: Never a Smoker 2nd Hand Smoke Exposure: No Recent Foreign Travel: Yes Contact w/other who traveled: Yes Recent Hopitalizations: No Recent Infectious Disease Expo: No Immunizations Up To Date Date of Pneumonia Vaccine: Sep 26, 2018 Date of Influenza Vaccine: Jun 23, 2017 Seasonal Allergies Seasonal Allergies: Yes Past Medical History Surgeries: Adenoidectomy, Cardiac, CABG, Coronary Stent, Tonsillectomy Currently Using CPAP: No Currently Using BIPAP: No Cardiac: Coronary Artery Disease, Heart Attack, Syncope Neurological: Headaches /Migraines Reproductive: No Sexually Transmitted Disease: No HIV/AIDS: No Gastrointestinal: Gastroesophageal Reflux Musculoskeletal: Degenerate Disk Disease, Chronic Back Pain HEENT: Tonsilitis Loss of Vision: Denies Hearing Impairment: Denies Psychosocial: Anxiety Skin/Integumentary: Herpes History of Blood Disorders: No Adverse Reaction to Blood Quinones: No Family History Family history: Diabetes mellitus G8 BROTHER Myocardial infarction 19 FATHER Heart Disease, CAD Under 55 Years Old, Diabetes Review of Systems Constitutional: No chills, No fever EENTM: No ear pain, No eye pain Respiratory: cough (Lisinopril), short of breath Cardiovascular: chest pain, Hx of Intervention, palpitations Gastrointestinal: No abdominal pain, No nausea, No vomiting Genitourinary: no symptoms reported Physical Exam Physical Exam Vital Signs Vital Signs - First Documented 07/26/19 15:51 Pulse 70 Resp 18 B/P (MAP) 114/78 (90) Pulse Ox 95 O2 Delivery Room Air Capillary Refill : Less Than 3 Seconds Height, Weight, BMI Height: 6'2.00" Weight: 204lbs. 0.4oz. [id number]; 25.71 BMI Method:Stated General Appearance: No Apparent Distress, WD/WN Neck: Full Range of Motion, Normal Inspection, Non Tender, Supple Respiratory: Chest Non Tender, Lungs Clear, Normal Breath Sounds, No Accessory Muscle Use, No Respiratory Distress Cardiovascular: Regular Rate, Rhythm, No JVD, No Murmur, Normal Peripheral Pulses (2/4 radial pulse bilaterally), Other (Minimal Edema in legs) Gastrointestinal: No Distended Extremity: Non Tender, No Calf Tenderness, No Pedal Edema Neurologic/Psychiatric: Alert, Oriented x3, Normal Mood/Affect Skin: Normal Color, Warm/Dry Results Results/Procedures Labs Laboratory Tests 07/26/19 16:12 07/27/19 03:35 Patient resulted labs reviewed. Imaging: Reviewed Imaging Films, Reviewed Imaging Report Assessment/Plan Admission Diagnosis Chest pain, Shortness of Air History of CABG and stent Family history of CAD Admission Status: Inpatient Order (span 2 midnights) Reason for Inpatient Admission: Chest Pain, Shortness of Air, History of CABG Scheduled for labor specialist at 1600 Assessment and Plan Chest pain, Shortness of Air History of CABG and stent Family history of CAD Prinzmetal Angina bundle tier and labeler to look for ischemia and stent placement SYmptom control with Nitroglycerin. Clinical Quality Measures AMI/AHF: ASA po Prior to arrival: No DVT/VTE Risk/Contraindication: Risk Factor Score Per Nursin RFS Level Per Nursing on Admit: 3=High MOLLY MONCADA DO 07/27/19 9091: History of Present Illness HPI/Chief Complaint Chief complaint: Unstable angina HPI: This is a 64yoWM clinic Pt of mine for many years with a PMH of extensive CAD, history of multiple stents in the past and bypass surgery two years ago with paroxysmal A-FIB, maintained on Eliquis and Multaq, who presented to the ER after 10:00, started feeling bad at work, took Nitroglycerin, and still did not feel well and found to have symptoms consistent with unstable angina. He will undergo a cardiac catheterization today at [address] Walton. Past Dflehac-Yniecb-Rwrnlj Hx Past Med/Social Hx: Reviewed Nursing Past Med/Soc Hx, Reviewed and Corrections made Patient Social History Marrital Status: Employed/Student: employed ([employer]) Alcohol Use: Denies Use Recreational Drug Use: No Smoking Status: Never a Smoker Family History Family history: Diabetes mellitus G8 BROTHER Myocardial infarction 19 FATHER Review of Systems Constitutional: see HPI Cardiovascular: chest pain Physical Exam Physical Exam General Appearance: No Apparent Distress, WD/WN, Chronically ill Eyes: Right Eye Normal Inspection, Right Eye PERRL HEENT: PERRL/EOMI, TMs Normal, Normal ENT Inspection, Pharynx Normal, Moist Mucous Membranes Neck: Full Range of Motion, Normal Inspection, Non Tender Respiratory: Chest Non Tender, Lungs Clear, Normal Breath Sounds, No Accessory Muscle Use, No Respiratory Distress Cardiovascular: Regular Rate, Rhythm, No Edema, No Gallop, No JVD, No Murmur, Normal Peripheral Pulses Gastrointestinal: Normal Bowel Sounds, No Organomegaly, No Pulsatile Mass, Non Tender, Soft Back: Normal Inspection, No CVA Tenderness, No Vertebral Tenderness Extremity: Normal Capillary Refill, Normal Inspection, Normal Range of Motion, Non Tender, No Calf Tenderness, No Pedal Edema Neurologic/Psychiatric: Alert, Oriented x3, No Motor/Sensory Deficits, Normal Mood/Affect Skin: Normal Color, Warm/Dry Lymphatic: No Adenopathy Assessment/Plan Admission Diagnosis Assessment: Unstable angina Known CAD PAF OAC HTN HLP Plan: Monitor CP Cath Admission Status: Inpatient Order (span 2 midnights) Reason for Inpatient Admission: Severe CAD requiring intervention Diagnosis/Problems Diagnosis/Problems (1) Chest discomfort Status: Resolved (2) Coronary artery disease Status: Chronic Qualifiers: Coronary Disease-Associated Artery/Lesion type: unspecified vessel or lesion type [place] vs. transplanted heart: unspecified whether [place] or transplanted heart Associated angina: angina presence unspecified Qualified Codes: I25.10 - Atherosclerotic heart disease of [place] coronary artery without angina pectoris (3) Episodic atrial fibrillation Status: Chronic (4) Hx of coronary artery disease Status: Chronic (5) Hypertension Status: Chronic (6) Hypercholesteremia Status: Chronic (7) Anxiety Status: Chronic (8) Unstable angina Status: Acute (9) Degenerative joint disease (DJD) of lumbar spine Status: Chronic (10) Hx of CABG Status: Chronic (11) Status post placement of stent in right coronary artery Status: Chronic Supervisory-Addendum Brief Verification & Attestation Participated in pt care: history, MDM, physical Personally performed: exam, history, MDM, supervision of care Care discussed with: Medical Student Procedures: n/a Results interpretation: Verified all documentation Verification and Attestation of Medical Student E/M Service A medical student performed and documented this service in my presence. I reviewed and verified all information documented by the medical student and made modifications to such information, when appropriate. I personally performed the physical exam and medical decision making. Molly Moncada, Jul 27, 2019,21:50 ZAID PULL[facility] Jul 27, 2019 10:08 MOLLY GASTELUM DO Jul 27, 2019 21:51 POS
[2019-07-27] MEDS ORDERED: APIX5TAB PO (10:54)
[2019-07-27] MEDS ORDERED: DRON400T2 PO (10:54)
[2019-07-27] MEDS ORDERED: NITR0.4T42 SL (10:54)
--- NOTE | 2019-07-27 10:59 | NUR ---
SPOKE WITH THE PATIENT ABOUT HIS MEDICATIONS. HE HAD A DETAILED LIST. I COMPARED THE LIST WITH THE EXT MED HX. HE TAKES TYLENOL PM AT HS AND TYLENOL EXTRA STRENGTH NEEDED OTC. HE STATES HE HAS XANAX ON HAND BUT RARELY TAKES IT, ACCORDING TO [facility] HE LAST FILLED XANAX 0.5MG #90 FOR 30 DAYS 7--18. HE HAS PERCOCET AND ASPIRIN ON HIS MED LIST BUT STATES HE IS NO LONGER TAKING EITHER ONE OF THEM.
[2019-07-27] MEDS ORDERED: HEParin 1000 UNIT/ML (10ML VIAL) FOR BOLUS ONE ×2 (14:58→15:50)
[2019-07-27] MEDS ORDERED: LIDOCAINE 1% INJ 20 ML 20 ML VIAL ONE (14:58)
[2019-07-27] MEDS ORDERED: NS IV 1000 ML 3,000 ML ONE (14:59)
[2019-07-27] MEDS ORDERED: MIDAZOLAM 5 MG/5 ML (VERSED) VIAL ONE (15:11)
[2019-07-27] MEDS ORDERED: fentaNYL INJECTION 100 MCG/2 ML AMP ONE (15:11)
[2019-07-27] MEDS ORDERED: NITRO DRIP 25000 MCG/D5W 250 ML IV ONE (15:50)
[2019-07-27] MEDS ORDERED: ASPIRIN 325 MG (5 GR) TABLET ONE (16:19)
[2019-07-27] MEDS ORDERED: CLOPIDOGREL 300 MG (PLAVIX) TABLET PO ONE (16:20)
--- NOTE | 2019-07-27 16:27 | Cardiac Cath Report ---
Cardiac Cath Report Physician (s)/Analysis Evaluator (s) Physician LINA PARIS MD Pre-Procedure Diagnosis Pre-Procedure Diagnosis: Coronary artery disease, unstable angina Post-Procedure Note Procedure Start Date: Jul 27, 2019 Name of Procedure: Left heart catheterization Left ventriculogram Vein graft angiogram Stent to the right coronary artery Findings/Procedure Note PROCEDURE NOTE: 64 years old gentleman with history of coronary artery disease, multiple intervention in the past, CABG in the past, had balloon angioplasty for in-stent restenosis in the distal right coronary artery done in January 2019, has been doing well until yesterday when he started having increasing chest pain. Admitted for unstable angina. After explaining the procedure to the patient, all pros and cons were explained, all questions were answered. The patient signed the consent and then he was placed on the cardiac catheterization laboratory. Groin was prepped SL fashion local anesthesia was used. Sheath placed in the artery. Shantanu right and left catheter were used to access the coronary system. Pigtail was used to access the left ventricular cavity. Left ventriculogram was done, JR catheter was used to access the vein graft and vein graft angiogram was done, I did not evaluate the BURDEN due to the fact that patient had good competitive flow through the LAD Patient was given 6000 units of heparin, FL guide was used and a BMW wire was advanced to the distal right coronary artery, had severe instent restenosis, I did balloon angioplasty using 2.5 x 20 mm balloon then deployed Mary Beth 2.5 x 15 mm expanded to 2.83 mm with excellent results. At the end of the procedure the sheath was removed. Closure device was used FINDINGS: Hemodynamics LV 126/14, end-diastolic pressure 14 Aorta 127/77 mean of 89 ANATOMY: Left Main has moderate disease Left Anterior Descending has patent stent in the midportion then followed by total occlusion of the LAD there is competitive flow through the BURDEN in the distal LAD, patent vein graft to diagonal artery Left Circumflex has moderate severe stenosis, patent vein graft to the obtuse marginal branch Right Coronory Artery is known to have occluded vein graft to the right coronary artery, there is patent stent proximally, severe instent restenosis in the distal right coronary artery I proceeded with balloon angioplasty then deployed a new stent using Mary Beth 2.5 x 15 mm expanded to 2.83 mm with excellent results LV Gram was done showing normal left ventricular size and systolic pressure estimated ejection fraction 60 percent CONCLUSION: 1. Severe in-stent restenosis in the distal right coronary artery successful balloon angioplasty and deployment of a new stent Mary Beth 2.5 x 15 mm expanded to 2.83 mm under 16 jolene with excellent results 2. Patent stent in the proximal right coronary artery, mild to moderate disease at the midright coronary artery, known occluded vein graft to the right 3. Occluded mid LAD with competitive flow in the distal LAD from the BURDEN, patent vein graft to diagonal branch 4. Patent vein graft to the obtuse marginal branch 5. Normal LV size and function with estimated ejection fraction 60 percent DISCUSSION AND RECOMMENDATION: Patient was bolused with aspirin and Plavix, continue on aspirin and Plavix and Eliquis for now. Anesthesia Type: Conscious Sedation Estimated blood loss (mL): 25 ml Contrast Amount: 105 ml Total Radiation Dose: 1079 mGy Post-Procedure Diagnosis Post-operative diagnosis: Unstable angina Coronary artery disease Hypertension Hyperlipidemia LINA PARIS MD Jul 27, 2019 16:27 POS
[2019-07-27] MEDS ORDERED: NON-FORMULARY MEDICATION 1 EA EA (Zolpidem Tartrate 10 MG) PO PRN (16:30)
[2019-07-27] MEDS ORDERED: PATIENT MAY USE OWN MEDS, ALL PO SCH (16:30)
[2019-07-27] MEDS ORDERED: NITROGLYCERIN 0.4 MG SL TABS BTL 25'S SL PRN (16:30)
[2019-07-27] MEDS ORDERED: ZOLPIDEM 5 MG (AMBIEN) TAB PO PRN (17:45)
[2019-07-27] MEDS ORDERED: APIXABAN 5 MG (ELIQUIS) TABLET PO SCH (21:00)
[2019-07-27] MEDS ORDERED: ROSUVASTATIN 10 MG (CRESTOR) TABLET PO SCH (21:00)
[2019-07-27] MEDS ORDERED: NON-FORMULARY MEDICATION 1 EA EA (Lisinopril 2.5 MG) PO SCH (21:00)
[2019-07-27] MEDS ORDERED: DRONEDARONE TABLET 400 MG TABLET PO SCH (21:00)
[2019-07-27] MEDS ORDERED: lisINopril 5 MG (PRINIVIL) TABLET PO SCH (21:00)
[2019-07-28] VITALS: BP 113/73
[2019-07-28] MEDS: NS IV 1000 ML 1,000 ML IV SCH ×4 (00:24→03:07)
[2019-07-28 04:00] VITALS: BP 120/77
[2019-07-28 04:39] LABS: HEMOGLOBIN 14.2 G/DL (13.3-17.7); MEAN PLATELET VOLUME 9.2 FL (7.4-10.4); RED CELL DISTRIBUTION WIDTH 13.7 % (10.0-14.5); WHITE BLOOD COUNT 7.4 10^3/uL (4.3-11.0)
[2019-07-28 04:57] LABS: BUN/CREATININE RATIO 13; CARBON DIOXIDE 23 MMOL/L (21-32); CHLORIDE 108 MMOL/L (98-107); CREATININE SERUM 0.89 MG/DL (0.60-1.30); GFR ESTIMATED > 60; GLUCOSE 102 MG/DL (70-105); SODIUM 140 MMOL/L (135-145)
[2019-07-28 08:00] VITALS: BP 116/77
[2019-07-28] MEDS ORDERED: ASPI-983 PO (08:25)
--- NOTE | 2019-07-28 08:26 | Discharge Inst-Post CATH ---
Discharge Inst-CATH/EP Problems Reviewed?: Yes Post Cardiac Cath/EP D/C Inst Follow Up/Plan Appointment with Dr. Walton's office in one to 2 weeks <b>CARDIAC CATH/EP PROCEDURE DISCHARGE INSTRUCTIONS</b> ACTIVITY * Go Home directly and rest. * Limit activity of the leg (or wrist if it was used) for 7 days including aerobics, swimming, jogging, bicycling, etc. * Restrict stair-climbing for 7 days if possible, if not, climb up with your non-cath leg, then bring together on the same step. * Avoid lifting, pushing, pulling or excessive movement of the affected extremity for 7 days. * Customary sexual activity may be resumed after 2 days-use caution not to use a position that strains or causes pain to the affected extremity. * No driving for 24 hours. * NO SMOKING. * Avoid straining for bowel movements for 7 days. * Gentle walking on level ground is allowed. * Returning to work will depend on the type of procedure and the results. Your doctor will discuss this with you. CALL YOUR DOCTOR FOR ANY OF THE FOLLOWING: *If bleeding from the puncture site occurs- Apply gentle pressure to site with clean cloth and call your doctor or EMS. * If a knot or lump forms under the skin, increases in size, or causes pain. * If bruising appears to be worsening or moving further down your leg instead of disappearing. * Temperature above 101 F. CARE OF YOUR GROIN INCISION; * Bruising or purple discoloration of the skin near the puncture site is common. * You may shower only, no bathtub bathing for 5 days. Be careful to avoid slipping as your leg may feel stiff. * If a closure device was used on your femoral artery, please see the attached guide regarding care of the device and your leg. * Leave dressing on FOR 24 hours. CARE OF YOUR WRIST INCISION; * Bruising or purple discoloration of the skin near the puncture site is common. * You may shower. * DO NOT submerge wrist. * Leave dressing on FOR 24 hours. LINA WALTON MD Jul 28, 2019 08:26 POS
--- NOTE | 2019-07-28 08:29 | Cardiology Progress Note ---
Subjective Date Seen by Provider: Jul 28, 2019 Time Seen by Provider: 08:27 Subjective/Events-last exam Patient is sitting comfortably in bed, denied any further episodes of chest pain. No palpitation. Review of Systems General: No Chills, No Night Sweats, No Fatigue, No Malaise, No Appetite, No Other HEENT: No Head Aches, No Visual Changes, No Eye Pain, No Ear Pain, No Dysphasia, No Sinus Congestion, No Post Nasal Drip, No Sore Throat, No Other Pulmonary: No Dyspnea, No Cough, No Pleuritic Chest Pain, No Other Cardiovascular: No: Chest Pain, Palpitations, Orthopnea, Paroxysmal Noc. Dyspnea, Edema, Lt Headedness, Other Objective-Cardiology Exam Last Set of Vital Signs Vital Signs 07/28/19 07/28/19 04:00 07:00 Temp 36.0 Pulse 81 Resp 18 B/P (MAP) 120/77 (91) Pulse Ox 97 O2 Delivery Room Air Capillary Refill : Less Than 3 Seconds I&O Intake and Output 07/28/19 00:00 Intake Total 1150 ml Output Total 0 ml Balance 1150 ml Intake Oral 1150 ml Output Urine Total 0 ml # Voids 6 General: Alert, Oriented X3, Cooperative HEENT: Atraumatic, PERRLA Neck: Supple, No JVD, No Thyromegaly Lungs: Clear to Auscultation, Normal Air Movement Heart: Regular Rate, Normal S1, Normal S2, No Murmurs Abdomen: Normal Bowel Sounds, Soft, No Tenderness, No Hepatosplenomegaly, No Masses Extremities: No Clubbing, No Cyanosis, No Edema, Normal Pulses, No Tenderness/Swelling Skin: No Rashes, No Breakdown, No Significant Lesion Neuro: Normal Gait, Normal Speech, Strength at 5/5 X4 Ext, Normal Tone, Sensation Intact Psych/Mental Status: Mental Status NL, Mood NL Results Lab Laboratory Tests 07/28/19 04:10 A/P-Cardiology Admission Diagnosis Chest pain Coronary artery disease Hypertension Hyperlipidemia Assessment/Plan Chest pain nonspecific etiology, unstable angina, status post cardiac catheterization with stenting to the right coronary artery Coronary artery disease, multiple intervention. Had 2 stents in the LAD cipher 2.5x8 proximally 2.5x28 Mid. Then had balloon angioplasty for in-stent restenosis, had another stent placed in the LAD by Dr. Blake in 2011. Report of that procedure is not available. In addition patient had a stent to the diagonal artery using Promus to 2.25 X 12 mm. And a stent in the right coronary artery Promus 3.0x18 mm. Recent cardiac catheterization done July 10, 2015 revealing moderate to severe in-stent restenosis in the distal LAD with lesion extending beyond the stent. Successful primary stenting using 2.25 x 12 mm Promus drug-eluting stent deployed distally balloon angioplasty for the in-stent restenosis. Underwent another cardiac catheterization due to recurrent chest pain in June 2016 which showed patent stents in the LAD, diagonal artery and right coronary artery with xpga-[id number] disease, small vessel disease, medical therapy is recommended. Underwent cardiac catheterization on June 26, 2017 after having mildly elevated troponin revealing 60-70 percent stenosis in the mid LAD artery past the distal edge of the distal stent in the LAD. Mid LAD did not exhibit significant in-stent restenosis. Left circumflex had 40 percent stenosis in the first obtuse marginal. RCA had long 75 percent stenosis. Underwent successful stenting using Alpine Xience 3.5 x 38 mm stent with good results. Distal RCA stent was patent. Another cath done on July 09, 2017 with reported stent placement to the LAD by Dr. Freed's group. Unfortunately I do not have that Report available to me at this time. Patient u nderwent CABG in January 2018 done at [facility] in [place]. Cardiac catheterization done April 2018 revealed occluded vein graft to the right coronary artery with severe stenosis at the distal right coronary artery at the anastomosis point with that vein graft, the proximal stent in the right coronary artery is patent, successful balloon angioplasty then stent deployment using Mary Beth 2.515 mm expanded to 2.77 mm with excellent results, good flow distally. Occluded stent in the mid LAD with patent BURDEN to LAD and vein graft to diagonal artery with good flow distally. Mild to moderate disease at the proximal circumflex artery with patent vein graft to the obtuse marginal branch. Slightly prominent left ventricle with mild diffuse left ventricular hypokinesia more pronounced at the inferior wall with estimated ejection fraction 40 percent. Had cardiac catheterization in April 2018 with stent to the distal right coronary artery with Mary Beth with good results, repeat cardiac catheter in January 2019 with balloon angioplasty for the right coronary artery using emerge 2.5 x 20 mm with good results, had patent BURDEN to LAD and patent vein graft to the diagonal artery with moderate stenosis at the anastomosis point, occluded first obtuse marginal branch and patent vein graft to the marginal branch with good flow distally Repeat cardiac catheterization was done on July 27, 2019, had recurrent sever e stenosis in the distal right coronary artery successful balloon angioplasty and deployment of a new stent 2.5 x 15 mm Mary Beth expanded to 2.83 mm with excellent results. Resolution of his symptoms after the stent deployment Mild bradycardia, occasional PVCs and ventricular bigeminy, unable to tolerate higher dose of beta blockers, continue to monitor Hypertension, controlled. Continue to monitor blood pressure/heart rate. Hyperlipidemia, intolerance to simvastatin and Lipitor with leg cramps, tolerating Crestor, continue to monitor Lower extremity cramps and pain, venous study was normal, LEELEE was normal in 2017, most probably the pain is secondary to statin. tolerating Crestor well at this time. Continue to monitor. History of intolerance to isosorbide causing headache Nonobstructive carotid artery stenosis per carotid duplex done June 2017, I will evaluate carotid ultrasound Patient will be on aspirin, Plavix and Eliquis for 3 months then he will continue on Eliquis and Plavix Clinical Quality Measures AMI/AHF: ASA po Prior to arrival: No DVT/VTE Risk/Contraindication: Risk Factor Score Per Nursin RFS Level Per Nursing on Admit: 3=High LINA PARIS MD Jul 28, 2019 08:29 POS
[2019-07-28] MEDS ORDERED: NON-FORMULARY MEDICATION 1 EA EA (Pantoprazole Sodium 20 MG) PO SCH (09:00)
[2019-07-28] MEDS ORDERED: ASPIRIN E.C. 81 MG (ECOTRIN) TAB PO SCH (09:00)
[2019-07-28] MEDS ORDERED: PANTOPRAZOLE 20 MG TABLET (PROTONIX) PO SCH (09:00)
[2019-07-28] MEDS ORDERED: CLOPIDOGREL 75 MG (PLAVIX) TABLET PO SCH (09:00)
[2019-07-28 10:10] VITALS: BP 118/72
--- NOTE | 2019-07-28 12:47 | Discharge Summary ---
ZAID PULLIAM [facility] 07/28/19 1247: Diagnosis/Chief Complaint Date of Admission Jul 26, 2019 at 17:02 Date of Discharge Jul 28, 2019 at 10:15 Discharge Date: Jul 28, 2019 Discharge Time: 10:00 Admission Diagnosis Assessment: Unstable angina Known CAD PAF OAC HTN HLP Plan: Monitor CP Cath Primary Care Molly Moncada DO Discharge Diagnosis Unstable angina Restenosis of stent CAD (1) Chest discomfort Status: Resolved (2) Coronary artery disease Status: Chronic (3) Episodic atrial fibrillation Status: Chronic (4) Hx of coronary artery disease Status: Chronic (5) Hypertension Status: Chronic (6) Hypercholesteremia Status: Chronic (7) Anxiety Status: Chronic (8) Unstable angina Status: Acute (9) Degenerative joint disease (DJD) of lumbar spine Status: Chronic (10) Hx of CABG Status: Chronic (11) Status post placement of stent in right coronary artery Status: Chronic Discharge Summary Procedures/Consulations Cardiology 07/26/[address] Waltno Hospitalist 07/26/[address] Moncada Discharge Physical Exam Allergies: Coded Allergies: No Known Drug Allergies (Unverified , 03/28/10) Vitals & I&Os Vital Signs Date Time Temp Pulse Resp B/P (MAP) Pulse Ox O2 Delivery O2 Flow Rate FiO2 07/28/19 10:10 36.5 76 18 118/72 98 Room Air General Appearance: No Apparent Distress Respiratory: Chest Non Tender, Lungs Clear, Normal Breath Sounds, No Accessory Muscle Use, No Respiratory Distress Cardiovascular: Regular Rate, Rhythm, No Edema, No Murmur, Normal Peripheral Pulses (2/4 radial bilaterally) Extremity: Normal Capillary Refill, No Calf Tenderness Neurologic/Psychiatric: Alert, Oriented x3, Normal Mood/Affect Hospital Course Was the Problem List Reviewed?: Yes Patient was admitted on 07/26/19 and discharged 07/28/19. Admitted for chest discomfort and history of coronary artery disease. Patient has a history of multiple stents and the past and a four vessel CABG in [place] 1.5 years ago. Care was provided by Dr. Moncada (Hospitalist), and Dr. Walton. Patient received EKG and Troponin, and X-ray in the ED which show no abnormalities. Patient received Nitro which relieved his symptoms. Patient was taken to outside laborer on 07/27/19 which showed restenosis of stent of the distal right coronary artery and received successful balloon angioplasty and deployment. Patient reported no symptoms the following morning. Patient should follow medications outlined in discharge instructions. Patient is to follow - up as described in the discharge instructions. The following information is only a summary of the patient admission while at [facility] and is not all inclusive. please review. entire chart for more info. Labs (last 24 hrs) Laboratory Tests 07/28/19 04:10: White Blood Count 7.4, Red Blood Count 4.78, Hemoglobin 14.2, Hematocrit 44, Mean Corpuscular Volume 91, Mean Corpuscular Hemoglobin 30, Mean Corpuscular Hemoglobin Concent 33, Red Cell Distribution Width 13.7, Platelet Count 216, Mean Platelet Volume 9.2, Sodium Level 140, Potassium Level 4.0, Chloride Level 108H, Carbon Dioxide Level 23, Anion Gap 9, Blood Urea Nitrogen 12, Creatinine 0.89, Estimat Glomerular Filtration Rate > 60, BUN/Creatinine Ratio 13, Glucose Level 102, Calcium Level 8.0L Patient resulted labs reviewed. Imaging: Reviewed Imaging Films, Reviewed Imaging Report Discussion & Recommendations Discharge Planning: >30 minutes discharge planning Discharge Home Medications: Active Scripts Active Aspirin EC (Aspirin) 81 Mg Tablet.dr 81 Mg PO DAILY Reported Nitroglycerin 0.4 Mg Tab.subl 0.4 Mg SL UD PRN Multaq (Dronedarone HCl) 400 Mg Tablet 400 Mg PO BID Eliquis (Apixaban) 5 Mg Tablet 5 Mg PO BID Rosuvastatin Calcium 10 Mg Tablet 10 Mg PO HS Lisinopril 2.5 Mg Tablet 2.5 Mg PO HS Clopidogrel (Clopidogrel Bisulfate) 75 Mg Tablet 75 Mg PO DAILY Praluent Pen (Alirocumab) 75 Mg/1 Ml Pen.injctr 75 Mg SC EVERY 2 WEEKS Alprazolam 0.5 Mg Tablet 0.5 Mg PO TID PRN Tylenol Extra Strength (Acetaminophen) 500 Mg Tablet 500-1,000 Mg PO Q6H PRN Zolpidem Tartrate 10 Mg Tablet 10 Mg PO HS PRN Pantoprazole Sodium 20 Mg Tablet.dr 20 Mg PO DAILY Tylenol Pm Ex-Strength Caplet (Acetaminophen/Diphenhydramine) 1 Each Tablet 2 Tab PO HS PRN Instructions to patient/family Please see electronic discharge instructions given to patient. Clinical Quality Measures AMI/AHF: ASA po Prior to arrival: No DVT/VTE Risk/Contraindication: Risk Factor Score Per Nursin RFS Level Per Nursing on Admit: 3=High MOLLY MONCADA DO 07/29/19 0948: Diagnosis/Chief Complaint Discharge Diagnosis (1) Unstable angina Status: Acute (2) Status post placement of stent in right coronary artery Status: Chronic Discharge Summary Discharge Physical Exam Allergies: Coded Allergies: No Known Drug Allergies (Unverified , 03/28/10) General Appearance: No Apparent Distress, WD/WN Respiratory: Normal Breath Sounds Cardiovascular: Regular Rate, Rhythm Neurologic/Psychiatric: Alert, Oriented x3, No Motor/Sensory Deficits, Normal Mood/Affect Hospital Course Was the Problem List Reviewed?: Yes Hospital course: Pt had an uneventful hospital course, he was taken to cardiac catheterization showing a re-stenosis of the right coronary artery stent that was treated with intervention and Pt was stable for discharge with Dr. Walton. Discussion & Recommendations Discharge Planning: <30 minutes discharge planning Supervisory-Addendum Brief Verification & Attestation Participated in pt care: history, MDM, physical Personally performed: exam, history, MDM, supervision of care Care discussed with: Medical Student Procedures: n/a Results interpretation: Verified all documentation Verification and Attestation of Medical Student E/M Service A medical student performed and documented this service in my presence. I reviewed and verified all information documented by the medical student and made modifications to such information, when appropriate. I personally performed the physical exam and medical decision making. Molly Moncada, Jul 29, 2019,09:47 Problem Qualifiers (1) Coronary artery disease: Coronary Disease-Associated Artery/Lesion type: unspecified vessel or lesion type [place] vs. transplanted heart: unspecified whether [place] or transplanted heart Associated angina: angina presence unspecified Qualified Codes: I25.10 - Atherosclerotic heart disease of [place] coronary artery without angina pectoris ZAID PULLIAM MED STUDEN Jul 28, 2019 12:47 MOLLY GASTELUM DO Jul 29, 2019 09:48 POS
--- OUTSIDE RECORDS SUMMARY | 2019-09-06 18:39 | XMS REPORT | Continuity of Care Document ---
Author Organization Unknown Address Unknown Phone Unavailable Allergies Active Description Code Type Severity Reaction Onset Reported/Identified Relationship to Patient Clinical Status Yes No Known Drug Allergies [id number] Drug Allergy Unknown N/A 03/28/2010 Yes No Known Allergies No Known Allergies Drug Allergy Unknown N/A 07/08/2017 Yes No Known Allergies No Known Allergies Drug Allergy Unknown N/A 07/08/2017 Medications There is no data. 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 2 LUMBAGO 04/03/2013 SIMIN GIPSON MD Ot V57. 1 PHYSICAL THERAPY NEC 02/19/2014 LINA PARIS MD Ot 272. 4 HYPERLIPIDEMIA NEC/NOS 02/19/2014 LINA PARIS MD Ot 401. 9 HYPERTENSION NOS 02/19/2014 LINA PARIS MD Ot 414. 01 CORONARY ATHEROSCLEROSIS OF [place] CORON 02/19/2014 LINA PARIS MD Ot 784. 0 HEADACHE 02/19/2014 LINA PARIS MD Ot 786. 50 CHEST PAIN NOS 02/19/2014 LINA PARIS MD Ot V17. 3 FAM HX-ISCHEM HEART DIS 02/19/2014 LINA PARIS MD Ot V45. 82 PERCUTANEOUS TRANSLUM CORON ANGIOPLASTY 02/19/2014 LINA PARIS MD Ot V58. 69 OT MED,LT,CURRENT USE 11/11/2014 LITO PEREZ DO Ot 300.00 ANXIETY STATE NOS 11/11/2014 LITO PEREZ DO Ot 786.05 SHORTNESS OF BREATH 11/15/2014 Ot 272.4 11/15/2014 Ot 401.9 11/15/2014 Ot 414.00 11/15/2014 Ot 786.50 11/15/2014 Ot 272.0 11/15/2014 Ot 401.1 11/15/2014 Ot 413.9 11/15/2014 Ot 414.00 11/15/2014 Ot V58.69 05/16/2015 HOWELL DO, LEAH Ot 272.0 05/16/2015 HOWELL DO, LEAH Ot 401.1 05/16/2015 HOWELL DO, LEAH Ot 413.9 05/16/2015 HOWELL DO, LEAH Ot 414.01 05/16/2015 HOWELL DO, LEAH Ot 786.09 05/16/2015 HOWELL DO, LEAH Ot V58.69 05/16/2015 HOWELL DO, LEAH Ot V70.0 07/09/2015 HOWELL DO, LEAH Ot 272.0 07/09/2015 HOWELL DO, LEAH Ot 401.1 07/09/2015 HOWELL DO, LEAH Ot 413.9 07/09/2015 HOWELL DO, LEAH Ot 414.01 07/09/2015 HOWELL DO, LEAH Ot 786.09 07/09/2015 HOWELL DO, LEAH Ot V58.69 07/09/2015 HOWELL DO, LEAH Ot V70.0 07/11/2015 LINA PARIS MD Ot E78. 5 07/11/2015 LINA PARIS MD Ot F41. 9 07/11/2015 LINA PARIS MD Ot I10 07/11/2015 LINA PARIS MD Ot I25.118 07/11/2015 RAINA PARSONS, LINA Keenan Ot I49. 3 07/11/2015 LINA PARIS MD Ot R94. 39 07/11/2015 LINA PARIS MD Ot Z79.899 07/11/2015 LINA PARIS MD Ot Z98. 61 11/20/2015 HOWELL DO, LEAH Ot E78.0 11/20/2015 HOWELL DO, LEAH Ot Z00.00 12/18/2015 HOWELL DO, LEAH Ot E78.0 PURE HYPERCHOLESTEROLEMIA 12/18/2015 HOWELL DO, LEAH Ot Z00.00 ENCNTR FOR GENERAL ADULT MEDICAL EXAM W/ 05/05/2016 Ot 722.52 LUM B/LUMBOSAC DISC DEGEN 05/05/2016 Ot 272.0 PURE HYPERCHOLESTEROLEM 05/05/2016 Ot 401.1 FORTINO GN HYPERTENSION 05/05/2016 Ot V76.44 SCR EEN MAL NEOP- PROSTATE 05/05/2016 Ot 272.0 PURE HYPERCHOLESTEROLEM 05/05/2016 Ot 369.9 VISU AL LOSS NOS 05/05/2016 Ot 372.72 CON JUNCTIVAL HEMORRHAGE 05/05/2016 Ot 401.1 FORTINO GN HYPERTENSION 05/05/2016 Ot 414.01 COR ONARY ATHEROSCLEROSIS OF [place] CORON 05/05/2016 Ot 729.5 PAIN IN LIMB 05/05/2016 Ot 780.4 DIZZ INESS AND GIDDINESS 05/05/2016 Ot 784.0 HEAD ACHE 05/05/2016 Ot 272.0 PURE HYPERCHOLESTEROLEM 05/05/2016 Ot 401.1 FORTINO GN HYPERTENSION 05/05/2016 Ot 729.5 PAIN IN LIMB 05/05/2016 Ot 272.0 PURE HYPERCHOLESTEROLEM 05/05/2016 Ot 401.9 HYPE RTENSION NOS 05/05/2016 Ot 414.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 01 CORONARY ATHEROSCLEROSIS OF [place] CORON 05/05/2016 SIMIN GIPSON MD Ot 721. 3 LUMBOSACRAL SPONDYLOSIS 05/05/2016 SIMIN GIPSON MD Ot 722. 52 LUMB/LUMBOSAC DISC DEGEN 05/05/2016 SIMIN GIPSON MD Ot 729. 1 MYALGIA AND MYOSITIS NOS 05/05/2016 SIMIN GIPSON MD Ot V45. 82 PERCUTANEOUS TRANSLUM CORON ANGIOPLASTY 05/05/2016 SIMIN GIPSON MD Ot V58. 63 LONG-TERM(CURRENT)USE OF ANTIPLATELET/AN 05/05/2016 SIMIN GIPSON MD Ot V58. 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 4 HYPERLIPIDEMIA NEC/NOS 05/05/2016 LINA PARIS MD Ot 397. 0 TRICUSPID VALVE DISEASE 05/05/2016 LINA PARIS MD Ot 401. 9 HYPERTENSION NOS 05/05/2016 LINA PARIS MD Ot 414. 00 CORON ATHEROSCLER NOS TYPE VESSEL, NATIV 05/05/2016 LINA PARIS MD Ot 424. 0 MITRAL VALVE DISORDER 05/05/2016 LINA PARIS MD Ot 786. 05 SHORTNESS OF BREATH 05/05/2016 LINA PARIS MD Ot 786. 50 CHEST PAIN NOS 05/05/2016 LINA PARIS MD Ot 272. 4 HYPERLIPIDEMIA NEC/NOS 05/05/2016 LINA PARIS MD Ot 401. 9 HYPERTENSION NOS 05/05/2016 LINA PARIS MD Ot 414. 00 CORON ATHEROSCLER NOS TYPE VESSEL, NATIV 05/05/2016 LINA PARIS MD Ot 786. 05 SHORTNESS OF BREATH 05/05/2016 LINA PARIS MD Ot 786. 50 CHEST PAIN NOS 05/05/2016 LINA PARIS MD Ot 272. 4 HYPERLIPIDEMIA NEC/NOS 05/05/2016 LINA PARIS MD Ot 401. 9 HYPERTENSION NOS 05/05/2016 LINA PARIS MD Ot 414. 00 CORON ATHEROSCLER NOS TYPE VESSEL, NATIV 05/05/2016 LINA PARIS MD Ot 786. 05 SHORTNESS OF BREATH 05/05/2016 LINA PARIS MD Ot 786. 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 05/05/2016 LEAH HOWELL DO Ot 786.59 CHEST PAIN NEC 05/05/2016 LEAH HOWELL DO Ot V70.0 ROUTINE MEDICAL EXAM 05/05/2016 LEAH HOWELL DO Ot 729.1 MYALGIA AND MYOSITIS NOS 05/05/2016 LEAH HOWELL DO Ot 723.4 BRACHIAL NEURITIS NOS 05/05/2016 LEAH HOWELL DO Ot 729.5 PAIN IN LIMB 05/05/2016 LEAH HOWELL DO Ot 729.89 MUSCSKEL SYMPT LIMB NEC 05/05/2016 LEAH HOWELL DO Ot 272.0 PURE HYPERCHOLESTEROLEM 05/05/2016 LEAH HOWELL DO Ot 401.1 BENIGN HYPERTENSION 05/05/2016 Ot 272.4 HYPE RLIPIDEMIA NEC/NOS 05/05/2016 Ot 401.9 HYPE RTENSION NOS 05/05/2016 Ot 414.00 COR ON ATHEROSCLER NOS TYPE VESSEL, NATIV 05/05/[address] PAIN NOS 05/05/2016 Ot 272.0 PURE HYPERCHOLESTEROLEM 05/05/2016 Ot 401.1 FORTINO GN HYPERTENSION 05/05/2016 Ot 413.9 VELASQUEZ NA PECTORIS NEC/NOS 05/05/2016 Ot 414.00 COR ON ATHEROSCLER NOS TYPE VESSEL, NATIV 05/05/2016 Ot V58.69 OTH MED,LT,CURRENT USE 05/05/2016 Ot 722.52 LUM B/LUMBOSAC DISC DEGEN 05/05/2016 Ot 272.0 PURE HYPERCHOLESTEROLEM 05/05/2016 Ot 401.1 FORTINO GN HYPERTENSION 05/05/2016 Ot V76.44 SCR EEN MAL NEOP- PROSTATE 05/05/2016 Ot 272.0 PURE HYPERCHOLESTEROLEM 05/05/2016 Ot 369.9 VISU AL LOSS NOS 05/05/2016 Ot 372.72 CON JUNCTIVAL HEMORRHAGE 05/05/2016 Ot 401.1 FORTINO GN HYPERTENSION 05/05/2016 Ot 414.01 COR ONARY ATHEROSCLEROSIS OF [place] CORON 05/05/2016 Ot 729.5 PAIN IN LIMB 05/05/2016 Ot 780.4 DIZZ INESS AND GIDDINESS 05/05/2016 Ot 784.0 HEAD ACHE 05/05/2016 Ot 272.0 PURE HYPERCHOLESTEROLEM 05/05/2016 Ot 401.1 FORTINO GN HYPERTENSION 05/05/2016 Ot 729.5 PAIN IN LIMB 05/05/2016 Ot 272.0 PURE HYPERCHOLESTEROLEM 05/05/2016 Ot 401.9 HYPE RTENSION NOS 05/05/2016 Ot 414.01 COR ONARY ATHEROSCLEROSIS OF [place] CORON 05/05/2016 Ot 401.1 FORTINO GN HYPERTENSION 05/05/2016 Ot 790.29 OTH ER ABNORMAL GLUCOSE 05/05/2016 Ot 272.0 PURE HYPERCHOLESTEROLEM 05/05/2016 Ot 401.1 FORTINO GN HYPERTENSION 05/05/2016 HOWELL DO, LEAH Ot 272.0 PURE HYPERCHOLESTEROLEM 05/05/2016 HOWELL DO, LEAH Ot 401.1 BENIGN HYPERTENSION 05/05/2016 HOWELL DO, LEAH Ot 414.01 CORONARY ATHEROSCLEROSIS OF [place] CORON 05/05/2016 SIMIN GIPSON MD Ot 414. 01 CORONARY ATHEROSCLEROSIS OF [place] CORON 05/05/2016 SIMIN GIPSON MD Ot 721. 3 LUMBOSACRAL SPONDYLOSIS 05/05/2016 SIMIN GIPSON MD Ot 722. 52 LUMB/LUMBOSAC DISC DEGEN 05/05/2016 SIMIN GIPSON MD Ot 729. 1 MYALGIA AND MYOSITIS NOS 05/05/2016 SIMIN GIPSON MD Ot V45. 82 PERCUTANEOUS TRANSLUM CORON ANGIOPLASTY 05/05/2016 SIMIN GIPSON MD Ot V58. 63 LONG-TERM(CURRENT)USE OF ANTIPLATELET/AN 05/05/2016 SIMIN GIPSON MD Ot V58. 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 4 HYPERLIPIDEMIA NEC/NOS 05/05/2016 LINA PARIS MD Ot 397. 0 TRICUSPID VALVE DISEASE 05/05/2016 LINA PARIS MD Ot 401. 9 HYPERTENSION NOS 05/05/2016 LINA PARIS MD Ot 414. 00 CORON ATHEROSCLER NOS TYPE VESSEL, NATIV 05/05/2016 LINA PARIS MD Ot 424. 0 MITRAL VALVE DISORDER 05/05/2016 LINA PARIS MD Ot 786. 05 SHORTNESS OF BREATH 05/05/2016 LINA PARIS MD Ot 786. 50 CHEST PAIN NOS 05/05/2016 LINA PARIS MD Ot 272. 4 HYPERLIPIDEMIA NEC/NOS 05/05/2016 LINA PARIS MD Ot 401. 9 HYPERTENSION NOS 05/05/2016 LINA PARIS MD Ot 414. 00 CORON ATHEROSCLER NOS TYPE VESSEL, NATIV 05/05/2016 LINA PARIS MD Ot 786. 05 SHORTNESS OF BREATH 05/05/2016 LINA PARIS MD Ot 786. 50 CHEST PAIN NOS 05/05/2016 LINA PARIS MD Ot 272. 4 HYPERLIPIDEMIA NEC/NOS 05/05/2016 LINA PARIS MD Ot 401. 9 HYPERTENSION NOS 05/05/2016 LINA PARIS MD Ot 414. 00 CORON ATHEROSCLER NOS TYPE VESSEL, NATIV 05/05/2016 RAINA PARSONS, LINA Keenan Ot 786. 05 SHORTNESS OF BREATH 05/05/2016 LINA PARIS MD Ot 786. 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 05/05/2016 LEAH HOWELL DO Ot 786.59 CHEST PAIN NEC 05/05/2016 LEAH HOWELL DO Ot V70.0 ROUTINE MEDICAL EXAM 05/05/2016 LEAH HOWELL DO Ot 729.1 MYALGIA AND MYOSITIS NOS 05/05/2016 LEAH HOWELL DO Ot 723.4 BRACHIAL NEURITIS NOS 05/05/2016 LEAH HOWELL DO Ot 729.5 PAIN IN LIMB 05/05/2016 LEAH HOWELL DO Ot 729.89 MUSCSKEL SYMPT LIMB NEC 05/05/2016 LEAH HOWELL DO Ot 272.0 PURE HYPERCHOLESTEROLEM 05/05/2016 LEAH HOWELL DO Ot 401.1 BENIGN HYPERTENSION 05/05/2016 Ot 272.4 HYPE RLIPIDEMIA NEC/NOS 05/05/2016 Ot 401.9 HYPE RTENSION NOS 05/05/2016 Ot 414.00 COR ON ATHEROSCLER NOS TYPE VESSEL, NATIV 05/05/[address] PAIN NOS 05/05/2016 Ot 272.0 PURE HYPERCHOLESTEROLEM 05/05/2016 Ot 401.1 FORTINO GN HYPERTENSION 05/05/2016 Ot 413.9 VELASQUEZ NA PECTORIS NEC/NOS 05/05/2016 Ot 414.00 COR ON ATHEROSCLER NOS TYPE VESSEL, NATIV 05/05/2016 Ot V58.69 OTH MED,LT,CURRENT USE 05/06/2016 LEAH HOWELL DO Ot E78.0 PURE HYPERCHOLESTEROLEMIA 05/06/2016 LEAH HOWELL DO Ot Z00.00 ENCNTR FOR GENERAL ADULT MEDICAL EXAM W/ 05/06/2016 BEVERLY LAINEZ, DANNY Coats Ot E78.5 HYPERLIPIDEMIA, UNSPECIFIED 05/06/2016 DANNY CAMPBELL Ot I25.10 ATHSCL HEART DISEASE OF [place] CORONARY 05/06/2016 DANNY CAMPBELL Ot E78.5 HYPERLIPIDEMIA, UNSPECIFIED 05/06/2016 DANNY CAMPBELL Ot I25.10 ATHSCL HEART DISEASE OF [place] CORONARY 05/11/2016 DANNY CAMPBELL Ot E78.5 HYPERLIPIDEMIA, UNSPECIFIED 05/11/2016 DANNY CAMPBELL Ot I25.10 ATHSCL HEART DISEASE OF [place] CORONARY 05/20/2016 ELOINA HOWELL DOI Ot E78.0 PURE HYPERCHOLESTEROLEMIA 05/20/2016 CORAL POOLE LEAH Ot Z00.00 ENCNTR FOR GENERAL ADULT MEDICAL EXAM W05/20/2016 DANNY CAMPBELL Ot E78.5 HYPERLIPIDEMIA, UNSPECIFIED 05/20/2016 DANNY CAMPBELL Ot I25.10 ATHSCL HEART DISEASE OF [place] CORONARY 06/23/2016 CARLOS MARTIN MD Ot E78 .5 HYPERLIPIDEMIA, UNSPECIFIED 06/23/2016 CARLOS MARTIN MD Ot I10 ESSENTIAL (PRIMARY) HYPERTENSION 06/23/2016 CARLOS MARTIN MD Ot I25.11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 06/23/2016 CARLOS MARTIN MD Ot Z79.02 INTERMEDIATE (CURRENT) USE OF ANTITHROMBOTI 06/23/2016 CARLOS MARTIN MD Ot Z79.899 OTHER [employer]YTH[employer] JAVA DEVELOPER (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) DRUG THERAPY 06/23/2016 CARLOS MARTIN MD Ot Z95 .5 PRESENCE OF CORONARY ANGIOPLASTY IMPLANT 07/06/2016 CARLOS MARTIN MD Ot E78 .5 HYPERLIPIDEMIA, UNSPECIFIED 07/06/2016 CARLOS MARTIN MD Ot I10 ESSENTIAL (PRIMARY) HYPERTENSION 07/06/2016 CARLOS MARTIN MD Ot I25.11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 07/06/2016 CARLOS MARTIN MD Ot Z79.02 INTERMEDIATE (CURRENT) USE OF ANTITHROMBOTI 07/06/2016 CARLOS MARTIN MD Ot Z79.899 OTHER INTERMEDIATE (CURRENT) DRUG THERAPY 07/06/2016 CARLOS MARTIN MD Ot Z95 .5 PRESENCE OF CORONARY ANGIOPLASTY IMPLANT 07/06/2016 CARLOS MARTIN MD Ot E78 .5 HYPERLIPIDEMIA, UNSPECIFIED 07/06/2016 CARLOS MARTIN MD Ot I10 ESSENTIAL (PRIMARY) HYPERTENSION 07/06/2016 CARLOS MARTIN MD Ot I25.11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 07/06/2016 CARLOS MARTIN MD Ot Z79.02 PYTHON JAVA DEVELOPER (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) USE OF ANTITHROMBOTI 07/06/2016 CARLOS MARTIN MD Ot Z79.899 OTHER PYTH[employer] JAVA DEVELOPER (CURRENT) DRUG THERAPY 07/06/2016 CARLOS MARTIN MD Ot Z95 .5 PRESENCE OF CORONARY ANGIOPLASTY IMPLANT 01/29/2017 Ot 272.0 PURE HYPERCHOLESTEROLEM 01/29/2017 Ot 401.9 HYPE RTENSION NOS 01/29/2017 Ot 414.01 COR ONARY ATHEROSCLEROSIS OF [place] CORON 01/29/2017 Ot 401.1 FORTINO GN HYPERTENSION 01/29/2017 Ot 790.29 OTH ER ABNORMAL GLUCOSE 01/29/2017 Ot 272.0 PURE HYPERCHOLESTEROLEM 01/29/2017 Ot 401.1 FORTINO GN HYPERTENSION 01/29/2017 HOWELLLEAH THAKKAR DO Ot 272.0 PURE HYPERCHOLESTEROLEM 01/29/2017 HOWELLLEAH THAKKAR DO Ot 401.1 BENIGN HYPERTENSION 01/29/2017 CORAL POOLE LEAH Ot 414.01 CORONARY ATHEROSCLEROSIS OF [place] CORON 01/29/2017 SMIIN GIPSON MD Ot 414. 01 CORONARY ATHEROSCLEROSIS OF [place] CORON 01/29/2017 SIMIN GIPSON MD Ot 721. 3 LUMBOSACRAL SPONDYLOSIS 01/29/2017 SIMIN GIPSON MD Ot 722. 52 LUMB/LUMBOSAC DISC DEGEN 01/29/2017 SIMIN GIPSON MD Ot 729. 1 MYALGIA AND MYOSITIS NOS 01/29/2017 SIMIN GIPSON MD Ot V45. 82 PERCUTANEOUS TRANSLUM CORON ANGIOPLASTY 01/29/2017 SIMIN GIPSON MD Ot V58. 63 LONG-TERM(CURRENT)USE OF ANTIPLATELET/AN 01/29/2017 SIMIN GIPSON MD Ot V58. 69 OTH MED,LT,CURRENT USE 01/29/2017 LEAH HOWELL DO Ot 272.0 PURE HYPERCHOLESTEROLEM 01/29/2017 LEAH HOWELL DO Ot 401.1 BENIGN HYPERTENSION 01/29/2017 ELOINA HOWELL DOI Ot 413.9 ANGINA PECTORIS NEC/NOS 01/29/2017 LEAH HOWELL DO Ot 414.01 CORONARY ATHEROSCLEROSIS OF [place] CORON 01/29/2017 LEAH HOWELL DO Ot V58.69 OTH MED,LT,CURRENT USE 01/29/2017 LEAH HOWELL DO Ot V58.83 ENCOUNTER FOR THERAPEUTIC DRUG MONITORIN 01/29/2017 LINA PARIS MD Ot 272. 4 HYPERLIPIDEMIA NEC/NOS 01/29/2017 LINA PARIS MD Ot 397. 0 TRICUSPID VALVE DISEASE 01/29/2017 LINA PARIS MD Ot 401. 9 HYPERTENSION NOS 01/29/2017 LINA PARIS MD Ot 414. 00 CORON ATHEROSCLER NOS TYPE VESSEL, NATIV 01/29/2017 LINA PARIS MD Ot 424. 0 MITRAL VALVE DISORDER 01/29/2017 LINA PARIS MD Ot 786. 05 SHORTNESS OF BREATH 01/29/2017 LINA PARIS MD Ot 786. 50 CHEST PAIN NOS 01/29/2017 LINA PARIS MD Ot 272. 4 HYPERLIPIDEMIA NEC/NOS 01/29/2017 LINA PARIS MD Ot 401. 9 HYPERTENSION NOS 01/29/2017 LINA PARIS MD Ot 414. 00 CORON ATHEROSCLER NOS TYPE VESSEL, NATIV 01/29/2017 LINA PARIS MD Ot 786. 05 SHORTNESS OF BREATH 01/29/2017 LINA PARIS MD Ot 786. 50 CHEST PAIN NOS 01/29/2017 LINA PARIS MD Ot 272. 4 HYPERLIPIDEMIA NEC/NOS 01/29/2017 LINA PARIS MD Ot 401. 9 HYPERTENSION NOS 01/29/2017 LINA PARIS MD Ot 414. 00 CORON ATHEROSCLER NOS TYPE VESSEL, NATIV 01/29/2017 LINA PARIS MD Ot 786. 05 SHORTNESS OF BREATH 01/29/2017 LINA PARIS MD Ot 786. 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 01/29/2017 HOWELLLEAH THAKKAR DO Ot 786.59 CHEST PAIN NEC 01/29/2017 CORAL DO LEAH Ot V70.0 ROUTINE MEDICAL EXAM 01/29/2017 HOWELLLEAH THAKKAR DO Ot 729.1 MYALGIA AND MYOSITIS NOS 01/29/2017 HOWELLLEAH THAKKAR DO Ot 723.4 BRACHIAL NEURITIS NOS 01/29/2017 HOWELLLEHA THAKKAR DO Ot 729.5 PAIN IN LIMB 01/29/2017 HOWELLLEAH THAKKAR DO Ot 729.89 MUSCSKEL SYMPT LIMB NEC 01/29/2017 HOWELLLEAH THAKKAR DO Ot 272.0 PURE HYPERCHOLESTEROLEM 01/29/2017 HOWELLLEAH THAKKAR DO Ot 401.1 BENIGN HYPERTENSION 01/29/2017 Ot 272.4 HYPE RLIPIDEMIA NEC/NOS 01/29/2017 Ot 401.9 HYPE RTENSION NOS 01/29/2017 Ot 414.00 COR ON ATHEROSCLER NOS TYPE VESSEL, NATIV 01/29/[address] PAIN NOS 01/29/2017 Ot 272.0 PURE HYPERCHOLESTEROLEM 01/29/2017 Ot 401.1 FORTINO GN HYPERTENSION 01/29/2017 Ot 413.9 VELASQUEZ NA PECTORIS NEC/NOS 01/29/2017 Ot 414.00 COR ON ATHEROSCLER NOS TYPE VESSEL, NATIV 01/29/2017 Ot V58.69 OTH MED,LT,CURRENT USE 01/29/2017 HOWELLLEAH THAKKAR DO Ot E78.0 PURE HYPERCHOLESTEROLEMIA 01/29/2017 HOWELLLEAH THAKKAR DO Ot Z00.00 ENCNTR FOR GENERAL ADULT MEDICAL EXAM W/ 01/29/2017 DANNY CAMPBELL Ot E78.5 HYPERLIPIDEMIA, UNSPECIFIED 01/29/2017 DANNY CAMPBELL Ot I25.10 ATHSCL HEART DISEASE OF [place] CORONARY 01/30/2017 LINA PARIS MD Ot E78. 5 HYPERLIPIDEMIA, UNSPECIFIED 01/30/2017 LINA PARIS MD Ot I10 ESSENTIAL (PRIMARY) HYPERTENSION 01/30/2017 LINA PARIS MD Ot I25. 10 ATHSCL HEART DISEASE OF [place] CORONARY 01/30/2017 LINA PARIS MD Ot K21. 9 GASTRO-ESOPHAGEAL REFLUX DISEASE WITHOUT 01/30/2017 LINA PARIS MD Ot R06. 2 WHEEZING 01/30/2017 LINA PARIS MD Ot R07. 9 CHEST PAIN, UNSPECIFIED 01/30/2017 LINA PARIS MD Ot R51 HEADACHE 01/30/2017 LINA PARIS MD Ot Z79. 82 [employer] DEVELOPER (CURRENT) USE OF ASPIRIN 01/30/2017 LINA PARIS MD Ot E78. 5 HYPERLIPIDEMIA, UNSPECIFIED 01/30/2017 LINA PARIS MD Ot I10 ESSENTIAL (PRIMARY) HYPERTENSION 01/30/2017 LINA PARIS MD Ot I25. 10 ATHSCL HEART DISEASE OF [place] CORONARY 01/30/2017 LINA PARIS MD Ot K21. 9 GASTRO-ESOPHAGEAL REFLUX DISEASE WITHOUT 01/30/2017 LINA PARIS MD Ot R06. 2 WHEEZING 01/30/2017 LINA PARIS MD Ot R07. 9 CHEST PAIN, UNSPECIFIED 01/30/2017 LINA PARIS MD Ot R51 HEADACHE 01/30/2017 LINA PARIS MD Ot Z79. 82 PYTH[employer] J[employer] DEVELOPER (CURRENT) USE OF ASPIRIN 01/30/2017 LINA PARIS MD Ot E78. 5 HYPERLIPIDEMIA, UNSPECIFIED 01/30/2017 LINA PARIS MD Ot I10 ESSENTIAL (PRIMARY) HYPERTENSION 01/30/2017 LINA PARIS MD Ot I25. 10 ATHSCL HEART DISEASE OF [place] CORONARY 01/30/2017 LINA PARIS MD Ot K21. 9 GASTRO-ESOPHAGEAL REFLUX DISEASE WITHOUT 01/30/2017 LINA PARIS MD Ot R06. 2 WHEEZING 01/30/2017 LINA PARIS MD Ot R07. 9 CHEST PAIN, UNSPECIFIED 01/30/2017 LINA PARIS MD Ot R51 HEADACHE 01/30/2017 LINA PARIS MD Ot Z79. 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 06/27/2017 HOWELL DO, LEAH Ot K21.9 GASTRO-ESOPHAGEAL REFLUX DISEASE WITHOUT 06/27/2017 HOWELL DO, LEAH Ot Z79.82 [employer] (CURRENT) USE OF ASPIRIN 06/27/2017 HOWELL DO, LEAH Ot Z79.89 9 OTHER [employer] (CURRENT) DRUG THERAPY 06/27/2017 HOWELL DO, LEAH Ot Z95.5 PRESENCE OF CORONARY ANGIOPLASTY IMPLANT 07/08/2017 HOWELL DO, LEAH Ot E78.00 PURE HYPERCHOLESTEROLEMIA, UNSPECIFIED 07/08/2017 HOWELL DO, LEAH Ot E87.6 HYPOKALEMIA 07/08/2017 HOWELL DO LEAH Ot F41.9 ANXIETY DISORDER, UNSPECIFIED 07/08/2017 HOWELL DO, LEAH Ot I10 ESSENTIAL (PRIMARY) HYPERTENSION 07/08/2017 HOWELL DO, LEAH Ot I21.4 NON-ST ELEVATION (NSTEMI) MYOCARDIAL INF 07/08/2017 CORAL DO, LEAH Ot I25.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 07/08/2017 HOWELL DO, LEAH Ot K21.9 GASTRO-ESOPHAGEAL REFLUX DISEASE WITHOUT 07/08/2017 HOWELL DO, LEAH Ot Z79.82 INTERMEDIATE (CURRENT) USE OF ASPIRIN 07/08/2017 HOWELL DO LEAH Ot Z79.89 9 OTHER [employer] (CURRENT) DRUG THERAPY 07/08/2017 HOWELL DO, LEAH Ot Z95.5 PRESENCE OF CORONARY ANGIOPLASTY IMPLANT 07/10/2017 HOWELL DO, LEAH Ot E78.00 PURE HYPERCHOLESTEROLEMIA, UNSPECIFIED 07/10/2017 HOWELL DO, LEAH Ot E87.6 HYPOKALEMIA 07/10/2017 HOWELL DO LEAH Ot F41.9 ANXIETY DISORDER, UNSPECIFIED 07/10/2017 HOWELL DO, LEAH Ot I10 ESSENTIAL (PRIMARY) HYPERTENSION 07/10/2017 HOWELL DO, LEAH Ot I21.4 NON-ST ELEVATION (NSTEMI) MYOCARDIAL INF 07/10/2017 CORAL POOLE LEAH Ot I25.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 07/10/2017 HOWELL DO LEAH Ot K21.9 GASTRO-ESOPHAGEAL REFLUX DISEASE WITHOUT 07/10/2017 CORAL DO LEAH Ot Z79.82 INTERMEDIATE (CURRENT) USE OF ASPIRIN 07/10/2017 CORAL POOLE LEAH Ot Z79.89 9 OTHER [employer] (CURRENT) DRUG THERAPY 07/10/2017 CORAL POOLE LEAH Ot Z95.5 PRESENCE OF CORONARY ANGIOPLASTY IMPLANT 08/19/2017 CORAL POOLE LEAH Ot E78.00 PURE HYPERCHOLESTEROLEMIA, UNSPECIFIED 08/19/2017 ELOINA HOWELL DOI Ot E87.6 HYPOKALEMIA 08/19/2017 ELOINA HOWELL DOI Ot F41.9 ANXIETY DISORDER, UNSPECIFIED 08/19/2017 CORAL POOLE LEAH Ot I10 ESSENTIAL (PRIMARY) HYPERTENSION 08/19/2017 CORAL POOLE LEAH Ot I21.4 NON-ST ELEVATION (NSTEMI) MYOCARDIAL INF 08/19/2017 CORAL POOLE LEAH Ot I25.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 2 MIXED HYPERLIPIDEMIA 08/27/2017 LINA PARIS MD Ot I10 ESSENTIAL (PRIMARY) HYPERTENSION 08/27/2017 LINA PARIS MD Ot I25. 10 ATHSCL HEART DISEASE OF [place] CORONARY 12/01/2017 LEAH HOWELL DO Ot 272.0 PURE HYPERCHOLESTEROLEM 12/01/2017 CORAL POOLE LEAH Ot 401.1 BENIGN HYPERTENSION 12/01/2017 CORAL POOLE LEAH Ot 414.01 CORONARY ATHEROSCLEROSIS OF [place] CORON 12/01/2017 SIMIN GIPSON MD Ot 414. 01 CORONARY ATHEROSCLEROSIS OF [place] CORON 12/01/2017 SIMIN GIPSON MD Ot 721. 3 LUMBOSACRAL SPONDYLOSIS 12/01/2017 SIMIN GIPSON MD Ot 722. 52 LUMB/LUMBOSAC DISC DEGEN 12/01/2017 SIMIN GIPSON MD Ot 729. 1 MYALGIA AND MYOSITIS NOS 12/01/2017 SIMIN GIPSON MD Ot V45. 82 PERCUTANEOUS TRANSLUM CORON ANGIOPLASTY 12/01/2017 SIMIN GIPSON MD Ot V58. 63 LONG-TERM(CURRENT)USE OF ANTIPLATELET/AN 12/01/2017 SIMIN GIPSON MD Ot V58. 69 OT MED,LT,CURRENT USE 12/01/2017 CORAL POOLE LEAH Ot 272.0 PURE HYPERCHOLESTEROLEM 12/01/2017 ELOINA HOWELL DOI Ot 401.1 BENIGN HYPERTENSION 12/01/2017 CORAL POOLE LEAH Ot 413.9 ANGINA PECTORIS NEC/NOS 12/01/2017 CORAL POOLE LEAH Ot 414.01 CORONARY ATHEROSCLEROSIS OF [place] CORON 12/01/2017 ELOINA HOWELL DOI Ot V58.69 OT MED,LT,CURRENT USE 12/01/2017 CORAL POOLE LEAH Ot V58.83 ENCOUNTER FOR THERAPEUTIC DRUG MONITORIN 12/01/2017 LINA PARIS MD Ot 272. 4 HYPERLIPIDEMIA NEC/NOS 12/01/2017 LINA PARIS MD Ot 397. 0 TRICUSPID VALVE DISEASE 12/01/2017 LINA PARIS MD Ot 401. 9 HYPERTENSION NOS 12/01/2017 LINA PARIS MD Ot 414. 00 CORON ATHEROSCLER NOS TYPE VESSEL, NATIV 12/01/2017 LINA PARIS MD Ot 424. 0 MITRAL VALVE DISORDER 12/01/2017 LINA PARIS MD Ot 786. 05 SHORTNESS OF BREATH 12/01/2017 LINA PARIS MD Ot 786. 50 CHEST PAIN NOS 12/01/2017 LINA PARIS MD Ot 272. 4 HYPERLIPIDEMIA NEC/NOS 12/01/2017 LINA PARIS MD Ot 401. 9 HYPERTENSION NOS 12/01/2017 LINA PARIS MD Ot 414. 00 CORON ATHEROSCLER NOS TYPE VESSEL, NATIV 12/01/2017 LINA PARIS MD Ot 786. 05 SHORTNESS OF BREATH 12/01/2017 LINA PARIS MD Ot 786. 50 CHEST PAIN NOS 12/01/2017 RAINA PARSONS, LINA Keenan Ot 272. 4 HYPERLIPIDEMIA NEC/NOS 12/01/2017 LINA PARIS MD Ot 401. 9 HYPERTENSION NOS 12/01/2017 LINA PARIS MD Ot 414. 00 CORON ATHEROSCLER NOS TYPE VESSEL, NATIV 12/01/2017 LINA PARIS MD Ot 786. 05 SHORTNESS OF BREATH 12/01/2017 LINA PARIS MD Ot 786. 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 12/01/2017 LEAH HOWELL DO Ot 786.59 CHEST PAIN NEC 12/01/2017 LEAH HOWELL DO Ot V70.0 ROUTINE MEDICAL EXAM 12/01/2017 LEAH HOWELL DO Ot 729.1 MYALGIA AND MYOSITIS NOS 12/01/2017 LEAH HOWELL DO Ot 723.4 BRACHIAL NEURITIS NOS 12/01/2017 LEAH HOWELL DO Ot 729.5 PAIN IN LIMB 12/01/2017 CORAL POOLE LEAH Ot 729.89 MUSCSKEL SYMPT LIMB NEC 12/01/2017 LEAH HOWELL DO Ot 272.0 PURE HYPERCHOLESTEROLEM 12/01/2017 LEAH HOWELL DO Ot 401.1 BENIGN HYPERTENSION 12/01/2017 Ot 272.4 HYPE RLIPIDEMIA NEC/NOS 12/01/2017 Ot 401.9 HYPE RTENSION NOS 12/01/2017 Ot 414.00 COR ON ATHEROSCLER NOS TYPE VESSEL, NATIV 12/01/[address] PAIN NOS 12/01/2017 Ot 272.0 PURE HYPERCHOLESTEROLEM 12/01/2017 Ot 401.1 FORTINO GN HYPERTENSION 12/01/2017 Ot 413.9 VELASQUEZ NA PECTORIS NEC/NOS 12/01/2017 Ot 414.00 COR ON ATHEROSCLER NOS TYPE VESSEL, NATIV 12/01/2017 Ot V58.69 OTH MED,LT,CURRENT USE 12/01/2017 HOWELL DO, LEAH Ot E78.0 PURE HYPERCHOLESTEROLEMIA 12/01/2017 HOWELL DO, LEAH Ot Z00.00 ENCNTR FOR GENERAL ADULT MEDICAL EXAM W/ 12/01/2017 DANNY CAMPBELL Ot E78.5 HYPERLIPIDEMIA, UNSPECIFIED 12/01/2017 DANNY CAMPBELL Ot I25.10 ATHSCL HEART DISEASE OF [place] CORONARY 12/01/2017 LINA PARIS MD Ot E78. 2 MIXED HYPERLIPIDEMIA 12/01/2017 LINA PARIS MD Ot I10 ESSENTIAL (PRIMARY) HYPERTENSION 12/01/2017 LINA PARIS MD Ot I25. 10 ATHSCL HEART DISEASE OF [place] CORONARY 12/07/2017 AARON PA, HOLLY L Ot I25.10 ATHSCL HEART DISEASE OF [place] CORONARY 12/07/2017 AARON PA, HOLLY L Ot R06.02 SHORTNESS OF BREATH 12/07/2017 AARON PA, HOLLY L Ot R07.9 CHEST PAIN, UNSPECIFIED 12/07/2017 AARON PA, HOLLY L Ot R53.83 OTHER FATIGUE 12/15/2017 AARON PA, HOLLY L Ot I25.10 ATHSCL HEART DISEASE OF [place] CORONARY 12/15/2017 AARON PA, HOLLY L Ot R06.02 SHORTNESS OF BREATH 12/15/2017 AARON PA, HOLLY L Ot R07.9 CHEST PAIN, UNSPECIFIED 12/15/2017 AARON PA, HOLLY L Ot R53.83 OTHER FATIGUE 02/03/2018 HOWELL DO, LEAH Ot E78.5 HYPERLIPIDEMIA, UNSPECIFIED 02/03/2018 HOWELL DO, LEAH Ot I10 ESSENTIAL (PRIMARY) HYPERTENSION 02/03/2018 HOWELL DO, LEAH Ot I25.11 8 ATHSCL HEART DISEASE OF [place] COR ART W 02/03/2018 HOWELL DO, LEAH Ot I65.29 OCCLUSION AND STENOSIS OF UNSPECIFIED CA 02/03/2018 HOWELL DO, LEAH Ot K21.9 GASTRO-ESOPHAGEAL REFLUX DISEASE WITHOUT 02/03/2018 HOWELL DO, LEAH Ot R07.9 CHEST PAIN, UNSPECIFIED 02/03/2018 HOWELL DO, LEAH Ot R25.2 CRAMP AND SPASM 02/03/2018 HOWELL DO, LEAH Ot Z95.5 PRESENCE OF CORONARY ANGIOPLASTY IMPLANT 02/03/2018 HOWELL DO, LEAH Ot E78.5 HYPERLIPIDEMIA, UNSPECIFIED 02/03/2018 HOWELL DO, LEAH Ot I10 ESSENTIAL (PRIMARY) HYPERTENSION 02/03/2018 HOWELL DO, LEAH Ot I25.11 8 ATHSCL HEART DISEASE OF [place] COR ART W 02/03/2018 HOWELL DO, LEAH Ot I65.29 OCCLUSION AND STENOSIS OF UNSPECIFIED CA 02/03/2018 HOWELL DO, LEAH Ot K21.9 GASTRO-ESOPHAGEAL REFLUX DISEASE WITHOUT 02/03/2018 HOWELL DO, LEAH Ot R07.9 CHEST PAIN, UNSPECIFIED 02/03/2018 HOWELL DO, LEAH Ot R25.2 CRAMP AND SPASM 02/03/2018 HOWELL DO, LEAH Ot Z95.5 PRESENCE OF CORONARY ANGIOPLASTY IMPLANT 02/04/2018 Vin Shen MD R07.9 CHEST PAIN, UNSPECIFIED 02/06/2018 Vin Shen MD E78.5 HYPERLIPIDEMIA, UNSPECIFIED 02/06/2018 Vin Shen MD F41.9 ANXIETY DISORDER, UNSPECIFIED 02/06/2018 Vin Shen MD F43.9 REACTION TO SEVERE STRESS, UNSPECIFIED 02/06/2018 Vin Shen MD I10 ESSENTIAL (PRIMARY) HYPERTENSION 02/06/2018 Vin Shen MD I25.11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 UNSTABLE 02/06/2018 Vin Shen MD R07.9 CHEST PAIN, UNSPECIFIED 02/06/2018 Vin Shen MD R51 HEADACHE 02/06/2018 Vin Shen MD R79.1 ABNORMAL COAGULATION PROFILE 02/06/2018 Vin Shen MD T82.855A STENOSIS OF CORONARY ARTERY STENT, INITIAL ENCOUNT 02/06/2018 Vin Shen MD Z79.01 [employer] J[employer] DEVELOPER (CURRENT) USE OF ANTICOAGULANTS 02/06/2018 Vin Shen MD Z79.82 [employer] DEVELOPER (CURRENT) USE OF ASPIRIN 02/06/2018 Vin Shen MD Z90.49 ACQUIRED ABSENCE OF OTHER SPECIFIED PARTS OF DIGES 02/06/2018 Vin Shen MD Z95.5 PRESENCE OF CORONARY ANGIOPLASTY IMPLANT AND GRAFT 02/07/2018 Jonah Farmer MD D68.9 COAGULATION DEFECT, UNSPECIFIED 02/07/2018 Jonah Farmer MD E78.2 MIXED HYPERLIPIDEMIA 02/07/2018 Jonah Farmer MD E87.5 HYPERKALEMIA 02/07/2018 Jonah Farmer MD F41.9 ANXIETY DISORDER, UNSPECIFIED 02/07/2018 Jonah Farmer MD I 10 ESSENTIAL (PRIMARY) HYPERTENSION 02/07/2018 Jonah Farmer MD I11.9 HYPERTENSIVE HEART DISEASE WITHOUT HEART FAILURE 02/07/2018 Jonah Farmer MD I20.0 UNSTABLE ANGINA 02/07/2018 Jonah Farmer MD I25.11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 UNSTABLE 02/07/2018 Jonah Farmer MD I48.91 UNSPECIFIED ATRIAL FIBRILLATION 02/07/2018 Jonah Farmer MD I95.2 HYPOTENSION DUE TO DRUGS 02/07/2018 Jonah Farmer MD J93.9 PNEUMOTHORAX, UNSPECIFIED 02/07/2018 Jonah Farmer MD K21.9 GASTRO-ESOPHAGEAL REFLUX DISEASE WITHOUT ESOPHAGIT 02/07/2018 Jonah Farmer MD T82.855A STENOSIS OF CORONARY ARTERY STENT, INITIAL ENCOUNT 02/07/2018 Jnoah Farmer MD Y83.8 OT SURGICAL PROCEDURES CAUSE ABN REACT/COMPL, W/O 02/07/2018 Jonah Farmer MD Y92.[address] OF OCCURRENCE OF THE EXTER 02/07/2018 Jonah Farmer MD Z79.82 INTERMEDIATE (CURRENT) USE OF ASPIRIN 05/17/2018 RAZ WONG MD Ot E78. 5 HYPERLIPIDEMIA, UNSPECIFIED 05/17/2018 RAZ WONG MD, Ot F41. 9 ANXIETY DISORDER, UNSPECIFIED 05/17/2018 RAZ WONG MD Ot G47. 00 INSOMNIA, UNSPECIFIED 05/17/2018 RAZ WONG MD Ot I10 ESSENTIAL (PRIMARY) HYPERTENSION 05/17/2018 RAZ WONG MD, Ot I25.11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 05/17/2018 RAZ WONG MD Ot I48. 91 UNSPECIFIED ATRIAL FIBRILLATION 05/17/2018 RAZ WONG MD Ot K21. 9 GASTRO-ESOPHAGEAL REFLUX DISEASE WITHOUT 05/17/2018 RAZ WONG MD, Ot M47.816 SPONDYLOSIS W/O MYELOPATHY OR RADICULOPA 05/17/2018 RAZ WONG MD Ot Z79. 82 INTERMEDIATE (CURRENT) USE OF ASPIRIN 05/17/2018 RAZ WONG MD Ot Z79.899 OTHER [employer] JAVA DEVELOPER (CURRENT) DRUG THERAPY 05/17/2018 RAZ WONG MD Ot Z95. 1 PRESENCE OF AORTOCORONARY BYPASS GRAFT 05/17/2018 RAZ WONG MD Ot Z95. 5 PRESENCE OF CORONARY ANGIOPLASTY IMPLANT 05/19/2018 RAZ WONG MD Ot E78. 5 HYPERLIPIDEMIA, UNSPECIFIED 05/19/2018 RAZ WONG MD Ot F41. 9 ANXIETY DISORDER, UNSPECIFIED 05/19/2018 RAZ WONG MD Ot G47. 00 INSOMNIA, UNSPECIFIED 05/19/2018 RAZ WONG MD Ot I10 ESSENTIAL (PRIMARY) HYPERTENSION 05/19/2018 RAZ WONG MD Ot I25.11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 05/19/2018 RAZ WONG MD Ot I48. 91 UNSPECIFIED ATRIAL FIBRILLATION 05/19/2018 RAZ WONG MD Ot K21. 9 GASTRO-ESOPHAGEAL REFLUX DISEASE WITHOUT 05/19/2018 RAZ WONG MD, Ot M47.816 SPONDYLOSIS W/O MYELOPATHY OR RADICULOPA 05/19/2018 RAZ WONG MD Ot Z79. 82 PY[employer] J[employer] DEVELOPER (CURRENT) USE OF ASPIRIN 05/19/2018 RAZ WONG MD Ot Z79.899 OTHER PY[employer] JAVA DEVELOPER (CURRENT) DRUG THERAPY 05/19/2018 RAZ WONG MD Ot Z95. 1 PRESENCE OF AORTOCORONARY BYPASS GRAFT 05/19/2018 RAZ WONG MD Ot Z95. 5 PRESENCE OF CORONARY ANGIOPLASTY IMPLANT 05/19/2018 RAZ WONG MD, Ot E78. 5 HYPERLIPIDEMIA, UNSPECIFIED 05/19/2018 RAZ WONG MD, Ot F41. 9 ANXIETY DISORDER, UNSPECIFIED 05/19/2018 RAZ WONG MD, Ot G47. 00 INSOMNIA, UNSPECIFIED 05/19/2018 RAZ WONG MD, Ot I10 ESSENTIAL (PRIMARY) HYPERTENSION 05/19/2018 RAZ WONG MD, Ot I25.11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 05/19/2018 RAZ WONG MD, Ot I48. 91 UNSPECIFIED ATRIAL FIBRILLATION 05/19/2018 RAZ WONG MD, Ot K21. 9 GASTRO-ESOPHAGEAL REFLUX DISEASE WITHOUT 05/19/2018 RAZ WONG MD, Ot M47.816 SPONDYLOSIS W/O MYELOPATHY OR RADICULOPA 05/19/2018 RAZ WONG MD, Ot Z79. 82 INTERMEDIATE (CURRENT) USE OF ASPIRIN 05/19/2018 RAZ WONG MD, Ot Z79.899 OTHER INTERMEDIATE (CURRENT) DRUG THERAPY 05/19/2018 RAZ WONG MD, Ot Z95. 1 PRESENCE OF AORTOCORONARY BYPASS GRAFT 05/19/2018 RAZ WONG MD Ot Z95. 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 07/07/2018 RAMANA HUERTA Ot R29.810 FACIAL WEAKNESS 07/07/2018 RAMANA HUERTA Ot I67.82 CEREBRAL ISCHEMIA 07/07/2018 RAMANA HUERTA R Ot R29.810 FACIAL WEAKNESS 07/08/2018 RAMANA HUERTA R Ot I67.82 CEREBRAL ISCHEMIA 07/08/2018 RAMANA HUERTA Ot R29.810 FACIAL WEAKNESS 07/12/2018 RAMANA HUERTA Ot I67.82 CEREBRAL ISCHEMIA 07/12/2018 RAMANA HUERTA Ot R29.810 FACIAL WEAKNESS 07/27/2018 HOWELLBIJAN POOLE LEAH Ot J81.1 CHRONIC PULMONARY EDEMA 07/27/2018 CORAL POOLE LEAH Ot R06.00 DYSPNEA, UNSPECIFIED 07/28/2018 RAMANA HUERTA R Ot I67.82 CEREBRAL ISCHEMIA 07/28/2018 RAMANA HUERTA R Ot R29.810 FACIAL WEAKNESS 08/04/2018 HOWELL DO, LEAH Ot I63.9 CEREBRAL INFARCTION, UNSPECIFIED 08/04/2018 HOWELL DO, LEAH Ot I67.82 CEREBRAL ISCHEMIA 09/07/2018 RAMANA HUERTA R Ot I67.82 CEREBRAL ISCHEMIA 09/07/2018 RAMANA HUERTA R Ot R29.810 FACIAL WEAKNESS 09/07/2018 HOWELL DO, LEAH Ot J81.1 CHRONIC PULMONARY EDEMA 09/07/2018 HOWELL DO, LEAH Ot R06.00 DYSPNEA, UNSPECIFIED 09/07/2018 HOWELL DO, LEHA Ot I63.9 CEREBRAL INFARCTION, UNSPECIFIED 09/07/2018 HOWELL DO, LEAH Ot I67.82 CEREBRAL ISCHEMIA 11/29/2018 HOWELL DO, LEAH Ot I63.9 CEREBRAL INFARCTION, UNSPECIFIED 11/29/2018 HOWELL DO, LEAH Ot I67.82 CEREBRAL ISCHEMIA 11/29/2018 HOWELL DO, LEAH Ot I63.9 CEREBRAL INFARCTION, UNSPECIFIED 11/29/2018 HOWELL DO, LEAH Ot I67.82 CEREBRAL ISCHEMIA 12/08/2018 HOWELL DO, LEAH Ot R00.2 PALPITATIONS 12/12/2018 RAMANA HUERTA R Ot I48.91 UNSPECIFIED ATRIAL FIBRILLATION 12/12/2018 RAMANA HUERTA R Ot R00.2 PALPITATIONS 12/22/2018 HOWELL DO, LEAH Ot R00.2 PALPITATIONS 01/04/2019 RAMANA HUERTA R Ot I48.91 UNSPECIFIED ATRIAL FIBRILLATION 01/04/2019 RAMANA HUERTA R Ot R00.2 PALPITATIONS 01/11/2019 Bi LOMAS MD Ot E78 .5 HYPERLIPIDEMIA, UNSPECIFIED 01/11/2019 Bi LOMAS MD Ot I10 ESSENTIAL (PRIMARY) HYPERTENSION 01/11/2019 Bi LOMAS MD Ot I25.10 ATHSCL HEART DISEASE OF [place] CORONARY 01/11/2019 Bi LOMAS MD Ot I65.23 OCCLUSION AND STENOSIS OF BILATERAL GARZA 01/11/2019 Bi LOMAS MD Ot R00 .0 TACHYCARDIA, UNSPECIFIED 01/11/2019 Bi LOMAS MD Ot R00 .1 BRADYCARDIA, UNSPECIFIED 01/11/2019 Bi LOMAS MD Ot R00 .2 PALPITATIONS 01/11/2019 Bi LOMAS MD Ot R55 SYNCOPE AND COLLAPSE 01/11/2019 Bi LOMAS MD Ot Z79.82 [employer] DEVELOPER (CURRENT) USE OF ASPIRIN 01/11/2019 Bi LOMAS MD Ot Z79.899 OTHER INTERMEDIATE (CURRENT) DRUG THERAPY 01/11/2019 Bi LOMAS MD, Ot Z82.49 FAMILY HX OF ISCHEM HEART DIS AND OTH DI 01/11/2019 Bi LOMAS MD, Ot Z95 .1 PRESENCE OF AORTOCORONARY BYPASS GRAFT 01/11/2019 Bi LOMAS MD Ot Z95 .5 PRESENCE OF CORONARY ANGIOPLASTY IMPLANT 01/12/2019 LINA PARIS MD Ot 272. 4 HYPERLIPIDEMIA NEC/NOS 01/12/2019 LINA PARIS MD Ot 397. 0 TRICUSPID VALVE DISEASE 01/12/2019 LINA PARIS MD Ot 401. 9 HYPERTENSION NOS 01/12/2019 LINA PARIS MD Ot 414. 00 CORON ATHEROSCLER NOS TYPE VESSEL, NATIV 01/12/2019 LINA PARIS MD Ot 424. 0 MITRAL VALVE DISORDER 01/12/2019 LINA PARIS MD Ot 786. 05 SHORTNESS OF BREATH 01/12/2019 LINA PARIS MD Ot 786. 50 CHEST PAIN NOS 01/12/2019 LINA PARIS MD Ot 272. 4 HYPERLIPIDEMIA NEC/NOS 01/12/2019 LINA PARIS MD Ot 401. 9 HYPERTENSION NOS 01/12/2019 LINA PARIS MD Ot 414. 00 CORON ATHEROSCLER NOS TYPE VESSEL, NATIV 01/12/2019 LINA PARIS MD Ot 786. 05 SHORTNESS OF BREATH 01/12/2019 LINA PARIS MD Ot 786. 50 CHEST PAIN NOS 01/12/2019 LINA PARIS MD Ot 272. 4 HYPERLIPIDEMIA NEC/NOS 01/12/2019 LINA PARIS MD Ot 401. 9 HYPERTENSION NOS 01/12/2019 LINA PARIS MD Ot 414. 00 CORON ATHEROSCLER NOS TYPE VESSEL, NATIV 01/12/2019 RAINA PARSONS, LINA Keenan Ot 786. 05 SHORTNESS OF BREATH 01/12/2019 RAINA PARSONS, LINA Keenan Ot 786. 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 01/12/2019 LEAH HOWELL DO Ot 786.59 CHEST PAIN NEC 01/12/2019 LEAH HOWELL DO Ot V70.0 ROUTINE MEDICAL EXAM 01/12/2019 LEAH HOWELL DO Ot 729.1 MYALGIA AND MYOSITIS NOS 01/12/2019 LEAH HOWELL DO Ot 723.4 BRACHIAL NEURITIS NOS 01/12/2019 LEAH HOWELL DO Ot 729.5 PAIN IN LIMB 01/12/2019 LEAH HOWELL DO Ot 729.89 MUSCSKEL SYMPT LIMB NEC 01/12/2019 LEAH HOWELL DO Ot 272.0 PURE HYPERCHOLESTEROLEM 01/12/2019 LEAH HOWELL DO Ot 401.1 BENIGN HYPERTENSION 01/12/2019 Ot 272.4 HYPE RLIPIDEMIA NEC/NOS 01/12/2019 Ot 401.9 HYPE RTENSION NOS 01/12/2019 Ot 414.00 COR ON ATHEROSCLER NOS TYPE VESSEL, NATIV 01/12/[address] PAIN NOS 01/12/2019 Ot 272.0 PURE HYPERCHOLESTEROLEM 01/12/2019 Ot 401.1 FORTINO GN HYPERTENSION 01/12/2019 Ot 413.9 VELASQUEZ NA PECTORIS NEC/NOS 01/12/2019 Ot 414.00 COR ON ATHEROSCLER NOS TYPE VESSEL, NATIV 01/12/2019 Ot V58.69 OTH MED,LT,CURRENT USE 01/12/2019 LEAH HOWELL DO Ot E78.0 PURE HYPERCHOLESTEROLEMIA 01/12/2019 LEAH HOWELL DO Ot Z00.00 ENCNTR FOR GENERAL ADULT MEDICAL EXAM W/ 01/12/2019 JONES-DANNY HAINES Ot E78.5 HYPERLIPIDEMIA, UNSPECIFIED 01/12/2019 DANNY CAMPBELL Ot I25.10 ATHSCL HEART DISEASE OF [place] CORONARY 01/12/2019 LINA PARIS MD Ot E78. 2 MIXED HYPERLIPIDEMIA 01/12/2019 LINA PARIS MD Ot I10 ESSENTIAL (PRIMARY) HYPERTENSION 01/12/2019 LINA PARIS MD Ot I25. 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 01/12/2019 RAMANA HUERTA R Ot R29.810 FACIAL WEAKNESS 01/12/2019 RAMANA HUERTA R Ot I25.10 ATHSCL HEART DISEASE OF [place] CORONARY 01/12/2019 RAMANA HUERTA R Ot Z95.5 PRESENCE OF CORONARY ANGIOPLASTY IMPLANT 01/12/2019 CORAL POOLE, LEAH Ot J81.1 CHRONIC PULMONARY EDEMA 01/12/2019 CORAL POOLE LEAH Ot R06.00 DYSPNEA, UNSPECIFIED 01/12/2019 HOWELLBIJAN POOLE LEAH Ot I63.9 CEREBRAL INFARCTION, UNSPECIFIED 01/12/2019 HOWELLBIJAN POOLE LEAH Ot I67.82 CEREBRAL ISCHEMIA 01/12/2019 RAMANA HUERTA R Ot I48.91 UNSPECIFIED ATRIAL FIBRILLATION 01/12/2019 RAMANA HUERTA R Ot R00.2 PALPITATIONS 01/12/2019 CORAL POOLE LEAH Ot R00.2 PALPITATIONS 01/12/2019 Bi LOMAS MD Ot E78 .5 HYPERLIPIDEMIA, UNSPECIFIED 01/12/2019 Bi LOMAS MD Ot I10 ESSENTIAL (PRIMARY) HYPERTENSION 01/12/2019 Bi LOMAS MD Ot I25.10 ATHSCL HEART DISEASE OF [place] CORONARY 01/12/2019 Bi LOMAS MD Ot I65.23 OCCLUSION AND STENOSIS OF BILATERAL [place]ARZA 01/12/2019 Bi LOMAS MD Ot R00 .0 TACHYCARDIA, UNSPECIFIED 01/12/2019 Bi LOMAS MD Ot R00 .1 BRADYCARDIA, UNSPECIFIED 01/12/2019 Bi LOMAS MD Ot R00 .2 PALPITATIONS 01/12/2019 Bi LOMAS MD Ot R55 SYNCOPE AND COLLAPSE 01/12/2019 Bi LOMAS MD Ot Z79.82 PY[employer] JAVA DEVELOPER (CURRENT) USE OF ASPIRIN 01/12/2019 Bi LOMAS MD, Ot Z79.899 OTHER INTERMEDIATE (CURRENT) DRUG THERAPY 01/12/2019 Bi LOMAS MD, Ot Z82.49 FAMILY HX OF ISCHEM HEART DIS AND OTH DI 01/12/2019 Bi LOMAS MD, Ot Z95 .1 PRESENCE OF AORTOCORONARY BYPASS GRAFT 01/12/2019 Bi LOMAS MD Ot Z95 .5 PRESENCE OF CORONARY ANGIOPLASTY IMPLANT 01/16/2019 Bi LOMAS MD Ot E78 .5 HYPERLIPIDEMIA, UNSPECIFIED 01/16/2019 Bi LOMAS MD Ot I10 ESSENTIAL (PRIMARY) HYPERTENSION 01/16/2019 Bi LOMAS MD Ot I25.10 ATHSCL HEART DISEASE OF [place] CORONARY 01/16/2019 Bi LOMAS MD Ot I77 .9 DISORDER OF ARTERIES AND ARTERIOLES, UNS 01/16/2019 Bi LOMAS MD Ot R00 .2 PALPITATIONS 01/16/2019 Bi LOMAS MD Ot R06.02 SHORTNESS OF BREATH 01/26/2019 Bi LOMAS MD Ot E78 .5 HYPERLIPIDEMIA, UNSPECIFIED 01/26/2019 Bi LOMAS MD Ot I10 ESSENTIAL (PRIMARY) HYPERTENSION 01/26/2019 Bi LOMAS MD Ot I25.10 ATHSCL HEART DISEASE OF [place] CORONARY 01/26/2019 Bi LOMAS MD Ot I65.23 OCCLUSION AND STENOSIS OF BILATERAL GARZA 01/26/2019 Bi LOMAS MD Ot R00 .0 TACHYCARDIA, UNSPECIFIED 01/26/2019 Bi LOMAS MD Ot R00 .1 BRADYCARDIA, UNSPECIFIED 01/26/2019 Bi LOMAS MD Ot R00 .2 PALPITATIONS 01/26/2019 Bi LOMAS MD Ot R55 SYNCOPE AND COLLAPSE 01/26/2019 Bi LOMAS MD Ot Z79.82 PY[employer] JAVA DEVELOPER (CURRENT) USE OF ASPIRIN 01/26/2019 Bi LOMAS MD Ot Z79.899 OTHER PY[employer] JAVA DEVELOPER (CURRENT) DRUG THERAPY 01/26/2019 Bi LOMAS MD, Ot Z82.49 FAMILY HX OF ISCHEM HEART DIS AND OTH DI 01/26/2019 Bi LOMAS MD, Ot Z95 .1 PRESENCE OF AORTOCORONARY BYPASS GRAFT 01/26/2019 Bi LOMAS MD Ot Z95 .5 PRESENCE OF CORONARY ANGIOPLASTY IMPLANT 01/26/2019 Bi LOMAS MD Ot E78 .5 HYPERLIPIDEMIA, UNSPECIFIED 01/26/2019 Bi LOMAS MD Ot I10 ESSENTIAL (PRIMARY) HYPERTENSION 01/26/2019 Bi LOMAS MD Ot I25.10 ATHSCL HEART DISEASE OF [place] CORONARY 01/26/2019 Bi LOMAS MD Ot I77 .9 DISORDER OF ARTERIES AND ARTERIOLES, UNS 01/26/2019 Bi LOMAS MD Ot R00 .2 PALPITATIONS 01/26/2019 Bi LOMAS MD Ot R06.02 SHORTNESS OF BREATH 02/02/2019 CARLOS MARTIN MD Ot E78.00 PURE HYPERCHOLESTEROLEMIA, UNSPECIFIED 02/02/2019 CARLOS MARTIN MD Ot E78 .5 HYPERLIPIDEMIA, UNSPECIFIED 02/02/2019 CARLOS MARTIN MD Ot F41 .9 ANXIETY DISORDER, UNSPECIFIED 02/02/2019 CARLOS MARTIN MD Ot G43.909 MIGRAINE, UNSP, NOT INTRACTABLE, WITHOUT 02/02/2019 CARLOS MARTIN MD Ot I10 ESSENTIAL (PRIMARY) HYPERTENSION 02/02/2019 CARLOS MARTIN MD, Ot I25.11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 02/02/2019 CARLOS MARTIN MD, Ot I25 .2 OLD MYOCARDIAL INFARCTION 02/02/2019 CARLOS MARTIN MD, Ot I48 .2 CHRONIC ATRIAL FIBRILLATION 02/02/2019 CARLOS MARTIN MD, Ot I49 .5 SICK SINUS SYNDROME 02/02/2019 CARLOS MARTIN MD, Ot I65.29 OCCLUSION AND STENOSIS OF UNSPECIFIED CA 02/02/2019 CARLOS MARTIN MD, Ot K21 .9 GASTRO-ESOPHAGEAL REFLUX DISEASE WITHOUT 02/02/2019 CARLOS MARTIN MD, Ot Z79.82 INTERMEDIATE (CURRENT) USE OF ASPIRIN 02/02/2019 CARLOS MARTIN MD, Ot Z79.899 OTHER INTERMEDIATE (CURRENT) DRUG THERAPY 02/02/2019 CARLOS MARTIN MD, Ot Z95 .1 PRESENCE OF AORTOCORONARY BYPASS GRAFT 02/02/2019 CARLOS MARTIN MD, Ot Z95 .5 PRESENCE OF CORONARY ANGIOPLASTY IMPLANT 02/07/2019 CARLOS MARTIN MD Ot E78.00 PURE HYPERCHOLESTEROLEMIA, UNSPECIFIED 02/07/2019 CARLOS MARTIN MD, Ot E78 .5 HYPERLIPIDEMIA, UNSPECIFIED 02/07/2019 CARLOS MARTIN MD, Ot F41 .9 ANXIETY DISORDER, UNSPECIFIED 02/07/2019 CARLOS MARTIN MD, Ot G43.909 MIGRAINE, UNSP, NOT INTRACTABLE, WITHOUT 02/07/2019 CARLOS MARTIN MD Ot I10 ESSENTIAL (PRIMARY) HYPERTENSION 02/07/2019 CARLOS MARTIN MD, Ot I25.11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 02/07/2019 CARLOS MARTIN MD, Ot I25 .2 OLD MYOCARDIAL INFARCTION 02/07/2019 CARLOS MARTIN MD, Ot I48 .2 CHRONIC ATRIAL FIBRILLATION 02/07/2019 CARLOS MARTIN MD, Ot I49 .5 SICK SINUS SYNDROME 02/07/2019 CARLOS MARTIN MD, Ot I65.29 OCCLUSION AND STENOSIS OF UNSPECIFIED CA 02/07/2019 CARLOS MARTIN MD, Ot K21 .9 GASTRO-ESOPHAGEAL REFLUX DISEASE WITHOUT 02/07/2019 CARLOS MARTIN MD Ot Z79.82 INTERMEDIATE (CURRENT) USE OF ASPIRIN 02/07/2019 CARLOS MARTIN MD Ot Z79.899 OTHER [employer] (CURRENT) DRUG THERAPY 02/07/2019 CARLOS MARTIN MD Ot Z95 .1 PRESENCE OF AORTOCORONARY BYPASS GRAFT 02/07/2019 CARLOS MARTIN MD Ot Z95 .5 PRESENCE OF CORONARY ANGIOPLASTY IMPLANT 02/08/2019 CARLOS MARTIN MD Ot E78.00 PURE HYPERCHOLESTEROLEMIA, UNSPECIFIED 02/08/2019 CARLOS MARTIN MD, Ot E78 .5 HYPERLIPIDEMIA, UNSPECIFIED 02/08/2019 CARLOS MARTIN MD Ot F41 .9 ANXIETY DISORDER, UNSPECIFIED 02/08/2019 CARLOS MARTIN MD Ot G43.909 MIGRAINE, UNSP, NOT INTRACTABLE, WITHOUT 02/08/2019 CARLOS MARTIN MD Ot I10 ESSENTIAL (PRIMARY) HYPERTENSION 02/08/2019 CARLOS MARTIN MD Ot I25.11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 02/08/2019 CARLOS MARTIN MD Ot I25 .2 OLD MYOCARDIAL INFARCTION 02/08/2019 CARLOS MARTIN MD Ot I48 .2 CHRONIC ATRIAL FIBRILLATION 02/08/2019 CARLOS MARTIN MD Ot I49 .5 SICK SINUS SYNDROME 02/08/2019 CARLOS MARTIN MD Ot I65.29 OCCLUSION AND STENOSIS OF UNSPECIFIED CA 02/08/2019 CARLOS MARTIN MD Ot K21 .9 GASTRO-ESOPHAGEAL REFLUX DISEASE WITHOUT 02/08/2019 CARLOS MARTIN MD Ot Z79.82 INTERMEDIATE (CURRENT) USE OF ASPIRIN 02/08/2019 CARLOS MARTIN MD Ot Z79.899 OTHER INTERMEDIATE (CURRENT) DRUG THERAPY 02/08/2019 CARLOS MARTIN MD Ot Z95 .1 PRESENCE OF AORTOCORONARY BYPASS GRAFT 02/08/2019 CARLOS MARTIN MD Ot Z95 .5 PRESENCE OF CORONARY ANGIOPLASTY IMPLANT 02/09/2019 CARLOS MARTIN MD Ot E78.00 PURE HYPERCHOLESTEROLEMIA, UNSPECIFIED 02/09/2019 CARLOS MARTIN MD Ot E78 .5 HYPERLIPIDEMIA, UNSPECIFIED 02/09/2019 CARLOS MARTIN MD Ot F41 .9 ANXIETY DISORDER, UNSPECIFIED 02/09/2019 ACRLOS MARTIN MD Ot G43.909 MIGRAINE, UNSP, NOT INTRACTABLE, WITHOUT 02/09/2019 CARLOS MARTIN MD Ot I10 ESSENTIAL (PRIMARY) HYPERTENSION 02/09/2019 CARLOS MARTIN MD Ot I25.11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 02/09/2019 CARLOS MARTIN MD Ot I25 .2 OLD MYOCARDIAL INFARCTION 02/09/2019 CARLOS MARTIN MD Ot I48 .2 CHRONIC ATRIAL FIBRILLATION 02/09/2019 CARLOS MARTIN MD, Ot I49 .5 SICK SINUS SYNDROME 02/09/2019 CARLOS MARTIN MD Ot I65.29 OCCLUSION AND STENOSIS OF UNSPECIFIED CA 02/09/2019 CARLOS MARTIN MD Ot K21 .9 GASTRO-ESOPHAGEAL REFLUX DISEASE WITHOUT 02/09/2019 CARLOS MARTIN MD Ot Z79.82 INTERMEDIATE (CURRENT) USE OF ASPIRIN 02/09/2019 CARLOS MARTIN MD Ot Z79.899 OTHER [employer] (CURRENT) DRUG THERAPY 02/09/2019 CARLOS MARTIN MD Ot Z95 .1 PRESENCE OF AORTOCORONARY BYPASS GRAFT 02/09/2019 CARLOS MARTIN MD Ot Z95 .5 PRESENCE OF CORONARY ANGIOPLASTY IMPLANT 02/22/2019 CARLOS MARTIN MD Ot E78.00 PURE HYPERCHOLESTEROLEMIA, UNSPECIFIED 02/22/2019 CARLOS MARTIN MD Ot E78 .5 HYPERLIPIDEMIA, UNSPECIFIED 02/22/2019 CARLOS MARTIN MD Ot F41 .9 ANXIETY DISORDER, UNSPECIFIED 02/22/2019 CARLOS MARTIN MD Ot G43.909 MIGRAINE, UNSP, NOT INTRACTABLE, WITHOUT 02/22/2019 CARLOS MARTIN MD Ot I10 ESSENTIAL (PRIMARY) HYPERTENSION 02/22/2019 CARLOS MARTIN MD Ot I25.11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 02/22/2019 CARLOS MARTIN MD Ot I25 .2 OLD MYOCARDIAL INFARCTION 02/22/2019 CARLOS MARTIN MD Ot I48 .2 CHRONIC ATRIAL FIBRILLATION 02/22/2019 CARLOS MARTIN MD Ot I49 .5 SICK SINUS SYNDROME 02/22/2019 CARLOS MARTIN MD Ot K21 .9 GASTRO-ESOPHAGEAL REFLUX DISEASE WITHOUT 02/22/2019 CARLOS MARTIN MD Ot Z79.82 [employer] (CURRENT) USE OF ASPIRIN 02/22/2019 CARLOS MARTIN MD Ot Z79.899 OTHER [employer] (CURRENT) DRUG THERAPY 02/22/2019 CARLOS MARTIN MD, Ot Z95 .1 PRESENCE OF AORTOCORONARY BYPASS GRAFT 02/22/2019 CARLOS MARTIN MD, Ot Z95 .5 PRESENCE OF CORONARY ANGIOPLASTY IMPLANT 03/07/2019 ANIA LAINEZ, RAMANA R Ot I48.91 UNSPECIFIED ATRIAL FIBRILLATION 03/07/2019 ANIA LAINEZ, RAMANA R Ot R00.2 PALPITATIONS 04/02/2019 ANIA LAINEZ, RAMANA R Ot I48.91 UNSPECIFIED ATRIAL FIBRILLATION 04/02/2019 ANIA LAINEZ, RAMANA R Ot R00.2 PALPITATIONS 05/26/2019 BARBARA NEW MD Ot F41. 9 ANXIETY DISORDER, UNSPECIFIED 05/26/2019 BARBARA NEW MD Ot G43.909 MIGRAINE, UNSP, NOT INTRACTABLE, WITHOUT 05/26/2019 BARBARA NEW MD Ot I25. 10 ATHSCL HEART DISEASE OF [place] CORONARY 05/26/2019 BARBARA NEW MD Ot I25. 2 OLD MYOCARDIAL INFARCTION 05/26/2019 BARBARA NEW MD Ot K21. 9 GASTRO-ESOPHAGEAL REFLUX DISEASE WITHOUT 05/26/2019 BARBARA NEW MD Ot M79.605 PAIN IN LEFT LEG 05/26/2019 BARBARA NEW MD Ot Z79. 02 PYTHON JAVA DEVELOPER (CURRENT) USE OF ANTITHROMBOTI 05/26/2019 BARBARA NEW MD Ot Z79. 82 PYTHON JAVA DEVELOPER (CURRENT) USE OF ASPIRIN 05/26/2019 BARBARA NEW MD Ot Z82. 49 FAMILY HX OF ISCHEM HEART DIS AND OTH DI 05/26/2019 BARBARA NEW MD Ot Z90. 89 ACQUIRED ABSENCE OF OTHER ORGANS 05/26/2019 BARBARA NEW MD Ot Z95. 1 PRESENCE OF AORTOCORONARY BYPASS GRAFT 05/26/2019 BARBARA NEW MD Ot Z95. 5 PRESENCE OF CORONARY ANGIOPLASTY IMPLANT 05/31/2019 BARBARA NEW MD Ot F41. 9 ANXIETY DISORDER, UNSPECIFIED 05/31/2019 BARBARA NEW MD Ot G43.909 MIGRAINE, UNSP, NOT INTRACTABLE, WITHOUT 05/31/2019 BARBARA NEW MD, Ot I25. 10 ATHSCL HEART DISEASE OF [place] CORONARY 05/31/2019 BARBARA NEW MD Ot I25. 2 OLD MYOCARDIAL INFARCTION 05/31/2019 BARBARA NEW MD, Ot K21. 9 GASTRO-ESOPHAGEAL REFLUX DISEASE WITHOUT 05/31/2019 BARBARA NEW MD Ot M79.605 PAIN IN LEFT LEG 05/31/2019 BARBARA NEW MD Ot Z79. 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 82 PYTHON J[employer] DEVELOPER (CURRENT) USE OF ASPIRIN 05/31/2019 BARBARA NEW MD Ot Z82. 49 FAMILY HX OF ISCHEM HEART DIS AND OTH DI 05/31/2019 BARBARA NEW MD Ot Z90. 89 ACQUIRED ABSENCE OF OTHER ORGANS 05/31/2019 BARBARA NEW MD Ot Z95. 1 PRESENCE OF AORTOCORONARY BYPASS GRAFT 05/31/2019 BARBARA NEW MD Ot Z95. 5 PRESENCE OF CORONARY ANGIOPLASTY IMPLANT 07/28/2019 CORAL POOLE LEAH Ot E78.00 PURE HYPERCHOLESTEROLEMIA, UNSPECIFIED 07/28/2019 CORAL POOLE LEAH Ot E78.5 HYPERLIPIDEMIA, UNSPECIFIED 07/28/2019 CORAL POOLE LEAH Ot F41.9 ANXIETY DISORDER, UNSPECIFIED 07/28/2019 CORAL POOLE LEAH Ot G43.90 9 MIGRAINE, UNSP, NOT INTRACTABLE, WITHOUT 07/28/2019 CORAL DO LEAH Ot I10 ESSENTIAL (PRIMARY) HYPERTENSION 07/28/2019 CORAL POOLE LEAH Ot I25.10 ATHSCL HEART DISEASE OF [place] CORONARY 07/28/2019 CORAL POOLE LEAH Ot I48.0 PAROXYSMAL ATRIAL FIBRILLATION 07/28/2019 CORAL POOLE LEAH Ot J30.9 ALLERGIC RHINITIS, UNSPECIFIED 07/28/2019 CORAL POOLE LEAH Ot K21.9 GASTRO-ESOPHAGEAL REFLUX DISEASE WITHOUT 07/28/2019 CORAL POOLE LEAH Ot M51.36 OTHER INTERVERTEBRAL DISC DEGENERATION, 07/28/2019 CORAL POOLE LEAH Ot Z79.02 PYTH[employer] J[employer] DEVELOPER (CURRENT) USE OF ANTITHROMBOTI 07/28/2019 LEAH HOWELL DO Ot Z79.82 PYTHON J[employer] DEVELOPER (CURRENT) USE OF ASPIRIN 07/28/2019 CORAL POOLE LEAH Ot Z79.89 9 OTHER PYTH[employer] JAVA DEVELOPER (CURRENT) DRUG THERAPY 07/28/2019 ELOINA HOWELL DOI Ot Z82.49 FAMILY HX OF ISCHEM HEART DIS AND OTH DI 07/28/2019 CORAL POOLE LEAH Ot Z83.3 FAMILY HISTORY OF DIABETES MELLITUS 07/28/2019 CORAL POOLE LEAH Ot Z86.73 PRSNL HX OF TIA (TIA), AND CEREB INFRC W 07/28/2019 CORAL POOLE LEAH Ot Z90.89 ACQUIRED ABSENCE OF OTHER ORGANS 07/28/2019 CORAL POOLE LEAH Ot Z95.1 PRESENCE OF AORTOCORONARY BYPASS GRAFT 08/10/2019 CORAL POOLE LEAH Ot E78.00 PURE HYPERCHOLESTEROLEMIA, UNSPECIFIED 08/10/2019 CORAL POOLE LEAH Ot E78.5 HYPERLIPIDEMIA, UNSPECIFIED 08/10/2019 CORAL POOLE LEAH Ot F41.9 ANXIETY DISORDER, UNSPECIFIED 08/10/2019 CORAL POOLE LEAH Ot G43.90 9 MIGRAINE, UNSP, NOT INTRACTABLE, WITHOUT 08/10/2019 CORLA POOLE LEAH Ot I10 ESSENTIAL (PRIMARY) HYPERTENSION 08/10/2019 CORAL POOLE LEAH Ot I25.10 ATHSCL HEART DISEASE OF [place] CORONARY 08/10/2019 CORAL POOLE LEAH Ot I48.0 PAROXYSMAL ATRIAL FIBRILLATION 08/10/2019 CORAL POOLE LEAH Ot J30.9 ALLERGIC RHINITIS, UNSPECIFIED 08/10/2019 CORAL POOLE LEAH Ot K21.9 GASTRO-ESOPHAGEAL REFLUX DISEASE WITHOUT 08/10/2019 CORAL POOLE LEAH Ot M51.36 OTHER INTERVERTEBRAL DISC DEGENERATION, 08/10/2019 CORAL POOLE LEAH Ot Z79.02 PYTHON J[employer] DEVELOPER (CURRENT) USE OF ANTITHROMBOTI 08/10/2019 CORAL POOLE LEAH Ot Z79.82 PYTHON JAVA DEVELOPER (CURRENT) USE OF ASPIRIN 08/10/2019 CORAL POOLE LEAH Ot Z79.89 9 OTHER PY[employer] JAVA DEVELOPER (CURRENT) DRUG THERAPY 08/10/2019 CORAL POOLE LEAH Ot Z82.49 FAMILY HX OF ISCHEM HEART DIS AND OTH DI 08/10/2019 ELOINA HOWELL DOI Ot Z83.3 FAMILY HISTORY OF DIABETES MELLITUS 08/10/2019 HOWELL DO, LEAH Ot Z86.73 PRSNL HX OF TIA (TIA), AND CEREB INFRC W 08/10/2019 HOWELL DO, LEAH Ot Z90.89 ACQUIRED ABSENCE OF OTHER ORGANS 08/10/2019 HOWELL DO, LEAH Ot Z95.1 PRESENCE OF AORTOCORONARY BYPASS GRAFT 08/18/2019 HOWELL DO, LEAH Ot E78.00 PURE HYPERCHOLESTEROLEMIA, UNSPECIFIED 08/18/2019 HOWELL DO, LEAH Ot E78.5 HYPERLIPIDEMIA, UNSPECIFIED 08/18/2019 HOWELL DO, LEAH Ot F41.9 ANXIETY DISORDER, UNSPECIFIED 08/18/2019 HOWELL DO, LEAH Ot G43.90 9 MIGRAINE, UNSP, NOT INTRACTABLE, WITHOUT 08/18/2019 HOWELL DO, LEAH Ot I10 ESSENTIAL (PRIMARY) HYPERTENSION 08/18/2019 HOWELL DO, LEAH Ot I25.10 ATHSCL HEART DISEASE OF [place] CORONARY 08/18/2019 HOWELL DO, LEAH Ot I48.0 PAROXYSMAL ATRIAL FIBRILLATION 08/18/2019 HOWELL DO, LEAH Ot J30.9 ALLERGIC RHINITIS, UNSPECIFIED 08/18/2019 HOWELL DO, LEAH Ot K21.9 GASTRO-ESOPHAGEAL REFLUX DISEASE WITHOUT 08/18/2019 HOWELL DO, LEAH Ot M51.36 OTHER INTERVERTEBRAL DISC DEGENERATION, 08/18/2019 HOWELL DO, LEAH Ot Z79.02 PY[employer] DEVELOPER (CURRENT) USE OF ANTITHROMBOTI 08/18/2019 HOWELL DO, LEAH Ot Z79.82 INTERMEDIATE (CURRENT) USE OF ASPIRIN 08/18/2019 HOWELL DO, LEAH Ot Z79.89 9 OTHER PYTH[employer] J[employer] DEVELOPER (CURRENT) DRUG THERAPY 08/18/2019 HOWELL DO, LEAH Ot Z82.49 FAMILY HX OF ISCHEM HEART DIS AND OTH DI 08/18/2019 HOWELL DO, LEAH Ot Z83.3 FAMILY HISTORY OF DIABETES MELLITUS 08/18/2019 HOWELL DO, LEAH Ot Z86.73 PRSNL HX OF TIA (TIA), AND CEREB INFRC W 08/18/2019 HOWELL DO, LEAH Ot Z90.89 ACQUIRED ABSENCE OF OTHER ORGANS 08/18/2019 HOWELL DO, LEAH Ot Z95.1 PRESENCE OF AORTOCORONARY BYPASS GRAFT Procedures Code Description Performed By Per formed On [id number] NV ASURE OF CARDIAC SAMPL PRESSURE, L HEART, PERC Vin Shen MD 02/06/2018 [id number] FL UOROSCOPY OF MULT COR ART USING L OSM CONTRAST Vin Shen MD 02/06/2018 [id number] FL UOROSCOPY OF LEFT HEART USING LOW OSMOLAR CONTRA Vin Shen MD 02/06/2018 [id number] BY PASS 1 COR ART FROM L INT MAMMARY, OPEN APPROACH Jonah Farmer MD 02/07/2018 [id number] BY PASS 3 COR ART FROM AORTA WITH AUTOL VN, OPEN AP Marleny PARSONS, Jonah Bateman 02/07/2018 [id number] BY PASS 4+ COR ART FROM L INT MAMMARY W AUTOL VN, O Jonah Farmer MD 02/07/2018 [id number] EX CISION OF LEFT SAPHENOUS VEIN, PERC ENDO APPROAC Marleny PARSONS, Jonah Bateman 02/07/2018 [id number] PE RFORMANCE OF CARDIAC OUTPUT, CONTINUOUS Jonah Farmer MD 02/07/2018 [id number] RE SPIRATORY VENTILATION, LESS THAN 24 CONSECUTIVE Jonah Farmer MD 02/07/2018 Results Test Result Range Comprehensive metabolic panel - 05/05/16 08:01 Serum or plasma sodium measurement (moles/volume) 142 mmol/L 135-145 Serum or plasma potassium measurement (moles/volume) 4.0 mmol/L 3.6-5.0 Serum or plasma chloride measurement (moles/volume) 109 mmol/L 98-107 Carbon dioxide 24 mmol/L 21-32 Serum or plasma anion gap determination (moles/volume) 9 mmol/L 5-14 Serum or plasma urea nitrogen measurement (mass/volume ) 15 mg/dL 7-18 Serum or plasma creatinine measurement (mass/volume) 0.88 mg/dL 0.60-1.30 Serum or plasma urea nitrogen/creatinine mass ratio 17 NRG Serum or plasma creatinine measurement w ith calculation of estimated glomerular filtration rate > NRG Serum or plasma glucose measurement (mass/volume) 100 mg/dL 70-105 Serum or plasma calcium measurement (mass/volume) 8.5 mg/dL 8.5-10.1 Serum or plasma total bilirubin measurement (mass/volu me) 0.8 mg/dL 0.1-1.0 Serum or plasma alkaline phosphatase garth surement (enzymatic activity/volume) 63 U/L 40-136 Serum or plasma aspartate aminotransfera se measurement (enzymatic activity/volume) 19 U/L 5-34 Serum or plasma alanine aminotransferase measurement (enzymatic activity/volume) 21 U/L 0-55 Serum or plasma protein measurement (mass/volume) 6.2 g/dL 6.4-8.2 Serum or plasma albumin measurement (mass/volume) 4.1 g/dL 3.2-4.5 Serum or plasma triglyceride measurement (mass/volume) - 05/05/16 08:01 Serum or plasma triglyceride measurement (mass/volume) 87 mg/dL <150 Complete blood count (CBC) with automate d white blood cell (WBC) differential - 06/22/16 18:00 Blood leukocytes automated count (number/volume) 6.4 10*3/uL 4.3-11.0 Blood erythrocytes automated count (number/volume) 5.04 10*6/uL 4.35-5.85 Venous blood hemoglobin measurement (mass/volume) 15.4 g/dL 13.3-17.7 Blood hematocrit (volume fraction) 45 % 40-54 Automated erythrocyte mean corpuscular volume 90 [ foz_us] 80-99 Automated erythrocyte mean corpuscular h emoglobin (mass per erythrocyte) 31 pg 25-34 Automated erythrocyte mean corpuscular h emoglobin concentration measurement (mass/volume) 34 g/dL 32-36 Automated erythrocyte distribution width ratio 13. 0 % 10.0- 14.5 Automated blood platelet count (count/volume) 204 10*3/uL [...] 10*3 1.0-4.0 Blood monocytes automated count (number/volume) 0. 7 10*3 0.0-1.0 Automated eosinophil count 0.2 10*3/uL 0 .0-0.3 Automated blood basophil count (count/volume) 0.0 10*3/uL 0.0-0.1 PT panel in platelet poor plasma by coag ulation assay - 06/22/16 18:00 Prothrombin time (PT) in platelet poor plasma by coagu lation assay 12.5 s 12.2-14.7 INR in platelet poor plasma or blood by coagulation as say 1.0 0.8-1.4 Activated partial thromboplastin time (a PTT) in platelet poor plasma bycoagulation assay - 06/22/16 18:00 Activated partial thromboplastin time (a PTT) in platelet poor plasma bycoagulation assay 28 s 24-35 Comprehensive metabolic panel - 06/22/16 18:00 Serum or plasma sodium measurement (moles/volume) 140 mmol/L 135-145 Serum or plasma potassium measurement (moles/volume) 4.0 mmol/L 3.6-5.0 Serum or plasma chloride measurement (moles/volume) 106 mmol/L 98-107 Carbon dioxide 29 mmol/L 21-32 Serum or plasma anion gap determination (moles/volume) 5 mmol/L 5-14 Serum or plasma urea nitrogen measurement (mass/volume ) 15 mg/dL 7-18 Serum or plasma creatinine measurement (mass/volume) 0.87 mg/dL 0.60-1.30 Serum or plasma urea nitrogen/creatinine mass ratio 17 NRG Serum or plasma creatinine measurement w ith calculation of estimated glomerular filtration rate > NRG Serum or plasma glucose measurement (mass/volume) 97 mg/dL 70-105 Serum or plasma calcium measurement (mass/volume) 8.4 mg/dL 8.5-10.1 Serum or plasma total bilirubin measurement (mass/volu me) 0.5 mg/dL 0.1-1.0 Serum or plasma alkaline phosphatase garth surement (enzymatic activity/volume) 61 U/L 40-136 Serum or plasma aspartate aminotransfera se measurement (enzymatic activity/volume) 15 U/L 5-34 Serum or plasma alanine aminotransferase measurement (enzymatic activity/volume) 15 U/L 0-55 Serum or plasma protein measurement (mass/volume) 6.1 g/dL 6.4-8.2 Serum or plasma albumin measurement (mass/volume) 4.0 g/dL 3.2-4.5 Magnesium - 06/22/16 18:00 Magnesium 2.1 mg/dL 1.8-2.4 Serum or plasma creatine kinase measurem ent (enzymatic activity/volume) - 06/22/16 18:00 Serum or plasma creatine kinase measurem ent (enzymatic activity/volume) 29 U/L 30-200 Serum or plasma creatine kinase MB measu rement (enzymatic activity/volume) - 06/22/16 18:00 Serum or plasma creatine kinase MB measu rement (enzymatic activity/volume) 0.7 ng/mL <6.6 Serum or plasma troponin i.cardiac measu rement (mass/volume) - 06/22/16 18:00 Serum or plasma troponin i.cardiac measurement (mass/v olume) < ng/mL <0.30 Serum or plasma amylase measurement (enz ymatic activity/volume) - 06/22/16 18:00 Serum or plasma amylase measurement (enzymatic activit y/volume) 32 U/L 25-125 Lipase - 06/22/16 18:00 Lipase 16 U/L 8-78 Serum or plasma lithium measurement (mol es/volume) - 06/22/16 18:00 BNP level 29.2 pg/mL <100.0 Complete urinalysis with reflex to cultu re - 06/23/16 02:14 Urine color determination YELLOW NRG Urine clarity determination CLEAR NR G Urine pH measurement by test strip 7 5-9 Specific gravity of urine by test strip 1.010 1.016-1.022 Urine protein assay by test strip, semi-quantitative NEGATIVE NEGATIVE Urine glucose detection by automated test strip NE GATIVE NEGATIVE Erythrocytes detection in urine sediment by light micr oscopy 4+ NEGATIVE Urine ketones detection by automated test strip NE GATIVE NEGATIVE Urine nitrite detection by test strip NEGATIVE NEGATIVE Urine total bilirubin detection by test strip NEGA TIVE NEGATIVE Urine urobilinogen measurement by automated test strip (mass/volume) NORMAL NORMAL Urine leukocyte esterase detection by dipstick NEG ATIVE NEGATIVE Automated urine sediment erythrocyte cou nt by microscopy (number/high power field) [HPF] NRG Automated urine sediment leukocyte count by microscopy (number/high power field) RARE NRG Bacteria detection in urine sediment by light microsco py TRACE NRG Squamous epithelial cells detection in u rine sediment by light microscopy 0-2 NRG Crystals detection in urine sediment by light microsco py NONE NRG Casts detection in urine sediment by light microscopy NONE NRG Mucus detection in urine sediment by light microscopy NEGATIVE NRG Complete urinalysis with reflex to culture NO NRG Complete blood count (CBC) with automate d white blood cell (WBC) differential - 06/23/16 02:40 Blood leukocytes automated count (number/volume) 6.3 10*3/uL 4.3-11.0 Blood erythrocytes automated count (number/volume) 4.87 10*6/uL 4.35-5.85 Venous blood hemoglobin measurement (mass/volume) 15.0 g/dL 13.3-17.7 Blood hematocrit (volume fraction) 44 % 40-54 Automated erythrocyte mean corpuscular volume 90 [ foz_us] 80-99 Automated erythrocyte mean corpuscular h emoglobin (mass per erythrocyte) 31 pg 25-34 Automated erythrocyte mean corpuscular h emoglobin concentration measurement (mass/volume) 34 g/dL 32-36 Automated erythrocyte distribution width ratio 12. 8 % 10.0- 14.5 Automated blood platelet count (count/volume) 199 10*3/uL [...] 10*3 1.0-4.0 Blood monocytes automated count (number/volume) 0. 8 10*3 0.0-1.0 Automated eosinophil count 0.2 10*3/uL 0 .0-0.3 Automated blood basophil count (count/volume) 0.0 10*3/uL 0.0-0.1 PT panel in platelet poor plasma by coag ulation assay - 06/23/16 02:40 Prothrombin time (PT) in platelet poor plasma by coagu lation assay 13.2 s 12.2-14.7 INR in platelet poor plasma or blood by coagulation as say 1.0 0.8-1.4 Activated partial thromboplastin time (a PTT) in platelet poor plasma bycoagulation assay - 06/23/16 02:40 Activated partial thromboplastin time (a PTT) in platelet poor plasma bycoagulation assay 39 s 24-35 Comprehensive metabolic panel - 06/23/16 02:40 Serum or plasma sodium measurement (moles/volume) 143 mmol/L 135-145 Serum or plasma potassium measurement (moles/volume) 3.6 mmol/L 3.6-5.0 Serum or plasma chloride measurement (moles/volume) 109 mmol/L 98-107 Carbon dioxide 25 mmol/L 21-32 Serum or plasma anion gap determination (moles/volume) 9 mmol/L 5-14 Serum or plasma urea nitrogen measurement (mass/volume ) 14 mg/dL 7-18 Serum or plasma creatinine measurement (mass/volume) 0.88 mg/dL 0.60-1.30 Serum or plasma urea nitrogen/creatinine mass ratio 16 NRG Serum or plasma creatinine measurement w ith calculation of estimated glomerular filtration rate > NRG Serum or plasma glucose measurement (mass/volume) 84 mg/dL 70-105 Serum or plasma calcium measurement (mass/volume) 8.3 mg/dL 8.5-10.1 Serum or plasma total bilirubin measurement (mass/volu me) 0.6 mg/dL 0.1-1.0 Serum or plasma alkaline phosphatase garth surement (enzymatic activity/volume) 59 U/L 40-136 Serum or plasma aspartate aminotransfera se measurement (enzymatic activity/volume) 12 U/L 5-34 Serum or plasma alanine aminotransferase measurement (enzymatic activity/volume) 15 U/L 0-55 Serum or plasma protein measurement (mass/volume) 5.6 g/dL 6.4-8.2 Serum or plasma albumin measurement (mass/volume) 3.6 g/dL 3.2-4.5 Serum or plasma troponin i.cardiac measu rement (mass/volume) - 06/23/16 02:40 Serum or plasma troponin i.cardiac measurement (mass/v olume) < ng/mL <0.30 Myoglobin, serum - 06/23/16 02:40 Myoglobin, serum 25.6 ng/mL 10.0-92.0 Lipid 1996 panel - 06/23/16 02:40 Serum or plasma triglyceride measurement (mass/volume) 129 mg/dL <150 Serum or plasma cholesterol measurement (mass/volume) 134 mg/dL < 200 Serum or plasma cholesterol in HDL measurement (mass/v olume) 33 mg/dL 40-60 Cholesterol in LDL [mass/volume] in serum or plasma by direct assay 82 mg/dL 1-129 Serum or plasma cholesterol in VLDL measurement (mass/ volume) 26 mg/dL 5-40 Complete blood count (CBC) with automate d white blood cell (WBC) differential - 01/29/17 14:25 Blood leukocytes automated count (number/volume) 6.6 10*3/uL 4.3-11.0 Blood erythrocytes automated count (number/volume) 5.30 10*6/uL 4.35-5.85 Venous blood hemoglobin measurement (mass/volume) 16.1 g/dL 13.3-17.7 Blood hematocrit (volume fraction) 47 % 40-54 Automated erythrocyte mean corpuscular volume 89 [ foz_us] 80-99 Automated erythrocyte mean corpuscular h emoglobin (mass per erythrocyte) 30 pg 25-34 Automated erythrocyte mean corpuscular h emoglobin concentration measurement (mass/volume) 34 g/dL 32-36 Automated erythrocyte distribution width ratio 13. 5 % 10.0- 14.5 Automated blood platelet count (count/volume) 217 10*3/uL [...] 10*3 1.0-4.0 Blood monocytes automated count (number/volume) 0. 6 10*3 0.0-1.0 Automated eosinophil count 0.2 10*3/uL 0 .0-0.3 Automated blood basophil count (count/volume) 0.0 10*3/uL 0.0-0.1 PT panel in platelet poor plasma by coag ulation assay - 01/29/17 14:25 Prothrombin time (PT) in platelet poor plasma by coagu lation assay 12.0 s 12.2-14.7 INR in platelet poor plasma or blood by coagulation as say 0.9 0.8-1.4 Activated partial thromboplastin time (a PTT) in platelet poor plasma bycoagulation assay - 01/29/17 14:25 Activated partial thromboplastin time (a PTT) in platelet poor plasma bycoagulation assay 26 s 24-35 Comprehensive metabolic panel - 01/29/17 14:25 Serum or plasma sodium measurement (moles/volume) 142 mmol/L 135-145 Serum or plasma potassium measurement (moles/volume) 4.1 mmol/L 3.6-5.0 Serum or plasma chloride measurement (moles/volume) 109 mmol/L 98-107 Carbon dioxide 23 mmol/L 21-32 Serum or plasma anion gap determination (moles/volume) 10 mmol/L 5-14 Serum or plasma urea nitrogen measurement (mass/volume ) 18 mg/dL 7-18 Serum or plasma creatinine measurement (mass/volume) 1.15 mg/dL 0.60-1.30 Serum or plasma urea nitrogen/creatinine mass ratio 16 NRG Serum or plasma creatinine measurement w ith calculation of estimated glomerular filtration rate > NRG Serum or plasma glucose measurement (mass/volume) 106 mg/dL 70-105 Serum or plasma calcium measurement (mass/volume) 8.8 mg/dL 8.5-10.1 Serum or plasma total bilirubin measurement (mass/volu me) 0.5 mg/dL 0.1-1.0 Serum or plasma alkaline phosphatase garth surement (enzymatic activity/volume) 66 U/L 40-136 Serum or plasma aspartate aminotransfera se measurement (enzymatic activity/volume) 19 U/L 5-34 Serum or plasma alanine aminotransferase measurement (enzymatic activity/volume) 19 U/L 0-55 Serum or plasma protein measurement (mass/volume) 6.6 g/dL 6.4-8.2 Serum or plasma albumin measurement (mass/volume) 4.0 g/dL 3.2-4.5 Magnesium - 01/29/17 14:25 Magnesium 2.2 mg/dL 1.8-2.4 Serum or plasma troponin i.cardiac measu rement (mass/volume) - 01/29/17 14:25 Serum or plasma troponin i.cardiac measurement (mass/v olume) < ng/mL <0.30 Myoglobin, serum - 01/29/17 14:25 Myoglobin, serum 27.7 ng/mL 10.0-92.0 Serum or plasma troponin i.cardiac measu rement (mass/volume) - 01/29/17 17:29 Serum or plasma troponin i.cardiac measurement (mass/v olume) < ng/mL <0.30 Serum or plasma troponin i.cardiac measu rement (mass/volume) - 01/29/17 22:11 Serum or plasma troponin i.cardiac measurement (mass/v olume) < ng/mL <0.30 Automated blood complete blood count (he mogram) panel - 01/30/17 03:20 Blood leukocytes automated count (number/volume) 6.0 10*3/uL 4.3-11.0 Blood erythrocytes automated count (number/volume) 4.96 10*6/uL 4.35-5.85 Venous blood hemoglobin measurement (mass/volume) 15.0 g/dL 13.3-17.7 Blood hematocrit (volume fraction) 44 % 40-54 Automated erythrocyte mean corpuscular volume 90 [ foz_us] 80-99 Automated erythrocyte mean corpuscular h emoglobin (mass per erythrocyte) 30 pg 25-34 Automated erythrocyte mean corpuscular h emoglobin concentration measurement (mass/volume) 34 g/dL 32-36 Automated erythrocyte distribution width ratio 13. 3 % 10.0- 14.5 Automated blood platelet count (count/volume) 200 10*3/uL [...] 5-14 Serum or plasma urea nitrogen measurement (mass/volume ) 16 mg/dL 7-18 Serum or plasma creatinine measurement (mass/volume) 0.99 mg/dL 0.60-1.30 Serum or plasma urea nitrogen/creatinine mass ratio 16 NRG Serum or plasma creatinine measurement w ith calculation of estimated glomerular filtration rate > NRG Serum or plasma glucose measurement (mass/volume) 97 mg/dL 70-105 Serum or plasma calcium measurement (mass/volume) 8.1 mg/dL 8.5-10.1 Serum or plasma total bilirubin measurement (mass/volu me) 0.6 mg/dL 0.1-1.0 Serum or plasma alkaline phosphatase garth surement (enzymatic activity/volume) 53 U/L 40-136 Serum or plasma aspartate aminotransfera se measurement (enzymatic activity/volume) 15 U/L 5-34 Serum or plasma alanine aminotransferase measurement (enzymatic activity/volume) 16 U/L 0-55 Serum or plasma protein measurement (mass/volume) 5.7 g/dL 6.4-8.2 Serum or plasma albumin measurement (mass/volume) 3.5 g/dL 3.2-4.5 Lipid 1996 panel - 01/30/17 03:20 Serum or plasma triglyceride measurement (mass/volume) 86 mg/dL <150 Serum or plasma cholesterol measurement (mass/volume) 127 mg/dL < 200 Serum or plasma cholesterol in HDL measurement (mass/v olume) 33 mg/dL 40-60 Cholesterol in LDL [mass/volume] in serum or plasma by direct assay 74 mg/dL 1-129 Serum or plasma cholesterol in VLDL measurement (mass/ volume) 17 mg/dL 5-40 Serum or plasma troponin i.cardiac measu rement (mass/volume) - 01/30/17 03:20 Serum or plasma troponin i.cardiac measurement (mass/v olume) < ng/mL <0.30 THYROID STIMULATING HORMONE - 01/30/17 0 3:20 THYROID STIMULATING HORMONE 1.40 u[iU]/mL 0.35-4.94 Complete blood count (CBC) with automate d white blood cell (WBC) differential - 06/25/17 20:20 Blood leukocytes automated count (number/volume) 8.7 10*3/uL 4.3-11.0 Blood erythrocytes automated count (number/volume) 5.26 10*6/uL 4.35-5.85 Venous blood hemoglobin measurement (mass/volume) 16.1 g/dL 13.3-17.7 Blood hematocrit (volume fraction) 47 % 40-54 Automated erythrocyte mean corpuscular volume 90 [ foz_us] 80-99 Automated erythrocyte mean corpuscular h emoglobin (mass per erythrocyte) 31 pg 25-34 Automated erythrocyte mean corpuscular h emoglobin concentration measurement (mass/volume) 34 g/dL 32-36 Automated erythrocyte distribution width ratio 13. 4 % 10.0- 14.5 Automated blood platelet count (count/volume) 224 10*3/uL [...] 10*3 1.0-4.0 Blood monocytes automated count (number/volume) 0. 8 10*3 0.0-1.0 Automated eosinophil count 0.3 10*3/uL 0 .0-0.3 Automated blood basophil count (count/volume) 0.0 10*3/uL 0.0-0.1 PT panel in platelet poor plasma by coag ulation assay - 06/25/17 20:20 Prothrombin time (PT) in platelet poor plasma by coagu lation assay 11.9 s 12.2-14.7 INR in platelet poor plasma or blood by coagulation as say 0.9 0.8-1.4 Activated partial thromboplastin time (a PTT) in platelet poor plasma bycoagulation assay - 06/25/17 20:20 Activated partial thromboplastin time (a PTT) in platelet poor plasma bycoagulation assay 26 s 24-35 Comprehensive metabolic panel - 06/25/17 20:20 Serum or plasma sodium measurement (moles/volume) 143 mmol/L 135-145 Serum or plasma potassium measurement (moles/volume) 3.8 mmol/L 3.6-5.0 Serum or plasma chloride measurement (moles/volume) 107 mmol/L 98-107 Carbon dioxide 27 mmol/L 21-32 Serum or plasma anion gap determination (moles/volume) 9 mmol/L 5-14 Serum or plasma urea nitrogen measurement (mass/volume ) 19 mg/dL 7-18 Serum or plasma creatinine measurement (mass/volume) 0.93 mg/dL 0.60-1.30 Serum or plasma urea nitrogen/creatinine mass ratio 20 NRG Serum or plasma creatinine measurement w ith calculation of estimated glomerular filtration rate > NRG Serum or plasma glucose measurement (mass/volume) 104 mg/dL 70-105 Serum or plasma calcium measurement (mass/volume) 8.7 mg/dL 8.5-10.1 Serum or plasma total bilirubin measurement (mass/volu me) 0.4 mg/dL 0.1-1.0 Serum or plasma alkaline phosphatase garth surement (enzymatic activity/volume) 77 U/L 40-136 Serum or plasma aspartate aminotransfera se measurement (enzymatic activity/volume) 19 U/L 5-34 Serum or plasma alanine aminotransferase measurement (enzymatic activity/volume) 25 U/L 0-55 Serum or plasma protein measurement (mass/volume) 6.7 g/dL 6.4-8.2 Serum or plasma albumin measurement (mass/volume) 4.1 g/dL 3.2-4.5 Serum or plasma creatine kinase measurem ent (enzymatic activity/volume) - 06/25/17 20:20 Serum or plasma creatine kinase measurem ent (enzymatic activity/volume) 33 U/L 30-200 Serum or plasma creatine kinase MB measu rement (enzymatic activity/volume) - 06/25/17 20:20 Serum or plasma creatine kinase MB measu rement (enzymatic activity/volume) 1.0 ng/mL <6.6 Serum or plasma troponin i.cardiac measu rement (mass/volume) - 06/25/17 20:20 Serum or plasma troponin i.cardiac measurement (mass/v olume) < ng/mL <0.30 Serum or plasma amylase measurement (enz ymatic activity/volume) - 06/25/17 20:20 Serum or plasma amylase measurement (enzymatic activit y/volume) 38 U/L 25-125 Lipase - 06/25/17 20:20 Lipase 29 U/L 8-78 Serum or plasma lithium measurement (mol es/volume) - 06/25/17 20:20 BNP level < pg/mL <100.0 Complete blood count (CBC) with automate d white blood cell (WBC) differential - 06/26/17 03:11 Blood leukocytes automated count (number/volume) 7.4 10*3/uL 4.3-11.0 Blood erythrocytes automated count (number/volume) 4.78 10*6/uL 4.35-5.85 Venous blood hemoglobin measurement (mass/volume) 14.4 g/dL 13.3-17.7 Blood hematocrit (volume fraction) 42 % 40-54 Automated erythrocyte mean corpuscular volume 89 [ foz_us] 80-99 Automated erythrocyte mean corpuscular h emoglobin (mass per erythrocyte) 30 pg 25-34 Automated erythrocyte mean corpuscular h emoglobin concentration measurement (mass/volume) 34 g/dL 32-36 Automated erythrocyte distribution width ratio 13. 2 % 10.0- 14.5 Automated blood platelet count (count/volume) 186 10*3/uL [...] 10*3 1.0-4.0 Blood monocytes automated count (number/volume) 0. 8 10*3 0.0-1.0 Automated eosinophil count 0.2 10*3/uL 0 .0-0.3 Automated blood basophil count (count/volume) 0.0 10*3/uL 0.0-0.1 Comprehensive metabolic panel - 06/26/17 03:11 Serum or plasma sodium measurement (moles/volume) 139 mmol/L 135-145 Serum or plasma potassium measurement (moles/volume) 3.5 mmol/L 3.6-5.0 Serum or plasma chloride measurement (moles/volume) 110 mmol/L 98-107 Carbon dioxide 22 mmol/L 21-32 Serum or plasma anion gap determination (moles/volume) 7 mmol/L 5-14 Serum or plasma urea nitrogen measurement (mass/volume ) 19 mg/dL 7-18 Serum or plasma creatinine measurement (mass/volume) 0.82 mg/dL 0.60-1.30 Serum or plasma urea nitrogen/creatinine mass ratio 23 NRG Serum or plasma creatinine measurement w ith calculation of estimated glomerular filtration rate > NRG Serum or plasma glucose measurement (mass/volume) 132 mg/dL 70-105 Serum or plasma calcium measurement (mass/volume) 8.1 mg/dL 8.5-10.1 Serum or plasma total bilirubin measurement (mass/volu me) 0.4 mg/dL 0.1-1.0 Serum or plasma alkaline phosphatase garth surement (enzymatic activity/volume) 68 U/L 40-136 Serum or plasma aspartate aminotransfera se measurement (enzymatic activity/volume) 16 U/L 5-34 Serum or plasma alanine aminotransferase measurement (enzymatic activity/volume) 19 U/L 0-55 Serum or plasma protein measurement (mass/volume) 5.3 g/dL 6.4-8.2 Serum or plasma albumin measurement (mass/volume) 3.3 g/dL 3.2-4.5 Lipid 1996 panel - 06/26/17 03:11 Serum or plasma triglyceride measurement (mass/volume) 154 mg/dL <150 Serum or plasma cholesterol measurement (mass/volume) 121 mg/dL < 200 Serum or plasma cholesterol in HDL measurement (mass/v olume) 32 mg/dL 40-60 Cholesterol in LDL [mass/volume] in serum or plasma by direct assay 70 mg/dL 1-129 Serum or plasma cholesterol in VLDL measurement (mass/ volume) 31 mg/dL 5-40 Serum or plasma troponin i.cardiac measu rement (mass/volume) - 06/26/17 03:11 Serum or plasma troponin i.cardiac measurement (mass/v olume) 0.85 ng/mL <0.30 Serum or plasma troponin i.cardiac measu rement (mass/volume) - 06/26/17 08:21 Serum or plasma troponin i.cardiac measurement (mass/v olume) 0.61 ng/mL <0.30 Automated blood complete blood count (he mogram) panel - 06/27/17 04:48 Blood leukocytes automated count (number/volume) 7.1 10*3/uL 4.3-11.0 Blood erythrocytes automated count (number/volume) 5.26 10*6/uL 4.35-5.85 Venous blood hemoglobin measurement (mass/volume) 15.9 g/dL 13.3-17.7 Blood hematocrit (volume fraction) 46 % 40-54 Automated erythrocyte mean corpuscular volume 88 [ foz_us] 80-99 Automated erythrocyte mean corpuscular h emoglobin (mass per erythrocyte) 30 pg 25-34 Automated erythrocyte mean corpuscular h emoglobin concentration measurement (mass/volume) 34 g/dL 32-36 Automated erythrocyte distribution width ratio 13. 5 % 10.0- 14.5 Automated blood platelet count (count/volume) 188 10*3/uL 130-400 Automated blood platelet mean volume measurement 9.1 [foz_us] 7.4-10.4 Whole blood basic metabolic panel - 01/06 04:48 Serum or plasma sodium measurement (moles/volume) 142 mmol/L 135-145 Serum or plasma potassium measurement (moles/volume) 3.9 mmol/L 3.6-5.0 Serum or plasma chloride measurement (moles/volume) 109 mmol/L 98-107 Carbon dioxide 22 mmol/L 21-32 Serum or plasma anion gap determination (moles/volume) 11 mmol/L 5-14 Serum or plasma urea nitrogen measurement (mass/volume ) 12 mg/dL 7-18 Serum or plasma creatinine measurement (mass/volume) 0.83 mg/dL 0.60-1.30 Serum or plasma urea nitrogen/creatinine mass ratio 14 NRG Serum or plasma creatinine measurement w ith calculation of estimated glomerular filtration rate > NRG Serum or plasma glucose measurement (mass/volume) 90 mg/dL 70-105 Serum or plasma calcium measurement (mass/volume) 8.5 mg/dL 8.5-10.1 PROTHROMBIN TIME WITH INR - 07/09/17 07: 00 INTERNATIONAL NORMAL RATIO 1.1 0.9 -1.1 PROTHROMBIN TIME 12.3 sec 10.0-12.8 CBC - 07/09/17 07:00 MEAN CELL HGB 30.5 pg 27.0-33.0 MEAN CELL HGB CONCENTRATION 34.2 g/dL 32 .0-37.0 MEAN CELL VOLUME 89.2 fl 80.0-100.0 RED BLOOD CELL 5.18 m/cumm 4.00-6.00 RED CELL DISTRIBUTION WIDTH 13.6 % 11 .0-15.6 WHITE BLOOD CELL 6.3 k/cumm 5.0-10.0 HEMOGLOBIN [...] 107 mmol/L 98-110 CARBON DIOXIDE 27 mmol/L LIPID PANEL - 07/09/17 07:00 CHOLESTEROL/HDL RATIO 3.7 < 5.0 LDL CHOLESTEROL 78 mg/dL < 100 VLDL CHOLESTEROL 15 mg/dL < 30 TRIGLYCERIDES 76 mg/dL < 150 CHOLESTEROL 128 mg/dL < 200 HDL CHOLESTEROL 35 mg/dL > 39 CBC - 07/10/17 03:38 MEAN CELL HGB 30.0 pg 27.0-33.0 MEAN CELL HGB CONCENTRATION 33.6 g/dL 32 .0-37.0 MEAN CELL VOLUME 89.5 fl 80.0-100.0 RED BLOOD CELL 4.96 m/cumm 4.00-6.00 RED CELL DISTRIBUTION WIDTH 13.5 % 11 .0-15.6 WHITE BLOOD CELL 6.3 k/cumm 5.0-10.0 HEMOGLOBIN [...] 108 mmol/L 98-110 CARBON DIOXIDE 27 mmol/L MAGNESIUM - 07/10/17 03:38 MAGNESIUM 1.8 mg/dL 1.8-2.4 Whole blood basic metabolic panel - 11/21 09/09 09:03 Serum or plasma sodium measurement (moles/volume) 142 mmol/L 135-145 Serum or plasma potassium measurement (moles/volume) 4.0 mmol/L 3.6-5.0 Serum or plasma chloride measurement (moles/volume) 107 mmol/L 98-107 Carbon dioxide 25 mmol/L 21-32 Serum or plasma anion gap determination (moles/volume) 10 mmol/L 5-14 Serum or plasma urea nitrogen measurement (mass/volume ) 14 mg/dL 7-18 Serum or plasma creatinine measurement (mass/volume) 0.99 mg/dL 0.60-1.30 Serum or plasma urea nitrogen/creatinine mass ratio 14 NRG Serum or plasma creatinine measurement w ith calculation of estimated glomerular filtration rate > NRG Serum or plasma glucose measurement (mass/volume) 107 mg/dL 70-105 Serum or plasma calcium measurement (mass/volume) 8.8 mg/dL 8.5-10.1 THYROID STIMULATING HORMONE - 12/01/17 0 9:03 THYROID STIMULATING HORMONE 2.09 u[iU]/mL 0.35-4.94 Serum or plasma thyroxine (T4) free linda urement (mass/volume) - 12/01/17 09:03 Serum or plasma thyroxine (T4) free measurement (mass/ volume) 1.08 ng/dL 0.70-1.48 TRIIODOTHRYONINE T3 FREE - 12/01/17 09:0 3 TRIIODOTHYRONINE T3 FREE 3.6 pg/mL 2.4-4 .5 Complete blood count (CBC) with automate d white blood cell (WBC) differential - 02/02/18 08:50 Blood leukocytes automated count (number/volume) 6.2 10*3/uL 4.3-11.0 Blood erythrocytes automated count (number/volume) 4.72 10*6/uL 4.35-5.85 Venous blood hemoglobin measurement (mass/volume) 14.9 g/dL 13.3-17.7 Blood hematocrit (volume fraction) 43 % 40-54 Automated erythrocyte mean corpuscular volume 92 [ foz_us] 80-99 Automated erythrocyte mean corpuscular h emoglobin (mass per erythrocyte) 32 pg 25-34 Automated erythrocyte mean corpuscular h emoglobin concentration measurement (mass/volume) 35 g/dL 32-36 Automated erythrocyte distribution width ratio 13. 4 % 10.0- 14.5 Automated blood platelet count (count/volume) 232 10*3/uL 130-400 Automated blood platelet mean volume measurement 8.5 [foz_us] 7.4-10.4 Automated blood neutrophils/100 leukocytes 67 % 42-75 Automated blood lymphocytes/100 leukocytes 21 % 12-44 Blood monocytes/100 leukocytes 9 % 0-12 Automated blood eosinophils/100 leukocytes 2 % 0-10 Automated blood basophils/100 leukocytes 0 % 0-10 Blood neutrophils automated count (number/volume) 4.1 10*3 1.8-7.8 Blood lymphocytes automated count (number/volume) 1.3 10*3 1.0-4.0 Blood monocytes automated count (number/volume) 0. 6 10*3 0.0-1.0 Automated eosinophil count 0.2 10*3/uL 0 .0-0.3 Automated blood basophil count (count/volume) 0.0 10*3/uL 0.0-0.1 PT panel in platelet poor plasma by coag ulation assay - 02/02/18 08:50 Prothrombin time (PT) in platelet poor plasma by coagu lation assay 13.1 s 12.2-14.7 INR in platelet poor plasma or blood by coagulation as say 1.0 0.8-1.4 Activated partial thromboplastin time (a PTT) in platelet poor plasma bycoagulation assay - 02/02/18 08:50 Activated partial thromboplastin time (a PTT) in platelet poor plasma bycoagulation assay 26 s 24-35 Comprehensive metabolic panel - 02/02/18 08:50 Serum or plasma sodium measurement (moles/volume) 142 mmol/L 135-145 Serum or plasma potassium measurement (moles/volume) 4.0 mmol/L 3.6-5.0 Serum or plasma chloride measurement (moles/volume) 113 mmol/L 98-107 Carbon dioxide 21 mmol/L 21-32 Serum or plasma anion gap determination (moles/volume) 8 mmol/L 5-14 Serum or plasma urea nitrogen measurement (mass/volume ) 12 mg/dL 7-18 Serum or plasma creatinine measurement (mass/volume) 0.91 mg/dL 0.60-1.30 Serum or plasma urea nitrogen/creatinine mass ratio 13 NRG Serum or plasma creatinine measurement w ith calculation of estimated glomerular filtration rate > NRG Serum or plasma glucose measurement (mass/volume) 133 mg/dL 70-105 Serum or plasma calcium measurement (mass/volume) 8.4 mg/dL 8.5-10.1 Serum or plasma total bilirubin measurement (mass/volu me) 0.4 mg/dL 0.1-1.0 Serum or plasma alkaline phosphatase garth surement (enzymatic activity/volume) 64 U/L 40-136 Serum or plasma aspartate aminotransfera se measurement (enzymatic activity/volume) 14 U/L 5-34 Serum or plasma alanine aminotransferase measurement (enzymatic activity/volume) 16 U/L 0-55 Serum or plasma protein measurement (mass/volume) 6.0 g/dL 6.4-8.2 Serum or plasma albumin measurement (mass/volume) 3.7 g/dL 3.2-4.5 Magnesium - 02/02/18 08:50 Magnesium 2.2 mg/dL 1.8-2.4 Serum or plasma creatine kinase measurem ent (enzymatic activity/volume) - 02/02/18 08:50 Serum or plasma creatine kinase measurem ent (enzymatic activity/volume) 24 U/L 30-200 Serum or plasma creatine kinase MB measu rement (enzymatic activity/volume) - 02/02/18 08:50 Serum or plasma creatine kinase MB measu rement (enzymatic activity/volume) 0.6 ng/mL <6.6 Serum or plasma troponin i.cardiac measu rement (mass/volume) - 02/02/18 08:50 Serum or plasma troponin i.cardiac measurement (mass/v olume) < ng/mL <0.30 Serum or plasma amylase measurement (enz ymatic activity/volume) - 02/02/18 08:50 Serum or plasma amylase measurement (enzymatic activit y/volume) 25 U/L 25-125 Lipase - 02/02/18 08:50 Lipase 19 U/L 8-78 PT panel in platelet poor plasma by coag ulation assay - 02/02/18 11:44 Prothrombin time (PT) in platelet poor plasma by coagu lation assay 13.5 s 12.2-14.7 INR in platelet poor plasma or blood by coagulation as say 1.0 0.8-1.4 Comprehensive metabolic panel - 02/02/18 11:44 Serum or plasma sodium measurement (moles/volume) 142 mmol/L 135-145 Serum or plasma potassium measurement (moles/volume) 4.2 mmol/L 3.6-5.0 Serum or plasma chloride measurement (moles/volume) 111 mmol/L 98-107 Carbon dioxide 24 mmol/L 21-32 Serum or plasma anion gap determination (moles/volume) 7 mmol/L 5-14 Serum or plasma urea nitrogen measurement (mass/volume ) 12 mg/dL 7-18 Serum or plasma creatinine measurement (mass/volume) 0.89 mg/dL 0.60-1.30 Serum or plasma urea nitrogen/creatinine mass ratio 13 NRG Serum or plasma creatinine measurement w ith calculation of estimated glomerular filtration rate > NRG Serum or plasma glucose measurement (mass/volume) 97 mg/dL 70-105 Serum or plasma calcium measurement (mass/volume) 8.2 mg/dL 8.5-10.1 Serum or plasma total bilirubin measurement (mass/volu me) 0.4 mg/dL 0.1-1.0 Serum or plasma alkaline phosphatase garth surement (enzymatic activity/volume) 60 U/L 40-136 Serum or plasma aspartate aminotransfera se measurement (enzymatic activity/volume) 11 U/L 5-34 Serum or plasma alanine aminotransferase measurement (enzymatic activity/volume) 13 U/L 0-55 Serum or plasma protein measurement (mass/volume) 5.5 g/dL 6.4-8.2 Serum or plasma albumin measurement (mass/volume) 3.5 g/dL 3.2-4.5 Serum or plasma troponin i.cardiac measu rement (mass/volume) - 02/02/18 11:44 Serum or plasma troponin i.cardiac measurement (mass/v olume) < ng/mL <0.30 Myoglobin, serum - 02/02/18 11:44 Myoglobin, serum 24.6 ng/mL 10.0-92.0 Serum or plasma troponin i.cardiac measu rement (mass/volume) - 02/02/18 17:35 Serum or plasma troponin i.cardiac measurement (mass/v olume) < ng/mL <0.30 Complete blood count (CBC) with automate d white blood cell (WBC) differential - 02/03/18 03:00 Blood leukocytes automated count (number/volume) 6.9 10*3/uL 4.3-11.0 Blood erythrocytes automated count (number/volume) 4.70 10*6/uL 4.35-5.85 Venous blood hemoglobin measurement (mass/volume) 15.2 g/dL 13.3-17.7 Blood hematocrit (volume fraction) 43 % 40-54 Automated erythrocyte mean corpuscular volume 92 [ foz_us] 80-99 Automated erythrocyte mean corpuscular h emoglobin (mass per erythrocyte) 32 pg 25-34 Automated erythrocyte mean corpuscular h emoglobin concentration measurement (mass/volume) 35 g/dL 32-36 Automated erythrocyte distribution width ratio 13. 4 % 10.0- 14.5 Automated blood platelet count (count/volume) 217 10*3/uL 130-400 Automated blood platelet mean volume measurement 9.0 [foz_us] 7.4-10.4 Automated blood neutrophils/100 leukocytes 68 % 42-75 Automated blood lymphocytes/100 leukocytes 20 % 12-44 Blood monocytes/100 leukocytes 9 % 0-12 Automated blood eosinophils/100 leukocytes 3 % 0-10 Automated blood basophils/100 leukocytes 0 % 0-10 Blood neutrophils automated count (number/volume) 4.7 10*3 1.8-7.8 Blood lymphocytes automated count (number/volume) 1.4 10*3 1.0-4.0 Blood monocytes automated count (number/volume) 0. 6 10*3 0.0-1.0 Automated eosinophil count 0.2 10*3/uL 0 .0-0.3 Automated blood basophil count (count/volume) 0.0 10*3/uL 0.0-0.1 Comprehensive metabolic panel - 02/03/18 03:00 Serum or plasma sodium measurement (moles/volume) 139 mmol/L 135-145 Serum or plasma potassium measurement (moles/volume) 4.1 mmol/L 3.6-5.0 Serum or plasma chloride measurement (moles/volume) 109 mmol/L 98-107 Carbon dioxide 22 mmol/L 21-32 Serum or plasma anion gap determination (moles/volume) 8 mmol/L 5-14 Serum or plasma urea nitrogen measurement (mass/volume ) 14 mg/dL 7-18 Serum or plasma creatinine measurement (mass/volume) 0.87 mg/dL 0.60-1.30 Serum or plasma urea nitrogen/creatinine mass ratio 16 NRG Serum or plasma creatinine measurement w ith calculation of estimated glomerular filtration rate > NRG Serum or plasma glucose measurement (mass/volume) 104 mg/dL 70-105 Serum or plasma calcium measurement (mass/volume) 8.3 mg/dL 8.5-10.1 Serum or plasma total bilirubin measurement (mass/volu me) 0.5 mg/dL 0.1-1.0 Serum or plasma alkaline phosphatase garth surement (enzymatic activity/volume) 52 U/L 40-136 Serum or plasma aspartate aminotransfera se measurement (enzymatic activity/volume) 13 U/L 5-34 Serum or plasma alanine aminotransferase measurement (enzymatic activity/volume) 15 U/L 0-55 Serum or plasma protein measurement (mass/volume) 5.8 g/dL 6.4-8.2 Serum or plasma albumin measurement (mass/volume) 3.5 g/dL 3.2-4.5 Lipid 1996 panel - 02/03/18 03:00 Serum or plasma triglyceride measurement (mass/volume) 185 mg/dL <150 Serum or plasma cholesterol measurement (mass/volume) 158 mg/dL < 200 Serum or plasma cholesterol in HDL measurement (mass/v olume) 36 mg/dL 40-60 Cholesterol in LDL [mass/volume] in serum or plasma by direct assay 92 mg/dL 1-129 Serum or plasma cholesterol in VLDL measurement (mass/ volume) 37 mg/dL 5-40 CBC W/DIFF - 02/04/18 13:40 BASOPHIL # 0.0 k/cumm 0.0-0.2 BASOPHIL % 0.5 % 0-1 EOSINOPHIL # 0.2 k/cumm 0.1-0.5 EOSINOPHIL % 2.8 % 2-4 GRANULOCYTE # 3.9 k/cumm 2.0-9.0 GRANULOCYTE % 60.4 % 50-75 LYMPHOCYTE # 1.6 k/cumm 1.0-4.0 LYMPHOCYTE % 25.4 % 20-30 MEAN CELL HGB 31.1 pg 27.0-33.0 MEAN CELL HGB CONCENTRATION 33.6 g/dL 32 .0-37.0 MEAN CELL VOLUME 92.4 fl 80.0-100.0 MONOCYTE # 0.7 k/cumm 0.1-1.0 MONOCYTE % 10.7 % 4-6 MEAN PLATELET VOLUME 8.6 fl 8.5-10.9 RED BLOOD CELL 4.89 m/cumm 4.00-6.00 RED CELL DISTRIBUTION WIDTH 13.1 % 11 .0-15.6 WHITE BLOOD CELL 6.4 k/cumm 5.0-10.0 HEMOGLOBIN 15.2 gm/dL 14.0-18.0 HEMATOCRIT 45.2 % 40.0-54.0 PLATELET COUNT 222 k/cumm 150-400 IMMATURE GRANULOCYTE % 0.2 % 0.0-0.6 NRBC % 0.0 /100 WBC 0.0-0.0 IMMATURE GRANULOCYTE # 0.01 k/cumm 0.00- 0.09 B-TYPE NATRIURETIC PEPTIDE - 02/04/18 13 :40 B-TYPE NATRIURETIC PEPTIDE 16 pg/mL < 1 00 HEPATIC FUNCTION PANEL - 02/04/18 13:40 BILI UNCONJUGATED 0.3 mg/dL 0.0-0.7 AST/SGOT 23 Units/L 10-37 ALT/SGPT 28 Units/L < 66 TOTAL PROTEIN 6.7 gm/dL 6.4-8.2 ALBUMIN 3.4 gm/dL 3.4-5.0 BILI TOTAL 0.4 mg/dL 0.0-1.0 ALKALINE PHOSPHATASE TOTAL 66 IU/L 45- 117 BILI CONJUGATED 0.1 mg/dL 0.0-0.3 MAGNESIUM - 02/04/18 13:40 MAGNESIUM 2.1 mg/dL 1.8-2.4 LIPASE - 02/04/18 13:40 LIPASE 115 Units/L 73-393 TSH w/possible reflex FT4 - 02/04/18 13: 40 THYROID STIM HORMONE (TSH) 2.00 uIU/mL 0 .34-4.82 HEMOGLOBIN A1C - 02/04/18 13:40 HEMOGLOBIN A1C 5.1 % < 5.7 TROPONIN I BEDSIDE - 02/04/18 13:44 METHOD Bedside TROPONIN I < 0.04 ng/mL < 0.11 CHEM/HEM PROFILE-BEDSIDE - 02/04/18 13:4 6 POTASSIUM 3.8 mmol/L 3.5-5.3 METHOD Bedside ANION GAP 16 mmol/L 10-20 METHOD Bedside GLUCOSE 79 mg/dL 70-99 BLOOD UREA NITROGEN 18 mg/dL 7-20 CREATININE 1.3 mg/dL 0.7-1.3 HEMOGLOBIN 15.3 gm/dL 14.0-18.0 HEMATOCRIT 45.0 % 40.0-54.0 SODIUM 144 mmol/L 135-148 CHLORIDE 104 mmol/L 98-110 CARBON DIOXIDE 28 mmol/L 21-32 CALCIUM IONIZED 4.2 mg/dL 4.5-5.3 D-DIMER QUANT - 02/04/18 18:27 D-DIMER QUANT 261 ng/mL < 500 LIPID PANEL - 02/05/18 03:37 CHOLESTEROL/HDL RATIO 4.4 < 5.0 LDL CHOLESTEROL 85 mg/dL < 100 VLDL CHOLESTEROL 38 mg/dL < 30 TRIGLYCERIDES 188 mg/dL < 150 CHOLESTEROL 159 mg/dL < 200 HDL CHOLESTEROL 36 mg/dL > 39 TROPONIN I - 02/05/18 03:37 TROPONIN I < 0.02 ng/mL < 0.07 PLT FUNCTION, P2Y12 (PLAVIX) - 02/05/18 03:38 PLATELET COUNT 211 k/cumm 150-450 PLT FUNCTION P2Y12 221 PRU [id number] URINALYSIS, ROUTINE - 02/05/18 07:00 UA LEUKOCYTE ESTERASE DIPSTICK NEGATIVE NEGATIVE UA NITRITE DIPSTICK NEGATIVE NEGATIVE UA PROTEIN DIPSTICK NEGATIVE NEGATIVE UA GLUCOSE DIPSTICK NEGATIVE NEGATIVE UA KETONE DIPSTICK NEGATIVE NEGATIVE UA UROBILINOGEN DIPSTICK NORMAL LAVELLE L UA BILIRUBIN DIPSTICK NEGATIVE NEGATIVE UA BLOOD DIPSTICK NEGATIVE NEGATIVE UA SPECIFIC GRAVITY 1.025 1.015-1.02 5 UR PH 6.0 5.0-7.0 B-TYPE NATRIURETIC PEPTIDE - 02/06/18 12 :20 B-TYPE NATRIURETIC PEPTIDE 16 pg/mL < 1 00 TROPONIN I - 02/06/18 12:20 TROPONIN I < 0.02 ng/mL < 0.07 METABOLIC PANEL, BASIC - 02/07/18 10:40 POTASSIUM 4.2 mmol/L 3.5-5.3 EST GFR (MDRD) > 60 mL/min > 59 ANION GAP 7 mmol/L 5-15 EST CrCl (CG) > 60 mL/min > 59 GLUCOSE 96 mg/dL 70-99 CALCIUM 7.7 mg/dL 8.5-10.1 BLOOD UREA NITROGEN 16 mg/dL 7-20 CREATININE 1.0 mg/dL 0.7-1.3 SODIUM 139 mmol/L 135-148 CHLORIDE 106 mmol/L 98-110 CARBON DIOXIDE 26 mmol/L 21-32 PLT FUNCTION, P2Y12 (PLAVIX) - 02/07/18 12:03 PLATELET COUNT 184 k/cumm 150-450 PLT FUNCTION P2Y12 191 PRU [id number] CBC W/DIFF - 02/07/18 19:36 BASOPHIL # 0.0 k/cumm 0.0-0.2 BASOPHIL % 0.3 % 0-1 EOSINOPHIL # 0.1 k/cumm 0.1-0.5 EOSINOPHIL % 2.2 % 2-4 GRANULOCYTE # 3.8 k/cumm 2.0-9.0 GRANULOCYTE % 59.4 % 50-75 LYMPHOCYTE # 1.8 k/cumm 1.0-4.0 LYMPHOCYTE % 28.5 % 20-30 MEAN CELL HGB 30.6 pg 27.0-33.0 MEAN CELL HGB CONCENTRATION 33.0 g/dL 32 .0-37.0 MEAN CELL VOLUME 92.8 fl 80.0-100.0 MONOCYTE # 0.6 k/cumm 0.1-1.0 MONOCYTE % 9.3 % 4-6 MEAN PLATELET VOLUME 8.6 fl 8.5-10.9 RED BLOOD CELL 5.16 m/cumm 4.00-6.00 RED CELL DISTRIBUTION WIDTH 12.9 % 11 .0-15.6 WHITE BLOOD CELL 6.4 k/cumm 5.0-10.0 HEMOGLOBIN 15.8 gm/dL 14.0-18.0 HEMATOCRIT 47.9 % 40.0-54.0 NRBC % 0.0 /100 WBC 0.0-0.0 PLATELET COUNT 235 k/cumm 150-400 IMMATURE GRANULOCYTE % 0.3 % 0.0-0.6 IMMATURE GRANULOCYTE # 0.02 k/cumm 0.00- 0.09 PROTHROMBIN TIME WITH INR - 02/07/18 19: 36 INTERNATIONAL NORMAL RATIO 1.1 0.9 -1.1 PROTHROMBIN TIME 13.0 sec 10.0-12.8 PARTIAL THROMBOPLASTIN TIME - 02/07/18 1 9:36 PARTIAL THROMBOPLASTIN TIME 30 sec 24 -36 FIBRINOGEN - 02/07/18 19:36 FIBRINOGEN 429 mg/dL 200-400 HEPARIN UNFRACTIONATED - 02/07/18 19:36 HEPARIN UNFRACTIONATED < 0.04 Units/mL 0 .3-0.7 METABOLIC PANEL, BASIC - 02/07/18 19:36 POTASSIUM 4.2 mmol/L 3.5-5.3 EST GFR (MDRD) > 60 mL/min > 59 ANION GAP 7 mmol/L 5-15 GLUCOSE 95 mg/dL 70-99 CALCIUM 8.1 mg/dL 8.5-10.1 BLOOD UREA NITROGEN 16 mg/dL 7-20 CREATININE 1.1 mg/dL 0.7-1.3 SODIUM 139 mmol/L 135-148 CHLORIDE 105 mmol/L 98-110 CARBON DIOXIDE 27 mmol/L 21-32 MAGNESIUM - 02/07/18 19:36 MAGNESIUM 2.2 mg/dL 1.8-2.4 URINALYSIS, ROUTINE - 02/07/18 23:11 UA LEUKOCYTE ESTERASE DIPSTICK NEGATIVE NEGATIVE UA NITRITE DIPSTICK NEGATIVE NEGATIVE UA PROTEIN DIPSTICK NEGATIVE NEGATIVE UA GLUCOSE DIPSTICK NEGATIVE NEGATIVE UA KETONE DIPSTICK NEGATIVE NEGATIVE UA UROBILINOGEN DIPSTICK NORMAL LAVELLE L UA BILIRUBIN DIPSTICK NEGATIVE NEGATIVE UA BLOOD DIPSTICK NEGATIVE NEGATIVE UA SPECIFIC GRAVITY 1.020 1.015-1.02 5 UR PH 6.0 5.0-7.0 HEPARIN UNFRACTIONATED - 02/08/18 04:55 HEPARIN UNFRACTIONATED 0.08 Units/mL 0.3 -0.7 ACTIVATED CLOTTING TIME - 02/08/18 12:25 ACTIVATED CLOTTING TIME 106 secs SURGERY PROFILE BEDSIDE - 02/08/18 12:26 POTASSIUM 3.7 mmol/L 3.5-5.3 ABG BASE EXCESS 2.0 meq/L -3.0-3.0 ABG BICARBONATE 26.6 meq/L 23.0-28.0 METHOD Bedside ABG PCO2 40 mm Hg 34-45 ABG PH 7.44 7.35-7.45 ABG PO2 290 mm Hg 75-100 ABG O2 SATURATION 100 % 93-100 METHOD Bedside METHOD Bedside GLUCOSE 96 mg/dL 70-99 HEMOGLOBIN 13.9 gm/dL 14.0-18.0 HEMATOCRIT 41.0 % 40.0-54.0 SODIUM 141 mmol/L 135-148 CARBON DIOXIDE 28 mmol/L 21-32 CALCIUM IONIZED 4.3 mg/dL 4.5-5.3 ACTIVATED CLOTTING TIME - 02/08/18 13:28 ACTIVATED CLOTTING TIME 515 secs SURGERY PROFILE BEDSIDE - 02/08/18 13:29 POTASSIUM 3.8 mmol/L 3.5-5.3 ABG BASE EXCESS 1.0 meq/L -3.0-3.0 ABG BICARBONATE 25.6 meq/L 23.0-28.0 METHOD Bedside ABG PCO2 38 mm Hg 34-45 ABG PH 7.43 7.35-7.45 ABG PO2 372 mm Hg 75-100 ABG O2 SATURATION 100 % 93-100 METHOD Bedside METHOD Bedside GLUCOSE 97 mg/dL 70-99 HEMOGLOBIN 13.3 gm/dL 14.0-18.0 HEMATOCRIT 39.0 % 40.0-54.0 SODIUM 139 mmol/L 135-148 CARBON DIOXIDE 27 mmol/L 21-32 CALCIUM IONIZED 4.1 mg/dL 4.5-5.3 ACTIVATED CLOTTING TIME - 02/08/18 13:54 ACTIVATED CLOTTING TIME 488 secs SURGERY PROFILE BEDSIDE - 02/08/18 13:55 POTASSIUM 4.5 mmol/L 3.5-5.3 ABG BASE EXCESS 0.0 meq/L -3.0-3.0 ABG BICARBONATE 25.1 meq/L 23.0-28.0 METHOD Bedside ABG PCO2 40 mm Hg 34-45 ABG PH 7.41 7.35-7.45 ABG PO2 384 mm Hg 75-100 ABG O2 SATURATION 100 % 93-100 METHOD Bedside METHOD Bedside GLUCOSE 166 mg/dL 70-99 HEMOGLOBIN 10.9 gm/dL 14.0-18.0 HEMATOCRIT 32.0 % 40.0-54.0 SODIUM 136 mmol/L 135-148 CARBON DIOXIDE 26 mmol/L 21-32 CALCIUM IONIZED 3.3 mg/dL 4.5-5.3 ACTIVATED CLOTTING TIME - 02/08/18 14:26 ACTIVATED CLOTTING TIME 493 secs SURGERY PROFILE BEDSIDE - 02/08/18 14:27 POTASSIUM 5.3 mmol/L 3.5-5.3 ABG BASE EXCESS 5.0 meq/L -3.0-3.0 ABG BICARBONATE 28.5 meq/L 23.0-28.0 METHOD Bedside ABG PCO2 40 mm Hg 34-45 ABG PH 7.46 7.35-7.45 ABG PO2 504 mm Hg 75-100 ABG O2 SATURATION 100 % 93-100 METHOD Bedside METHOD Bedside GLUCOSE 195 mg/dL 70-99 HEMOGLOBIN 10.2 gm/dL 14.0-18.0 HEMATOCRIT 30.0 % 40.0-54.0 SODIUM 135 mmol/L 135-148 CARBON DIOXIDE 30 mmol/L 21-32 CALCIUM IONIZED 3.6 mg/dL 4.5-5.3 HGB HCT - 02/08/18 15:20 MEAN CELL VOLUME 91.3 fl 80.0-100.0 HEMOGLOBIN 10.3 gm/dL 14.0-18.0 HEMATOCRIT 29.3 % 40.0-54.0 PLATELET COUNT - 02/08/18 15:20 MEAN PLATELET VOLUME 8.9 fl 8.5-10.9 PLATELET COUNT 162 k/cumm 150-400 PROTHROMBIN TIME WITH INR - 02/08/18 15: 20 INTERNATIONAL NORMAL RATIO 1.7 0.9 -1.1 PROTHROMBIN TIME 19.3 sec 10.0-12.8 FIBRINOGEN - 02/08/18 15:20 FIBRINOGEN 191 mg/dL 200-400 ACTIVATED CLOTTING TIME - 02/08/18 15:21 ACTIVATED CLOTTING TIME 119 secs SURGERY PROFILE BEDSIDE - 02/08/18 15:22 POTASSIUM 3.6 mmol/L 3.5-5.3 ABG BASE EXCESS -1.0 meq/L -3.0-3.0 ABG BICARBONATE 22.7 meq/L 23.0-28.0 METHOD Bedside ABG PCO2 32 mm Hg 34-45 ABG PH 7.46 7.35-7.45 ABG PO2 151 mm Hg 75-100 ABG O2 SATURATION 99 % 93-100 METHOD Bedside METHOD Bedside GLUCOSE 135 mg/dL 70-99 HEMOGLOBIN 9.5 gm/dL 14.0-18.0 HEMATOCRIT 28.0 % 40.0-54.0 SODIUM 140 mmol/L 135-148 CARBON DIOXIDE 24 mmol/L 21-32 CALCIUM IONIZED 4.1 mg/dL 4.5-5.3 ACTIVATED CLOTTING TIME - 02/08/18 15:46 ACTIVATED CLOTTING TIME 122 secs SURGERY PROFILE BEDSIDE - 02/08/18 15:47 POTASSIUM 3.6 mmol/L 3.5-5.3 ABG BASE EXCESS -1.0 meq/L -3.0-3.0 ABG BICARBONATE 23.6 meq/L 23.0-28.0 METHOD Bedside ABG PCO2 39 mm Hg 34-45 ABG PH 7.39 7.35-7.45 ABG PO2 203 mm Hg 75-100 ABG O2 SATURATION 100 % 93-100 METHOD Bedside METHOD Bedside GLUCOSE 129 mg/dL 70-99 HEMOGLOBIN 10.2 gm/dL 14.0-18.0 HEMATOCRIT 30.0 % 40.0-54.0 SODIUM 142 mmol/L 135-148 CARBON DIOXIDE 25 mmol/L 21-32 CALCIUM IONIZED 4.5 mg/dL 4.5-5.3 CALCIUM IONIZED - 02/08/18 16:47 CALCIUM IONIZED 4.3 mg/dL 4.5-5.3 CBC - 02/08/18 16:47 MEAN CELL HGB 32.0 pg 27.0-33.0 MEAN CELL HGB CONCENTRATION 35.2 g/dL 32 .0-37.0 MEAN CELL VOLUME 90.8 fl 80.0-100.0 MEAN PLATELET VOLUME 8.5 fl 8.5-10.9 RED BLOOD CELL 3.69 m/cumm 4.00-6.00 RED CELL DISTRIBUTION WIDTH 12.8 % 11 .0-15.6 WHITE BLOOD CELL 14.2 k/cumm 5.0-10.0 HEMOGLOBIN 11.8 gm/dL 14.0-18.0 HEMATOCRIT 33.5 % 40.0-54.0 NRBC % 0.0 /100 WBC 0.0-0.0 PLATELET COUNT 173 k/cumm 150-400 ARTERIAL BLOOD GAS - 02/08/18 16:47 ABG BASE EXCESS -1.8 meq/L -3.0-3.0 ABG BICARBONATE 22.9 meq/L 23.0-28.0 ABG PCO2 39 mm Hg 34-45 ABG PH 7.39 7.35-7.45 ABG PO2 195 mm Hg 75-100 ABG O2 SATURATION 99 % 93-100 PARTIAL THROMBOPLASTIN TIME - 02/08/18 1 6:47 PARTIAL THROMBOPLASTIN TIME 29 sec 24 -36 METABOLIC PANEL, BASIC - 02/08/18 16:47 POTASSIUM 3.9 mmol/L 3.5-5.3 EST GFR (MDRD) > 60 mL/min > 59 ANION GAP 8 mmol/L 5-15 EST CrCl (CG) > 60 mL/min > 59 GLUCOSE 123 mg/dL 70-99 CALCIUM 7.5 mg/dL 8.5-10.1 BLOOD UREA NITROGEN 14 mg/dL 7-20 CREATININE 1.0 mg/dL 0.7-1.3 SODIUM 142 mmol/L 135-148 CHLORIDE 110 mmol/L 98-110 CARBON DIOXIDE 24 mmol/L 21-32 MAGNESIUM - 02/08/18 16:47 MAGNESIUM 2.6 mg/dL 1.8-2.4 GLUCOSE (POC) - 02/08/18 16:48 GLUCOSE (POC) 125 mg/dL 70-99 GLUCOSE (POC) - 02/08/18 18:24 GLUCOSE (POC) 158 mg/dL 70-99 GLUCOSE (POC) - 02/08/18 19:35 GLUCOSE (POC) 157 mg/dL 70-99 ARTERIAL BLOOD GAS - 02/08/18 19:36 ABG BASE EXCESS -4.1 meq/L -3.0-3.0 ABG BICARBONATE 22.7 meq/L 23.0-28.0 ABG PCO2 48 mm Hg 34-45 ABG PH 7.29 7.35-7.45 ABG PO2 107 mm Hg 75-100 ABG O2 SATURATION 97 % 93-100 GLUCOSE (POC) - 02/08/18 20:55 GLUCOSE (POC) 139 mg/dL 70-99 GLUCOSE (POC) - 02/08/18 21:51 GLUCOSE (POC) 139 mg/dL 70-99 GLUCOSE (POC) - 02/08/18 22:54 GLUCOSE (POC) 138 mg/dL 70-99 GLUCOSE (POC) - 02/08/18 23:59 GLUCOSE (POC) 138 mg/dL 70-99 GLUCOSE (POC) - 02/09/18 02:00 GLUCOSE (POC) 145 mg/dL 70-99 GLUCOSE (POC) - 02/09/18 03:06 GLUCOSE (POC) 154 mg/dL 70-99 ARTERIAL BLOOD GAS - 02/09/18 03:07 ABG BASE EXCESS -3.7 meq/L -3.0-3.0 ABG BICARBONATE 23.1 meq/L 23.0-28.0 ABG PCO2 49 mm Hg 34-45 ABG PH 7.29 7.35-7.45 ABG PO2 81 mm Hg 75-100 ABG O2 SATURATION 95 % 93-100 CBC - 02/09/18 03:07 MEAN CELL HGB 31.7 pg 27.0-33.0 MEAN CELL HGB CONCENTRATION 34.1 g/dL 32 .0-37.0 MEAN CELL VOLUME 93.0 fl 80.0-100.0 MEAN PLATELET VOLUME 8.5 fl 8.5-10.9 RED BLOOD CELL 3.56 m/cumm 4.00-6.00 RED CELL DISTRIBUTION WIDTH 13.0 % 11 .0-15.6 WHITE BLOOD CELL 15.3 k/cumm 5.0-10.0 HEMOGLOBIN 11.3 gm/dL 14.0-18.0 HEMATOCRIT 33.1 % 40.0-54.0 NRBC % 0.0 /100 WBC 0.0-0.0 PLATELET COUNT 177 k/cumm 150-400 METABOLIC PANEL, BASIC - 02/09/18 03:07 POTASSIUM 5.1 mmol/L 3.5-5.3 EST GFR (MDRD) > 60 mL/min > 59 ANION GAP 6 mmol/L 5-15 EST CrCl (CG) > 60 mL/min > 59 GLUCOSE 149 mg/dL 70-99 CALCIUM 7.6 mg/dL 8.5-10.1 BLOOD UREA NITROGEN 14 mg/dL 7-20 CREATININE 1.2 mg/dL 0.7-1.3 SODIUM 141 mmol/L 135-148 CHLORIDE 111 mmol/L 98-110 CARBON DIOXIDE 24 mmol/L 21-32 MAGNESIUM - 02/09/18 03:07 MAGNESIUM 1.9 mg/dL 1.8-2.4 CALCIUM IONIZED - 02/09/18 03:07 CALCIUM IONIZED 4.0 mg/dL 4.5-5.3 GLUCOSE (POC) - 02/09/18 04:03 GLUCOSE (POC) 146 mg/dL 70-99 GLUCOSE (POC) - 02/09/18 05:07 GLUCOSE (POC) 149 mg/dL 70-99 GLUCOSE (POC) - 02/09/18 07:55 GLUCOSE (POC) 127 mg/dL 70-99 GLUCOSE (POC) - 02/09/18 08:57 GLUCOSE (POC) 167 mg/dL 70-99 POTASSIUM - 02/09/18 10:08 POTASSIUM 4.3 mmol/L 3.5-5.3 GLUCOSE (POC) - 02/09/18 10:08 GLUCOSE (POC) 150 mg/dL 70-99 GLUCOSE (POC) - 02/09/18 14:25 GLUCOSE (POC) 138 mg/dL 70-99 GLUCOSE (POC) - 02/09/18 15:52 GLUCOSE (POC) 126 mg/dL 70-99 POTASSIUM - 02/09/18 18:35 POTASSIUM 4.7 mmol/L 3.5-5.3 GLUCOSE (POC) - 02/09/18 18:37 GLUCOSE (POC) 144 mg/dL 70-99 CBC - 02/10/18 04:02 MEAN CELL HGB 31.4 pg 27.0-33.0 MEAN CELL HGB CONCENTRATION 33.0 g/dL 32 .0-37.0 MEAN CELL VOLUME 95.3 fl 80.0-100.0 MEAN PLATELET VOLUME 9.1 fl 8.5-10.9 RED BLOOD CELL 2.74 m/cumm 4.00-6.00 RED CELL DISTRIBUTION WIDTH 13.8 % 11 .0-15.6 WHITE BLOOD CELL 12.5 k/cumm 5.0-10.0 HEMOGLOBIN 8.6 gm/dL 14.0-18.0 HEMATOCRIT 26.1 % 40.0-54.0 NRBC % 0.0 /100 WBC 0.0-0.0 PLATELET COUNT 139 k/cumm 150-400 IMMATURE PLATELET FRACTION 1.7 % 1.1 -6.1 METABOLIC PANEL, BASIC - 02/10/18 04:02 POTASSIUM 4.4 mmol/L 3.5-5.3 EST GFR (MDRD) 56 mL/min > 59 ANION GAP 7 mmol/L 5-15 EST CrCl (CG) > 60 mL/min > 59 GLUCOSE 149 mg/dL 70-99 CALCIUM 7.1 mg/dL 8.5-10.1 BLOOD UREA NITROGEN 25 mg/dL 7-20 CREATININE 1.3 mg/dL 0.7-1.3 SODIUM 138 mmol/L 135-148 CHLORIDE 108 mmol/L 98-110 CARBON DIOXIDE 23 mmol/L 21-32 MAGNESIUM - 02/10/18 04:02 MAGNESIUM 2.0 mg/dL 1.8-2.4 GLUCOSE (POC) - 02/10/18 09:21 GLUCOSE (POC) 144 mg/dL 70-99 HGB HCT - 02/10/18 11:33 MEAN CELL VOLUME 94.4 fl 80.0-100.0 HEMOGLOBIN 9.1 gm/dL 14.0-18.0 HEMATOCRIT 26.9 % 40.0-54.0 GLUCOSE (POC) - 02/10/18 15:01 GLUCOSE (POC) 130 mg/dL 70-99 GLUCOSE (POC) - 02/10/18 20:24 GLUCOSE (POC) 117 mg/dL 70-99 CBC - 02/11/18 05:14 MEAN CELL HGB 31.5 pg 27.0-33.0 MEAN CELL HGB CONCENTRATION 32.7 g/dL 32 .0-37.0 MEAN CELL VOLUME 96.4 fl 80.0-100.0 MEAN PLATELET VOLUME 9.4 fl 8.5-10.9 RED BLOOD CELL 2.76 m/cumm 4.00-6.00 RED CELL DISTRIBUTION WIDTH 13.6 % 11 .0-15.6 WHITE BLOOD CELL 10.5 k/cumm 5.0-10.0 HEMOGLOBIN 8.7 gm/dL 14.0-18.0 HEMATOCRIT 26.6 % 40.0-54.0 NRBC % 0.0 /100 WBC 0.0-0.0 PLATELET COUNT 140 k/cumm 150-400 IMMATURE PLATELET FRACTION 2.0 % 1.1 -6.1 METABOLIC PANEL, BASIC - 02/11/18 05:14 POTASSIUM 4.3 mmol/L 3.5-5.3 EST GFR (MDRD) > 60 mL/min > 59 ANION GAP 7 mmol/L 5-15 EST CrCl (CG) > 60 mL/min > 59 GLUCOSE 125 mg/dL 70-99 CALCIUM 7.9 mg/dL 8.5-10.1 BLOOD UREA NITROGEN 24 mg/dL 7-20 CREATININE 1.0 mg/dL 0.7-1.3 SODIUM 138 mmol/L 135-148 CHLORIDE 104 mmol/L 98-110 CARBON DIOXIDE 27 mmol/L 21-32 MAGNESIUM - 02/11/18 05:14 MAGNESIUM 2.6 mg/dL 1.8-2.4 GLUCOSE (POC) - 02/11/18 05:33 GLUCOSE (POC) 112 mg/dL 70-99 GLUCOSE (POC) - 02/11/18 11:02 GLUCOSE (POC) 147 mg/dL 70-99 GLUCOSE (POC) - 02/11/18 15:21 GLUCOSE (POC) 150 mg/dL 70-99 CBC - 02/12/18 04:28 MEAN CELL HGB 31.1 pg 27.0-33.0 MEAN CELL HGB CONCENTRATION 32.3 g/dL 32 .0-37.0 MEAN CELL VOLUME 96.2 fl 80.0-100.0 MEAN PLATELET VOLUME 9.6 fl 8.5-10.9 RED BLOOD CELL 2.64 m/cumm 4.00-6.00 RED CELL DISTRIBUTION WIDTH 13.6 % 11 .0-15.6 WHITE BLOOD CELL 10.8 k/cumm 5.0-10.0 HEMOGLOBIN 8.2 gm/dL 14.0-18.0 HEMATOCRIT 25.4 % 40.0-54.0 NRBC % 0.2 /100 WBC 0.0-0.0 PLATELET COUNT 190 k/cumm 150-400 METABOLIC PANEL, BASIC - 02/12/18 04:28 POTASSIUM 3.9 mmol/L 3.5-5.3 EST GFR (MDRD) > 60 mL/min > 59 ANION GAP 6 mmol/L 5-15 EST CrCl (CG) > 60 mL/min > 59 GLUCOSE 130 mg/dL 70-99 CALCIUM 8.1 mg/dL 8.5-10.1 BLOOD UREA NITROGEN 22 mg/dL 7-20 CREATININE 1.0 mg/dL 0.7-1.3 SODIUM 135 mmol/L 135-148 CHLORIDE 99 mmol/L 98-110 CARBON DIOXIDE 30 mmol/L CBC - 02/13/18 04:52 MEAN CELL HGB 30.5 pg 27.0-33.0 MEAN CELL HGB CONCENTRATION 31.9 g/dL 32 .0-37.0 MEAN CELL VOLUME 95.8 fl 80.0-100.0 MEAN PLATELET VOLUME 9.0 fl 8.5-10.9 RED BLOOD CELL 2.62 m/cumm 4.00-6.00 RED CELL DISTRIBUTION WIDTH 13.5 % 11 .0-15.6 WHITE BLOOD CELL 9.6 k/cumm 5.0-10.0 HEMOGLOBIN 8.0 gm/dL 14.0-18.0 HEMATOCRIT 25.1 % 40.0-54.0 NRBC % 0.5 /100 WBC 0.0-0.0 PLATELET COUNT 211 k/cumm 150-400 METABOLIC PANEL, BASIC - 02/13/18 04:52 POTASSIUM 3.8 mmol/L 3.5-5.3 EST GFR (MDRD) > 60 mL/min > 59 ANION GAP 7 mmol/L 5-15 EST CrCl (CG) > 60 mL/min > 59 GLUCOSE 114 mg/dL 70-99 CALCIUM 7.7 mg/dL 8.5-10.1 BLOOD UREA NITROGEN 17 mg/dL 7-20 CREATININE 0.9 mg/dL 0.7-1.3 SODIUM 138 mmol/L 135-148 CHLORIDE 101 mmol/L 98-110 CARBON DIOXIDE 30 mmol/L METABOLIC PANEL, BASIC - 02/14/18 04:05 POTASSIUM 3.8 mmol/L 3.5-5.3 EST GFR (MDRD) > 60 mL/min > 59 ANION GAP 8 mmol/L 5-15 EST CrCl (CG) > 60 mL/min > 59 GLUCOSE 123 mg/dL 70-99 CALCIUM 7.7 mg/dL 8.5-10.1 BLOOD UREA NITROGEN 18 mg/dL 7-20 CREATININE 1.0 mg/dL 0.7-1.3 SODIUM 138 mmol/L 135-148 CHLORIDE 100 mmol/L 98-110 CARBON DIOXIDE 30 mmol/L 21-32 CBC - 02/14/18 04:05 MEAN CELL HGB 30.6 pg 27.0-33.0 MEAN CELL HGB CONCENTRATION 32.7 g/dL 32 .0-37.0 MEAN CELL VOLUME 93.7 fl 80.0-100.0 MEAN PLATELET VOLUME 9.2 fl 8.5-10.9 RED BLOOD CELL 2.71 m/cumm 4.00-6.00 RED CELL DISTRIBUTION WIDTH 13.7 % 11 .0-15.6 WHITE BLOOD CELL 9.7 k/cumm 5.0-10.0 HEMOGLOBIN 8.3 gm/dL 14.0-18.0 HEMATOCRIT 25.4 % 40.0-54.0 NRBC % 0.9 /100 WBC 0.0-0.0 PLATELET COUNT 287 k/cumm 150-400 Complete blood count (CBC) with automate d white blood cell (WBC) differential - 05/14/18 19:09 Blood leukocytes automated count (number/volume) 6.7 10*3/uL 4.3-11.0 Blood erythrocytes automated count (number/volume) 4.74 10*6/uL 4.35-5.85 Venous blood hemoglobin measurement (mass/volume) 13.7 g/dL 13.3-17.7 Blood hematocrit (volume fraction) 41 % 40-54 Automated erythrocyte mean corpuscular volume 86 [ foz_us] 80-99 Automated erythrocyte mean corpuscular h emoglobin (mass per erythrocyte) 29 pg 25-34 Automated erythrocyte mean corpuscular h emoglobin concentration measurement (mass/volume) 34 g/dL 32-36 Automated erythrocyte distribution width ratio 14. 4 % 10.0- 14.5 Automated blood platelet count (count/volume) 251 10*3/uL 130-400 Automated blood platelet mean volume measurement 8.9 [foz_us] 7.4-10.4 Automated blood neutrophils/100 leukocytes 60 % 42-75 Automated blood lymphocytes/100 leukocytes 26 % 12-44 Blood monocytes/100 leukocytes 10 % 0-12 Automated blood eosinophils/100 leukocytes 4 % 0-10 Automated blood basophils/100 leukocytes 0 % 0-10 Blood neutrophils automated count (number/volume) 4.0 10*3 1.8-7.8 Blood lymphocytes automated count (number/volume) 1.8 10*3 1.0-4.0 Blood monocytes automated count (number/volume) 0. 7 10*3 0.0-1.0 Automated eosinophil count 0.2 10*3/uL 0 .0-0.3 Automated blood basophil count (count/volume) 0.0 10*3/uL 0.0-0.1 PT panel in platelet poor plasma by coag ulation assay - 05/14/18 19:09 Prothrombin time (PT) in platelet poor plasma by coagu lation assay 13.0 s 12.2-14.7 INR in platelet poor plasma or blood by coagulation as say 1.0 0.8-1.4 Activated partial thromboplastin time (a PTT) in platelet poor plasma bycoagulation assay - 05/14/18 19:09 Activated partial thromboplastin time (a PTT) in platelet poor plasma bycoagulation assay 26 s 24-35 Comprehensive metabolic panel - 05/14/18 19:09 Serum or plasma sodium measurement (moles/volume) 143 mmol/L 135-145 Serum or plasma potassium measurement (moles/volume) 3.8 mmol/L 3.6-5.0 Serum or plasma chloride measurement (moles/volume) 109 mmol/L 98-107 Carbon dioxide 25 mmol/L 21-32 Serum or plasma anion gap determination (moles/volume) 9 mmol/L 5-14 Serum or plasma urea nitrogen measurement (mass/volume ) 15 mg/dL 7-18 Serum or plasma creatinine measurement (mass/volume) 1.00 mg/dL 0.60-1.30 Serum or plasma urea nitrogen/creatinine mass ratio 15 NRG Serum or plasma creatinine measurement w ith calculation of estimated glomerular filtration rate > NRG Serum or plasma glucose measurement (mass/volume) 98 mg/dL 70-105 Serum or plasma calcium measurement (mass/volume) 8.9 mg/dL 8.5-10.1 Serum or plasma total bilirubin measurement (mass/volu me) 0.3 mg/dL 0.1-1.0 Serum or plasma alkaline phosphatase garth surement (enzymatic activity/volume) 76 U/L 40-136 Serum or plasma aspartate aminotransfera se measurement (enzymatic activity/volume) 14 U/L 5-34 Serum or plasma alanine aminotransferase measurement (enzymatic activity/volume) 10 U/L 0-55 Serum or plasma protein measurement (mass/volume) 6.6 g/dL 6.4-8.2 Serum or plasma albumin measurement (mass/volume) 4.1 g/dL 3.2-4.5 CALCIUM CORRECTED 8.8 mg/dL 8.5-10.1 Magnesium - 05/14/18 19:09 Magnesium 2.2 mg/dL 1.8-2.4 Serum or plasma troponin i.cardiac measu rement (mass/volume) - 05/14/18 19:09 Serum or plasma troponin i.cardiac measurement (mass/v olume) < ng/mL <0.30 Myoglobin, serum - 05/14/18 19:09 Myoglobin, serum 26.8 ng/mL 10.0-92.0 Fibrin D-dimer FEU measurement in platel et poor plasma (mass/volume) - 05/14/18 19:09 Fibrin D-dimer FEU measurement in platelet poor plasma (mass/volume) 0.94 ug/mL 0.00-0.49 Serum or plasma C reactive protein measu rement (mass/volume) - 05/14/18 19:09 Serum or plasma C reactive protein measurement (mass/v olume) 0.13 mg/dL 0.00-0.50 Serum or plasma lithium measurement (mol es/volume) - 05/14/18 19:09 BNP level 112.2 pg/mL <100.0 Serum or plasma thyrotropin measurement by detection limit <=0.05 miu/l (units/volume) - 05/14/18 19:09 Serum or plasma thyrotropin measurement by detection limit <=0.05 miu/l (units/volume) 1.40 u[iU]/mL 0.35-4.94 Serum or plasma creatine kinase measurem ent (enzymatic activity/volume) - 05/14/18 22:58 Serum or plasma creatine kinase measurem ent (enzymatic activity/volume) 23 U/L 30-200 Serum or plasma troponin i.cardiac measu rement (mass/volume) - 05/14/18 22:58 Serum or plasma troponin i.cardiac measurement (mass/v olume) < ng/mL <0.30 Complete blood count (CBC) with automate d white blood cell (WBC) differential - 05/15/18 05:37 Blood leukocytes automated count (number/volume) 6.7 10*3/uL 4.3-11.0 Blood erythrocytes automated count (number/volume) 4.69 10*6/uL 4.35-5.85 Venous blood hemoglobin measurement (mass/volume) 12.7 g/dL 13.3-17.7 Blood hematocrit (volume fraction) 41 % 40-54 Automated erythrocyte mean corpuscular volume 87 [ foz_us] 80-99 Automated erythrocyte mean corpuscular h emoglobin (mass per erythrocyte) 27 pg 25-34 Automated erythrocyte mean corpuscular h emoglobin concentration measurement (mass/volume) 31 g/dL 32-36 Automated erythrocyte distribution width ratio 14. 8 % 10.0- 14.5 Automated blood platelet count (count/volume) 251 10*3/uL 130-400 Automated blood platelet mean volume measurement 9.1 [foz_us] 7.4-10.4 Automated blood neutrophils/100 leukocytes 65 % 42-75 Automated blood lymphocytes/100 leukocytes 20 % 12-44 Blood monocytes/100 leukocytes 11 % 0-12 Automated blood eosinophils/100 leukocytes 3 % 0-10 Automated blood basophils/100 leukocytes 0 % 0-10 Blood neutrophils automated count (number/volume) 4.4 10*3 1.8-7.8 Blood lymphocytes automated count (number/volume) 1.3 10*3 1.0-4.0 Blood monocytes automated count (number/volume) 0. 8 10*3 0.0-1.0 Automated eosinophil count 0.2 10*3/uL 0 .0-0.3 Automated blood basophil count (count/volume) 0.0 10*3/uL 0.0-0.1 Comprehensive metabolic panel - 05/15/18 05:37 Serum or plasma sodium measurement (moles/volume) 143 mmol/L 135-145 Serum or plasma potassium measurement (moles/volume) 3.7 mmol/L 3.6-5.0 Serum or plasma chloride measurement (moles/volume) 109 mmol/L 98-107 Carbon dioxide 26 mmol/L 21-32 Serum or plasma anion gap determination (moles/volume) 8 mmol/L 5-14 Serum or plasma urea nitrogen measurement (mass/volume ) 12 mg/dL 7-18 Serum or plasma creatinine measurement (mass/volume) 0.88 mg/dL 0.60-1.30 Serum or plasma urea nitrogen/creatinine mass ratio 14 NRG Serum or plasma creatinine measurement w ith calculation of estimated glomerular filtration rate > NRG Serum or plasma glucose measurement (mass/volume) 91 mg/dL 70-105 Serum or plasma calcium measurement (mass/volume) 8.3 mg/dL 8.5-10.1 Serum or plasma total bilirubin measurement (mass/volu me) 0.3 mg/dL 0.1-1.0 Serum or plasma alkaline phosphatase grath surement (enzymatic activity/volume) 65 U/L 40-136 Serum or plasma aspartate aminotransfera se measurement (enzymatic activity/volume) 12 U/L 5-34 Serum or plasma alanine aminotransferase measurement (enzymatic activity/volume) 9 U/L 0-55 Serum or plasma protein measurement (mass/volume) 5.7 g/dL 6.4-8.2 Serum or plasma albumin measurement (mass/volume) 3.6 g/dL 3.2-4.5 CALCIUM CORRECTED 8.6 mg/dL 8.5-10.1 Lipid 1996 panel - 05/15/18 05:37 Serum or plasma triglyceride measurement (mass/volume) 112 mg/dL <150 Serum or plasma cholesterol measurement (mass/volume) 135 mg/dL < 200 Serum or plasma cholesterol in HDL measurement (mass/v olume) 38 mg/dL 40-60 Cholesterol in LDL [mass/volume] in serum or plasma by direct assay 84 mg/dL 1-129 Serum or plasma cholesterol in VLDL measurement (mass/ volume) 22 mg/dL 5-40 Automated blood complete blood count (he mogram) panel - 05/17/18 05:36 Blood leukocytes automated count (number/volume) 8.0 10*3/uL 4.3-11.0 Blood erythrocytes automated count (number/volume) 4.87 10*6/uL 4.35-5.85 Venous blood hemoglobin measurement (mass/volume) 13.6 g/dL 13.3-17.7 Blood hematocrit (volume fraction) 42 % 40-54 Automated erythrocyte mean corpuscular volume 86 [ foz_us] 80-99 Automated erythrocyte mean corpuscular h emoglobin (mass per erythrocyte) 28 pg 25-34 Automated erythrocyte mean corpuscular h emoglobin concentration measurement (mass/volume) 33 g/dL 32-36 Automated erythrocyte distribution width ratio 14. 9 % 10.0- 14.5 Automated blood platelet count (count/volume) 243 10*3/uL 130-400 Automated blood platelet mean volume measurement 9.3 [foz_us] 7.4-10.4 Whole blood basic metabolic panel - 04/24 01/07 05:36 Serum or plasma sodium measurement (moles/volume) 142 mmol/L 135-145 Serum or plasma potassium measurement (moles/volume) 3.8 mmol/L 3.6-5.0 Serum or plasma chloride measurement (moles/volume) 111 mmol/L 98-107 Carbon dioxide 21 mmol/L 21-32 Serum or plasma anion gap determination (moles/volume) 10 mmol/L 5-14 Serum or plasma urea nitrogen measurement (mass/volume ) 12 mg/dL 7-18 Serum or plasma creatinine measurement (mass/volume) 0.86 mg/dL 0.60-1.30 Serum or plasma urea nitrogen/creatinine mass ratio 14 NRG Serum or plasma creatinine measurement w ith calculation of estimated glomerular filtration rate > NRG Serum or plasma glucose measurement (mass/volume) 97 mg/dL 70-105 Serum or plasma calcium measurement (mass/volume) 8.6 mg/dL 8.5-10.1 HOMOCYSTEINE - 05/17/18 05:36 Homocysteine [mass/volume] in serum or plasma 9.0 % 0.0-15.4 Complete urinalysis with reflex to cultu re - 07/26/18 15:21 Urine color determination YELLOW NRG Urine clarity determination CLEAR NR G Urine pH measurement by test strip 7 5-9 Specific gravity of urine by test strip 1.015 1.016-1.022 Urine protein assay by test strip, semi-quantitative NEGATIVE NEGATIVE Urine glucose detection by automated test strip NE GATIVE NEGATIVE Erythrocytes detection in urine sediment by light micr oscopy NEGATIVE NEGATIVE Urine ketones detection by automated test strip NE GATIVE NEGATIVE Urine nitrite detection by test strip NEGATIVE NEGATIVE Urine total bilirubin detection by test strip NEGA TIVE NEGATIVE Urine urobilinogen measurement by automated test strip (mass/volume) NORMAL NORMAL Urine leukocyte esterase detection by dipstick NEG ATIVE NEGATIVE Automated urine sediment erythrocyte cou nt by microscopy (number/high power field) RARE NRG Automated urine sediment leukocyte count by microscopy (number/high power field) [HPF] NRG Bacteria detection in urine sediment by light microsco py NEGATIVE NRG Crystals detection in urine sediment by light microsco py NONE NRG Casts detection in urine sediment by light microscopy NONE NRG Mucus detection in urine sediment by light microscopy SMALL NRG Complete urinalysis with reflex to culture NO NRG Automated blood complete blood count (he mogram) panel - 07/26/18 16:00 Blood leukocytes automated count (number/volume) 5.9 10*3/uL 4.3-11.0 Blood erythrocytes automated count (number/volume) 4.83 10*6/uL 4.35-5.85 Venous blood hemoglobin measurement (mass/volume) 13.7 g/dL 13.3-17.7 Blood hematocrit (volume fraction) 42 % 40-54 Automated erythrocyte mean corpuscular volume 88 [ foz_us] 80-99 Automated erythrocyte mean corpuscular h emoglobin (mass per erythrocyte) 28 pg 25-34 Automated erythrocyte mean corpuscular h emoglobin concentration measurement (mass/volume) 32 g/dL 32-36 Automated erythrocyte distribution width ratio 16. 3 % 10.0- 14.5 Automated blood platelet count (count/volume) 257 10*3/uL 130-400 Automated blood platelet mean volume measurement 8.8 [foz_us] 7.4-10.4 Comprehensive metabolic panel - 07/26/18 16:00 Serum or plasma sodium measurement (moles/volume) 145 mmol/L 135-145 Serum or plasma potassium measurement (moles/volume) 4.0 mmol/L 3.6-5.0 Serum or plasma chloride measurement (moles/volume) 109 mmol/L 98-107 Carbon dioxide 27 mmol/L 21-32 Serum or plasma anion gap determination (moles/volume) 9 mmol/L 5-14 Serum or plasma urea nitrogen measurement (mass/volume ) 14 mg/dL 7-18 Serum or plasma creatinine measurement (mass/volume) 0.92 mg/dL 0.60-1.30 Serum or plasma urea nitrogen/creatinine mass ratio 15 NRG Serum or plasma creatinine measurement w ith calculation of estimated glomerular filtration rate > NRG Serum or plasma glucose measurement (mass/volume) 97 mg/dL 70-105 Serum or plasma calcium measurement (mass/volume) 8.8 mg/dL 8.5-10.1 Serum or plasma total bilirubin measurement (mass/volu me) 0.4 mg/dL 0.1-1.0 Serum or plasma alkaline phosphatase garth surement (enzymatic activity/volume) 80 U/L 40-136 Serum or plasma aspartate aminotransfera se measurement (enzymatic activity/volume) 15 U/L 5-34 Serum or plasma alanine aminotransferase measurement (enzymatic activity/volume) 15 U/L 0-55 Serum or plasma protein measurement (mass/volume) 6.6 g/dL 6.4-8.2 Serum or plasma albumin measurement (mass/volume) 4.0 g/dL 3.2-4.5 CALCIUM CORRECTED 8.8 mg/dL 8.5-10.1 Serum or plasma lithium measurement (mol es/volume) - 07/26/18 16:00 BNP level 56.9 pg/mL <100.0 Complete blood count (CBC) with automate d white blood cell (WBC) differential - 01/31/19 10:30 Blood leukocytes automated count (number/volume) 6.3 10*3/uL 4.3-11.0 Blood erythrocytes automated count (number/volume) 5.10 10*6/uL 4.35-5.85 Venous blood hemoglobin measurement (mass/volume) 15.1 g/dL 13.3-17.7 Blood hematocrit (volume fraction) 46 % 40-54 Automated erythrocyte mean corpuscular volume 90 [ foz_us] 80-99 Automated erythrocyte mean corpuscular h emoglobin (mass per erythrocyte) 30 pg 25-34 Automated erythrocyte mean corpuscular h emoglobin concentration measurement (mass/volume) 33 g/dL 32-36 Automated erythrocyte distribution width ratio 14. 0 % 10.0- 14.5 Automated blood platelet count (count/volume) 221 10*3/uL 130-400 Automated blood platelet mean volume measurement 9.0 [foz_us] 7.4-10.4 Automated blood neutrophils/100 leukocytes 64 % 42-75 Automated blood lymphocytes/100 leukocytes 23 % 12-44 Blood monocytes/100 leukocytes 10 % 0-12 Automated blood eosinophils/100 leukocytes 3 % 0-10 Automated blood basophils/100 leukocytes 0 % 0-10 Blood neutrophils automated count (number/volume) 4.0 10*3 1.8-7.8 Blood lymphocytes automated count (number/volume) 1.4 10*3 1.0-4.0 Blood monocytes automated count (number/volume) 0. 6 10*3 0.0-1.0 Automated eosinophil count 0.2 10*3/uL 0 .0-0.3 Automated blood basophil count (count/volume) 0.0 10*3/uL 0.0-0.1 PT panel in platelet poor plasma by coag ulation assay - 01/31/19 10:30 Prothrombin time (PT) in platelet poor plasma by coagu lation assay 12.8 s 12.2-14.7 INR in platelet poor plasma or blood by coagulation as say 0.9 0.8-1.4 Activated partial thromboplastin time (a PTT) in platelet poor plasma bycoagulation assay - 01/31/19 10:30 Activated partial thromboplastin time (a PTT) in platelet poor plasma bycoagulation assay 28 s 24-35 Comprehensive metabolic panel - 01/31/19 10:30 Serum or plasma sodium measurement (moles/volume) 146 mmol/L 135-145 Serum or plasma potassium measurement (moles/volume) 4.1 mmol/L 3.6-5.0 Serum or plasma chloride measurement (moles/volume) 108 mmol/L 98-107 Carbon dioxide 29 mmol/L 21-32 Serum or plasma anion gap determination (moles/volume) 9 mmol/L 5-14 Serum or plasma urea nitrogen measurement (mass/volume ) 17 mg/dL 7-18 Serum or plasma creatinine measurement (mass/volume) 1.01 mg/dL 0.60-1.30 Serum or plasma urea nitrogen/creatinine mass ratio 17 NRG Serum or plasma creatinine measurement w ith calculation of estimated glomerular filtration rate > NRG Serum or plasma glucose measurement (mass/volume) 94 mg/dL 70-105 Serum or plasma calcium measurement (mass/volume) 8.9 mg/dL 8.5-10.1 Serum or plasma total bilirubin measurement (mass/volu me) 0.4 mg/dL 0.1-1.0 Serum or plasma alkaline phosphatase garth surement (enzymatic activity/volume) 78 U/L 40-136 Serum or plasma aspartate aminotransfera se measurement (enzymatic activity/volume) 15 U/L 5-34 Serum or plasma alanine aminotransferase measurement (enzymatic activity/volume) 13 U/L 0-55 Serum or plasma protein measurement (mass/volume) 6.5 g/dL 6.4-8.2 Serum or plasma albumin measurement (mass/volume) 4.1 g/dL 3.2-4.5 CALCIUM CORRECTED 8.8 mg/dL 8.5-10.1 Magnesium - 01/31/19 10:30 Magnesium 2.2 mg/dL 1.8-2.4 Serum or plasma troponin i.cardiac measu rement (mass/volume) - 01/31/19 10:30 Serum or plasma troponin i.cardiac measurement (mass/v olume) < ng/mL <0.028 Myoglobin, serum - 01/31/19 10:30 Myoglobin, serum 43.8 ng/mL 10.0-92.0 Fibrin D-dimer FEU measurement in platel et poor plasma (mass/volume) - 01/31/19 10:30 Fibrin D-dimer FEU measurement in platelet poor plasma (mass/volume) 0.39 ug/mL 0.00-0.49 Serum or plasma troponin i.cardiac measu rement (mass/volume) - 01/31/19 13:05 Serum or plasma troponin i.cardiac measurement (mass/v olume) < ng/mL <0.028 Serum or plasma troponin i.cardiac measu rement (mass/volume) - 01/31/19 18:05 Serum or plasma troponin i.cardiac measurement (mass/v olume) < ng/mL <0.028 Complete blood count (CBC) with automate d white blood cell (WBC) differential - 02/01/19 03:40 Blood leukocytes automated count (number/volume) 6.4 10*3/uL 4.3-11.0 Blood erythrocytes automated count (number/volume) 4.91 10*6/uL 4.35-5.85 Venous blood hemoglobin measurement (mass/volume) 14.3 g/dL 13.3-17.7 Blood hematocrit (volume fraction) 44 % 40-54 Automated erythrocyte mean corpuscular volume 89 [ foz_us] 80-99 Automated erythrocyte mean corpuscular h emoglobin (mass per erythrocyte) 29 pg 25-34 Automated erythrocyte mean corpuscular h emoglobin concentration measurement (mass/volume) 33 g/dL 32-36 Automated erythrocyte distribution width ratio 14. 3 % 10.0- 14.5 Automated blood platelet count (count/volume) 214 10*3/uL 130-400 Automated blood platelet mean volume measurement 8.9 [foz_us] 7.4-10.4 Automated blood neutrophils/100 leukocytes 63 % 42-75 Automated blood lymphocytes/100 leukocytes 24 % 12-44 Blood monocytes/100 leukocytes 9 % 0-12 Automated blood eosinophils/100 leukocytes 4 % 0-10 Automated blood basophils/100 leukocytes 0 % 0-10 Blood neutrophils automated count (number/volume) 4.0 10*3 1.8-7.8 Blood lymphocytes automated count (number/volume) 1.6 10*3 1.0-4.0 Blood monocytes automated count (number/volume) 0. 6 10*3 0.0-1.0 Automated eosinophil count 0.2 10*3/uL 0 .0-0.3 Automated blood basophil count (count/volume) 0.0 10*3/uL 0.0-0.1 Comprehensive metabolic panel - 02/01/19 03:40 Serum or plasma sodium measurement (moles/volume) 142 mmol/L 135-145 Serum or plasma potassium measurement (moles/volume) 3.8 mmol/L 3.6-5.0 Serum or plasma chloride measurement (moles/volume) 110 mmol/L 98-107 Carbon dioxide 22 mmol/L 21-32 Serum or plasma anion gap determination (moles/volume) 10 mmol/L 5-14 Serum or plasma urea nitrogen measurement (mass/volume ) 14 mg/dL 7-18 Serum or plasma creatinine measurement (mass/volume) 0.84 mg/dL 0.60-1.30 Serum or plasma urea nitrogen/creatinine mass ratio 17 NRG Serum or plasma creatinine measurement w ith calculation of estimated glomerular filtration rate > NRG Serum or plasma glucose measurement (mass/volume) 104 mg/dL 70-105 Serum or plasma calcium measurement (mass/volume) 8.2 mg/dL 8.5-10.1 Serum or plasma total bilirubin measurement (mass/volu me) 0.4 mg/dL 0.1-1.0 Serum or plasma alkaline phosphatase garth surement (enzymatic activity/volume) 63 U/L 40-136 Serum or plasma aspartate aminotransfera se measurement (enzymatic activity/volume) 13 U/L 5-34 Serum or plasma alanine aminotransferase measurement (enzymatic activity/volume) 13 U/L 0-55 Serum or plasma protein measurement (mass/volume) 5.7 g/dL 6.4-8.2 Serum or plasma albumin measurement (mass/volume) 3.5 g/dL 3.2-4.5 CALCIUM CORRECTED 8.6 mg/dL 8.5-10.1 Lipid 1996 panel - 02/01/19 03:40 Serum or plasma triglyceride measurement (mass/volume) 65 mg/dL <150 Serum or plasma cholesterol measurement (mass/volume) 74 mg/dL < 200 Serum or plasma cholesterol in HDL measurement (mass/v olume) 35 mg/dL 40-60 Cholesterol in LDL [mass/volume] in serum or plasma by direct assay 28 mg/dL 1-129 Serum or plasma cholesterol in VLDL measurement (mass/ volume) 13 mg/dL 5-40 Automated blood complete blood count (he mogram) panel - 02/02/19 03:25 Blood leukocytes automated count (number/volume) 7.4 10*3/uL 4.3-11.0 Blood erythrocytes automated count (number/volume) 4.95 10*6/uL 4.35-5.85 Venous blood hemoglobin measurement (mass/volume) 14.6 g/dL 13.3-17.7 Blood hematocrit (volume fraction) 44 % 40-54 Automated erythrocyte mean corpuscular volume 89 [ foz_us] 80-99 Automated erythrocyte mean corpuscular h emoglobin (mass per erythrocyte) 30 pg 25-34 Automated erythrocyte mean corpuscular h emoglobin concentration measurement (mass/volume) 33 g/dL 32-36 Automated erythrocyte distribution width ratio 13. 8 % 10.0- 14.5 Automated blood platelet count (count/volume) 207 10*3/uL 130-400 Automated blood platelet mean volume measurement 9.1 [foz_us] 7.4-10.4 Whole blood basic metabolic panel - 01/21 11/08 03:25 Serum or plasma sodium measurement (moles/volume) 140 mmol/L 135-145 Serum or plasma potassium measurement (moles/volume) 3.7 mmol/L 3.6-5.0 Serum or plasma chloride measurement (moles/volume) 109 mmol/L 98-107 Carbon dioxide 23 mmol/L 21-32 Serum or plasma anion gap determination (moles/volume) 8 mmol/L 5-14 Serum or plasma urea nitrogen measurement (mass/volume ) 12 mg/dL 7-18 Serum or plasma creatinine measurement (mass/volume) 0.92 mg/dL 0.60-1.30 Serum or plasma urea nitrogen/creatinine mass ratio 13 NRG Serum or plasma creatinine measurement w ith calculation of estimated glomerular filtration rate > NRG Serum or plasma glucose measurement (mass/volume) 102 mg/dL 70-105 Serum or plasma calcium measurement (mass/volume) 8.2 mg/dL 8.5-10.1 Complete blood count (CBC) with automate d white blood cell (WBC) differential - 07/26/19 16:12 Blood leukocytes automated count (number/volume) 8.5 10*3/uL 4.3-11.0 Blood erythrocytes automated count (number/volume) 5.14 10*6/uL 4.35-5.85 Venous blood hemoglobin measurement (mass/volume) 15.4 g/dL 13.3-17.7 Blood hematocrit (volume fraction) 46 % 40-54 Automated erythrocyte mean corpuscular volume 89 [ foz_us] 80-99 Automated erythrocyte mean corpuscular h emoglobin (mass per erythrocyte) 30 pg 25-34 Automated erythrocyte mean corpuscular h emoglobin concentration measurement (mass/volume) 34 g/dL 32-36 Automated erythrocyte distribution width ratio 13. 9 % 10.0- 14.5 Automated blood platelet count (count/volume) 246 10*3/uL 130-400 Automated blood platelet mean volume measurement 8.9 [foz_us] 7.4-10.4 Automated blood neutrophils/100 leukocytes 69 % 42-75 Automated blood lymphocytes/100 leukocytes 18 % 12-44 Blood monocytes/100 leukocytes 11 % 0-12 Automated blood eosinophils/100 leukocytes 2 % 0-10 Automated blood basophils/100 leukocytes 0 % 0-10 Blood neutrophils automated count (number/volume) 5.9 10*3 1.8-7.8 Blood lymphocytes automated count (number/volume) 1.5 10*3 1.0-4.0 Blood monocytes automated count (number/volume) 0. 9 10*3 0.0-1.0 Automated eosinophil count 0.2 10*3/uL 0 .0-0.3 Automated blood basophil count (count/volume) 0.0 10*3/uL 0.0-0.1 Comprehensive metabolic panel - 07/26/19 16:12 Serum or plasma sodium measurement (moles/volume) 141 mmol/L 135-145 Serum or plasma potassium measurement (moles/volume) 3.4 mmol/L 3.6-5.0 Serum or plasma chloride measurement (moles/volume) 108 mmol/L 98-107 Carbon dioxide 24 mmol/L 21-32 Serum or plasma anion gap determination (moles/volume) 9 mmol/L 5-14 Serum or plasma urea nitrogen measurement (mass/volume ) 13 mg/dL 7-18 Serum or plasma creatinine measurement (mass/volume) 1.15 mg/dL 0.60-1.30 Serum or plasma urea nitrogen/creatinine mass ratio 11 NRG Serum or plasma creatinine measurement w ith calculation of estimated glomerular filtration rate > NRG Serum or plasma glucose measurement (mass/volume) 116 mg/dL 70-105 Serum or plasma calcium measurement (mass/volume) 8.7 mg/dL 8.5-10.1 Serum or plasma total bilirubin measurement (mass/volu me) 0.5 mg/dL 0.1-1.0 Serum or plasma alkaline phosphatase garth surement (enzymatic activity/volume) 76 U/L 40-136 Serum or plasma aspartate aminotransfera se measurement (enzymatic activity/volume) 13 U/L 5-34 Serum or plasma alanine aminotransferase measurement (enzymatic activity/volume) 12 U/L 0-55 Serum or plasma protein measurement (mass/volume) 6.4 g/dL 6.4-8.2 Serum or plasma albumin measurement (mass/volume) 3.9 g/dL 3.2-4.5 CALCIUM CORRECTED 8.8 mg/dL 8.5-10.1 Magnesium - 07/26/19 16:12 Magnesium 2.0 mg/dL 1.6-2.4 Myoglobin, serum - 07/26/19 16:12 Myoglobin, serum 30.2 ng/mL 10.0-92.0 Serum or plasma troponin i.cardiac measu rement (mass/volume) - 07/26/19 16:12 Serum or plasma troponin i.cardiac measurement (mass/v olume) < ng/mL <0.028 PT panel in platelet poor plasma by coag ulation assay - 07/26/19 16:12 Prothrombin time (PT) in platelet poor plasma by coagu lation assay 15.4 s 12.2-14.7 INR in platelet poor plasma or blood by coagulation as say 1.2 0.8-1.4 Activated partial thromboplastin time (a PTT) in platelet poor plasma bycoagulation assay - 07/26/19 16:12 Activated partial thromboplastin time (a PTT) in platelet poor plasma bycoagulation assay 32 s 24-35 Serum or plasma troponin i.cardiac measu rement (mass/volume) - 07/27/19 03:20 Serum or plasma troponin i.cardiac measurement (mass/v olume) < ng/mL <0.028 Complete blood count (CBC) with automate d white blood cell (WBC) differential - 07/27/19 03:35 Blood leukocytes automated count (number/volume) 8.6 10*3/uL 4.3-11.0 Blood erythrocytes automated count (number/volume) 5.08 10*6/uL 4.35-5.85 Venous blood hemoglobin measurement (mass/volume) 15.2 g/dL 13.3-17.7 Blood hematocrit (volume fraction) 46 % 40-54 Automated erythrocyte mean corpuscular volume 90 [ foz_us] 80-99 Automated erythrocyte mean corpuscular h emoglobin (mass per erythrocyte) 30 pg 25-34 Automated erythrocyte mean corpuscular h emoglobin concentration measurement (mass/volume) 33 g/dL 32-36 Automated erythrocyte distribution width ratio 13. 7 % 10.0- 14.5 Automated blood platelet count (count/volume) 226 10*3/uL 130-400 Automated blood platelet mean volume measurement 9.1 [foz_us] 7.4-10.4 Automated blood neutrophils/100 leukocytes 70 % 42-75 Automated blood lymphocytes/100 leukocytes 17 % 12-44 Blood monocytes/100 leukocytes 11 % 0-12 Automated blood eosinophils/100 leukocytes 2 % 0-10 Automated blood basophils/100 leukocytes 0 % 0-10 Blood neutrophils automated count (number/volume) 6.0 10*3 1.8-7.8 Blood lymphocytes automated count (number/volume) 1.5 10*3 1.0-4.0 Blood monocytes automated count (number/volume) 1. 0 10*3 0.0-1.0 Automated eosinophil count 0.2 10*3/uL 0 .0-0.3 Automated blood basophil count (count/volume) 0.0 10*3/uL 0.0-0.1 Comprehensive metabolic panel - 07/27/19 03:35 Serum or plasma sodium measurement (moles/volume) 141 mmol/L 135-145 Serum or plasma potassium measurement (moles/volume) 3.8 mmol/L 3.6-5.0 Serum or plasma chloride measurement (moles/volume) 108 mmol/L 98-107 Carbon dioxide 22 mmol/L 21-32 Serum or plasma anion gap determination (moles/volume) 11 mmol/L 5-14 Serum or plasma urea nitrogen measurement (mass/volume ) 13 mg/dL 7-18 Serum or plasma creatinine measurement (mass/volume) 1.02 mg/dL 0.60-1.30 Serum or plasma urea nitrogen/creatinine mass ratio 13 NRG Serum or plasma creatinine measurement w ith calculation of estimated glomerular filtration rate > NRG Serum or plasma glucose measurement (mass/volume) 102 mg/dL 70-105 Serum or plasma calcium measurement (mass/volume) 8.5 mg/dL 8.5-10.1 Serum or plasma total bilirubin measurement (mass/volu me) 0.6 mg/dL 0.1-1.0 Serum or plasma alkaline phosphatase garth surement (enzymatic activity/volume) 73 U/L 40-136 Serum or plasma aspartate aminotransfera se measurement (enzymatic activity/volume) 15 U/L 5-34 Serum or plasma alanine aminotransferase measurement (enzymatic activity/volume) 17 U/L 0-55 Serum or plasma protein measurement (mass/volume) 6.2 g/dL 6.4-8.2 Serum or plasma albumin measurement (mass/volume) 3.8 g/dL 3.2-4.5 CALCIUM CORRECTED 8.7 mg/dL 8.5-10.1 Lipid 1996 panel - 07/27/19 03:35 Serum or plasma triglyceride measurement (mass/volume) 77 mg/dL <150 Serum or plasma cholesterol measurement (mass/volume) 69 mg/dL < 200 Serum or plasma cholesterol in HDL measurement (mass/v olume) 34 mg/dL 40-60 Cholesterol in LDL [mass/volume] in serum or plasma by direct assay 21 mg/dL 1-129 Serum or plasma cholesterol in VLDL measurement (mass/ volume) 15 mg/dL 5-40 Automated blood complete blood count ( mogram) panel - 07/28/19 04:10 Blood leukocytes automated count (number/volume) 7.4 10*3/uL 4.3-11.0 Blood erythrocytes automated count (number/volume) 4.78 10*6/uL 4.35-5.85 Venous blood hemoglobin measurement (mass/volume) 14.2 g/dL 13.3-17.7 Blood hematocrit (volume fraction) 44 % 40-54 Automated erythrocyte mean corpuscular volume 91 [ foz_us] 80-99 Automated erythrocyte mean corpuscular h emoglobin (mass per erythrocyte) 30 pg 25-34 Automated erythrocyte mean corpuscular h emoglobin concentration measurement (mass/volume) 33 g/dL 32-36 Automated erythrocyte distribution width ratio 13. 7 % 10.0- 14.5 Automated blood platelet count (count/volume) 216 10*3/uL 130-400 Automated blood platelet mean volume measurement 9.2 [foz_us] 7.4-10.4 Whole blood basic metabolic panel - 02/08 04:10 Serum or plasma sodium measurement (moles/volume) 140 mmol/L 135-145 Serum or plasma potassium measurement (moles/volume) 4.0 mmol/L 3.6-5.0 Serum or plasma chloride measurement (moles/volume) 108 mmol/L 98-107 Carbon dioxide 23 mmol/L 21-32 Serum or plasma anion gap determination (moles/volume) 9 mmol/L 5-14 Serum or plasma urea nitrogen measurement (mass/volume ) 12 mg/dL 7-18 Serum or plasma creatinine measurement (mass/volume) 0.89 mg/dL 0.60-1.30 Serum or plasma urea nitrogen/creatinine mass ratio 13 NRG Serum or plasma creatinine measurement w ith calculation of estimated glomerular filtration rate > NRG Serum or plasma glucose measurement (mass/volume) 102 mg/dL 70-105 Serum or plasma calcium measurement (mass/volume) 8.0 mg/dL 8.5-10.1 Radiology Report from [facility] on 02/05/20 18 14:25:00 PATIENT NAME: JOSE TORRES UNIT NO: [id number] EXAMS: CPT CODE: [id number] XR CHEST AP/PA ONLY [id number] TIME OF STUDY: 02/04/2018 2:06 PM REASON FOR EXAM: chest pain COMPARISON: None. FINDINGS: AP view of the chest was obtained. Lung volumes are low with elevated right hemidiaphragm and minimal atelectasis in the right base. No pulmonary mass or consolidation is present. There is no pleural effusion or pneumothorax. Cardiomediastinal silhouette and pulmonary vascularity are within normal limits. There is likely coronary stent. Regional skeletal structures are unremarkable. IMPRESSION: 1. No acute chest process. at 1420 Reported and signed by: CAIN BUTTS MD CC: TECHNOLOGIST: PRINCE TORREZ; SPENCER BIRD TRANSCRIBED DATE/Time: 02/04/2018 1420 BY: BRODERICK EXAM COMPLETE DATE/TIME: [id number] 1406 D/TM:02/04/2018 (1425) [facility] NAME: JOSE TORRES [address] [facility] HP: [phone] AGE: 62 S:[place] [address] : 1955 LOC: E.ED PHYS: Atilio Otoole PHONE #: [phone] EXAM DATE: 02/04/2018 STATUS: REG ER FAX #: [phone] A#: [id number] U#: [id number] PAGE 1 Signed Report *Final Page* Radiology Report from [facility] on 02/08/20 18 23:48:00 PATIENT NAME: JOSE TORRES UNIT NO: [id number] EXAMS: CPT CODE: [id number] US CAROTID SURVEY 01926 REASON FOR EXAM: PRE CABG. History of coronary artery disease status post multiple stents. TIME OF EXAM: 02/07/2018 11:05 PM COMPARISON: None TECHNIQUE: High-resolution grayscale, color-flow, and Doppler imaging of the bilateral carotid artery systems was performed. RIGHT: Peak Systolic Velocities: CCA: 85 cm/s ICA: 70 cm/s ECA: 78 cm/s Vertebral: 32 cm/s, antegrade ICA/CCA ratio: 0.8 There is minimal atherosclerosis of the right carotid arterial system. Arterial upstrokes remain brisk. There are no tardus parvus wave forms noted. No hemodynamically significant stenosis is present. LEFT: Peak Systolic Velocities: CCA: 73 cm/s ICA: 80 cm/s ECA: 73 cm/s Vertebral: 48 cm/s, antegrade ICA/CCA ratio: 1.1 There is minimal atherosclerosis of the left carotid arterial system. Arterial upstrokes remain brisk. There are no tardus parvus wave forms noted. No hemodynamically significant stenosis is present. IMPRESSION: 1. Minimal amount of plaque in the right and left carotid arteries results in less than 50% diameter stenosis in the proximal right and [facility] NAME: JOSE TORRES [address] HP: [phone] AGE: 62 S:[place], [place] [address] : 1955 LOC: W.4303 1 PHYS: Jenny Castillo APR PHONE #: [phone] EXAM DATE: 02/07/2018 STATUS: ADM IN FAX #: [phone] A#: [id number] U#: [id number] PAGE 1 Signed Report (CONTINUED) PATIENT NAME: JOSE TORRES UNIT NO: [id number] EXAMS: CPT CODE: [id number] US CAROTID SURVEY 77784 <Continued> left internal carotid arteries. Note: Validated velocity measurements with angiographic measurements, velocity criteria are extrapolated from diameter data as defined by the Society of Radiologists in Ultrasound Consensus Conference Radiology 2003; 229;340-346. I have personally reviewed these images and corrected the resident physician's interpretation if necessary. at 2342 RESIDENT: GOLD CHRISTINE MD Reported and signed by: ANNAMARIE STEEN CC: Jonah Farmer MD TECHNOLOGIST: ALEKSANDR BEAN TRANSCRIBED DATE/Time: 02/07/2018 2342 BY: PBAALCHG EXAM COMPLETE DATE/TIME: [id number] D/TM:02/07/2018 (2348) [facility] NAME: JOSE TORRES [address] HP: [phone] AGE: 62 S[place] [address] : 1955 LOC: W.4303 1 PHYS: Jenny Castillo APR PHONE #: [phone] EXAM DATE: 02/07/2018 STATUS: ADM IN FAX #: [phone] A#: [id number] U#: [id number] PAGE 2 Signed Report *Final Page* Radiology Report from [facility] on 02/09/20 08:30:00 PATIENT NAME: JOSE TORRES UNIT NO: [id number] EXAMS: CPT CODE: [id number] XR CHEST AP/PA LATERAL [id number] TIME OF STUDY: 02/07/2018 8:15 PM REASON FOR EXAM: Preop cardiac surgery COMPARISON: CXR 02/04/2018. FINDINGS: PA and lateral upright views of the chest were obtained. Lung volumes are mildly decreased with mild elevation the right hemidiaphragm. There is no pulmonary mass or consolidation. There is no pleural effusion or pneumothorax. Size of the cardiac silhouette is upper normal. Mediastinal silhouette is unremarkable. Coronary artery stents are noted in the region of the LAD. Pulmonary vascularity is within normal limits. Regional skeletal structures are unremarkable. IMPRESSION: 1. No acute chest process. at 0824 Reported and signed by: CAIN BUTTS MD CC: Jonah Farmer MD TECHNOLOGIST: ELHAM REYNOSO TRANSCRIBED DATE/Time: 02/08/201824 BY: PTERRENAYYMario EXAM COMPLETE DATE/TIME: [id number] D/TM:02/08/2018 (0830) [facility] NAME: JOSE TORRES [address] HP: [phone] AGE: 62 S:[place], [place] [address] : 1955 LOC: W.4303 1 PHYS: Jenny Castillo APR PHONE #: [phone] EXAM DATE: 02/07/2018 STATUS: ADM IN FAX #: [phone] A#: [id number] U#: [id number] PAGE 1 Signed Report *Final Page* Radiology Report from [facility] on 2017 16:18:00 PATIENT NAME: JOSE TORRES UNIT NO: [id number] EXAMS: CPT CODE: [id number] XR CHEST AP/PA ONLY 98067 TIME OF STUDY: 4:04 PM REASON FOR EXAM: POST OP CABG COMPARISON: Chest x- ray dated 02/07/2018 FINDINGS: Single AP view of the chest shows interval sternotomy changes. An ET tube is in place at the level of the thoracic inlet. An enteric tube is in place with tip projected over the stomach in the left upper quadrant of the abdomen. A right jugular line is in place with tip at the proximal SVC. Bilateral chest tubes and mediastinal drain are noted. There is minimal bibasilar and left perihilar atelectasis. The cardiac silhouette is normal in size and shape. The pulmonary vascularity is within normal limits. No pleural effusions or pneumothoraces are present. No acute osseous abnormality is identified. IMPRESSION: 1. Interval sternotomy changes with support devices as above. 2. Bibasilar and left perihilar atelectasis. at 1612 Reported and signed by: ANANT ESPAÑA MD CC: Jonah Farmer MD; Leah Howell DO TECHNOLOGIST: ELHAM REYNOSO TRANSCRIBED DATE/Time: 02/08/2018 1612 BY: [email or web address] EXAM COMPLETE DATE/TIME: [id number] 1609 D/TM:02/08/2018 (1618) [facility] NAME: JOSE TORRES [facility] [address] HP: [phone] AGE: 62 [place] [address] : 1955 LOC: W.7202 1 PHYS: Jonah Mckeon PHONE #: [phone] EXAM DATE: 02/08/2018 STATUS: ADM IN FAX #: [phone] A#: [id number] U#: [id number] PAGE 1 Signed Report *Final Page* Radiology Report from [facility] on 02/10/20 06:49:00 PATIENT NAME: JOSE TORRES UNIT NO: [id number] EXAMS: CPT CODE: [id number] XR CHEST AP/PA ONLY 01935 TIME OF STUDY: 02/09/2018 4:39 AM REASON FOR EXAM: Heart Surgery COMPARISON: CXR previous day. FINDINGS: AP view of the chest was obtained. Support devices: Stable bilateral chest tubes and right IJ catheter. Endotracheal and enteric tubes have been removed. Mediastinal drain is noted. Low lung volumes. Bibasilar atelectasis is present. There is no pleural effusion or pneumothorax. Postoperative changes from CABG are demonstrated and mediastinal silhouette. Mediastinum appears mildly widened in relation to prior study. Pulmonary vascularity shows no overt edema. Regional skeletal structures are unchanged. IMPRESSION: 1. Postoperative changes of the chest from CABG. Mild prominence of the mediastinum compared to previous study. This may be exaggerated by decreased lung volume with poor inspiratory depth. Please correlate with mediastinal drain output. 2. Stable chest tubes. Stable right IJ catheter. No pneumothorax. at 0643 Reported and signed by: CAIN BUTTS MD CC: Jonah Farmer MD; Leah Howell DO TECHNOLOGIST: NAJMA VARGAS TRANSCRIBED DATE/Time: 02/09/2018 0643 BY: PTERRENAYYH EXAM COMPLETE DATE/TIME: [id number] 0439 D/TM:02/09/2018 (0649) [facility] NAME: JOSE TORRES [address] HP: [phone] AGE: 62 S:M [place], [place] [address] : 1955 LOC: W.7202 1 PHYS: Jenny Castillo APR PHONE #: [phone] EXAM DATE: 02/09/2018 STATUS: ADM IN FAX #: [phone] A#: [id number] U#: [id number] PAGE 1 Signed Report *Final Page* Radiology Report from [facility] on 02/11/20 18 06:34:00 PATIENT NAME: JOSE TORRES UNIT NO: [id number] EXAMS: CPT CODE: [id number] XR CHEST AP/PA ONLY 22312 STUDY: Chest radiograph. INDICATION: Postoperative evaluation. COMPARISON: 02/09/2018 TECHNIQUE: Single view FINDINGS: Prominence of the cardiomediastinal silhouette is unchanged from prior study. Pulmonary vascularity is stable. There is left basilar atelectasis. No pneumothorax or large effusion. Bilateral thoracostomy tubes, mediastinal drainage tube and right IJ line are unchanged. Median sternotomy wires are midline. Endotracheal tube is been removed. IMPRESSION: 1. Unchanged cardiomegaly, without overt heart failure. 2. Left basilar atelectasis. at 0629 Reported and signed by: ELHAM PEREA MD CC: Jonah Farmer MD; Leah Howell DO TECHNOLOGIST: NAJMA VARGAS TRANSCRIBED DATE/Time: 02/10/2018 0629 BY: [email or web address] EXAM COMPLETE DATE/TIME: [id number] 0452 D/TM:02/10/2018 (0634) [facility] NAME: JOSE TORRES [address] HP: [phone] AGE: 62 S:M [place], [place] [address] : 1955 LOC: W.7202 1 PHYS: Bryan Lucio APR PHONE #: [phone] EXAM DATE: 02/10/2018 STATUS: ADM IN FAX #: [phone] A#: [id number] U#: [id number] PAGE 1 Signed Report *Final Page* Radiology Report from [facility] on 02/12/20 18 19:26:00 PATIENT NAME: JOSE TORRES UNIT NO: [id number] EXAMS: CPT CODE: [id number] XR CHEST AP/PA LATERAL 47507 REASON FOR EXAM: Postoperative evaluation COMPARISON: 02/10/2018 FINDINGS: Frontal and lateral views of the chest demonstrates stable heart size and pulmonary vascularity. Sternal wire configuration is unchanged. The right IJ catheter has been removed. The mediastinal drain and bilateral thoracostomy tubes remain. There is bibasilar atelectasis and possible trace effusions. No confluent consolidation is noted. Osseous structures are stable. IMPRESSION: Bibasilar atelectasis with possible trace effusions. No confluent consolidation. at 1920 Reported and signed by: ROLA BANEGAS MD CC: Jonah Farmer MD; Leah Howell DO TECHNOLOGIST: ARNEL ANDREWS TRANSCRIBED DATE/Time: 02/11/20181919 BY: PKFRANCHESKA EXAM COMPLETE DATE/TIME: 20180211 D/TM:02/11/2018 (1925) [facility] NAME: JOSE TORRES [address] HP: [phone] AGE: 62 S:[place] [address] : 1955 LOC: W.4303 1 PHYS: Bryan Lucio APR PHONE #: [phone] EXAM DATE: 02/11/2018 STATUS: ADM IN FAX #: [phone] A#: [id number] U#: [id number] PAGE 1 Signed Report *Final Page* Radiology Report from [facility] on 2017 10:54:00 PATIENT NAME: JOSE TORRES UNIT NO: [id number] EXAMS: CPT CODE: [id number] XR CHEST AP/PA LATERAL 22795 REASON FOR EXAM: Postoperative evaluation COMPARISON: 02/11/2018 FINDINGS: Frontal and lateral views of the chest demonstrates stable heart size and pulmonary vascularity. Sternal wire configuration is unremarkable. The bilateral thoracostomy tubes are unchanged. Lung volumes are low with bibasilar atelectasis, left greater than right. Trace bilateral effusions are also suspected. No new lobar consolidation is identified. Osseous structures are stable. There is a small right apical pneumothorax with a maximal pleural-parenchymal separation of 6 mm. IMPRESSION: 1. Small right apical pneumothorax. 2. Low lung volumes with bibasilar atelectasis, left greater than right. Findings called to MIGEL Monet, at 10:45 AM on 02/12/2018. at 1049 Reported and signed by: ROLA BANEGAS MD CC: Jonah Farmer MD; Leah Howell DO TECHNOLOGIST: KAROL RUVALCABA TRANSCRIBED DATE/Time: 02/12/2018 1049 BY: CHAKA EXAM COMPLETE DATE/TIME: [id number] 1010 D/TM:02/12/2018 (1054) [facility] NAME: JOSE TORRES [address] HP: [phone] AGE: 62 S:[place] [address] : 1955 LOC: W.4303 1 PHYS: Ailyn Mueller [employer] PHONE #: [phone] EXAM DATE: 02/12/2018 STATUS: ADM IN FAX #: [phone] A#: [id number] U#: [id number] PAGE 1 Signed Report *Final Page* Radiology Report from [facility] on 02/14/20 09:04:00 PATIENT NAME: JOSE TORRES UNIT NO: [id number] EXAMS: CPT CODE: [id number] XR CHEST AP/PA LATERAL 75976 TIME OF STUDY: 02/13/2018 8:34 AM REASON FOR EXAM: Right pneumothorax COMPARISON: CXR 02/12/2018 FINDINGS: PA and lateral views of the chest were obtained. Stable position of bilateral chest tubes. Low lung volumes with unchanged bibasilar opacities, left greater than right, likely representing atelectasis. Likely small bilateral pleural effusions, stable. No significant right-sided pneumothorax is seen on today's exam. No left-sided pneumothorax. The cardiac silhouette and pulmonary vascularity are within normal limits Osseous structures demonstrate no displaced fractures. IMPRESSION: 1. No significant right- sided pneumothorax seen. 2. Low lung volumes with unchanged bibasilar atelectasis, left greater than right. 3. Likely small bilateral pleural effusions, stable. I have personally reviewed these images and corrected the resident physician's interpretation if necessary. at 0859 RESIDENT: DARYL BRONSON MD Reported and signed by: ROLA BANEGAS MD [facility] NAME: JOSE TORRES [address] HP: [phone] AGE: 62 S:[place] [address] : 1955 LOC: W.4303 1 PHYS: Jenny Castillo NOV PHONE #: [phone] EXAM DATE: 02/13/2018 STATUS: ADM IN FAX #: [phone] A#: [id number] U#: [id number] PAGE 1 Signed Report (CONTINUED) PATIENT NAME: JOSE TORRES UNIT NO: [id number] EXAMS: CPT CODE: [id number] XR CHEST AP/PA LATERAL 27951 <Continued> CC: Jonah Farmer MD; Leah Howell DO TECHNOLOGIST: ESTRELLITA MITCHELL TRANSCRIBED DATE/Time: 02/13/2018 0859 BY: CHAKA EXAM COMPLETE DATE/TIME: [id number] D/TM:02/13/2018 (0904) [facility] NAME: JOSE TORRES [address] HP: [phone] AGE: 62 S:[place], [place] [address] : 1955 LOC: W.4303 1 PHYS: Jenny Castillo NOV PHONE #: [phone] EXAM DATE: 02/13/2018 STATUS: ADM IN FAX #: [phone] A#: [id number] U#: [id number] PAGE 2 Signed Report *Final Page* Radiology Report from [facility] on 02/15/20 18 07:40:00 PATIENT NAME: JOSE TORRES UNIT NO: [id number] EXAMS: CPT CODE: [id number] XR CHEST AP/PA LATERAL 28532 - XR CHEST AP/PA LATERAL Clinical information: 62 yearsMale CHEST TUBES Technique: PA and lateral views of the chest Comparison: Radiograph dated 02/12/2018 and 02/13/2018 Findings: The previously seen right apical pneumothorax is not identified on today's exam. There is a left pleural effusion and asymmetric edema in the left lung. Remainder of the lungs are clear. The heart size is stable. Impression: 1. No pneumothorax is identified. 2. Small left pleural effusion with asymmetric edema in the left lung. at 0734 Reported and signed by: ANNAMARIE STEEN CC: Jonah Farmer MD; Leah Howell DO TECHNOLOGIST: JOSE PADILLA TRANSCRIBED DATE/Time: 02/14/2018 0734 BY: PBAALCHG EXAM COMPLETE DATE/TIME: [id number] D/TM:02/14/2018 (0740) [facility] NAME: JOSE TORRES [address] HP: [phone] AGE: 62 S:[place] [address] : 1955 LOC: W.4303 1 PHYS: Jenny Castillo APR PHONE #: [phone] EXAM DATE: 02/14/2018 STATUS: ADM IN FAX #: [phone] A#: [id number] U#: [id number] PAGE 1 Signed Report *Final Page* Encounters ACCT No. Visit Date/Time Discharge Status Pt. Type Provider Facility Loc./Unit Complaint [id number] 08/04/2018 16:29:00 08/04/2018 23:59: 00 DIS Outpatient SOCORRO CALDWELL [id number] 07/26/2019 19:00:00 10:15:00 DIS Outpatient LEAH HOWELL DO [facility] CATH CP W/ CAD [id number] 05/26/2019 09:56:00 12:45:00 DIS Emergency SHAQ PARSOSN, BARBARA Keenan [facility] ER LEFT LEG CRAMP [id number] 03/08/2019 15:00:00 23:59:59 CLS Preadmit RAMANA HUERTA [facility] CARD PALPITATIONS,A-FIB [id number] 12/07/2018 13:47:00 00:01:00 DIS Outpatient RAMANA HUERTA [facility] CARD PALPITATIONS,A- FIB [id number] 01/31/2019 12:27:00 09:43:00 DIS Outpatient CARLOS MARTIN MD [facility] CATH CHEST PAIN [id number] 01/12/2019 11:05:00 23:59:59 CLS Outpatient ABEBE PARSONS, Bi MULLER [facility] CARD CAD, SOB, HYPERLIPIDEMI A [id number] 01/05/2019 09:07:00 23:59:59 CLS Outpatient ABEBE PARSONS, Bi MULLER [facility] CATH PALPITATIONS,PAF [id number] 01/04/2019 16:45:00 23:59:59 CLS Preadmit ABEBE PARSONS, Bi MULLER [facility] RAD BILATERAL CAROTID ARTER Y DISEASE [id number] 12/07/2018 13:54:00 23:59:59 CLS Outpatient HOWELL DO, LEAH [facility] CARD PALPITATIONS [id number] 08/02/2018 08:35:00 23:59:59 CLS Outpatient HOWELL DO, LEAH [facility] RAD ANESTHESIA OF SKIN, CER EBRAL INFARCTION [id number] 07/26/2018 15:37:00 23:59:59 CLS Outpatient CORAL DO, LEAH [facility] RAD EDEMA,DYSPNEA [id number] 07/08/2018 08:54:00 018 23:59:59 CLS Outpatient RAMANA HUERTA [facility] LAB CAD STENTED [id number] 07/06/2018 08:28:00 23:59:59 CLS Outpatient RAMANA HUERTA [facility] RAD FACIAL WEAKNESS [id number] 05/14/2018 22:30:00 018 10:25:00 DIS Outpatient RAZ WONG MD [facility] CATH CHEST PAIN [id number] 02/02/2018 10:00:00 018 09:22:00 DIS Inpatient CORAL DO LEAH V [facility] ICU CHEST PAIN [id number] 12/16/2017 10:15:00 23:59:59 CLS Preadmit OTHER, UNLISTED [facility] RAD CHEST PAIN,SOB,FATIGUE [id number] 12/01/2017 08:49:00 018 23:59:59 CLS Outpatient HOLLY SCHERER [facility] LAB CAD,CHEST PAIN, SOB,FATIGUE [id number] 08/05/2017 12:21:00 017 23:59:59 CLS Outpatient LINA PARIS MD [facility] CARD CAD [id number] 06/25/2017 21:30:00 017 10:24:00 DIS Outpatient HOWELL DO, LEAH [facility] CHEST PAIN,HX OF CAD [id number] 01/29/2017 15:20:00 017 12:15:00 DIS Inpatient LINA PARIS MD [facility] ICU CHEST PAIN R/O ACUTE CO RONARY SYNDROME [id number] 06/22/2016 19:35:00 016 23:59:59 CLS Outpatient CARLOS MARTIN MD [facility] CATH CP [id number] 05/05/2016 07:41:00 016 23:59:59 CLS Outpatient YAZAN CAMPBELL [facility] LAB HYPERLIPIDE VANDA,CAD [id number] 05/05/2016 07:35:00 016 23:59:59 CLS Outpatient HOWELL DO, LEAH [facility] LAB Z00.00,E78.1,E78.0 [id number] 11/19/2015 07:00:00 016 23:59:59 CLS Outpatient HOWELL DO, LEAH [facility] LAB [id number] 07/09/2015 09:55:00 015 09:05:00 DIS Outpatient LINA PARIS MD [facility] CATH [id number] 05/03/2015 06:55:00 015 23:59:59 CLS Outpatient HOWELL DO, LEAH [facility] LAB [id number] 11/11/2014 08:41:00 015 10:05:00 DIS Emergency LITO PEREZ DO [facility] ER SOA [id number] 05/08/2014 08:11:00 014 23:59:59 CLS Outpatient CORAL POOLE LEAH [facility] LAB HYPERTENSION,MED MONITO RING [id number] 04/06/2014 09:07:00 014 23:59:59 CLS Outpatient HOWELL DO LEAH [facility] RAD CERVICAL RADICULOPTHY L EFT [id number] 02/18/2014 19:47:00 14:30:00 DIS Outpatient LINA PARIS MD [facility] CATH CHEST PAIN [id number] 01/04/2014 14:12:00 014 23:59:59 CLS Outpatient CORAL POOLE LEAH [facility] LAB MUSCLE PAIN [id number] 12/28/2013 07:18:00 014 23:59:59 CLS Outpatient ELOINA HOWELL DOI [facility] LAB HTN,HEALTH SCREENING [id number] 10/25/2013 07:16:00 014 23:59:59 CLS Outpatient LINA PARIS MD [facility] LAB CP,CAD,HTN,HYPERLIPIDEM IA,SOB [id number] 09/06/2013 08:07:00 014 23:59:59 CLS Outpatient LINA PARIS MD [facility] RAD HTN,CP,CAD,HLP [id number] 08/07/2013 09:50:00 013 23:59:59 CLS Outpatient LINA PARIS MD [facility] CARD CP,CAD,.HTN,HLP [id number] 06/30/2013 07:42:00 23:59:59 CLS Outpatient HOWELL DO LEAH [facility] LAB SCREENING,MED MONITORIN G [id number] 04/07/2013 07:08:00 23:59:59 CLS Outpatient SIMIN GIPSON MD [facility] CARD LUMBAR SPONDYLOSIS [id number] 04/03/2013 15:34:00 17:00:00 DIS Outpatient SIMIN GIPSON MD [facility] REHAB LUMBAGO [id number] 01/02/2013 08:18:00 23:59:59 CLS Outpatient LEAH HOWELL DO [facility] LAB MEDICATION MONITORING,H EALTH SCREENING [id number] 09/06/2019 15:38:[address] Outpatient LEAH HOWELL DO [facility] [place] RAD COUGH [id number] 10/31/2014 08:07:00 Document Registration [id number] 10/31/2014 07:59:00 Document Registration [id number] 05/19/2012 08:11:00 Document Registration [id number] 01/29/2012 12:56:00 Document Registration [id number] 01/27/2012 08:05:00 Document Registration [id number] 11/11/2011 19:00:00 Document Registration [id number] 07/21/2011 07:59:00 Document Registration [id number] 07/08/2011 09:45:00 Document Registration [id number] 05/17/2011 10:54:00 Document Registration [id number] 04/02/2011 14:55:00 Document Registration [id number] 03/10/2011 07:21:00 Document Registration [id number] 01/23/2011 08:22:00 Document Registration [id number] 07/01/2018 07:45:00 018 07:45:00 DIS Outpatient Hermelinda PARSONS, [facility] & KASSIE HAMILTON [id number] 02/06/2018 14:43:00 018 19:00:00 DIS Inpatient Hermelinda PARSONS, [facility] & KASSIE Ignacio [id number] 07/09/2017 06:31:00 017 08:14:00 DIS Outpatient Hermelinda PARSONS, [facility] & KASSIE MARI [id number] 02/07/2018 19:20:00 018 14:29:00 DIS Inpatient Marleny PARSONS, [facility] [place]
== END 2019-07-28 10:15 | disposition home or self-care (01) ==
LOC: EDUNIT# 15:51 → ER 15:52 → CSD 17:02 → UNDOADMOB 17:02 → CSD 19:00 → CATH 19:00 → UNDODISOB 07-28 10:15 → CATH 07-28 10:15
PROVIDERS: ATTEND Internal Medicine
DX: I25.10 Atherosclerotic heart disease of native coronary artery without angina pectoris (principal); I48.0 Paroxysmal atrial fibrillation; I10 Essential (primary) hypertension; E78.5 Hyperlipidemia, unspecified; E78.00 Pure hypercholesterolemia, unspecified; J30.9 Allergic rhinitis, unspecified; G43.909 Migraine, unspecified, not intractable, without status migrainosus; K21.9 Gastro-esophageal reflux disease without esophagitis; M51.36 Other intervertebral disc degeneration, lumbar region; F41.9 Anxiety disorder, unspecified; Z95.1 Presence of aortocoronary bypass graft; Z79.82 Long term (current) use of aspirin; Z79.899 Other long term (current) drug therapy; Z90.89 Acquired absence of other organs; Z86.73 Personal history of transient ischemic attack (TIA), and cerebral infarction without residual deficits; Z79.02 Long term (current) use of antithrombotics/antiplatelets; Z82.49 Family history of ischemic heart disease and other diseases of the circulatory system; Z83.3 Family history of diabetes mellitus
CPT/HCPCS: 36415; 71045; 80048; 80053; 80061; 83735; 83874; 84484; 85025; 85027; 85610; 85730; 93005; 93041; 93458

== ENCOUNTER → 2019-09-06 | Outpatient (CLI) | payer BC ==
[~2019-09-06] MED LIST changes: +APIX5TAB PO; +DRON400T2 PO; +FLUT1BLS8 PO; +GUAI-813 PO; +HYDR473S61 PO; +NIAC500T9 PO; +PRD10T PO
--- NOTE | 2019-09-06 20:29 | Diagnostic Imaging Report ---
EXAMINATION: Chest (PA and lateral). CLINICAL INDICATION: 64-year-old male, cough for 3 weeks. COMPARISON: July 26, 2019. FINDINGS: There are median sternotomy wires. Stable overall appearance of the cardiomediastinal silhouette. There is no identified pneumothorax. There is no pleural effusion. There is no identified focal airspace consolidation. There is a calcified nodule overlying the left upper lobe which may relate to a calcified granuloma. There is a nodular opacity projecting over the lower lobes on the lateral view which could relate to an osseous finding but measures 1.6 cm in size. This also could reflect a pulmonary nodule. This is new since November 11, 2014. IMPRESSION: 1. Potential 1.6 cm lower lobe pulmonary nodule not definitely present on November 11, 2014. Recommend CT chest without contrast for further assessment. 2. No otherwise identified potential acute cardiopulmonary abnormality. Dictated by: Dictated on workstation # [id number]
== END ==
LOC: RAD 15:38
PROVIDERS: ATTEND Internal Medicine
DX: R05 Cough (principal)
CPT/HCPCS: 71046

== ENCOUNTER 2019-09-07 17:52 | Observation (INO) | payer BC ==
[~2019-09-07] VITALS: Ht 187.9 cm; Wt 88.6 kg
[~2019-09-07 17:52] MED LIST changes: -FLUT1BLS8 PO; -GUAI-813 PO; -HYDR473S61 PO; -NIAC500T9 PO; -PRD10T PO
[2019-09-07] MEDS ORDERED: morphine INJ 10 MG/ML 1ML (SYR OR VIAL) IV PRN (18:00)
[2019-09-07] MEDS ORDERED: POLYETHYLENE GLYCOL 17 GM (MIRALAX) PACK PO PRN (18:00)
[2019-09-07] MEDS ORDERED: ANTACID SUSP 30 ML UDC (MYLANTA) PO PRN (18:00)
[2019-09-07] MEDS ORDERED: HYDROmorphone 2 MG/ML VIAL (DILAUDID) IV PRN (18:00)
[2019-09-07] MEDS ORDERED: ONDANSETRON 4 MG (ZOFRAN) ORAL DISSOLVE TAB PO PRN (18:00)
[2019-09-07] MEDS ORDERED: ONDANSETRON 4 MG/2 ML (SDV) Z0FRAN IV PRN (18:00)
[2019-09-07] MEDS ORDERED: LOPERAMIDE 2 MG (IMODIUM) TABLET PO PRN (18:00)
[2019-09-07] MEDS ORDERED: BISACODYL 10 MG SUPP (DULCOLAX) PR PRN (18:00)
[2019-09-07] MEDS ORDERED: MILK OF MAGNESIA 400 MG/5 ML 30 ML UDC PO PRN (18:00)
[2019-09-07] MEDS ORDERED: LACTULOSE SYRUP 10GM/15ML (ENULOSE) 30ML UDC PO PRN (18:00)
[2019-09-07] MEDS ORDERED: diphenhydrAMINE 50 MG/ML INJ (BENADRYL) IVP PRN (18:00)
[2019-09-07] MEDS ORDERED: MELATONIN 3 MG TABLET PO PRN (18:00)
[2019-09-07] MEDS ORDERED: CALCIUM CARBONATE 500 MG (TUMS) TAB.CHEW PO PRN (18:00)
[2019-09-07] MEDS ORDERED: ACETAMINOPHEN 325 MG TABLET PO PRN (18:00)
[2019-09-07] MEDS ORDERED: ALPRAZolam 0.25 MG (XANAX) TAB PO PRN (18:00)
[2019-09-07 18:09] VITALS: BP 127/85
[2019-09-07] MEDS ORDERED: NITROGLYCERIN 0.4 MG SL TABS BTL 25'S SL PRN (18:15)
[2019-09-07] MEDS ORDERED: ACETAMINOPHEN 500 MG TAB (TYLENOL) PO PRN (18:15)
[2019-09-07] MEDS ORDERED: NON-FORMULARY MEDICATION 1 EA EA (Alirocumab (Praluent Pen) 75 MG) SC SCH (18:15)
[2019-09-07] MEDS ORDERED: ALPRAZolam 0.5 MG (XANAX) TAB PO PRN (18:15)
[2019-09-07] MEDS ORDERED: ZOLPIDEM 5 MG (AMBIEN) TAB PO PRN (18:30)
[2019-09-07 18:47] LABS: BASOPHILS % (AUTO) 0 % (0-10); EOSINOPHILS # (AUTO) 0.3 10^3/uL (0.0-0.3); EOSINOPHILS % (AUTO) 3 % (0-10); HEMATOCRIT 45 % (40-54); HEMOGLOBIN 14.5 G/DL (13.3-17.7); LYMPHOCYTES # (AUTO) 1.6 X 10^3 (1.0-4.0); LYMPHOCYTES % (AUTO) 20 % (12-44); MEAN CORPUSCULAR HEMOGLOBIN 30 PG (25-34); MEAN CORPUSCULAR HGB CONC 32 G/DL (32-36); MEAN CORPUSCULAR VOLUME 92 FL (80-99); MEAN PLATELET VOLUME 8.6 FL (7.4-10.4); MONOCYTES # (AUTO) 0.8 X 10^3 (0.0-1.0); MONOCYTES % (AUTO) 10 % (0-12); NEUTROPHILS # (AUTO) 5.4 X 10^3 (1.8-7.8); NEUTROPHILS % (AUTO) 67 % (42-75); PLATELET COUNT 238 10^3/uL (130-400); RED CELL DISTRIBUTION WIDTH 14.3 % (10.0-14.5); WHITE BLOOD COUNT 8.1 10^3/uL (4.3-11.0)
[2019-09-07] MEDS ORDERED: PIPERACILLIN/TAZO 4.5 GM/NS 100 ML IV NR ×2 (19:00)
[2019-09-07] MEDS ORDERED: CHLORASEPTIC SPRAY 177 ML LIQUID MC PRN (19:00)
[2019-09-07 19:10] LABS: ALANINE AMINOTRANSFERASE 18 U/L (0-55); ALBUMIN 3.6 GM/DL (3.2-4.5); ALKALINE PHOSPHATASE 62 U/L (40-136); BILIRUBIN,TOTAL 0.4 MG/DL (0.1-1.0); BUN/CREATININE RATIO 15; CALCIUM 8.3 MG/DL (8.5-10.1); CARBON DIOXIDE 23 MMOL/L (21-32); CHLORIDE 108 MMOL/L (98-107); CREATININE SERUM 1.07 MG/DL (0.60-1.30); GFR ESTIMATED > 60; GLUCOSE 132 MG/DL (70-105); POTASSIUM 3.6 MMOL/L (3.6-5.0); SODIUM 141 MMOL/L (135-145); TOTAL PROTEIN 5.7 GM/DL (6.4-8.2)
[2019-09-07] MEDS: NS IV 1000 ML 1,000 ML IV SCH (19:15)
[2019-09-07 19:29] VITALS: BP 136/88
[2019-09-07] MEDS: HYDROCODONE/CHLOR 10MG/5 ML (TUSSIONEX SUSP) 5ML UDC PO SCH ×2 (19:36→21:28)
[2019-09-07] MEDS ORDERED: FLU QUADRIvalent (5+ YOA) 2019-2020 (AFLURIA) 0.5 ML IM ONE (20:15)
[2019-09-07] MEDS: AZITHROMYCIN INJECTION 500 MG in NS (IVPB) 250 ML IV SCH (20:30)
[2019-09-07] MEDS: methylPREDNISolone 125 MG (Solu-MEDROL) VIAL IVP SCH (20:30)
--- NOTE | 2019-09-07 20:55 | Progress Note ---
Progress Note This document was scribed by Jeanette Somers. The Pt reports to the clinic to discuss lab results and to make a plan. The Pt states he had an episode this morning at work and almost passed out. He states he had to call his to come to pick him up. The Pt states that he completed the medication that I had previously prescribed. The Pt states he feels like he is in a state of exhaustion but has not had a fever. The Pt was made aware his WBC is normal, his BMP was normal, his inflammatory marker was normal. The Pt's chest X-ray did not show an pneumonia but showed a nonspecific nodule. The Pt w as made aware that it could be the view from his spine. The Pt states that he is still coughing. The Pt has not been able to sleep and has had to sleep in a recliner. The Pt states that his symptoms have been going on since . The Pt was made aware that I did not check for mycoplasma or influenza. The Pt was made aware that one option is that I could put him in the hospital overnight and I could give him some fluids, check for mycoplasma or influenza, and could treat him in observation. The Pt was made aware that with his heart condition his reserve he could diminish pretty quickly so we need to be pretty careful. The Pt looks dehydrated. He states that he has lost 5lbs since his last encounter last week. The Pt will be admitted through direct admit for observation overnight. The Pt is on board with this plan and will report to the hospital following this appointment. LEAH MONCADA DO Sep 07, 2019 20:55
[2019-09-07] MEDS: ROSUVASTATIN 10 MG (CRESTOR) TABLET PO SCH (21:26)
[2019-09-07] MEDS: DRONEDARONE TABLET 400 MG TABLET PO SCH (21:26)
[2019-09-07] MEDS: ZOLPIDEM 5 MG (AMBIEN) TAB PO SCH (21:26)
[2019-09-07] MEDS: BENZONATATE 100 MG (TESSALON) CAPSULE PO SCH (21:26)
[2019-09-07] MEDS: APIXABAN 5 MG (ELIQUIS) TABLET PO SCH (21:26)
[2019-09-07] MEDS: lisINopril 5 MG (PRINIVIL) TABLET PO SCH (21:27)
[2019-09-07] MEDS: DOCUSATE SODIUM 100 MG (COLACE) CAP PO SCH (21:27)
[2019-09-07] MEDS: SENNOSIDES 8.6 MG (SENOKOT) TAB PO SCH (21:28)
[2019-09-08] VITALS (7 sets, daily range): BP systolic 110–140; BP diastolic 68–81
[2019-09-08] MEDS: methylPREDNISolone 125 MG (Solu-MEDROL) VIAL IVP SCH ×4 (01:34→17:02)
[2019-09-08] MEDS: PIPERACILLIN/TAZOBACTAM (BULK) 4.5 GM in NS (IVPB) 100 ML IV SCH ×3 (01:34→17:06)
[2019-09-08] MEDS: RT-ALBUTEROL SULF 2.5 MG/3 ML PRE-MIX VIAL INH SCH ×4 (02:42→21:43)
[2019-09-08] MEDS: NS IV 1000 ML 1,000 ML IV SCH ×4 (05:12→22:39)
[2019-09-08 05:13] LABS: BASOPHILS % (AUTO) 0 % (0-10); EOSINOPHILS % (AUTO) 0 % (0-10); HEMATOCRIT 46 % (40-54); HEMOGLOBIN 15.3 G/DL (13.3-17.7); LYMPHOCYTES # (AUTO) 0.7 X 10^3 (1.0-4.0); LYMPHOCYTES % (AUTO) 10 % (12-44); MEAN CORPUSCULAR HEMOGLOBIN 30 PG (25-34); MEAN CORPUSCULAR HGB CONC 33 G/DL (32-36); MEAN CORPUSCULAR VOLUME 90 FL (80-99); MEAN PLATELET VOLUME 8.5 FL (7.4-10.4); MONOCYTES % (AUTO) 1 % (0-12); NEUTROPHILS # (AUTO) 6.6 X 10^3 (1.8-7.8); NEUTROPHILS % (AUTO) 90 % (42-75); PLATELET COUNT 247 10^3/uL (130-400); RED CELL DISTRIBUTION WIDTH 14.2 % (10.0-14.5); WHITE BLOOD COUNT 7.4 10^3/uL (4.3-11.0)
[2019-09-08 05:34] LABS: ALANINE AMINOTRANSFERASE 16 U/L (0-55); ALBUMIN 3.6 GM/DL (3.2-4.5); ALKALINE PHOSPHATASE 65 U/L (40-136); BILIRUBIN,TOTAL 0.7 MG/DL (0.1-1.0); BUN/CREATININE RATIO 16; CALCIUM 8.2 MG/DL (8.5-10.1); CARBON DIOXIDE 22 MMOL/L (21-32); CHLORIDE 108 MMOL/L (98-107); CREATININE SERUM 1.01 MG/DL (0.60-1.30); GFR ESTIMATED > 60; GLUCOSE 158 MG/DL (70-105); POTASSIUM 4.2 MMOL/L (3.6-5.0); SODIUM 140 MMOL/L (135-145)
[2019-09-08 06:08] LABS: LYMPHOCYTES % (MANUAL) 9 %; MONOCYTES % (MANUAL) 1 %; NEUTROPHILS % (MANUAL) 90 %
[2019-09-08] MEDS ORDERED: ASPI-983 PO (08:24)
[2019-09-08] MEDS ORDERED: FLUT1BLS8 PO (08:24)
[2019-09-08] MEDS ORDERED: GUAI-813 PO (08:24)
[2019-09-08] MEDS ORDERED: NIAC500T9 PO (08:26)
[2019-09-08] MEDS ORDERED: NS 100 ML (IVPB) BAG IV ONE (08:30)
[2019-09-08] MEDS ORDERED: IOHEXOL 350 MG/ML 100 ML (OMNIPAQUE 350) VIAL IV ONE (08:30)
[2019-09-08] MEDS ORDERED: HOLD METFORMIN - RECEIVED CONTRAST 20 ML VIAL IV SCH (08:30)
--- NOTE | 2019-09-08 08:33 | NUR ---
SPOKE WITH THE PT (HE HAD HIS HOME MEDS WITH HIM) WELL GOING OVER THE EXT MED HISTORY AND CALLING DON[facility] TO COMPLETE THE MED REC. PT WAS ABLE TO TELL ME HOW/WHEN HE TAKES EACH MED AND EVERYTHING MATCHED THE DIRECTIONS ON THE BOTTLE (EXCEPT THE PRN MEDS) AND HAD GOOD DATING. PT SAID HE HAD FINISHED THE ROUND OF CEFDINIR AND PREDNISONE BEFORE HE WAS ADMITTED SO THAT WAS LEFT OFF THE MED REC. HE WAS STILL USING THE WIXELA INHALER AND VIRTUSSIN AC SO THOSE WERE LEFT ON. PT SAYS HE TAKES ZOLPIDEM (LAST FILLED 05-12-2019 #30) AND ALPRAZOLAM (LAST FILLED 02-21-2018) PRN- HOWEVER I LEFT THE ALPRAZOLAM OFF THE MED REC SINCE THE SCRIPT IS OUTDATED BY 18 MONTHS. HE DID HAVE A BOTTLE WITH HIM THAT SHOWED THE LAST FILL DATE HOWEVER [facility] NO LONGER HAD RECORD OF IT ON FILE. OTC MEDS: TYLENOL TYLENOL PM NIACIN ASPIRIN 81MG
[2019-09-08] MEDS: ASPIRIN E.C. 81 MG (ECOTRIN) TAB PO SCH (09:08)
[2019-09-08] MEDS: SENNOSIDES 8.6 MG (SENOKOT) TAB PO SCH ×3 (09:08→20:12)
[2019-09-08] MEDS: BENZONATATE 100 MG (TESSALON) CAPSULE PO SCH ×3 (09:08→20:30)
[2019-09-08] MEDS: DRONEDARONE TABLET 400 MG TABLET PO SCH ×2 (09:08→20:29)
[2019-09-08] MEDS: CLOPIDOGREL 75 MG (PLAVIX) TABLET PO SCH (09:08)
[2019-09-08] MEDS: AZITHROMYCIN INJECTION 500 MG in NS (IVPB) 250 ML IV SCH (09:08)
[2019-09-08] MEDS: DOCUSATE SODIUM 100 MG (COLACE) CAP PO SCH ×3 (09:09→20:12)
[2019-09-08] MEDS: PANTOPRAZOLE 20 MG TABLET (PROTONIX) PO SCH (09:09)
[2019-09-08] MEDS: APIXABAN 5 MG (ELIQUIS) TABLET PO SCH ×2 (09:09→20:30)
[2019-09-08] MEDS: HYDROCODONE/CHLOR 10MG/5 ML (TUSSIONEX SUSP) 5ML UDC PO SCH ×2 (09:13→20:30)
--- NOTE | 2019-09-08 09:59 | Diagnostic Imaging Report ---
PROCEDURE: CT chest with contrast only. TECHNIQUE: Multiple contiguous axial images were obtained through the chest after administration of intravenous contrast. Auto Exposure Controls were utilized during the CT exam to meet ALARA standards for radiation dose reduction. INDICATION: Lung mass. COMPARISON: May 14, 2018 and radiograph dated September 06, 2019. FINDINGS: No significant adenopathy within the chest. Scattered vascular calcifications without aneurysmal dilatation of the thoracic aorta. Postsurgical changes of a CABG. Loop recorder is present within the medial left breast. The heart is within normal limits in size. No significant pericardial effusion. No pleural effusion. No pneumothorax. Calcified granuloma within the left upper lobe. 2 mm right upper lobe pulmonary nodule is unchanged from the prior exam. Calcified granuloma within the right middle lobe. The lungs are otherwise clear. In particular, no suspicious abnormality to correspond to the nodule noted on recent prior radiography. The visualized upper abdomen is unremarkable. Mild scattered osseous degenerative changes without acute osseous abnormality. IMPRESSION: No acute abnormality. No suspicious pulmonary nodule or mass. Previously questioned nodule on the prior radiographs likely related to superimposition of structures, including osteophytes within the thoracic spine. Evidence of chronic granulomatous disease. Dictated by: Dictated on workstation # [id number]
--- NOTE | 2019-09-08 11:08 | Pulmonary Consultation ---
History of Present Illness History of Present Illness Date Seen by Provider: Sep 08, 2019 Time Seen by Provider: 11:04 Date of Admission History of Present Illness 64yo directly admitted from Dr. Howell's office secondary to persistent cough, dehydration and presyncope. CT of chest with contrast is negative for infiltration or mass. Allergies and Home Medications Allergies Coded Allergies: No Known Drug Allergies (Unverified , 03/28/10) Home Medications Acetaminophen 500 Mg Tablet, 500-1,000 MG PO Q6H PRN for PAIN-MILD, (Reported) Acetaminophen/Diphenhydramine 1 Each Tablet, 2 TAB PO HS PRN for SLEEP, (Reported) Alirocumab 75 Mg/1 Ml Pen.injctr, 75 MG SC EVERY 2 WEEKS, (Reported) Apixaban 5 Mg Tablet, 5 MG PO BID, (Reported) Aspirin 81 Mg Tablet.dr, 81 MG PO DAILY, (Reported) Clopidogrel Bisulfate 75 Mg Tablet, 75 MG PO DAILY, (Reported) Dronedarone HCl 400 Mg Tablet, 400 MG PO BID, (Reported) Fluticasone Propion/Salmeterol 1 Each Blst.w.dev, 1 PUFF PO BID, (Reported) Guaifenesin/Codeine Phosphate 118 Ml Liquid, 5 ML PO Q4H PRN for COUGH, (Reported) Lisinopril 2.5 Mg Tablet, 2.5 MG PO HS, (Reported) Niacin 500 Mg Tablet, 500 MG PO DAILY, (Reported) Nitroglycerin 0.4 Mg Tab.subl, 0.4 MG SL UD PRN for CHEST PAIN (ANGINA), (R eported) Pantoprazole Sodium 20 Mg Tablet.dr, 20 MG PO DAILY, (Reported) Rosuvastatin Calcium 10 Mg Tablet, 10 MG PO HS, (Reported) Zolpidem Tartrate 10 Mg Tablet, 10 MG PO HS PRN for SLEEP, (Reported) LAST FILLED 05-12-19 #30 Past Ssstedb-Bwfjzk-Qervtw Hx Patient Social History Alcohol Use: Denies Use Recreational Drug Use: No Smoking Status: Never a Smoker 2nd Hand Smoke Exposure: No Recent Foreign Travel: No Contact w/Someone Who Travel: Yes ([place]) Recent Infectious Disease Expo: No Recent Hopitalizations: No Immunizations Up To Date Date of Pneumonia Vaccine: Sep 07, 2015 Date of Influenza Vaccine: Jun 23, 2017 Seasonal Allergies Seasonal Allergies: Yes Past Medical History Surgeries: Yes Adenoidectomy, Cardiac, CABG, Coronary Stent, Tonsillectomy Respiratory: No Currently Using CPAP: No Currently Using BIPAP: No Cardiac: Yes (stent, quadrouple bypass) Coronary Artery Disease, Heart Attack, Syncope 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) Headaches /Migraines Reproductive Disorders: No Sexually Transmitted Disease: No HIV/AIDS: No Genitourinary: No Gastrointestinal: Yes Gastroesophageal Reflux Musculoskeletal: Yes Degenerate Disk Disease, Chronic Back Pain Endocrine: No HEENT: No (T&A) Tonsilitis Loss of Vision: Denies Hearing Impairment: Denies Cancer: No Psychosocial: Yes Anxiety Integumentary: Yes (Cold sores) Herpes Blood Disorders: No Adverse Reaction/Blood Tranf: No Family Medical History Family history: Diabetes mellitus G8 BROTHER Myocardial infarction 19 FATHER Heart Disease, CAD Under 55 Years Old, Diabetes Sepsis Event Evaluation Height, Weight, BMI Height: 6'2.00" Weight: 204lbs. 0.4oz. 92.029915ki; 25.09 BMI Method:Stated Exam Exam Vital Signs Date Time Temp Pulse Resp B/P (MAP) Pulse Ox O2 Delivery O2 Flow Rate FiO2 09/08/19 08:24 93 Room Air 09/08/19 08:00 93 Room Air 09/08/19 08:00 36.8 70 18 140/78 (98) 93 Room Air 09/08/19 03:37 36.6 65 20 123/81 (95) 94 Room Air 09/08/19 00:30 36.9 63 18 118/79 (92) 92 Room Air 09/07/19 20:00 Room Air 09/07/19 19:29 36.4 55 16 136/88 (104) 94 Room Air 09/07/19 18:09 36.0 62 20 127/85 96 Room Air I & O 09/08/19 07:00 Intake Total 1220 ml Balance 1220 ml Height & Weight Height: 6'2.00" Weight: 204lbs. 0.4oz. 92.090279hy; 25.09 BMI Method:Stated Capillary Refill: Less Than 3 Seconds Results Lab Laboratory Tests 09/07/19 18:30 09/08/19 04:35 Assessment/Plan Assessment/Plan CARMELITA FARR DO Sep 08, 2019 11:08
--- NOTE | 2019-09-08 11:44 | Short Stay Summary-Hospitalist ---
History of Present Illness HPI/Chief Complaint CC: Cough with dyspnea HPI: The Pt reports to the clinic to discuss lab results and to make a plan. The Pt states he had an episode this morning at work and almost passed out. He states he had to call his to come to pick him up. The Pt states that he completed the medication that I had previously prescribed. The Pt states he feels like he is in a state of exhaustion but has not had a fever. The Pt was made aware his WBC is normal, his BMP was normal, his inflammatory marker was normal. The Pt's chest X-ray did not show an pneumonia but showed a nonspecific nodule. The Pt was made aware that it could be the view from his spine. The Pt states that he is still coughing. The Pt has not been able to sleep and has had to sleep in a recliner. The Pt states that his symptoms have been going on since . The Pt was made aware that I did not check for mycoplasma or influenza. The Pt was made aware that one option is that I could put him in the hospital overnight and I could give him some fluids, check for mycoplasma or influenza, and could treat him in observation. The Pt was made aware that with his heart condition his reserve he could diminish pretty quickly so we need to be pretty careful. The Pt looks dehydrated. He states that he has lost 5lbs since his last encounter last week. The Pt will be admitted through direct admit for observation overnight. The Pt is on board with this plan and will report to the hospital following this appointment. Pt doing fairly well but SOB has prompted me to get a consultation with Dr. Ragsdale and Dr. Walton. Pt did require an oxygen evaluation and CT of the chest was obtained and will hold off on discharge until Pt is stable. Source: patient, RN/MD, old records Exam Limitations: no limitations Date Seen 09/08/19 Time Seen by a Provider: 10:00 Attending Physician Molly Moncada DO PCP Molly Moncada DO Referring Physician Date of Admission Sep 07, 2019 at 18:00 Home Medications & Allergies Home Medications Reviewed patient Home Medication Reconciliation performed by pharmacy medication reconciliations staging technician and/or nursing. Patients Allergies have been reviewed. Allergies Allergies Coded Allergies No Known Drug Allergies (Unverified03/28/10) Past Bpazkdi-Eysszu-Sprflm Hx Past Med/Social Hx: Reviewed Nursing Past Med/Soc Hx, Reviewed and Corrections made Patient Social History Marrital Status: Employed/Student: employed ([employer]) Alcohol Use: Denies Use Recreational Drug Use: No Smoking Status: Never a Smoker 2nd Hand Smoke Exposure: No Physical Abuse Screen: No Sexual Abuse: No Recent Foreign Travel: No Contact w/other who traveled: Yes ([place]) Recent Hopitalizations: No Recent Infectious Disease Expo: No Immunizations Up To Date Date of Pneumonia Vaccine: Sep 07, 2015 Date of Influenza Vaccine: Jun 23, 2017 Seasonal Allergies Seasonal Allergies: Yes Past Medical History Surgeries: Adenoidectomy, Cardiac, CABG, Coronary Stent, Tonsillectomy Currently Using CPAP: No Currently Using BIPAP: No Cardiac: Atrial Fibrillation, Coronary Artery Disease, Heart Attack, Syncope Neurological: Headaches /Migraines Reproductive: No Sexually Transmitted Disease: No HIV/AIDS: No Gastrointestinal: Gastroesophageal Reflux Musculoskeletal: Degenerate Disk Disease, Chronic Back Pain HEENT: Tonsilitis Loss of Vision: Denies Hearing Impairment: Denies Psychosocial: Anxiety Skin/Integumentary: Herpes History of Blood Disorders: No Adverse Reaction to Blood Quinones: No Family History Family history: Diabetes mellitus G8 BROTHER Myocardial infarction 19 FATHER Heart Disease, CAD Under 55 Years Old, Diabetes Review of Systems Constitutional: see HPI Respiratory: cough, dyspnea on exertion Physical Exam Physical Exam Vital Signs Vital Signs - First Documented 09/07/19 18:09 Temp 36.0 Pulse 62 Resp 20 B/P (MAP) 127/85 Pulse Ox 96 O2 Delivery Room Air Capillary Refill : Less Than 3 SecondsLess Than 3 Seconds Height, Weight, BMI Height: 6'2.00" Weight: 204lbs. 0.4oz. [id number]; 25.09 BMI Method:Stated General Appearance: No Apparent Distress, WD/WN, Chronically ill Eyes: Bilateral Eye Normal Inspection, Bilateral Eye PERRL HEENT: PERRL/EOMI, Normal ENT Inspection, Pharynx Normal Neck: Full Range of Motion, Normal Inspection, Non Tender, Supple, Carotid Bruit Respiratory: Chest Non Tender, Lungs Clear, Normal Breath Sounds, No Accessory Muscle Use, No Respiratory Distress, Decreased Breath Sounds Cardiovascular: Regular Rate, Rhythm, No Edema, No Gallop, No JVD, No Murmur, Normal Peripheral Pulses Gastrointestinal: Normal Bowel Sounds, No Organomegaly, No Pulsatile Mass, Non Tender, Soft Back: Normal Inspection, No CVA Tenderness, No Vertebral Tenderness Extremity: Normal Capillary Refill, Normal Inspection, Normal Range of Motion, Non Tender, No Calf Tenderness, No Pedal Edema Neurologic/Psychiatric: Alert, Oriented x3, No Motor/Sensory Deficits, Normal Mood/Affect Skin: Normal Color, Warm/Dry Lymphatic: No Adenopathy Results Results/Procedures Labs Laboratory Tests 09/07/19 18:30 09/08/19 04:35 Patient resulted labs reviewed. Short Stay Diagnosis Discharge Diagnosis-Short Stay Admission Diagnosis Assessment: Dyspnea with cough failed outpatient abx and steroids x 2 Angina Known CAD previous CABG with stents placed PAF OAC HTN HLP Plan: Monitor closely Appreciate Tanisha Mtz Final Discharge Diagnosis Assessment: Dyspnea with cough failed outpatient abx and steroids x 2 Angina Known CAD previous CABG with stents placed PAF OAC HTN HLP Plan: Monitor closely Appreciate Tanisha Mtz Conclusion Plan Assessment: Dyspnea with cough failed outpatient abx and steroids x 2 Angina Known CAD previous CABG with stents placed PAF OAC HTN HLP Plan: Monitor closely Appreciate Tanisha Mtz Diagnosis/Problems Diagnosis/Problems (1) Dyspnea Status: Acute (2) Wheezing (3) Hx of CABG Status: Chronic (4) Status post placement of stent in right coronary artery Status: Chronic (5) Degenerative joint disease (DJD) of lumbar spine Status: Chronic (6) Episodic atrial fibrillation Status: Chronic (7) Hx of coronary artery disease Status: Chronic (8) Hypertension Status: Chronic (9) Hypercholesteremia Status: Chronic (10) Anxiety Status: Chronic Clinical Quality Measures DVT/VTE Risk/Contraindication: Risk Factor Score Per Nursin RFS Level Per Nursing on Admit: 3=High Contraindications-Pharm: Other *list below* Other: he is on OAC MOLLY MONCADA DO Sep 08, 2019 11:44
--- NOTE | 2019-09-08 13:10 | Consultation-Cardiology ---
HPI-Cardiology Cardiology Consultation Date of Consultation 09/08/19 Date of Admission Time Seen by Provider: 13:05 Indication: Shortness of breath HPI 64-year-old gentleman with extensive Cardec history, coronary artery disease, hypertension, has been suffering from upper respiratory tract infection with cough and increasing shortness of breath for the past few days, admitted and started on steroids. This morning got more short of breath and lightheaded with short walk. Girard his heart racing. No chest pain. No syncope, noted to have trace pedal edema Home Medications & Allergies Allergies: Coded Allergies: No Known Drug Allergies (Unverified , 03/28/10) Home Medication List Reviewed: Yes TFV-Ehqphs-Typrlc Hx Patient Social History Marital Status: Employed/Student: employed Alcohol Use: Denies Use Recreational Drug Use: No Smoking Status: Never a Smoker 2nd Hand Smoke Exposure: No Recent Foreign Travel: No Recent Infectious Disease Expo: No Recent Hopitalizations: No Physical Abuse Screen: No Sexual Abuse: No Immunizations Up To Date Date of Pneumonia Vaccine: Sep 07, 2015 Date of Influenza Vaccine: Jun 23, 2017 Past Medical History Discussed below Family Medical History Significant Family History: Heart Disease, CAD Under 55 Years Old, Diabetes Family History: Family history: Diabetes mellitus G8 BROTHER Myocardial infarction 19 FATHER Review of Systems-General Review of Systems Constitutional: no symptoms reported, see HPI EENTM: see HPI, no symptoms reported Respiratory: see HPI, cough, dyspnea on exertion; No hemoptysis, No orthopnea, No phlegm, No short of breath, No stridor, No wheezing, No other Cardiovascular: see HPI, chest pain; No edema, No Hx of Intervention, No palpitations, No syncope, No vascular heart diseas, No other Gastrointestinal: no symptoms reported, see HPI Genitourinary: no symptoms reported, see HPI Musculoskeletal: no symptoms reported, see HPI Skin: no symptoms reported, see HPI Psychiatric/Neurological: No Symptoms Reported, See HPI Reviewed Test Results Reviewed Test Results Lab Laboratory Tests Test 09/07/19 18:30 09/08/19 04:21 09/08/19 04:35 09/08/19 12:05 Range/Units White Blood Count 8.1 7.4 4.3-11.0 10^3/uL Red Blood Count 4.88 5.11 4.35-5.85 10^6/uL Hemoglobin 14.5 15.3 13.3-17.7 G/DL Hematocrit 45 46 40-54 % Mean Corpuscular Volume 92 90 80-99 FL Mean Corpuscular Hemoglobin 30 30 25-34 PG Mean Corpuscular Hemoglobin Concent 32 33 32-36 G/DL Red Cell Distribution Width 14.3 14.2 10.0-14.5 % Platelet Count 238 247 130-400 10^3/uL Mean Platelet Volume 8.6 8.5 7.4-10.4 FL Neutrophils (%) (Auto) 67 90 H 42-75 % Lymphocytes (%) (Auto) 20 10 L 12-44 % Monocytes (%) (Auto) 10 1 0-12 % Eosinophils (%) (Auto) 3 0 0-10 % Basophils (%) (Auto) 0 0 0-10 % Neutrophils # (Auto) 5.4 6.6 1.8-7.8 X 10^3 Lymphocytes # (Auto) 1.6 0.7 L 1.0-4.0 X 10^3 Monocytes # (Auto) 0.8 0.0 0.0-1.0 X 10^3 Eosinophils # (Auto) 0.3 0.0 0.0-0.3 10^3/uL Basophils # (Auto) 0.0 0.0 0.0-0.1 10^3/uL Sodium Level 141 140 135-145 MMOL/L Potassium Level 3.6 4.2 3.6-5.0 MMOL/L Chloride Level 108 H 108 H 98-107 MMOL/L Carbon Dioxide Level 23 22 21-32 MMOL/L Anion Gap 10 10 5-14 MMOL/L Blood Urea Nitrogen 16 16 7-18 MG/DL Creatinine 1.07 1.01 0.60-1.30 MG/DL Estimat Glomerular Filtration Rate > 60 > 60 BUN/Creatinine Ratio 15 16 Glucose Level 132 H 158 H 70-105 MG/DL Lactic Acid Level 1.18 0.50-2.00 MMOL/L Calcium Level 8.3 L 8.2 L 8.5-10.1 MG/DL Corrected Calcium 8.6 8.5 8.5-10.1 MG/DL Total Bilirubin 0.4 0.7 0.1-1.0 MG/DL Aspartate Amino Transf (AST/SGOT) 12 13 5-34 U/L Alanine Aminotransferase (ALT/SGPT) 18 16 0-55 U/L Alkaline Phosphatase 62 65 40-136 U/L Total Protein 5.7 L 6.0 L 6.4-8.2 GM/DL Albumin 3.6 3.6 3.2-4.5 GM/DL Neutrophils % (Manual) 90 % Lymphocytes % (Manual) 9 % Monocytes % (Manual) 1 % D-Dimer <= 0.27 0.00-0.49 UG/ML Troponin I < 0.028 <0.028 NG/ML B-Type Natriuretic Peptide 41.1 <100.0 PG/ML Physical Exam Physical Exam Vital Signs Vital Signs - First Documented 09/07/19 18:09 Temp 36.0 Pulse 62 Resp 20 B/P (MAP) 127/85 Pulse Ox 96 O2 Delivery Room Air Capillary Refill : Less Than 3 SecondsLess Than 3 Seconds Height, Weight, BMI Height: 6'2.00" Weight: 204lbs. 0.4oz. 92.165566mv; 25.09 BMI Method:Stated General Appearance: No Apparent Distress, WD/WN Eyes: Bilateral Eye Normal Inspection, Bilateral Eye PERRL, Bilateral Eye EOMI HEENT: PERRL/EOMI, TMs Normal, Normal ENT Inspection, Pharynx Normal, Moist Mucous Membranes Neck: Full Range of Motion, Normal Inspection, Non Tender, Supple, Carotid Bruit Respiratory: Chest Non Tender, Normal Breath Sounds, No Accessory Muscle Use, No Respiratory Distress Cardiovascular: Regular Rate, Rhythm, No Edema, No Gallop, No JVD, No Murmur, Normal Peripheral Pulses Gastrointestinal: Normal Bowel Sounds, No Organomegaly, No Pulsatile Mass, Non Tender, Soft Back: Normal Inspection, No CVA Tenderness, No Vertebral Tenderness Extremity: Normal Capillary Refill, Normal Inspection, Normal Range of Motion, Non Tender, No Calf Tenderness, No Pedal Edema Neurologic/Psychiatric: Alert, Oriented x3, No Motor/Sensory Deficits, Normal Mood/Affect Skin: Normal Color, Warm/Dry Lymphatic: No Adenopathy A/P-Cardiology Admission Diagnosis Shortness of breath Dizziness and lightheadedness Coronary artery disease Hypertension Assessment/Plan Shortness of breath, upper respiratory tract infection with reactive airway disease, mild hypoxemia, managed by primary care team. Mild dizziness and lightheadedness with exertion. Receiving IV fluid. Continue to monitor Coronary artery disease, multiple intervention. Had 2 stents in the LAD cipher 2.5x8 proximally 2.5x28 Mid. Then had balloon angioplasty for in-stent restenosis, had another stent placed in the LAD by Dr. Blake in 2011. Report of that procedure is not available. In addition patient had a stent to the diagonal artery using Promus to 2.25 X 12 mm. And a stent in the right coronary artery Promus 3.0x18 mm. Recent cardiac catheterization done July 10, 2015 revealing moderate to severe in-stent restenosis in the distal LAD with lesion extending beyond the stent. Successful primary stenting using 2.25 x 12 mm Promus drug-eluting stent deployed distally balloon angioplasty for the in-stent restenosis. Underwent another cardiac catheterization due to recurrent chest pain in June 2016 which showed patent stents in the LAD, diagonal artery and right coronary artery with pesm-kx-lvodvfwn disease, small vessel disease, medical therapy is recommended. Underwent cardiac catheterization on June 26, 2017 after having mildly elevated troponin revealing 60-70 percent stenosis in the mid LAD artery past the distal edge of the distal stent in the LAD. Mid LAD did not exhibit significant in-stent restenosis. Left circumflex had 40 percent stenosis in the first obtuse marginal. RCA had long 75 percent stenosis . Underwent successful stenting using Alpine Xience 3.5 x 38 mm stent with good results. Distal RCA stent was patent. Another cath done on July 09, 2017 with reported stent placement to the LAD by Dr. Freed's group. Unfortunately I do not have that Report available to me at this time. Patient underwent CABG in January 2018 done at [facility] in [place]. Cardiac catheterization done April 2018 revealed occluded vein graft to the right coronary artery with severe stenosis at the distal right coronary artery at the anastomosis point with that vein graft, the proximal stent in the right coronary artery is patent, successful balloon angioplasty then stent deployment using Mary Beth 2.515 mm expanded to 2.77 mm with excellent results, good flow distally. Occluded stent in the mid LAD with patent BURDEN to LAD and vein graft to diagonal artery with good flow distally. Mild to moderate disease at the proximal circumflex artery with patent vein graft to the obtuse marginal branch. Slightly prominent left ventricle with mild diffuse left ventricular hypokinesia more pronounced at the inferior wall with estimated ejection fraction 40 percent. Had cardiac catheterization in April 2018 with stent to the distal right coronary artery with Mary Beth with good results, repeat cardiac catheter in January 2019 with balloon angioplasty for the right coronary artery using emerge 2.5 x 20 mm with good results, had patent BURDEN to LAD and patent vein graft to the diagonal artery with moderate stenosis at the anastomosis point, occluded first obtuse marginal branch and patent vein graft to the marginal branch with good flow distally Repeat cardiac catheterization was done on July 27, 2019, had recurrent severe stenosis in the distal right coronary artery successful balloon angioplasty and deployment of a new stent 2.5 x 15 mm Mary Beth expanded to 2.83 mm with excellent results. Resolution of his symptoms after the stent deployment, patient will be maintained on aspirin, Plavix and Eliquis until October 2019. After that he will continue on Plavix and Eliquis Mild bradycardia, occasional PVCs and ventricular bigeminy, unable to tolerate higher dose of beta blockers, continue to monitor Paroxysmal atrial fibrillation, maintained on Multaq and Eliquis, continue to monitor Hypertension, controlled. Continue to monitor blood pressure/heart rate. Hyperlipidemia, intolerance to simvastatin and Lipitor with leg cramps, tolerating Crestor, continue to monitor Lower extremity cramps and pain, venous study was normal, LEELEE was normal in 2016, most probably the pain is secondary to statin. tolerating Crestor well at this time. Continue to monitor. History of intolerance to isosorbide causing headache Nonobstructive carotid artery stenosis per carotid duplex done June 2017, I will evaluate carotid ultrasound Clinical Quality Measures DVT/VTE Risk/Contraindication: Risk Factor Score Per Nursin RFS Level Per Nursing on Admit: 3=High Contraindications-Pharm: Other *list below* Other: he is on OAC LINA PARIS MD Sep 08, 2019 13:10
--- NOTE | 2019-09-08 13:20 | Diagnostic Imaging Report ---
PROCEDURE: US Venous Lower Ext Wallace. TECHNIQUE: Multiple real-time grayscale images were obtained over the lower extremities in various projections, bilaterally. Additional duplex Doppler and color Doppler images were also obtained. INDICATION: Shortness of breath, swelling COMPARISON: 05/26/2019 FINDINGS: Normal flow, compression, and augmentation within the visualized deep venous structures of the bilateral lower extremities. IMPRESSION: No evidence of a deep venous thrombosis within the bilateral lower extremities. Dictated by: Dictated on workstation # [id number]
--- NOTE | 2019-09-08 14:54 | NUR ---
PATIENT WAS WALKED FOR 6 MIN AND SAT ONLY DROPPED TO 92% Addendum: 09/08/19 at 1454 by ALLYSON SHEN RT Amended: Links added.
--- NOTE | 2019-09-08 16:05 | NUR ---
REPORT RECEIVED FROM ESTRELLA WILLAMS. ASSUMED CARE OF THE PATIENT AT THIS TIME. PATIENT DENIES ANY NEEDS. AT BEDSIDE. WILL CONTINUE TO MONITOR.
[2019-09-08] MEDS: ROSUVASTATIN 10 MG (CRESTOR) TABLET PO SCH (20:30)
[2019-09-08] MEDS: lisINopril 5 MG (PRINIVIL) TABLET PO SCH (20:30)
[2019-09-08] MEDS: ZOLPIDEM 5 MG (AMBIEN) TAB PO SCH (20:30)
[2019-09-09] MEDS: methylPREDNISolone 125 MG (Solu-MEDROL) VIAL IVP SCH ×2 (00:08→05:49)
[2019-09-09] MEDS: PIPERACILLIN/TAZOBACTAM (BULK) 4.5 GM in NS (IVPB) 100 ML IV SCH ×2 (00:08→08:57)
[2019-09-09 04:06] VITALS: BP 119/59
[2019-09-09 06:00] LABS: BASOPHILS % (AUTO) 0 % (0-10); EOSINOPHILS % (AUTO) 0 % (0-10); HEMATOCRIT 39 % (40-54); HEMOGLOBIN 12.8 G/DL (13.3-17.7); LYMPHOCYTES # (AUTO) 0.7 X 10^3 (1.0-4.0); LYMPHOCYTES % (AUTO) 4 % (12-44); MEAN CORPUSCULAR HEMOGLOBIN 30 PG (25-34); MEAN CORPUSCULAR HGB CONC 33 G/DL (32-36); MEAN CORPUSCULAR VOLUME 91 FL (80-99); MEAN PLATELET VOLUME 8.4 FL (7.4-10.4); MONOCYTES # (AUTO) 0.6 X 10^3 (0.0-1.0); MONOCYTES % (AUTO) 4 % (0-12); NEUTROPHILS % (AUTO) 93 % (42-75); PLATELET COUNT 228 10^3/uL (130-400); RED CELL DISTRIBUTION WIDTH 14.1 % (10.0-14.5); WHITE BLOOD COUNT 17.2 10^3/uL (4.3-11.0)
[2019-09-09 06:23] LABS: ALANINE AMINOTRANSFERASE 15 U/L (0-55); ALBUMIN 3.3 GM/DL (3.2-4.5); ALKALINE PHOSPHATASE 53 U/L (40-136); BILIRUBIN,TOTAL 0.3 MG/DL (0.1-1.0); BUN/CREATININE RATIO 18; CALCIUM 7.6 MG/DL (8.5-10.1); CARBON DIOXIDE 19 MMOL/L (21-32); CHLORIDE 111 MMOL/L (98-107); CREATININE SERUM 0.93 MG/DL (0.60-1.30); GFR ESTIMATED > 60; GLUCOSE 171 MG/DL (70-105); POTASSIUM 4.5 MMOL/L (3.6-5.0); SODIUM 138 MMOL/L (135-145); TOTAL PROTEIN 5.1 GM/DL (6.4-8.2)
[2019-09-09 07:08] LABS: LYMPHOCYTES % (MANUAL) 4 %; MONOCYTES % (MANUAL) 4 %; NEUTROPHILS % (MANUAL) 92 %
--- NOTE | 2019-09-09 07:16 | Pulmonary Progress Note ---
Subjective Time Seen by a Provider: 07:10 Subjective/Events-last exam No complications noted. Sepsis Event Evaluation Height, Weight, BMI Height: 6'2.00" Weight: 204lbs. 0.4oz. 92.683969xf; 25.09 BMI Method:Stated Focused Exam Lactate Level 09/07/19 18:30: Lactic Acid Level 1.18 Exam Exam Vital Signs Date Time Temp Pulse Resp B/P (MAP) Pulse Ox O2 Delivery O2 Flow Rate FiO2 09/09/19 04:06 37.2 80 20 119/59 (79) 95 Room Air 09/08/19 23:35 37.1 90 18 137/74 (95) 98 Room Air 09/08/19 21:42 95 Room Air 09/08/19 20:00 Room Air 09/08/19 19:15 37.0 92 16 110/68 (82) 94 Room Air 09/08/19 15:45 37.2 99 18 112/72 (85) 94 Room Air 09/08/19 14:51 95 Room Air 09/08/19 11:47 36.5 67 19 135/78 (97) 94 Room Air 09/08/19 08:24 93 Room Air 09/08/19 08:00 93 Room Air 09/08/19 08:00 36.8 70 18 140/78 (98) 93 Room Air I & O 09/09/19 07:00 Intake Total 3502 ml Balance 3502 ml Height & Weight Height: 6'2.00" Weight: 204lbs. 0.4oz. 92.614651rq; 25.09 BMI Method:Stated General Appearance: No Apparent Distress, WD/WN, Chronically ill HEENT: PERRL/EOMI, Normal ENT Inspection, Pharynx Normal Neck: Full Range of Motion, Normal Inspection, Non Tender, Supple, Carotid Bruit Respiratory: Chest Non Tender, Lungs Clear, Normal Breath Sounds, No Accessory Muscle Use, No Respiratory Distress, Decreased Breath Sounds Cardiovascular: Regular Rate, Rhythm, No Edema, No Gallop, No JVD, No Murmur, Normal Peripheral Pulses Capillary Refill: Less Than 3 Seconds Extremity: Normal Capillary Refill, Normal Inspection, Normal Range of Motion, Non Tender, No Calf Tenderness, No Pedal Edema Neurologic/Psychiatric: Alert, Oriented x3, No Motor/Sensory Deficits, Normal Mood/Affect Skin: Normal Color, Warm/Dry Lymphatic: No Adenopathy Results Lab Laboratory Tests 09/07/19 18:30 09/08/19 04:35 09/09/19 05:54 Assessment/Plan Assessment/Plan Acute bronchitis with probable secondary to respiratory virus -start Advair -Continue SVN -Currently on Solumedrol -Will switch to prednisone taper -Dopplers are negative -CT of chest with contrast is negative -DDimer is negative -BNP is normal -Check out pt PFT CAD with angina -Cardiology following Paroxysmal atrial fibrillation, -Multaq and Eliquis Pt is ok for discharge from pulmonary standpoint with Advair, rescue INH and prednisone taper. CARMELITA FARR DO Sep 09, 2019 07:16
[2019-09-09 08:00] VITALS: BP 117/67
[2019-09-09] MEDS ORDERED: RT-ADVAIR HFA 115/21 MCG PER PUFF IH SCH (08:00)
[2019-09-09] MEDS: RT-ALBUTEROL SULF 2.5 MG/3 ML PRE-MIX VIAL INH SCH ×2 (08:28→13:53)
[2019-09-09] MEDS: AZITHROMYCIN INJECTION 500 MG in NS (IVPB) 250 ML IV SCH (08:57)
[2019-09-09] MEDS: ASPIRIN E.C. 81 MG (ECOTRIN) TAB PO SCH (08:58)
[2019-09-09] MEDS: HYDROCODONE/CHLOR 10MG/5 ML (TUSSIONEX SUSP) 5ML UDC PO SCH (08:58)
[2019-09-09] MEDS: CLOPIDOGREL 75 MG (PLAVIX) TABLET PO SCH (08:59)
[2019-09-09] MEDS: APIXABAN 5 MG (ELIQUIS) TABLET PO SCH (08:59)
[2019-09-09] MEDS: PANTOPRAZOLE 20 MG TABLET (PROTONIX) PO SCH (08:59)
[2019-09-09] MEDS: DRONEDARONE TABLET 400 MG TABLET PO SCH (08:59)
[2019-09-09] MEDS: BENZONATATE 100 MG (TESSALON) CAPSULE PO SCH ×2 (08:59→12:28)
[2019-09-09] MEDS: SENNOSIDES 8.6 MG (SENOKOT) TAB PO SCH (08:59)
[2019-09-09] MEDS ORDERED: predniSONE 10 MG TAB PO SCH (09:00)
[2019-09-09] MEDS: DOCUSATE SODIUM 100 MG (COLACE) CAP PO SCH (09:00)
[2019-09-09] MEDS: NS IV 1000 ML 1,000 ML IV SCH (11:17)
[2019-09-09 12:00] VITALS: BP 119/67
[2019-09-09] MEDS ORDERED: HYDR473S61 PO (14:44)
[2019-09-09] MEDS ORDERED: PRD10T PO (14:44)
--- NOTE | 2019-09-09 14:52 | Progress Note ---
Progress Note patient has completed 3 days of Zithromax 500 mg a day and is being discharged on Tussionex and prednisone taper. The patient is doing well and anxious to be discharged MATTHEW LEWIS MD Sep 09, 2019 14:52
[2019-09-09 15:12] VITALS: BP 119/67
--- NOTE | 2019-09-09 16:31 | Cardiology Progress Note ---
Cardiology SOAP Progress Note Subjective: No cardiac complaints. Objective: I&O/Vital Signs 09/09/19 09/09/19 09/09/19 09/09/19 08:00 08:00 08:30 12:00 Temp 36.6 36.6 Pulse 69 77 Resp 20 18 B/P (MAP) 117/67 (84) 119/67 (84) Pulse Ox 94 95 95 95 O2 Delivery Room Air Room Air Room Air Room Air 09/09/19 09/09/19 13:53 15:12 Temp 36.6 Pulse 77 Resp 18 B/P (MAP) 119/67 Pulse Ox 98 98 O2 Delivery Room Air Room Air 09/09/19 00:00 Intake Total 3182 ml Balance 3182 ml Weight (Pounds): 204 Weight (Ounces): 0.4 Weight (Calculated Kilograms): 92.581570 Constitutional: AAO x 3 Respiratory: chest is bilaterally symmetric, lungs clear to auscultation Cardiovascular: regular rate-rhythm, S1 and S2 Gastrointestional: soft, audible bowel sounds Extremities: normal range of motion, non-tender, normal inspection, no lower extremity edema bilateral Neurologic/Psychiatric: no motor/sensory deficits, alert, normal mood/affect, oriented x 3 Skin: normal color, warm/dry Results/Procedures: Labs Laboratory Tests 09/09/19 05:54: White Blood Count 17.2H, Red Blood Count 4.31L, Hemoglobin 12.8L, Hematocrit 39L , Mean Corpuscular Volume 91, Mean Corpuscular Hemoglobin 30, Mean Corpuscular Hemoglobin Concent 33, Red Cell Distribution Width 14.1, Platelet Count 228, Mean Platelet Volume 8.4, Neutrophils (%) (Auto) 93H, Lymphocytes (%) (Auto) 4L, Monocytes (%) (Auto) 4, Eosinophils (%) (Auto) 0, Basophils (%) (Auto) 0, N eutrophils # (Auto) 16.0H, Lymphocytes # (Auto) 0.7L, Monocytes # (Auto) 0.6, Eosinophils # (Auto) 0.0, Basophils # (Auto) 0.0, Neutrophils % (Manual) 92, Lymphocytes % (Manual) 4, Monocytes % (Manual) 4, Sodium Level 138, Potassium Level 4.5, Chloride Level 111H, Carbon Dioxide Level 19L, Anion Gap 8, Blood U [place] Nitrogen 17, Creatinine 0.93, Estimat Glomerular Filtration Rate > 60, BUN/Creatinine Ratio 18, Glucose Level 171H, Calcium Level 7.6L, Corrected Calcium 8.2L, Total Bilirubin 0.3, Aspartate Amino Transf (AST/SGOT) 13, Alanine Aminotransferase (ALT/SGPT) 15, Alkaline Phosphatase 53, Total Protein 5.1L, Albumin 3.3 Microbiology 09/07/19 Blood Culture - Preliminary, Resulted No growth A/P: Assessment/Dx: Shortness of breath Dizziness and lightheadedness Coronary artery disease Hypertension Plan: Shortness of breath, upper respiratory tract infection with reactive airway disease, mild hypoxemia, managed by primary care team. Mild dizziness and lightheadedness with exertion. Receiving IV fluid. Continue to monitor Coronary artery disease, multiple intervention. Had 2 stents in the LAD cipher 2.5x8 proximally 2.5x28 Mid. Then had balloon angioplasty for in-stent restenosis, had another stent placed in the LAD by Dr. Blake in 2011. Report of that procedure is not available. In addition patient had a stent to the diagonal artery using Promus to 2.25 X 12 mm. And a stent in the right coronary artery Promus 3.0x18 mm. Recent cardiac catheterization done July 10, 2015 revealing moderate to severe in-stent restenosis in the distal LAD with lesion extending beyond the stent. Successful primary stenting using 2.25 x 12 mm Promus drug-eluting stent deployed distally balloon angioplasty for the in-stent restenosis. Underwent another cardiac catheterization due to recurrent chest pain in June 2016 which showed patent stents in the LAD, diagonal artery and right coronary artery with [id number] disease, small vessel disease, medical therapy is recommended. Underwent cardiac catheterization on June 26, 2017 after having mildly elevated troponin revealing 60-70 percent stenosis in the mid LAD artery past the distal edge of the distal stent in the LAD. Mid LAD did not exhibit significant in-stent restenosis. Left circumflex had 40 percent stenosis in the first obtuse marginal. RCA had long 75 percent stenosis. Underwent successful stenting using Alpine Xience 3.5 x 38 mm stent with good results. Distal RCA stent was patent. Another cath done on July 09, 2017 with reported stent placement to the LAD by Dr. Freed's group. Unfortunately I do not have that Report available to me at this time. Patient underwent CABG in January 2018 done at [facility] in [place]. Cardiac catheterization done April 2018 revealed occluded vein graft to the right coronary artery with severe stenosis at the distal right coronary artery at the anastomosis point with that vein graft, the proximal stent in the right coronary artery is patent, successful balloon angioplasty then stent deployment using Mary Beth 2.515 mm expanded to 2.77 mm with excellent results, good flow distally. Occluded stent in the mid LAD with patent BURDEN to LAD and vein graft to diagonal artery with good flow distally. Mild to moderate disease at the proximal circumflex artery with patent vein graft to the obtuse marginal branch. Slightly prominent left ventricle with mild diffuse left ventricular hypokinesia more pronounced at the inferior wall with estimated ejection fraction 40 percent. Had cardiac catheterization in April 2018 with stent to the distal right co ronary artery with Mary Beth with good results, repeat cardiac catheter in January 2019 with balloon angioplasty for the right coronary artery using emerge 2.5 x 20 mm with good results, had patent BURDEN to LAD and patent vein graft to the diagonal artery with moderate stenosis at the anastomosis point, occluded first obtuse marginal branch and patent vein graft to the marginal branch with good flow distally Repeat cardiac catheterization was done on July 27, 2019, had recurrent severe stenosis in the distal right coronary artery successful balloon angioplasty and deployment of a new stent 2.5 x 15 mm Mary Beth expanded to 2.83 mm with excellent results. Resolution of his symptoms after the stent deployment, patient will be maintained on aspirin, Plavix and Eliquis until October 2019. After that he will continue on Plavix and Eliquis Mild bradycardia, occasional PVCs and ventricular bigeminy, unable to tolerate higher dose of beta blockers, continue to monitor Paroxysmal atrial fibrillation, maintained on Multaq and Eliquis, continue to monitor Hypertension, controlled. Continue to monitor blood pressure/heart rate. Hyperlipidemia, intolerance to simvastatin and Lipitor with leg cramps, tolerating Crestor, continue to monitor Lower extremity cramps and pain, venous study was normal, LEELEE was normal in 2017, most probably the pain is secondary to statin. tolerating Crestor well at this time. Continue to monitor. History of intolerance to isosorbide causing headache Nonobstructive carotid artery stenosis per carotid duplex done June 2017, I will evaluate carotid ultrasound Thank you for your consultation. Please call me if you have any questions. Deja Stephens MD, FACP, FACC, FSCAI, FHRS, CCDS Interventional Cardiology Cardiac Electrophysiology Vascular Medicine and Endovascular Interventions Focused Exam Lactate Level 09/07/19 18:30: Lactic Acid Level 1.18 Bi STEPHENS MD Sep 09, 2019 16:31
== END 2019-09-09 15:20 | disposition home or self-care (01) ==
LOC: 4TH 18:00
PROVIDERS: ADMIT Internal Medicine; ATTEND Internal Medicine
DX: J06.9 Acute upper respiratory infection, unspecified (principal); J20.9 Acute bronchitis, unspecified; I25.119 Atherosclerotic heart disease of native coronary artery with unspecified angina pectoris; I48.0 Paroxysmal atrial fibrillation; I10 Essential (primary) hypertension; E78.5 Hyperlipidemia, unspecified; E78.00 Pure hypercholesterolemia, unspecified; F41.9 Anxiety disorder, unspecified; M47.816 Spondylosis without myelopathy or radiculopathy, lumbar region; E86.0 Dehydration; R55 Syncope and collapse; I25.2 Old myocardial infarction; K21.9 Gastro-esophageal reflux disease without esophagitis; M54.9 Dorsalgia, unspecified; B00.1 Herpesviral vesicular dermatitis; R06.02 Shortness of breath; R42 Dizziness and giddiness; R09.02 Hypoxemia; J45.909 Unspecified asthma, uncomplicated; R00.1 Bradycardia, unspecified; I65.29 Occlusion and stenosis of unspecified carotid artery; R25.2 Cramp and spasm; Z95.1 Presence of aortocoronary bypass graft; Z95.5 Presence of coronary angioplasty implant and graft; Z79.01 Long term (current) use of anticoagulants; Z79.899 Other long term (current) drug therapy
CPT/HCPCS: 36415; 71260; 80053; 83036; 83605; 83880; 84484; 85007; 85025; 85027; 85379; 86738; 87040; 93306; 93970; 94640; 94761

== ENCOUNTER 2019-09-13 12:33 | Emergency (ER) | payer BC ==
[~2019-09-13] VITALS: Ht 188 cm; Wt 88.6 kg
[~2019-09-13 12:33] MED LIST changes: +FLUT1BLS8 PO; +GUAI-813 PO; +HYDR473S61 PO; +NIAC500T9 PO; +PRD10T PO
[2019-09-13 12:49] LABS: BASOPHILS % (AUTO) 0 % (0-10); EOSINOPHILS % (AUTO) 0 % (0-10); HEMATOCRIT 53 % (40-54); HEMOGLOBIN 17.3 G/DL (13.3-17.7); LYMPHOCYTES # (AUTO) 1.1 X 10^3 (1.0-4.0); LYMPHOCYTES % (AUTO) 8 % (12-44); MEAN CORPUSCULAR HEMOGLOBIN 30 PG (25-34); MEAN CORPUSCULAR HGB CONC 33 G/DL (32-36); MEAN CORPUSCULAR VOLUME 90 FL (80-99); MEAN PLATELET VOLUME 8.7 FL (7.4-10.4); MONOCYTES # (AUTO) 0.5 X 10^3 (0.0-1.0); MONOCYTES % (AUTO) 4 % (0-12); NEUTROPHILS # (AUTO) 11.9 X 10^3 (1.8-7.8); NEUTROPHILS % (AUTO) 88 % (42-75); PLATELET COUNT 259 10^3/uL (130-400); RED CELL DISTRIBUTION WIDTH 14.5 % (10.0-14.5); WHITE BLOOD COUNT 13.6 10^3/uL (4.3-11.0)
--- NOTE | 2019-09-13 12:50 | ED Chest Pain ---
General Chief Complaint: Chest Pain Stated Complaint: CHEST PAIN Source: patient Exam Limitations: no limitations History of Present Illness Date Seen by Provider: Sep 13, 2019 Time Seen by Provider: 12:38 Initial Comments To ER by POV with c/o chest pain. This began about 30 minutes ago while at a meeting at work. Described as chest tightness, had some nausea and lightheadedness. Checked his pulse and found it to be irregular stating it felt as though every third beat was missing. He took a nitro sublingual with complete resolution of symptoms. Now, he just feels anxious he states. Recent history of URI tx with antibiotic and prednisone which he is still on. Hx of CAD with recent cardiac cath about a month ago. He had his daily aspiring, plavix, multaq and Eliquis. 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 SL STAFF ATTORNEY: Yes Associated Symptoms: nausea/vomiting Allergies and Home Medications Allergies Coded Allergies: No Known Drug Allergies (Unverified , 03/28/10) Home Medications Acetaminophen 500 Mg Tablet, 500-1,000 MG PO Q6H PRN for PAIN-MILD, (Reported) Acetaminophen/Diphenhydramine 1 Each Tablet, 2 TAB PO HS PRN for SLEEP, (Reported) Alirocumab 75 Mg/1 Ml Pen.injctr, 75 MG SC EVERY 2 WEEKS, (Reported) Apixaban 5 Mg Tablet, 5 MG PO BID, (Reported) Aspirin 81 Mg Tablet.dr, 81 MG PO DAILY, (Reported) Clopidogrel Bisulfate 75 Mg Tablet, 75 MG PO DAILY, (Reported) Dronedarone HCl 400 Mg Tablet, 400 MG PO BID, (Reported) Fluticasone Propion/Salmeterol 1 Each Blst.w.dev, 1 PUFF PO BID, (Reported) Guaifenesin/Codeine Phosphate 118 Ml Liquid, 5 ML PO Q4H PRN for COUGH, (Repo rted) Hydrocodone/Chlorphen P-Stirex 473 Ml Melinda.er.12h, 5 ML PO Q12HR Prescribed by: MATTHEW LEWIS on 09/09/19 1444 Lisinopril 2.5 Mg Tablet, 2.5 MG PO HS, (Reported) Niacin 500 Mg Tablet, 500 MG PO DAILY, (Reported) Nitroglycerin 0.4 Mg Tab.subl, 0.4 MG SL UD PRN for CHEST PAIN (ANGINA), (Reported) Pantoprazole Sodium 20 Mg Tablet.dr, 20 MG PO DAILY, (Reported) Prednisone 10 Mg Tab, 60 MG PO DAILY Prescribed by: MATTHEW LEWIS on 09/09/19 1444 Rosuvastatin Calcium 10 Mg Tablet, 10 MG PO HS, (Reported) Zolpidem Tartrate 10 Mg Tablet, 10 MG PO HS PRN for SLEEP, (Reported) LAST FILLED 05-12-19 #30 Patient Home Medication List Home Medication List Reviewed: Yes Review of Systems Review of Systems Constitutional: see HPI EENTM: No Symptoms Reported Respiratory: No Symptoms Reported Cardiovascular: See HPI, Chest Pain Gastrointestinal: See HPI, Nausea Genitourinary: No Symptoms Reported Musculoskeletal: no symptoms reported Skin: no symptoms reported Psychiatric/Neurological: No Symptoms Reported Endocrine: No Symptoms Reported Hematologic/Lymphatic: No Symptoms Reported Past Qliqsqw-Hlconk-Hclgzt Hx Patient Social History 2nd Hand Smoke Exposure: No Recent Hopitalizations: No Immunizations Up To Date Date of Pneumonia Vaccine: Sep 07, 2015 Date of Influenza Vaccine: Jun 23, 2017 Seasonal Allergies Seasonal Allergies: Yes Past Medical History Surgeries: Yes Adenoidectomy, Cardiac, CABG, Coronary Stent, Tonsillectomy Respiratory: No Currently Using CPAP: No Currently Using BIPAP: No Cardiac: Yes (stent, quadrouple bypass) Atrial Fibrillation, Coronary Artery Disease, Heart Attack, Syncope 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) Headaches /Migraines Reproductive Disorders: No Sexually Transmitted Disease: No HIV/AIDS: No Genitourinary: No Gastrointestinal: Yes Gastroesophageal Reflux Musculoskeletal: Yes Degenerate Disk Disease, Chronic Back Pain Endocrine: No HEENT: No (T&A) Tonsilitis Loss of Vision: Denies Hearing Impairment: Denies Cancer: No Psychosocial: Yes Anxiety Integumentary: Yes (Cold sores) Herpes Blood Disorders: No Adverse Reaction/Blood Tranf: No Family Medical History Family history: Diabetes mellitus G8 BROTHER Myocardial infarction 19 FATHER Heart Disease, CAD Under 55 Years Old, Diabetes Physical Exam Vital Signs Vital Signs - First Documented 09/13/19 12:38 Temp 36.5 Pulse 82 Resp 22 B/P (MAP) 148/96 (113) Pulse Ox 98 O2 Delivery Room Air Capillary Refill : Height, Weight, BMI Height: 6'2.00" Weight: 204lbs. 0.4oz. 92.010203as; 25.09 BMI Method:Stated General Appearance: No Apparent Distress, WD/WN Neck: Full Range of Motion, Normal Inspection Respiratory: Lungs Clear, Normal Breath Sounds, No Accessory Muscle Use, No Respiratory Distress Cardiovascular: Regular Rate, Rhythm, Normal Peripheral Pulses Gastrointestinal: Normal Bowel Sounds, Non Tender Extremity: Normal Capillary Refill, Normal Inspection Neurologic/Psychiatric: Alert, Oriented x3 Skin: Normal Color Progress/Results/Core Measures Results/Orders Lab Results Laboratory Tests Test 09/13/19 12:40 09/13/19 14:45 Range/Units White Blood Count 13.6 H 4.3-11.0 10^3/uL Red Blood Count 5.83 4.35-5.85 10^6/uL Hemoglobin 17.3 # 13.3-17.7 G/DL Hematocrit 53 40-54 % Mean Corpuscular Volume 90 80-99 FL Mean Corpuscular Hemoglobin 30 25-34 PG Mean Corpuscular Hemoglobin Concent 33 32-36 G/DL Red Cell Distribution Width 14.5 10.0-14.5 % Platelet Count 259 130-400 10^3/uL Mean Platelet Volume 8.7 7.4-10.4 FL Neutrophils (%) (Auto) 88 H 42-75 % Lymphocytes (%) (Auto) 8 L 12-44 % Monocytes (%) (Auto) 4 0-12 % Eosinophils (%) (Auto) 0 0-10 % Basophils (%) (Auto) 0 0-10 % Neutrophils # (Auto) 11.9 H 1.8-7.8 X 10^3 Lymphocytes # (Auto) 1.1 1.0-4.0 X 10^3 Monocytes # (Auto) 0.5 0.0-1.0 X 10^3 Eosinophils # (Auto) 0.0 0.0-0.3 10^3/uL Basophils # (Auto) 0.0 0.0-0.1 10^3/uL Neutrophils % (Manual) 88 % Lymphocytes % (Manual) 8 % Monocytes % (Manual) 2 % Eosinophils % (Manual) 0 % Basophils % (Manual) 0 % Band Neutrophils 1 % Reactive Lymphocytes 1 % Toxic Granulation 1+ Blood Morphology Comment NORMAL Prothrombin Time 13.9 12.2-14.7 SEC INR Comment 1.0 0.8-1.4 Activated Partial Thromboplast Time 26 24-35 SEC Sodium Level 141 135-145 MMOL/L Potassium Level 4.2 3.6-5.0 MMOL/L Chloride Level 103 98-107 MMOL/L Carbon Dioxide Level 24 21-32 MMOL/L Anion Gap 14 5-14 MMOL/L Blood Urea Nitrogen 18 7-18 MG/DL Creatinine 1.34 H 0.60-1.30 MG/DL Estimat Glomerular Filtration Rate 54 BUN/Creatinine Ratio 13 Glucose Level 141 H 70-105 MG/DL Calcium Level 9.5 8.5-10.1 MG/DL Corrected Calcium 9.1 8.5-10.1 MG/DL Magnesium Level 2.1 1.6-2.4 MG/DL Total Bilirubin 0.5 0.1-1.0 MG/DL Aspartate Amino Transf (AST/SGOT) 15 5-34 U/L Alanine Aminotransferase (ALT/SGPT) 29 0-55 U/L Alkaline Phosphatase 95 40-136 U/L Myoglobin 27.7 10.0-92.0 NG/ML Troponin I < 0.028 < 0.028 <0.028 NG/ML B-Type Natriuretic Peptide 23.3 <100.0 PG/ML Total Protein 7.3 6.4-8.2 GM/DL Albumin 4.5 3.2-4.5 GM/DL My Orders Orders - ABRAHAN DONIS RESIDENT CARE AIDE Cbc With Automated Diff (09/13/19 12:42) Magnesium (09/13/19 12:42) Chest 1 View, Ap/Pa Only (09/13/19 12:42) Ekg Tracing (09/13/19 12:42) Comprehensive Metabolic Panel (09/13/19 12:42) Myoglobin Serum (09/13/19 12:42) Protime With Inr (09/13/19 12:42) Partial Thromboplastin Time (09/13/19 12:42) O2 (09/13/19 12:42) Monitor-Rhythm Ecg Trace Only (09/13/19 12:42) Ed Iv/Invasive Line Start (09/13/19 12:42) BNP (09/13/19 12:42) Troponin I (09/13/19 12:42) Manual Differential (09/13/19 12:40) Ns Iv 1000 Ml (Sodium Chloride 0.9%) (09/13/19 13:15) Troponin I (09/13/19 14:32) Vital Signs/I&O 09/13/19 09/13/19 09/13/19 12:38 12:50 15:39 Temp 36.5 36.5 Pulse 82 65 Resp 22 18 B/P (MAP) 148/96 (113) 110/76 (113) Pulse Ox 98 98 O2 Delivery Room Air Room Air Room Air Diagnostic Imaging Diagonstic Imaging: Xray Plain Films/CT/US/NM/MRI: chest Comments NAME: JOSE TORRES [facility] REC#: [id number] PT STATUS: REG ER : 1955 PHYSICIAN: ABRAHAN DONIS APRN ADMIT DATE: 09/13/19/ER Draft Date of Exam:09/13/19 CHEST 1 VIEW, AP/PA ONLY INDICATION: Feeling flush and like heart skipping a beat. FINDINGS: Right diaphragm is elevated unchanged. Loop recorder projects over the left chest unchanged. Heart size is within normal limits. The lungs are clear. No failure, effusion, or pneumothorax. IMPRESSION: Unchanged from 09/06/2019, no acute-appearing abnormality. Dictated on workstation # [id number] Dict: 09/13/19 1318 Trans: 09/13/19 1324 [id number] Interpreted by: VANDANA RAI Electronically signed by: Departure Communication (Admissions) [id number]-he remains pain-free his EKG is without ST segment changes troponin is negative. Vitals are stable. He is receiving a liter of normal saline. Spoke with Dr. Walton, he like to repeat a troponin either in the emergency room and discharge or admit for observation. I discussed with the patient, he's been admitted quite a bit lately and would prefer to stay out of the hospital. HERE in the emergency room, repeat a troponin at the 2 hour linda and discharge home if symptom-free and normal troponin at the two-hour linda. Impression Primary Impression: Chest pain Qualified Codes: R07.9 - Chest pain, unspecified Additional Impression: Coronary artery disease Disposition: HOME, SELF-CARE Condition: Stable Departure-Patient Inst. Decision time for Depature: 15:26 Referrals: LEAH MONCADA DO (PCP/Family) Primary Care Physician Patient Instructions: Chest Pain Add. Discharge Instructions: 1. Return to ER for any concerns 2. Call Dr. Walton's office to make an appointment for follow-up as soon as he can schedule you in. All discharge instructions reviewed with patient and/or family. Voiced understanding. Copy Copies To 1: LEAH MONCADA DO; LINA WALTON MD, PETER J APRN Sep 13, 2019 12:50
[2019-09-13 12:58] LABS: PROTHROMBIN TIME PATIENT 13.9 SEC (12.2-14.7)
[2019-09-13 13:05] LABS: ALBUMIN 4.5 GM/DL (3.2-4.5); BILIRUBIN,TOTAL 0.5 MG/DL (0.1-1.0); CALCIUM 9.5 MG/DL (8.5-10.1); CREATININE SERUM 1.34 MG/DL (0.60-1.30); MAGNESIUM 2.1 MG/DL (1.6-2.4); POTASSIUM 4.2 MMOL/L (3.6-5.0); TOTAL PROTEIN 7.3 GM/DL (6.4-8.2)
[2019-09-13] MEDS ORDERED: NS IV 1000 ML 1,000 ML IV SCH (13:15)
--- NOTE | 2019-09-13 13:24 | Diagnostic Imaging Report ---
INDICATION: Feeling flush and like heart skipping a beat. FINDINGS: Right diaphragm is elevated unchanged. Loop recorder projects over the left chest unchanged. Heart size is within normal limits. The lungs are clear. No failure, effusion, or pneumothorax. IMPRESSION: Unchanged from 09/06/2019, no acute-appearing abnormality. Dictated by: Dictated on workstation # [id number]
[2019-09-13 13:58] LABS: BAND NEUTROPHILS 1 %; BASOPHILS % (MANUAL) 0 %; EOSINOPHILS % (MANUAL) 0 %; LYMPHOCYTES % (MANUAL) 8 %; MONOCYTES % (MANUAL) 2 %; NEUTROPHILS % (MANUAL) 88 %; RBC MORPH NORMAL; REACTIVE LYMPHOCYTES 1 %
[2019-09-13 13:59] LABS: TOXIC GRANULATION/VACUOLAZATIO 1+
[2019-09-13 15:39] VITALS: BP 110/76
== END 2019-09-13 15:39 | disposition home or self-care (01) ==
LOC: EDUNIT# 12:33 → ER 12:34
DX: I25.10 Atherosclerotic heart disease of native coronary artery without angina pectoris (principal); I25.2 Old myocardial infarction; I48.91 Unspecified atrial fibrillation; G43.909 Migraine, unspecified, not intractable, without status migrainosus; K21.9 Gastro-esophageal reflux disease without esophagitis; F41.9 Anxiety disorder, unspecified; Z79.01 Long term (current) use of anticoagulants; Z79.02 Long term (current) use of antithrombotics/antiplatelets; Z79.82 Long term (current) use of aspirin; Z79.51 Long term (current) use of inhaled steroids; Z90.89 Acquired absence of other organs; Z95.1 Presence of aortocoronary bypass graft; Z95.5 Presence of coronary angioplasty implant and graft; Z82.49 Family history of ischemic heart disease and other diseases of the circulatory system
CPT/HCPCS: 36415; 71045; 80053; 83735; 83874; 83880; 84484; 85007; 85027; 85610; 85730; 93005; 93041